=== PATIENT | female | born 1975 ===

== ENCOUNTER 2025-01-12 22:31 | Inpatient (IN) | payer OTHER, SELFPAY ==
[2025-01-12 22:40] VITALS: BMI 40.0
[2025-01-12 22:42] VITALS: BP 164/99
[2025-01-12 22:56] VITALS: BP 148/98
[2025-01-12 23:33] LABS: Glucose - Point of Care 256 mg/dl (70-99)
[2025-01-12 23:46] LABS: HCG, Urine Qualitative Screen Negative
[2025-01-12 23:58] LABS: Urine Character Clear (Clear)
[2025-01-13] VITALS (7 sets, daily range): BP systolic 147–159; BP diastolic 77–98; PULSE 80–91; O2SAT 99; BMI 40.0
--- NOTE | 2025-01-13 01:45 | PTCARENOTE ---
Pt admitted to room 2251 @ 2240 as direct adm from HR. AAOx3, able to walk from stretcher to bed with assist x1 with walker, R sided weakness with steady gait. No facial asymmetry noted, swollen lips d/t testing/endoscopy done at previous hospital,
eyes equal and reactive to light. Slow speech, however no aphasia or slurring noted. Swallow test done and able to tolerate thin liquids without coughing, no difficulty with swallowing. Neuro checks completed and NIH score 4 r/t R sided weakness.
Blood sugar 256, 10 units of novolog given stat as per construction rigger CT PA orders. Allergies and home meds documented, admission questioner completed. Hx of sleep apnea with CPap, pt refused to wear Cpap tonight, O2 applied at 2L via NC. Pt oriented to
room and call light, family friends staying overnight with pt.
[2025-01-13] MEDS: NOVOLOG FLEXPEN 10 UNITS SC (02:20)
[2025-01-13 04:47] LABS: Hematocrit 38.7 % (37.0-47.0); Hemoglobin 13.1 g/dL (12.0-16.0); Mean Corp Hgb Conc. 33.9 g/dL (33.0-37.0); Mean Corpuscular Volume 87.0 fL (81.0-99.0); Platelet Count 244 10^3/uL (130-400); Red Cell Dist. Width 13.4 % (11.5-14.5)
[2025-01-13 05:19] LABS: ALT (SGPT) 31 U/L (0-35); AST (SGOT) 17 U/L (14-36); Albumin 3.6 g/dl (3.5-5.0); Alkaline Phosphatase 137 U/L (38-126); Blood Urea Nitrogen 19 mg/dl (7-17); Calcium 9.8 mg/dl (8.4-10.2); Carbon Dioxide 25 mmol/L (22-30); Chloride 103 mmol/L (98-107); Estimated Creatinine Clearance 117 ml/min; Glucose 406 mg/dl (70-99); HDL Cholesterol 47 mg/dl; LDL Cholesterol, Calculated 44 mg/dl; Magnesium 1.7 mg/dl (1.6-2.3); Potassium 4.0 mmol/L (3.5-5.1); Sodium 136 mmol/L (135-145); Total Protein 6.8 g/dl (6.3-8.2); Very Low Density Lipoprotein 21 mg/dl (0-30); eGFR > 60.00
[2025-01-13 06:38] LABS: Glucose - Point of Care 325 mg/dl (70-99)
[2025-01-13] MEDS: NOVOLOG FLEXPEN-MODERATE RESISTANCE 7 UNITS SC (07:54)
[2025-01-13] MEDS: ASPIR LOW (ENTERIC COATED) 81 MG PO (07:54)
[2025-01-13] MEDS: GLUCOPHAGE PO ×2 (07:54→09:00)
[2025-01-13] MEDS: MAGNESIUM OXIDE 400 MG PO ×2 (07:54→21:18)
[2025-01-13] MEDS: PROTONIX 40 MG PO (07:55)
[2025-01-13 09:40] LABS: Glycohemoglobin (HgbA1c) 11.2 % (4.0-5.9)
--- NOTE | 2025-01-13 10:18 | CON.NEURO ---
Consultation
Order
Date of Consultation: 01/13/25
Requesting Provider: Tammy Walters CRNP
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
Neurology Consultation Note.
HPI: This is a 49-year-old woman who transferred to [facility] from [facility] on 01/12/2025. According to the patient on 01/11/2024 if she developed gibberish and nonsensical speech. Wednesday night, she developed
pain in her left foot that progressed to her leg, followed by numbness on her right side. She was subsequently hospitalized at [facility]. Ms. Almaraz did have dental work in November,. BP on admission was 203/113 mmHg.
Currently, the patient reports persistent weakness on her right side. This weakness significantly impacts her daily functioning, as she cannot open bottles, hold a cup of coffee, or comb her hair with her right hand. She is now using a walker.
Ms. Turner was not was not taking baby aspirin prior to her stroke.
ER VS: 164/99, 94-108, afebrile
Telemetry�normal sinus rhythm
EKG:
PDMP: No recently prescribed medication
Labs: Normal CBC, sodium, creatinine, hemoglobin A1c�11.2, LDL�44.
CTA�no hemodynamically significant stenosis.
Brain MRI -multiple acute infarcts in the left cerebellar hemisphere, left occipital lobe, left parietal lobe, left periventricular white matter.
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
PMH: HTN, DLP, Vitamin D deficiency, polyneuropathy, DIDI not on CPAP, BMI 40, medication nonadherence
PSH: D&C, , right bunionectomy
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
FH: Father had a stroke at the age of 39, non-smoker, no history excess alcohol
All: Iodine, penicillin, gabapentin, ciprofloxacin, amoxicillin, codeine
ROS: Musculoskeletal: Positive for right-sided weakness affecting ability to open bottles, hold cups, and comb hair.
Neurological: Positive for tingling in feet (not currently present), negative for current numbness or vibration sensation in feet.
General: Well developed. In no acute distress.
Cardio: Regular rate and rhythm without murmur. Extremities are without cyanosis or edema.
Neuro:
Mental Status: Alert, oriented to person, place, and date. Normal attention and recall. Good fund of knowledge. Follows complex requests across the midline. Comprehension, naming, and repetition intact.
Cranial Nerves: Pupils are equally round and reactive to light. EOMs full. Visual levine full to confrontation. No ptosis. No nystagmus. V1-V3 intact to light touch and pinprick bilaterally, symmetric. Face symmetric. Normal hearing AU. The
palate elevated well. SCMs and traps 5/5. Tongue midline. No dysarthria.
Motor: Right pronator drift (right elbow antigravity). Right hemiparesis.
Reflexes: Deferred exam due to positioning.
Sensory: Absent vibration at the toes and reduced at the ankle
Coordination: Was related dysmetria on the right.
Gait: deferred
Assessment and Plan:
I. Bihemispheric acute stroke. Likely etiology�cardioembolism.
II. DM, uncontrolled.
III. Nonadherence
IV. DIDI, not on CPAP.
-Continue Telemetry monitoring
- Fall precautions
-Blood pressure goal�normotension
-LDL goal less than 70, hemoglobin A1c goal less than 7.
-Diabetic education nurse
-Continue aspirin 81 mg once a day for secondary stroke prophylaxis
-Please follow-up blood cultures
-PT.
-Cardiology follow-up
-DVT prophylaxis.
-Outpatient neurology follow-up
-Please recall neurology service with any questions or concerns.
I personally reviewed all radiology and labs along with past medical records pertinent to current medical problems. Total time spent in patient care is 63 minutes.
Thank you for allowing us to participate in the care of this patient. Please do not hesitate to contact us with any questions or concerns.
Subjective/Objective
Subjective Data
Date of Service: January 13, 2025
Objective Data
Vital Signs
Temp Pulse Resp BP Pulse Ox
36.6 C 86 20 149/86 97
01/13/25 07:55 01/13/25 08:30 01/13/25 07:55 01/13/25 07:53 01/13/25 07:55
Lab Results
01/13/25 04:34
01/13/25 04:34
PT Cancelled 01/12/25 17:13
INR Cancelled 01/12/25 17:13
APTT Cancelled 01/12/25 17:13
Sodium 136 mmol/L (135-145) 01/13/25 04:34
Potassium 4.0 mmol/L (3.5-5.1) 01/13/25 04:34
BUN 19 mg/dl (7-17) H 01/13/25 04:34
Glucose 406 mg/dl (70-99) H 01/13/25 04:34
Calcium 9.8 mg/dl (8.4-10.2) 01/13/25 04:34
LDL Cholesterol, Calc 44 mg/dl 01/13/25 04:34
Patient Allergies
codeine Allergy (Unknown, Verified 01/12/25 23:56)
Rash
latex Allergy (Unknown, Verified 01/12/25 23:58)
Unknown
amoxicillin Allergy (Verified 01/12/25 23:58)
Rash
ciprofloxacin (From Cipro) Allergy (Verified 01/13/25 00:34)
Rash
gabapentin Allergy (Verified 01/12/25 23:58)
Itching
Iodinated Contrast Media Allergy (Verified 01/12/25 23:58)
Unknown
Penicillins Allergy (Verified 01/12/25 23:58)
Rash
Medications
-
Active Medications
Generic Name Dose Route Start Last Admin
Trade Name Freq PRN Reason Stop Dose Admin
Acetaminophen 650 mg 01/12/25 14:54
Acetaminophen 325 Mg Tablet PO 02/09/25 14:53
Q4HPRN PRN
mild pain/BREWER/temp> 100.4F
Albuterol/Ipratropium 3 ml 01/12/25 14:54
Ipratropium 0.5/Albuterol 3 Mg (3 Ml Ampul) INH
R Q4HPRN PRN
shortness of breath
Protocol
Aspirin 81 mg 01/13/25 08:00 01/13/25 07:54
Aspirin 81 Mg (Enteric Coated) Tablet PO 02/10/25 07:59 81 mg
DAILY SHAWANDA Administration
Bisacodyl 10 mg 01/12/25 14:54
Bisacodyl 10 Mg Rectal Suppository RECTAL 02/09/25 14:53
[id number] PRN
constipation
Dextrose 12.5 grams 01/13/25 00:56
Dextrose 50% (0.5 Grams/Ml) 50 Ml Syringe IV 02/10/25 00:55
[id number] PRN
hypoglycemia
Protocol
Glucagon 1 mg 01/13/25 00:56
Glucagon 1 Mg Vial IM 02/10/25 00:55
PRN PRN
hypoglycemia
Protocol
Insulin Glargine 20 units/ 0.2 mls @ 0 mls/hr 01/13/25 22:00
Device SC 02/10/25 21:59
HS SHAWANDA
As Directed
Insulin Aspart 0 units 01/13/25 07:30 01/13/25 07:54
Insulin Aspart Moderate Resistance 300 Units/3 Ml Pen.Injctr SC 02/10/25 07:29 7 units
AC SHAWANDA Administration
Protocol
Insulin Aspart 12 units 01/13/25 11:30
Insulin Aspart (Novolog) 100 Units/Ml 3 Ml Flexpen SC 02/10/25 11:29
AC SHAWANDA
Magnesium Oxide 400 mg 01/13/25 08:00 01/13/25 07:54
Magnesium Oxide 400 Mg Tablet PO 01/15/25 20:01 400 mg
BID SHAWANDA Administration
Metformin HCl 1,000 mg 01/13/25 08:00
Metformin 1000 Mg Regular Release Tablet PO 02/10/25 07:59
BID@0800,1700 SHAWANDA
Ondansetron HCl 4 mg 01/12/25 14:54
Ondansetron 4 Mg/2 Ml Vial IV 02/09/25 14:53
Q6HPRN PRN
nausea and vomiting
Pantoprazole Sodium 40 mg 01/13/25 08:00 01/13/25 07:55
Pantoprazole 40 Mg Delayed Release Tablet PO 02/10/25 07:59 40 mg
DAILY SHAWANDA Administration
Polyethylene Glycol 17 grams 01/12/25 14:54
Polyethylene Glycol Powder 17 Grams Packet PO 02/09/25 14:53
DAILYPRN PRN
constipation
Senna/Docusate Sodium 1 tablet 01/12/25 14:54
Docusate W/Senna (Angelica-Colace) Tablet PO 02/09/25 14:53
BIDPRN PRN
constipation
Sodium Chloride 0 flush 01/13/25 02:00
Sodium Chloride 0.9% (Flush) Syringe IV 02/10/25 01:59
PER PROTOCOL SHAWANDA
Home Medications
�Medication �Instructions �Recorded
chlorthalidone 25 mg tablet 25 mg PO DAILY 01/13/25
ergocalciferol (vitamin D2) 1,250 1,250 mcg PO QWEEK 01/13/25
mcg (50,000 unit) capsule (Vitamin
D2)
fluconazole 150 mg tablet 150 mg PO DAILY 01/13/25
insulin aspart U-100 100 unit/mL 20 unit SC TID 01/13/25
(3 mL) subcutaneous pen
insulin glulisine U-100 100 70 unit SC QPM 01/13/25
unit/mL subcutaneous solution
ketorolac 10 mg tablet 10 mg PO Q6H PRN pain 01/13/25
lidocaine 5 % topical patch 1 patch topical DAILY 01/13/25
losartan 100 mg tablet 100 mg PO DAILY 01/13/25
lovastatin 20 mg tablet 20 mg PO QPM 01/13/25
metformin 500 mg tablet,extended 1,000 mg PO BID 01/13/25
release 24hr (osmotic)
metoprolol succinate 100 mg 100 mg PO DAILY 01/13/25
tablet,extended release 24 hr
spironolactone 50 mg tablet 50 mg PO DAILY 01/13/25
Vital Signs and Labs
-
Vital Signs and Labs:
Vital Signs
Temp Pulse Resp BP Pulse Ox
36.6 C 86 20 149/86 97
01/13/25 07:55 01/13/25 08:30 01/13/25 07:55 01/13/25 07:53 01/13/25 07:55
Lab Results
01/13/25 04:34
01/13/25 04:34
PT Cancelled 01/12/25 17:13
INR Cancelled 01/12/25 17:13
APTT Cancelled 01/12/25 17:13
Sodium 136 mmol/L (135-145) 01/13/25 04:34
Potassium 4.0 mmol/L (3.5-5.1) 01/13/25 04:34
BUN 19 mg/dl (7-17) H 01/13/25 04:34
Glucose 406 mg/dl (70-99) H 01/13/25 04:34
Calcium 9.8 mg/dl (8.4-10.2) 01/13/25 04:34
LDL Cholesterol, Calc 44 mg/dl 01/13/25 04:34
Medications
-
Medications:
Generic Name Dose Route Start Last Admin
Trade Name Freq PRN Reason Stop Dose Admin
Acetaminophen 650 mg 01/12/25 14:54
Acetaminophen 325 Mg Tablet PO 02/09/25 14:53
Q4HPRN PRN
mild pain/BREWER/temp> 100.4F
Albuterol/Ipratropium 3 ml 01/12/25 14:54
Ipratropium 0.5/Albuterol 3 Mg (3 Ml Ampul) INH
R Q4HPRN PRN
shortness of breath
Protocol
Aspirin 81 mg 01/13/25 08:00 01/13/25 07:54
Aspirin 81 Mg (Enteric Coated) Tablet PO 02/10/25 07:59 81 mg
DAILY SHAWANDA Administration
Bisacodyl 10 mg 01/12/25 14:54
Bisacodyl 10 Mg Rectal Suppository RECTAL 02/09/25 14:53
[id number] PRN
constipation
Dextrose 12.5 grams 01/13/25 00:56
Dextrose 50% (0.5 Grams/Ml) 50 Ml Syringe IV 02/10/25 00:55
[id number] PRN
hypoglycemia
Protocol
Glucagon 1 mg 01/13/25 00:56
Glucagon 1 Mg Vial IM 02/10/25 00:55
PRN PRN
hypoglycemia
Protocol
Insulin Glargine 20 units/ 0.2 mls @ 0 mls/hr 01/13/25 22:00
Device SC 02/10/25 21:59
HS SHAWANDA
As Directed
Insulin Aspart 0 units 01/13/25 07:30 01/13/25 07:54
Insulin Aspart Moderate Resistance 300 Units/3 Ml Pen.Injctr SC 02/10/25 07:29 7 units
AC SHAWANDA Administration
Protocol
Insulin Aspart 12 units 01/13/25 11:30
Insulin Aspart (Novolog) 100 Units/Ml 3 Ml Flexpen SC 02/10/25 11:29
AC SHAWANDA
Magnesium Oxide 400 mg 01/13/25 08:00 01/13/25 07:54
Magnesium Oxide 400 Mg Tablet PO 01/15/25 20:01 400 mg
BID SHAWANDA Administration
Metformin HCl 1,000 mg 01/13/25 08:00
Metformin 1000 Mg Regular Release Tablet PO 02/10/25 07:59
BID@0800,1700 SHAWANDA
Ondansetron HCl 4 mg 01/12/25 14:54
Ondansetron 4 Mg/2 Ml Vial IV 02/09/25 14:53
Q6HPRN PRN
nausea and vomiting
Pantoprazole Sodium 40 mg 01/13/25 08:00 01/13/25 07:55
Pantoprazole 40 Mg Delayed Release Tablet PO 02/10/25 07:59 40 mg
DAILY SHAWANDA Administration
Polyethylene Glycol 17 grams 01/12/25 14:54
Polyethylene Glycol Powder 17 Grams Packet PO 02/09/25 14:53
DAILYPRN PRN
constipation
Senna/Docusate Sodium 1 tablet 01/12/25 14:54
Docusate W/Senna (Angelica-Colace) Tablet PO 02/09/25 14:53
BIDPRN PRN
constipation
Sodium Chloride 0 flush 01/13/25 02:00
Sodium Chloride 0.9% (Flush) Syringe IV 02/10/25 01:59
PER PROTOCOL SHAWANDA
Home Medications
-
Home Medications
chlorthalidone 25 mg tablet 25 mg PO DAILY 01/13/25
ergocalciferol (vitamin D2) 1,250 mcg (50,000 unit) capsule (Vitamin D2) 1,250 mcg PO QWEEK 01/13/25
fluconazole 150 mg tablet 150 mg PO DAILY 01/13/25
insulin aspart U-100 100 unit/mL (3 mL) subcutaneous pen 20 unit SC TID 01/13/25
insulin glulisine U-100 100 unit/mL subcutaneous solution 70 unit SC QPM 01/13/25
ketorolac 10 mg tablet 10 mg PO Q6H PRN pain 01/13/25
lidocaine 5 % topical patch 1 patch topical DAILY 01/13/25
losartan 100 mg tablet 100 mg PO DAILY 01/13/25
lovastatin 20 mg tablet 20 mg PO QPM 01/13/25
metformin 500 mg tablet,extended release 24hr (osmotic) 1,000 mg PO BID 01/13/25
metoprolol succinate 100 mg tablet,extended release 24 hr 100 mg PO DAILY 01/13/25
spironolactone 50 mg tablet 50 mg PO DAILY 01/13/25
--- NOTE | 2025-01-13 10:48 | HPS.HSE ---
Family Physician
-
Family Physician: Dacia Baum
Chief Complaint
-
transfer for mitral valve surgery evaluation
History of Present Illness
49-year-old female with past medical history significant for type 2 diabetes with neuropathy, obstructive sleep apnea, hypertension, class III obesity, initially presented to [facility] on the evening of 01/10/2025 with
progressive fatigue since 01/08 and new left foot pain with 'mild' frontal headache and sudden onset of right sided weakness on 01/10/25. Blood pressure in the emergency room was documented as 203/[address] of the head was negative
however MRI of the brain on 01/11 reported acute multiple infarcts in the left cerebellar, occipital, and parietal regions. A LAURA was performed on 01/11 for source of the embolic CVA with noted EF of 60-65%, normal RV size and function, trace
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 Blood cultures reportedly sent at [facility] and patient transferred to [facility]
for further evaluation and consideration of mitral valve surgery. Last dental examination was approximately 1 month ago and patient reports has intermittent pain/bleeding from top right molar. Denies fever, chills
Pertinent negatives: Denies dysphagia, vison disturbance, chest surgery/radiation, gastric bypass, liver issues, LE vein stripping, DVT/PE, cancers
Medical History
Past Medical History
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
Past Surgical History: Reports (and D&C after miscarriage; right bunionectomy)
Social History
Tobacco: Non-smoker
Alcohol: None
Drug: None
Personal:
Living: With Family
Employment: Not Employed
Family History
Family History: Other (F-CVA age 39, age 58)
Allergies / Home Medications
Allergies reflects when Allergies were last updated in [facility].
Home Medications with original date entered in [facility]
Allergy/Medication List:
Allergies
Allergy/AdvReac Type Severity Reaction Status Date / Time
codeine Allergy Unknown Rash Verified 01/12/25 23:56
latex Allergy Unknown Unknown Verified 01/12/25 23:58
amoxicillin Allergy Rash Verified 01/12/25 23:58
ciprofloxacin (From Cipro) Allergy Rash Verified 01/13/25 00:34
gabapentin Allergy Itching Verified 01/12/25 23:58
Iodinated Contrast Media Allergy Unknown Verified 01/12/25 23:58
Penicillins Allergy Rash Verified 01/12/25 23:58
Home Medications
�Medication �Instructions �Recorded
chlorthalidone 25 mg tablet 25 mg PO DAILY 01/13/25
ergocalciferol (vitamin D2) 1,250 1,250 mcg PO QWEEK 01/13/25
mcg (50,000 unit) capsule (Vitamin
D2)
fluconazole 150 mg tablet 150 mg PO DAILY 01/13/25
insulin aspart U-100 100 unit/mL 20 unit SC TID 01/13/25
(3 mL) subcutaneous pen
insulin glulisine U-100 100 70 unit SC QPM 01/13/25
unit/mL subcutaneous solution
ketorolac 10 mg tablet 10 mg PO Q6H PRN pain 01/13/25
lidocaine 5 % topical patch 1 patch topical DAILY 01/13/25
losartan 100 mg tablet 100 mg PO DAILY 01/13/25
lovastatin 20 mg tablet 20 mg PO QPM 01/13/25
metformin 500 mg tablet,extended 1,000 mg PO BID 01/13/25
release 24hr (osmotic)
metoprolol succinate 100 mg 100 mg PO DAILY 01/13/25
tablet,extended release 24 hr
spironolactone 50 mg tablet 50 mg PO DAILY 01/13/25
Review of Systems
-
History Source: Patient
Constitutional: Reports No Symptoms
EENT: Reports Other (R top molar intermittent pain/bleeding since dental cleaning 1 month ago)
Respiratory: Reports No Symptoms
Cardiac: Reports No Symptoms
Abdomen/GI: Reports No Symptoms
: Reports No Symptoms
Musculoskeletal: Reports No Symptoms
Skin: Reports No Symptoms
Neurological: Reports Weakness (+4/5 RUE/RLE strength)
Endocrine: Reports No Symptoms
Hematologic/Lymphatic: Reports No Symptoms
Psych: Reports No Symptoms
Physical Exam
Vital Signs
Vital Signs
Temp Pulse Resp BP Pulse Ox
97.9 F 86 20 149/86 97
01/13/25 07:55 01/13/25 08:30 01/13/25 07:55 01/13/25 07:53 01/13/25 07:55
Physical Exam
General: Well Developed, Well Nourished, No Apparent Distress, Comfortable and Conversant
HEENT: NormoCephalic, Anicteric, Moist mucous membranes, Good Dentition, PERRLA, [place] Conjunctivae, Nose Appears Normal, Ears Appear Normal and Neck Nontender
Respiratory: Clear
Cardiac: S1/S2 and Regular Rhythm
Breast: Deferred by me
GI: Soft, Non Tender and Normal Bowel Sounds
Rectal: Deferred by Provider
Genito-urinary: Deferred by me
Musculoskeletal: No Clubbing, No Cyanosis and No Edema
Skin: Warm and Dry
Neuro: AO x 3 and Other (+4/5 RUE/RLE strength)
Hematologic/Lymphatic: No Lymphadenopathy
Psych: Calm and Intact Judgment/Insight
Laboratory Results
-
01/13/25 04:34
01/13/25 04:34
Laboratory Results
PT Cancelled 01/12/25 17:13
INR Cancelled 01/12/25 17:13
APTT Cancelled 01/12/25 17:13
Total Bilirubin 0.3 mg/dl (0.2-1.3) 01/13/25 04:34
AST 17 U/L (14-36) 01/13/25 04:34
ALT 31 U/L (0-35) 01/13/25 04:34
Alkaline Phosphatase 137 U/L (38-126) H 01/13/25 04:34
Data Reviewed
-
Diagnostic Radiology: Report Reviewed by me and Discussed with Physician
CT Scan: Report Reviewed by me and Discussed with Physician
MRI: Report Reviewed by me and Discussed with Physician
Medical Tests (Nuc Med, Echo, EKG etc): Report Reviewed by me and Discussed with Physician
Lab Data: Labs Reviewed by me and Discussed with Physician
Old Records: Reviewed
Impression/Plan
-
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
regurgitation and preserved EF (60-65%)
PLAN:
# Embolic CVA
- Neurology/hospitalist consult for pre-op clearance and recommendations for further stroke prevention
- check lipid panel
- speech therapy evaluation to assess swallow function
- PT/OT evaluation/treatment
- check repeat CT head (noncontrast d/t iodine contrast allergy) for hemorrhagic conversion
- continue statin
# Mitral valve mass
- cardiology consult
- check echo/ poss left heart cath
- Infectious disease consult
- repeat blood cultures ordered
- Panelipse
- Dr. Vizcarra to review diagnostics>possible surgery on Wednesday
- urine HCG negative
# T2DM on insulin (A1C 11.2)
- diabetes HEALTH EVALUATOR consult
- continue insulin/MFM with sliding scale
- 1800 nevin DM diet once cleared by speech
# HTN
- hold losartan in preparation for surgery
- continue beta manohar
--- NOTE | 2025-01-13 10:48 | CON.ID ---
Addendum entered and electronically signed by Heydi Kim MD 01/13/25 11:47:
correction to physical exam: weakness in on patients right side still 4+ strength
Original Note:
Consultation
-
Date/Time Consultation Requested: 01/13/25 9:48
Date/Time Consultation Performed: 01/13/25 10:51
Requesting Provider: Romeo BARTH
Performing Provider: Dr Kim
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
Chief Complaint / Past History
Chief Complaint
strokes
History of Present Illness
Ms Almaraz is a 49 year old feamle with history notable for DM2, class III obesity who presented to [facility] for right upper and lower extremity weakness. Symptoms first began wednesday and wednesday when she felt tired and noticed mild
slurring of her speech. The Wednesday she noted severe pain in the left foot and leg and then she developed weakness in her right hand and foot. She had difficulty ambulating and using her hand. Had a headache. She presented to the ER and her
blood pressure was notably 203/113. She has a history of uncontrolled blood pressure despite being on 4 medications for blood pressure. No lightheadness, palpitations or syncope. Never had a stroke or a TIA. Denies fevers, chills, dizziness,
chest pain, palpitations, shortness of breath, cough, abdominal pain, nausea, vomiting, diarrhea, and dysuria. No unintentional weight loss. She does report about two weeks of night sweats and flushing.
While at [facility] a CTA brain neck and carotids: marked limited due to motion, no proximal large vessel occlusion, CT head: no acute intracranial pathology, MRI brain: multiple acute infarcts in the L cerebellar hemisphere, L occipital
lobe, left parietal lobe and left periventricular white matter, TTE: normal heart valves, LAURA: mass on the mitral valve: fibroelastoma vs cardiac myxema vs vegetation, valves otherwise normal. I did not see blood cultures listed as one of the
studies that was obtained.
Since arrival here she has been afebrile, bp stable, wbc 6.5, no differential done, a1c 11.2, cr 0.6, blood cultures x2 are ordered but have not yet been obtained. CXR no acute CP process.
Past History
Additional Past Medical History:
DM
DIDI
peripheral neuropathy
obesity
HTN
Additional Past Surgical History:
uterine polyp removal
C section
d&c
Allergy History:
codeine Allergy (Unknown, Verified 01/12/25 23:56)
Rash
latex Allergy (Unknown, Verified 01/12/25 23:58)
Unknown
amoxicillin Allergy (Verified 01/12/25 23:58)
Rash
ciprofloxacin (From Cipro) Allergy (Verified 01/13/25 00:34)
Rash
gabapentin Allergy (Verified 01/12/25 23:58)
Itching
Iodinated Contrast Media Allergy (Verified 01/12/25 23:58)
Unknown
Penicillins Allergy (Verified 01/12/25 23:58)
Rash
Medications Reviewed: Yes
Social History
Tobacco: Non-Smoker
Alcohol: None
Drug: None
Family History
Family History: Other (early cardiac disease)
Review of Systems
Review of Systems
General: Negative Fever or Chills
All systems: All other systems were reviewed and were negative
Vital Signs
Temp Pulse Resp BP Pulse Ox
97.9 F 86 20 149/86 97
01/13/25 07:55 01/13/25 08:30 01/13/25 07:55 01/13/25 07:53 01/13/25 07:55
Physical Exam
Physical Exam
Constitutional: No Acute Distress
Cardiovascular: Regular Rate and S1/S2; Negative Murmur or Rub
Pulmonary: Clear and Symmetric; Negative Wheezes, Rales or Rhonchi
Gastrointestinal: Soft, Non Tender, Non Distended and Normal Bowel Sounds
Extremities: Other (no osler nodes); Negative Splinter Hemorrhage or [place] Lesions
Skin: Warm and Dry; Negative Rash or Jaundice
Neurological: Other (weakness of the left arm 4+ strength, and left leg 4+ strength)
Lab / Diagnostic Study Results
01/13/25 04:34
01/13/25 04:34
PT Cancelled 01/12/25 17:13
INR Cancelled 01/12/25 17:13
Microbiology Results
Micro:
01/12/25 23:22 MRSA Screen - Pending
Nose
Assessment / Plan
Embolic CVAs
Possible endocarditis
Reported allergy to penicillin/amoxicillin and ciprofloxacin
- mass seen on the mitral valve, overall favor noninfectious etiologies
- blood cultures must be collected prior to starting antibiotics - communicated with nursing staff
- start vancomycin and ceftriaxone while awaiting blood culture results
- will follow up CT surgery plans - if valve is resected please send for culture
- follow fever curve
- follow clinically
--- NOTE | 2025-01-13 11:42 | PHA.VAN.IN ---
Assessment
- Assessment
Renal Function: Unknown baseline
Maximum Temperature: 98.6
Concomitant Antimicrobials: ceftriaxone
AUC Dosing Plan
- Dosing Variables
Dosing Weight (kg): 96
Dosing CrCl (ml/min): 100
Vd coefficient (L/kg): 0.6
- Empiric Dosing
Initial / Loading Dose: vancomycin 2000 mg x 1
Maintenance Regimen: vancomycin 1250 mg Q12H
Estimated AUC (mcg*h/mL): 529
Estimated Peak (mcg*h/mL): 33.4
Estimated Trough (mcg/ml): 13.3
Estimated Half Life (H): 7.9
- Monitoring
No levels ordered at this time: consider levels in next few days
Pharmacokinetics Vancomycin I
- -
Patient Age: 49
Patient Sex: Female
Vancomycin Day #: 1
Indication: Bacteremia
Requesting Provider: Dr. Kim
Pertinent Antimicrobial Allergies:
amoxicillin, ciprofloxacin
Height / Weight:
Height 5 ft 1 in
Actual Weight 96 kg
IBW in k.8
Adjusted BW in k.1
- Vital Signs / Lab Results
Temp Pulse Resp BP Pulse Ox
97.9 F 86 20 149/86 97
01/13/25 07:55 01/13/25 08:30 01/13/25 07:55 01/13/25 07:53 01/13/25 07:55
Lab Results - Hematology
01/12/25 01/13/25
17:13 04:34
WBC Cancelled 6.5
Lab Results - Chemistry
01/12/25 01/13/25
17:13 04:34
BUN Cancelled 19 H
Creatinine Cancelled 0.6
Estimated Creat Clear Cancelled 117
Albumin Cancelled 3.6
Lab Results - Urine
01/12/25
23:34
Urine Nitrite (Reflex) Negative
Leukocyte Esterase Rfl Negative
--- NOTE | 2025-01-13 11:43 | CON.CAR ---
Addendum entered and electronically signed by Vance Clifton MD 01/13/25 14:36:
I saw and evaluated the patient, and I provided the substantive portion of the medical decision making.
I reviewed and agree with the note by Ms Myles and it accurately reflects our care.
I personally performed the medical decision making of the this encounter and my assessment and plan is below:
MV mass
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
- LAURA Wednesday
- ID consult
HTN
- restart BP meds
Original Note:
Consultation
Consultation Request
Date/Time Consultation Requested: 01/13/2025 0800
Date/Time Consultation Performed: 01/13/2025 1130
Requesting Provider: Dr. Vizcarra
Performing Provider: Dr. Clifton
Reason for Consultation: endocarditis
Medical History
-
Chief Complaint: elevated BP, R side weakness
History of Present Illness:
49-year-old patient who presented to [facility] with a history of asthma, DIDI with history of CPAP use not currently using secondary to insurance issues, peripheral neuropathy, hypertension who presented to [facility] emergency room with
right-sided weakness elevated blood pressure. MRI of the brain with multiple acute infarcts in the L cerebellar hemisphere, L occipital lobe, left parietal lobe and left periventricular white matter, Pt had LAURA with mitral valve mass and
transferred to [place] for further evaluation.
Past Medical History
Past Medical History: Other (DM, HTN, hyperlipidemia, DIDI,neuropathy)
Past Surgical History: Other (, uterine polyp)
Social History
Tobacco: Non-Smoker
Alcohol: None
Family History
Family History: Early CAD
Allergies / Home Medications
Allergy/AdvReac Type Severity Reaction Status Date / Time
codeine Allergy Unknown Rash Verified 01/12/25 23:56
latex Allergy Unknown Unknown Verified 01/12/25 23:58
amoxicillin Allergy Rash Verified 01/12/25 23:58
ciprofloxacin (From Cipro) Allergy Rash Verified 01/13/25 00:34
gabapentin Allergy Itching Verified 01/12/25 23:58
Iodinated Contrast Media Allergy Unknown Verified 01/12/25 23:58
Penicillins Allergy Rash Verified 01/12/25 23:58
�Medication �Instructions �Recorded �Confirmed �Type
chlorthalidone 25 mg tablet 25 mg PO DAILY 01/13/25 01/13/25 History
ergocalciferol (vitamin D2) 1,250 1,250 mcg PO QWEEK 01/13/25 01/13/25 History
mcg (50,000 unit) capsule (Vitamin
D2)
fluconazole 150 mg tablet 150 mg PO DAILY 01/13/25 01/13/25 History
insulin aspart U-100 100 unit/mL 20 unit SC TID 01/13/25 01/13/25 History
(3 mL) subcutaneous pen
insulin glulisine U-100 100 70 unit SC QPM 01/13/25 01/13/25 History
unit/mL subcutaneous solution
ketorolac 10 mg tablet 10 mg PO Q6H PRN pain 01/13/25 01/13/25 History
lidocaine 5 % topical patch 1 patch topical DAILY 01/13/25 01/13/25 History
losartan 100 mg tablet 100 mg PO DAILY 01/13/25 01/13/25 History
lovastatin 20 mg tablet 20 mg PO QPM 01/13/25 01/13/25 History
metformin 500 mg tablet,extended 1,000 mg PO BID 01/13/25 01/13/25 History
release 24hr (osmotic)
metoprolol succinate 100 mg 100 mg PO DAILY 01/13/25 01/13/25 History
tablet,extended release 24 hr
spironolactone 50 mg tablet 50 mg PO DAILY 01/13/25 01/13/25 History
Review of Systems
-
History Source: Patient
Constitutional: Fatigue and Night Sweats
EENT: No Symptoms
Respiratory: No Symptoms
Cardiac: No Symptoms
Abdomen/GI: No Symptoms
Musculoskeletal: No Symptoms
Skin: No Symptoms
Neurological: Weakness (R side )
Hematologic/Lymphatic: No Symptoms
Physical Exam
Vital Signs
Temp Pulse Resp BP Pulse Ox
97.9 F 86 20 149/86 97
01/13/25 07:55 01/13/25 08:30 01/13/25 07:55 01/13/25 07:53 01/13/25 07:55
Lab Results
01/13/25 04:34
01/13/25 04:34
Physical Exam
General: Well Developed, No Apparent Distress and Comfortable
Respiratory: Clear
Cardiac: S1/S2 and Regular Rhythm
Breast: Deferred by me
GI: Soft, Non Tender and Normal Bowel Sounds
Musculoskeletal: No Clubbing, No Cyanosis and No Edema
Skin: Warm and Dry
Neuro: AO x 3
Psych: Calm
Impression / Plan
-
Embolic CVA:
-asa , plavix per neuro [facility] x 21 days then asa
-R side weakness, PT and speech evals
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
-work up in progress
Possible endocarditis:
-await blood cultures
-ID following
-pt notes she had a deep dental cleaning and cyst on R side of mouth about 6 weeks ago
HTN:
- Treated with Aldactone, losartan and metoprolol. Currently on hold until speech eval.
- Permissive BP with recent CVA
hyperlipidemia:
-check lipids, con't statin currently on hold until speech eval
DM:
-chronic medication, insulin
-hgba1c 11.4 at [facility]
Data reviewed:
Echocardiogram 01/11/2025 LV normal size LV function normal EF 60 to 65% RV normal normal mitral valve physiologic mitral valve regurgitation, TV normal, CARMEN structurally normal no evidence of stenosis
-
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
versus cardiac myxema, versus vegetation, AV structurally normal bubble study negative
MR of the brain 01/11/2025 with multiple acute infarcts in the left cerebellar hemisphere left occipital lobe and left parietal lobe and left periventricular white matter
Data Reviewed
-
EKG: Report Reviewed by me (Tele: NSR )
Labs: Labs Reviewed by me, Discussed with Physician and Discussed with Patient
Old Records: Reviewed
Critical Care Time (in minutes): OP records Tha Eisenberg
[2025-01-13 12:33] LABS: Glucose - Point of Care 238 mg/dl (70-99)
[2025-01-13] MEDS: VANCOCIN 540 MG IV (13:37)
[2025-01-13] MEDS: NOVOLOG FLEXPEN-MODERATE RESISTANCE 3 UNITS SC (13:38)
[2025-01-13] MEDS: NOVOLOG FLEXPEN 12 UNITS SC ×2 (13:42→17:26)
--- NOTE | 2025-01-13 13:58 | PTOTSP ---
Speech-Language Therapy Evaluation
Pt seen for bedside swallow evaluation and cognitive-communication assessment. Pt at an elevated risk of aspiration given recent dx of CVA.�Pt managed PO trials with a functional oral phase (adequate mastication, good bolus formation, adequate ap
transfer) and functional pharyngeal phase (appeared to have timely hyolaryngeal elevation upon palpation, no overt s/sx of aspiration, clear vocal quality and denial of globus sensation).�
Due to recent dx of stroke (no speech-language assessment at [facility] prior to transfer to [facility], per pt report), pt participated in [place] Cognitive Assessment - Version 8.1 (MOCA). Pt achieved score of 25/30 (>26 considered normal) yielding
mild cognitive-communicative deficits in recall and visuospatial skills. Pt denied any new cognitive changes. Pt provided with written information regarding stroke and its impact on cognitive-communication skills. Information provided regarding
[facility] outpatient speech services.�
Recommend:
1. IDDSI level 7 Regular Solids, IDDSI level 0 Thin liquids
2. Medication as best tolerated
3. Standard aspiration precautions
4. Pt receptive of education regarding stroke. Speech signing off.
--- NOTE | 2025-01-13 15:03 | CON.HOSP ---
Consultation
-
Date/Time Consultation Requested: 01/13/2025
Date/Time Consultation Performed: 01/13/2025
Requesting Provider: Tammy Walters
Performing Provider: Dr. Manzanares
Reason for Consultation: Surgical clearance
Family Physician
-
Family Physician: Dacia Baum
Chief Complaint
-
Clearance for cardiac surgery
History of Present Illness
Ms Almaraz is a 49-year-old patient with a past medical history of diabetes type 2 uncontrolled, A1c 11.2% (last 13%) DIDI not using CPAP due to insurance issues, diabetic neuropathy, uncontrolled hypertension despite 4 antihypertensives, controlled
asthma, obesity who presented to [facility] emergency room with right-sided weakness elevated blood pressure. She states that weakness started on 01/08 affecting arm and leg and progressively got worse until presentation to ED on 01/10 due to
worsening symptoms. At [facility] patient got CT head which showed no abnormalities, unremarkable CTA, and MRI of the brain with multiple acute infarcts in the L cerebellar hemisphere, L occipital lobe, left parietal lobe and left periventricular
white matter. She also underwent TTE and LAURA with mitral valve mass. She reports having dental work in November 2024 but did not notice any signs of infection no fevers chills nausea vomiting leading up to presentation to [facility]. She was
transferred to [place] for further evaluation. She reports no previous history of DC, or heart failure but does report that she went to the review consultant a while back for swelling in her legs and was giving spironolactone. She reports not
following up with cardiology for further chest and has never been told she had heart failure.
Medical History
Past Medical History
Past Medical History: Reports Asthma (Controlled last inhaler use 1 year ago), CVA, HTN (Uncontrolled on 4 medications), Hypercholesterolemia, IDDM (On Lantus and NovoLog) and Other (Obesity)
Past Surgical History: Reports and Gynocological (D&C)
Social History
Tobacco: Non-smoker
Alcohol: None
Drug: None
Family History
Family History: Other (Cardiac disease)
Allergies / Home Medications
Allergies reflects when Allergies were last updated in [facility].
Home Medications with original date entered in [facility]
Allergy/Medication List:
Codeine, latex, amoxicillin, penicillins, ciprofloxacin, gabapentin, iodine
Review of Systems
-
History Source: Patient
Constitutional: Denies Fever or Chills
EENT: Denies Runny Nose
Respiratory: Denies Cough or Trouble Breathing
Cardiac: Denies Chest Pain or Palpitations
Abdomen/GI: Denies Abdominal Pain, Nausea, Vomiting, Diarrhea or Constipated
Musculoskeletal: Reports No Symptoms
Skin: Reports No Symptoms
Neurological: Reports Headache and Weakness
Physical Exam
Vital Signs
Vital Signs
Temp Pulse Resp BP Pulse Ox
97.2 F 88 18 148/84 100
01/13/25 13:58 01/13/25 13:51 01/13/25 13:58 01/13/25 13:51 01/13/25 13:58
Physical Exam
General: Well Developed, Well Nourished, No Apparent Distress and Comfortable; Negative Fever
HEENT: Normocephalic and PERRLA
Respiratory: Clear and Non Labored Respirations; Negative Wheezes
Cardiac: S1/S2 and Regular Rhythm; Negative Murmur or Peripheral Edema
GI: Soft, Non Tender, Non Distended and Normal Bowel Sounds
Musculoskeletal: No Clubbing and No Edema
Skin: Warm and Dry
Laboratory Results
-
Laboratory Results
01/13/25 04:34
01/13/25 04:34
PT Cancelled 01/12/25 17:13
INR Cancelled 01/12/25 17:13
APTT Cancelled 01/12/25 17:13
Total Bilirubin 0.3 mg/dl (0.2-1.3) 01/13/25 04:34
AST 17 U/L (14-36) 01/13/25 04:34
ALT 31 U/L (0-35) 01/13/25 04:34
Alkaline Phosphatase 137 U/L (38-126) H 01/13/25 04:34
Impression / Plan
-
IMPRESSION:
49 year old with a history of uncontrolled type 2 diabetes, diabetic neuropathy, uncontrolled hypertension, DIDI, obesity transferred from [facility] 01/12/25 after acute embolic left cerebellar, occiput and parietal CVA identified on MRI
with right sided weakness and mitral valve mass and preserved EF (60-65%) transferred to [facility] for cardiac surgery evaluation.
PLAN:
#Preop clearance
Revised cardiac risk index score 3
10% risk of major cardiac event
Patient needs to be cleared by neurology before cardiac procedure
# T2DM, uncontrolled
on insulin (A1C 11.2)
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
- Increase Lantus to 30 units
# CVA
- Secondary prevention per neurology
- PT/OT/ST evaluation/treatment
- continue statin
# Mitral valve mass
Per cardiothoracic team
# HTN, uncontrolled
Essential versus secondary?
Inpatient medications per CT team
Outpatient follow-up for further evaluation between secondary versus essential
DVT prophylaxis: SCDs
CODE STATUS: Full code
--- NOTE | 2025-01-13 15:16 | W.PN.UPDATE ---
Update Note
Progress Note Update
Seen and examined the patient. Agree with the plan formulated by the resident
49-year-old female was admitted to [facility] on 01-08-25 with progressive fatigue and right-sided weakness. Blood pressure was elevated in the ER. MRI on 01/11/2025 showed multiple infarcts in the left cerebellar, occipital and
parietal regions. LAURA showed source of embolic CVA and a mitral valve mass 0.71 into 0.41 cm adherent to the P1 leaflet consistent with fibroelastoma versus myxoma versus vegetation. Patient was transferred to [facility]. We were asked
to evaluate patient by cardiothoracic surgery.
Patient stated that she had dental work in November and received antibiotics at that time but recently had some increased pain on the right side prior to this happening.
[facility]
CTA of the head and neck-limited due to motion. No proximal large vessel occlusion.
CT head-no acute changes
MRI of the brain-multiple acute infarcts in the left cerebellar hemisphere, left occipital lobe, left parietal lobe, left periventricular white matter.
LAURA-mass on the mitral valve, fibroelastoma versus cardiac myxoma versus vegetation
[facility]
CT of the chest at [facility]-no acute findings in the chest. Mild bilateral subsegmental atelectasis. Narrowing of the retrosternal space 4 mm between posterior aspect of the lower sternal body and the right ventricle.
CT of the head to [facility]-hypodensities in the left centrum semiovale and left occipital lobe likely secondary to evolving infarctions. No acute intracranial hemorrhage.
Awake alert oriented
Cardiovascular system S1-S2 appreciated, systolic murmur at apex
Chest clear to auscultation
Abdomen soft and nontender
Mild numbness around the perioral area
4 out of 5 strength right lower extremity, 3 out of 5 strength right upper extremity
I could not elicit any facial droop
# Vegetation on mitral valve
Admitted for CT surgery
RCRI 10 % risk
Patient with recent CVA-get neurology opinion prior to proceeding with surgery.
No blood cultures noted from [facility]
Blood cultures from [facility] pending
Continue vancomycin and ceftriaxone
Infectious disease consulted
# Recent embolic stroke likely secondary to endocarditis
# Diabetes poorly controlled as outpatient with hemoglobin A1c 11.2
Was on 70 units of Glulisine as listed per medications list and also aspart 20 units 3 times daily
Currently on Lantus 30 units and NovoLog 12 AC along with metformin 1000 mg twice daily, Accu-Cheks and sliding scale
Increase as needed according to sugar
# Hypertension-currently on losartan, Aldactone
Patient was on chlorthalidone, spironolactone, metoprolol and losartan as outpatient
# Hyperlipidemia-continue lovastatin
# Peripheral neuropathy-likely secondary to diabetes
# Sleep apnea-continue CPAP
# Obesity with a BMI of 40
# DVT prophylaxis-start Lovenox 40 mg twice daily because of BMI of [address] surgery
# Full code
Thank you for the consultation.
Discussed with family at bedside
Part of this note was created using voice recognition system. Occasional wrong word or��sound alike� substitutions may have inadvertently occurred due to the inherent limitations of voice recognition software. If noted kindly bring it to my
attention for correction.
--- NOTE | 2025-01-13 15:20 | PTCARENOTE ---
Pt receiving Vanco infusion, c/o itching on scalp and ears. No hives noted, no other allergy symptoms. Dr. Kim made aware, infusion rate lowered and benadryl given as ordered.
[2025-01-13] MEDS: BENADRYL 25 MG PO ×2 (15:42→22:35)
[2025-01-13] MEDS: STERILE WATER FOR INJECTION 20 ML IV (17:25)
[2025-01-13] MEDS: ROCEPHIN 2000 MG IV (17:26)
[2025-01-13] MEDS: GLUCOPHAGE 1000 MG PO (17:26)
[2025-01-13] MEDS: LIPITOR 10 MG PO (17:26)
[2025-01-13 17:49] LABS: Glucose - Point of Care 256 mg/dl (70-99)
[2025-01-13] MEDS: TYLENOL 650 MG PO (17:55)
[2025-01-13] MEDS: NOVOLOG FLEXPEN-MODERATE RESISTANCE 5 UNITS SC (17:56)
[2025-01-13] MEDS: VANCOCIN 275 MG IV (21:18)
[2025-01-13 21:32] LABS: Glucose - Point of Care 252 mg/dl (70-99)
[2025-01-13] MEDS: LANTUS 0.3 UNITS SC (21:40)
[2025-01-14] VITALS (16 sets, daily range): BP systolic 123–189; BP diastolic 78–106; PULSE 82–108; O2SAT 98; BMI 40.2
[2025-01-14] MEDS: ROCEPHIN 2000 MG IV ×3 (01:06→23:30)
[2025-01-14] MEDS: STERILE WATER FOR INJECTION 20 ML IV ×3 (01:06→23:31)
--- NOTE | 2025-01-14 01:18 | W.PN.CT ---
Today's Communication / Plan
-
Plan:
-Ongoing preop workup
-Cont. current meds ( ASA, Lipitor, Aldactone, Toprol XL, Metformin, Novolog, Lantus)
-Cont. antibiotics per ID, currently on Vancomycin and Rocephin, f/u blood cultures. C/o pruritus with Vancomycin and refusing
-LHC tomorrow
-Repeat LAURA tomorrow 01/15/25
Assessment / Plan
-
Assessment:
-Suspected Mitral Valve endocarditis
-Recent CVA per MRI 08/11/24 @ [facility] (multiple infarcts involving left cerebellar/parietal, occipital and periventricular white matter)
-HTN (uncontrolled)
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
-HLD
-Class 3 obesity (BMI 40)
-DIDI (not on CPAP @ home d/t insurance issues)
-Uterine polyps S/P D&C
-S/P
Discussed patient care with: Cardiology, Nursing, Respiratory Therapy, Pharmacy and Care Team
Subjective
-
Date of Service: January 14, 2025
Pt c/o indigestion and pruritus with vancomycin
Objective Data
-
PT Cancelled 01/12/25 17:13
INR Cancelled 01/12/25 17:13
APTT Cancelled 01/12/25 17:13
Vital Signs
Vital Signs
Temp Pulse Resp BP Pulse Ox
97.6 F 88 20 148/84 98
01/13/25 22:26 01/13/25 13:51 01/13/25 22:26 01/13/25 13:51 01/13/25 23:17
CT Intake/Output/Weight
01/13/25 01/13/25 01/14/25
06:59 18:59 06:59
Intake Total 240 / 240 480 / 480
Output Total 350 / 350
Balance -110 / -110 480 / 480
SaO2: 98 (RA)
Physical Exam
-
General: Awake, Oriented and AOx3
Cardiovascular: Regular rate & rhythm, No Murmurs, No Rub and No Gallop
Respiratory: Decreased Breath Sounds
Sternum: Stable
Incision: Clean, Dry, Intact and Dressing Intact
Extremities: No Edema
Data Reviewed
-
Lab Results: Results Reviewed
Medications: Active Meds Reviewed
Chest X-Ray: Report Reviewed and Image Reviewed
ECG: Report Reviewed and Image Reviewed
--- NOTE | 2025-01-14 04:02 | PTCARENOTE ---
Assumed care on pt at 1900, aaox3, at bedside and staying overnight. Denied pain,dizziness or SOB. NIH score 3, see documentation on worklist. SR with occ PVC's on the monitor, HR 80's. Pt was unable to complete the full dose of IV
Vancomycin scheduled for 1999, started complaining of 'itchiness all over', despite benadryl PRN administered, only 225cc of 275cc was infused. Also, pt stating 'I don't want this antibiotic anymore, I am itching all over and can't stand it'. On
call CT PA made aware. IV Rocephin administered without any complaints. Pt and spouse updated on POC, call arias within reach.
[2025-01-14 05:29] LABS: B.E. 2.8 mmol/L; HCO3 28.5 mmol/L (21-28); O2 Saturation % 98.9 % (94-98); PCO2 47 mmHg (32-35); PO2 94 mmHg (83-108)
[2025-01-14] MEDS: APRESOLINE 5 MG IV (05:41)
[2025-01-14 06:19] LABS: Hematocrit 37.3 % (37.0-47.0); Hemoglobin 12.4 g/dL (12.0-16.0); Mean Corp Hgb Conc. 33.2 g/dL (33.0-37.0); Mean Corpuscular Volume 86.5 fL (81.0-99.0); Nucleated Red Blood Cells % 0 %; Platelet Count 232 10^3/uL (130-400); Red Cell Dist. Width 13.6 % (11.5-14.5)
[2025-01-14 06:25] LABS: INR 0.95; PT 12.9 Sec (11.4-14.6)
[2025-01-14 06:26] LABS: APTT 28.2 Sec (23.4-35.0)
[2025-01-14 06:28] LABS: ALT (SGPT) 36 U/L (0-35); AST (SGOT) 21 U/L (14-36); Albumin 3.3 g/dl (3.5-5.0); Alkaline Phosphatase 134 U/L (38-126); Blood Urea Nitrogen 14 mg/dl (7-17); Calcium 9.1 mg/dl (8.4-10.2); Carbon Dioxide 30 mmol/L (22-30); Chloride 102 mmol/L (98-107); Estimated Creatinine Clearance 117 ml/min; Glucose 248 mg/dl (70-99); Magnesium 1.5 mg/dl (1.6-2.3); Potassium 3.6 mmol/L (3.5-5.1); Sodium 133 mmol/L (135-145); Total Protein 6.5 g/dl (6.3-8.2); eGFR > 60.00
--- NOTE | 2025-01-14 06:35 | PTCARENOTE ---
Pt woke up c/o chest pressure 6/10 describing it as indigestion, also feeling weak and c/o mid back pain. 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
[2025-01-14] MEDS: NSS (PRESERVATIVE FREE) 8 ML IV (06:48)
[2025-01-14] MEDS: PEPCID 20 MG IV (06:49)
[2025-01-14 08:12] LABS: Glucose - Point of Care 235 mg/dl (70-99)
[2025-01-14] MEDS: MAGNESIUM OXIDE 400 MG PO ×2 (08:53→20:33)
[2025-01-14] MEDS: TOPROL XL 100 MG PO (08:53)
[2025-01-14] MEDS: NOVOLOG FLEXPEN-MODERATE RESISTANCE 3 UNITS SC ×2 (08:53→17:45)
[2025-01-14] MEDS: PROTONIX 40 MG PO (08:54)
[2025-01-14] MEDS: ALDACTONE 50 MG PO (08:54)
[2025-01-14] MEDS: GLUCOPHAGE 1000 MG PO ×2 (08:54→17:44)
[2025-01-14] MEDS: ASPIR LOW (ENTERIC COATED) 81 MG PO (08:54)
[2025-01-14] MEDS: HEPARIN 25000 UNITS/250 ML IV (08:55)
[2025-01-14] MEDS: NOVOLOG FLEXPEN 12 UNITS SC (09:45)
[2025-01-14] MEDS: DESENEX/MITRAZOL/ZEASORB 1 APPLIC TOPICAL ×2 (09:48→20:33)
--- NOTE | 2025-01-14 11:12 | W.PN.HOSP.TC ---
Addendum entered and electronically signed by Kleber Vinson MD 01/14/25 19:00:
Seen and examined the patient with the resident. Agree with the plan set forth by the resident. Please see changes in my documentation
49F Hx uncontrolled type 2 diabetes, diabetic neuropathy, uncontrolled hypertension, DIDI, obesity transferred from [facility] 01/12/25 after acute embolic left cerebellar, occiput and parietal CVA identified on MRI with right sided
weakness and possible mitral valve mass and preserved EF (60-65%) transferred to [place] for cardiac surgery evaluation.
Physical Exam
General: No pallor, cyanosis, or jaundice. Obesity
HEENT: Throat clear. PERRLA Normocephalic atraumatic
NECK: Supple. No JVD Carotid Bruits
RESPIRATORY: Lungs clear to auscultation. No crackles wheezes stridor
CVS: S1, S2 normal. RRR. No murmur, rub or gallop.
ABDOMEN: Soft, non-tender. No distension. BS+/normal.
EXTREMITIES: No peripheral cyanosis or edema.
[employer] OFFICER: AOx3 conversant coherent
# T2DM, uncontrolled
# Preop clearance
# CVA
# Mitral valve mass
# Endocarditis
# HTN
Revised cardiac risk index score 3
10% risk of major cardiac event
Patient needs to be cleared by neurology before cardiac surgery procedure
A1C 11.2
diabetes CULINARY ASSISTANT consult
premeal Insulin increased to 15U
Bedtime Lantus reduced to 20U for NPO after midnight LAURA (originally cut in half but sugars have been uncontrolled on 30U so dose slightly higher instead)
Cont Daptomycin abx as per ID
Blood pressure control
I spent a total of 40 minutes with the patient or on the floor. More than 50% of this time involved counseling and coordination of care.
Original Note:
Today's Communication/Plan
-
Decrease Lantus 15 for procedure tomorrow
Increase aspart 15
Yeast infection treatment
Assessment / Plan
Assessment / Plan
MPRESSION:
49 year old with a history of uncontrolled type 2 diabetes, diabetic neuropathy, uncontrolled hypertension, DIDI, obesity transferred from [facility] 01/12/25 after acute embolic left cerebellar, occiput and parietal CVA identified on MRI
with right sided weakness and mitral valve mass and preserved EF (60-65%) transferred to [facility] for cardiac surgery evaluation.
PLAN:
#Preop clearance
Revised cardiac risk index score 3
10% risk of major cardiac event
Patient needs to be cleared by neurology before cardiac procedure
# T2DM, uncontrolled
on insulin (A1C 11.2)
- diabetes CULINARY ASSISTANT consult
-Decrease Lantus to 15 units for procedure tomorrow
-Increase aspart 15 units
# CVA
- Secondary prevention per neurology
- PT/OT/ST evaluation/treatment
- continue statin
# Mitral valve mass
#Endocarditis
Per cardiothoracic team
Per ID team
# HTN, uncontrolled
Essential versus secondary?
Inpatient medications per CT team
Outpatient follow-up for further evaluation between secondary versus essential
#Yeast infection
UA on admission unremarkable
Burning with urination
Miconazole twice daily
DVT prophylaxis: SCDs
CODE STATUS: Full code
Anticipated Discharge: > 48 hours
Subjective/Interval History
-
Patient was seen at bedside. She reported that last night after receiving vancomycin she developed itchiness which was treated with Benadryl and cessation of vancomycin. She also reports burning with urination with known history of yeast
infections. Otherwise patient reported no other issues no shortness of breath no chest pain no nausea no vomiting no fevers. Date of Service: January 14, 2025
Objective Data
-
Labs:
Laboratory Results
01/14/25 01/14/25 01/14/25
05:05 05:23 08:11
WBC 5.8 Cancelled
Hgb 12.4 Cancelled
Hct 37.3 Cancelled
Plt Count 232 Cancelled
PT 12.9
INR 0.95
APTT 28.2 Cancelled
HCO3 28.5 H
Sodium 133 L
Potassium 3.6
Chloride 102
Carbon Dioxide 30
BUN 14
Creatinine 0.5 L
Glucose 248 H
Calcium 9.1
Total Bilirubin 0.3
AST 21
ALT 36 H
Alkaline Phosphatase 134 H
01/14/25
15:00
WBC
Hgb
Hct
Plt Count
PT
INR
APTT Pending
HCO3
Sodium
Potassium
Chloride
Carbon Dioxide
BUN
Creatinine
Glucose
Calcium
Total Bilirubin
AST
ALT
Alkaline Phosphatase
Vital Signs:
Vital Signs
Temp Pulse Resp BP Pulse Ox
97.3 F 88 20 167/78 98
01/14/25 07:28 01/14/25 07:30 01/14/25 07:28 01/14/25 07:28 01/14/25 08:12
I&O
01/13/25 01/14/25 01/15/25
06:59 06:59 06:59
Intake Total 240 / 240 480 / 480 225 / 225
Output Total 350 / 350 300 / 300
Balance -110 / -110 480 / 480 -75 / -75
Review of Systems
-
History Source: Patient
Constitutional: Denies Fever or Chills
EENT: Denies Sore Throat or Runny Nose
Respiratory: Denies Cough, Trouble Breathing or Wheezing
Cardiac: Denies Chest Pain or Palpitations
Abdomen/GI: Denies Abdominal Pain, Nausea, Vomiting, Diarrhea or Constipated
Genitourinary: Reports Dysuria
Skin: Reports Itching; Denies Rash
Neuro: Denies Dizzy or Headache
Physical Exam
-
General: Well Developed, Well Nourished, No Apparent Distress, Comfortable and Obese; Negative Fever
HEENT: Normocephalic and Atraumatic
Respiratory: Clear to Auscultation and Non Labored Respirations; Negative Wheezes or Crackles
Cardiac: Regular Rhythm and S1/S2; Negative Murmur
--- NOTE | 2025-01-14 12:02 | W.PN.ID1 ---
Date of Service
Date of Service: January 14, 2025
Today's Communication
- start daptomycin, stop vancomycin
- hold statin while on daptomycin
- continue ceftriaxone while awaiting blood culture results
Assessment / Plan
Embolic CVAs
Possible endocarditis
Reported allergy to penicillin/amoxicillin and ciprofloxacin
- mass seen on the mitral valve, overall favor noninfectious etiologies
- blood cultures must be collected prior to starting antibiotics - communicated with nursing staff
- start daptomycin, stop vancomycin
- hold statin while on daptomycin
- continue ceftriaxone while awaiting blood culture results
- will follow up CT surgery plans - if valve is resected please send for culture
- follow fever curve
- follow clinically
Chief Complaint
-: Other (possible endocarditis)
Subjective / Review of Systems
afebrile
bp stable
reports itching with vancomcyin that was not resolved with running the infusion more slowly or benadryl, now refusing vancomycin
Vital Signs / Physical Exam
Vital Signs
Vital Signs
Temp Pulse Resp BP Pulse Ox
97.7 F 88 20 167/78 99
01/14/25 11:24 01/14/25 07:30 01/14/25 11:24 01/14/25 07:28 01/14/25 11:24
Physical Exam
Constitutional: No Acute Distress
Cardiovascular: Regular Rate and S1/S2; Negative Murmur or Rub
Pulmonary: Clear and Symmetric; Negative Wheezes or Rales
Gastrointestinal: Soft, Non Tender, Non Distended and Normal Bowel Sounds
Skin: Warm and Dry; Negative Rash or Jaundice
Objective Data
Lab Data
Lab Results
01/14/25 08:11
01/14/25 05:23
PT 12.9 Sec (11.4-14.6) 01/14/25 05:23
INR 0.95 01/14/25 05:23
APTT Cancelled 01/14/25 08:11
Estimated Creat Clear 117 ml/min 01/14/25 05:23
Total Bilirubin 0.3 mg/dl (0.2-1.3) 01/14/25 05:23
AST 21 U/L (14-36) 01/14/25 05:23
ALT 36 U/L (0-35) H 01/14/25 05:23
Alkaline Phosphatase 134 U/L (38-126) H 01/14/25 05:23
Most recent labs reviewed.
Micro Results:
01/12/25 23:22 MRSA Screen - Final
Nose No Methicillin Resistant Staphylococcus aureus isolated.
01/13/25 13:23 Blood Culture - Pending
Blood/Venous
01/13/25 13:23 Blood Culture - Pending
Blood/Venous
[2025-01-14] MEDS: MAGNESIUM SULFATE 50 IV (12:28)
[2025-01-14 12:43] LABS: Glucose - Point of Care 226 mg/dl (70-99)
--- NOTE | 2025-01-14 13:17 | W.PN.CD ---
Today's Communication / Plan
-
N.p.o. after midnight for LAURA and coronary angiography
Impression / Plan
-
Embolic CVA:
-asa , plavix per neuro [facility] x 21 days then asa
-R side weakness, PT and speech evals
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
-work up in progress
- LAURA tomorrow
Possible endocarditis:
-await blood cultures
-ID following
-pt notes she had a deep dental cleaning and cyst on R side of mouth about 6 weeks ago
HTN:
- Treated with Aldactone, losartan and metoprolol. Resuming home blood pressure meds
- Permissive BP with recent CVA
hyperlipidemia:
-check lipids, con't statin currently on hold until speech eval
DM:
-chronic medication, insulin
-hgba1c 11.4 at [facility]
Subjective: Feeling okay today no new complaints
Data reviewed:
Echocardiogram 01/11/2025 LV normal size LV function normal EF 60 to 65% RV normal normal mitral valve physiologic mitral valve regurgitation, TV normal, CARMEN structurally normal no evidence of stenosis
-
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
versus cardiac myxema, versus vegetation, AV structurally normal bubble study negative
MR of the brain 01/11/2025 with multiple acute infarcts in the left cerebellar hemisphere left occipital lobe and left parietal lobe and left periventricular white matter
Physical Exam
Vital Signs/Labs
Vital Signs
Temp Pulse Resp BP Pulse Ox
97.7 F 88 20 167/78 99
01/14/25 11:24 01/14/25 07:30 01/14/25 11:24 01/14/25 07:28 01/14/25 11:24
01/13/25 01/14/25 01/15/25
06:59 06:59 06:59
Actual Weight 211 lb 10.3 oz 212 lb 8.41 oz
01/14/25 08:11
01/14/25 05:23
PT 12.9 Sec (11.4-14.6) 01/14/25 05:23
INR 0.95 01/14/25 05:23
APTT Cancelled 01/14/25 08:11
Magnesium 1.5 mg/dl (1.6-2.3) L 01/14/25 05:23
Triglycerides 107 mg/dl (10-149) 01/13/25 04:34
LDL Cholesterol, Calc 44 mg/dl 01/13/25 04:34
VLDL Cholesterol, Calc 21 mg/dl (0-30) 01/13/25 04:34
HDL Cholesterol 47 mg/dl 01/13/25 04:34
Physical Exam
Constitutional: No acute distress and Comfortable
EENT: Anicteric
Cardiovascular: Rhythm & rate is regular and Pedal edema is absent
Respiratory: Respiratory effort normal and Lungs clear to auscul.
GI: Soft
Data Reviewed
-
Date of Service: January 14, 2025
EKG: Tracing Personally Visualized and interpreted (Sinus rhythm)
Labs: Labs Reviewed by me
[2025-01-14] MEDS: NOVOLOG FLEXPEN-MODERATE RESISTANCE 1 UNITS SC (14:20)
[2025-01-14 14:21] LABS: Glucose - Point of Care 170 mg/dl (70-99)
[2025-01-14] MEDS: NOVOLOG FLEXPEN 15 UNITS SC ×2 (14:21→17:46)
[2025-01-14] MEDS: CUBICIN 13 MG IV (16:19)
[2025-01-14 16:54] LABS: APTT 32.1 Sec (23.4-35.0)
[2025-01-14 17:04] LABS: Glucose - Point of Care 236 mg/dl (70-99)
[2025-01-14] MEDS: KCL 40 MEQ PO (17:44)
[2025-01-14] MEDS: VISBIOME 1 CAP PO (22:27)
[2025-01-14 22:32] LABS: Glucose - Point of Care 77 mg/dl (70-99)
[2025-01-14] MEDS: LANTUS SC (23:13)
[2025-01-14 23:44] LABS: APTT 80.1 Sec (23.4-35.0)
[2025-01-15] VITALS (14 sets, daily range): BP systolic 112–174; BP diastolic 71–100; PULSE 83–88; BMI 40.2
--- NOTE | 2025-01-15 01:14 | PTCARENOTE ---
Received pt at change of shift resting in bed. SR on tele, HR 80's-90's. pt denies any CP or SOB at this time. Heparin gtt infusing per protocol. PTT result 80.1, Ed HARRY Seaman instructed RN to decrease Heparin gtt by 100 units/hr-- see worklist
for further details. pt c/o loose stools. Ata DRUGLESS DOCTOR made aware and ordered Visbiome--see MAY. pt made aware of NPO status after midnight, verbalizes understanding. RT applied CPAP to pt. Instructed pt to call RN with any questions/concerns. Call
arias within reach.
--- NOTE | 2025-01-15 01:19 | W.PN.CT ---
Today's Communication / Plan
-
Plan:
-Ongoing preop workup
-Started on heparin gtt yesterday 01/14 with goal PTT of 40-60, currently on heparin gtt @ 900 units/hr
-Cont. current meds ( ASA, Heparin gtt, Lipitor, Aldactone, Toprol XL, Metformin, Novolog, Lantus)
-Cont. antibiotics per ID, currently on Vancomycin and Rocephin, f/u blood cultures pending. C/o pruritus with Vancomycin and refusing, changed to daptomycin
-LHC today
-Repeat LAURA today, 01/15/25
-Repeat head CT today
Assessment / Plan
-
Assessment:
-Suspected Mitral Valve endocarditis
-Recent CVA per MRI 08/11/24 @ [facility] (multiple infarcts involving left cerebellar/parietal, occipital and periventricular white matter)
-HTN (uncontrolled)
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
-HLD
-Class 3 obesity (BMI 40)
-DIDI (not on CPAP @ home d/t insurance issues)
-Uterine polyps S/P D&C
-S/P
Discussed patient care with: Cardiology, Nursing, Respiratory Therapy, Pharmacy and Care Team
Subjective
-
Date of Service: January 15, 2025
Pruritus has resolved with discontinuation of Vancomycin, no other complaints
Objective Data
-
PT 12.9 Sec (11.4-14.6) 01/14/25 05:23
INR 0.95 01/14/25 05:23
APTT 80.1 Sec (23.4-35.0) H 01/14/25 23:12
Vital Signs
Vital Signs
Temp Pulse Resp BP Pulse Ox
97.9 F 92 18 148/96 100
01/14/25 22:32 01/14/25 22:00 01/14/25 22:32 01/14/25 18:37 01/14/25 22:32
CT Intake/Output/Weight
01/14/25 01/14/25 01/15/25
06:59 18:59 06:59
Intake Total 480 / 480 225 / 225
Output Total 300 / 300
Balance 480 / 480 -75 / -75
SaO2: 100 (RA)
Physical Exam
-
General: Awake, Oriented and AOx3
Cardiovascular: Regular rate & rhythm, No Murmurs, No Rub and No Gallop
Respiratory: Clear
Extremities: Other (+trace edema)
Data Reviewed
-
Lab Results: Results Reviewed
Medications: Active Meds Reviewed
Chest X-Ray: Report Reviewed and Image Reviewed
CT Scan: Report Reviewed and Image Reviewed
ECG: Report Reviewed and Image Reviewed
[2025-01-15] MEDS: TYLENOL 650 MG PO ×2 (03:27→16:11)
[2025-01-15] MEDS: NOVOLOG FLEXPEN-MODERATE RESISTANCE SC (06:21)
[2025-01-15 06:22] LABS: Glucose - Point of Care 144 mg/dl (70-99)
[2025-01-15 06:30] LABS: Hematocrit 36.1 % (37.0-47.0); Hemoglobin 12.2 g/dL (12.0-16.0); Mean Corp Hgb Conc. 33.8 g/dL (33.0-37.0); Mean Corpuscular Volume 87.8 fL (81.0-99.0); Platelet Count 214 10^3/uL (130-400); Red Cell Dist. Width 13.4 % (11.5-14.5)
[2025-01-15 06:49] LABS: APTT 110.9 Sec (23.4-35.0)
[2025-01-15 07:21] LABS: Blood Urea Nitrogen 13 mg/dl (7-17); Calcium 8.9 mg/dl (8.4-10.2); Carbon Dioxide 24 mmol/L (22-30); Chloride 106 mmol/L (98-107); Estimated Creatinine Clearance 118 ml/min; Glucose 151 mg/dl (70-99); Magnesium 1.7 mg/dl (1.6-2.3); Potassium 4.1 mmol/L (3.5-5.1); Sodium 133 mmol/L (135-145); eGFR > 60.00
--- NOTE | 2025-01-15 07:31 | PN.DE.MGMTRT ---
Insulin Management
- -
01/15/25: Diabetes Management Consult
49 year old female with a PMH: Uncontrolled hypertension, DIDI, uncontrolled T2DM, Diabetic Neuropathy, Obesity transferred from [facility] 01/12/25 after acute embolic left cerebellar, occiput and parietal CVA identified on MRI with
right sided weakness and mitral valve mass and preserved EF (60-65%) transferred to [facility] for concern of MV endocarditis, currently undergoing w/u for cardiac surgery.
Pt awake, alert, oriented, resting in bed, able to discuss diabetes care plan.
Pt states she has been diabetic since 2006, and began using insulin during a in 2010. Pt was routinely seeing charissa Chi PA-C at [facility], and had been prescribed metformin 1000 mg BID, glargine 50 units PM, and insulin aspart 20
units TID before meals but states was taking 70 units of long-acting insulin. She uses a CGM Nilo plus three. A1C 11.2%, Cr0.4, eGFR >60
Current diabetes regimen includes 20 units Lantus @ HS, AC NovoLog 15 units and low corrective with meals.
Glucose levels have ranged from 325 mg/dL at admission to 77-144 mg/dL today after initiation of insulin therapy.
Pt currently NPO for repeat LAURA. HS glucose was 77 mg/dL, Lantus was held @ HS. Fasting glucose 151 V, 144 POC. Will Continue Lantus to 20 units @HS.
01/14 Premeal glucose range was 170-236 mg/dL, requiring 1-3 units of corrective insulin with meals.
Will continue NovoLog 15 units SC AC with low corrective. Will hold metformin 1000 PO BID for now, and resume after procedures.
Discussed with Nurse. Will continue to follow.
Diabetes History
- -
Type of Diabetes: 2 requiring insulin
Pre-Admission Diabetes Regimen
01/15/25
06:19
Creatinine 0.4 L
Lab Results
Hemoglobin A1c 11.2 % (4.0-5.9) H 01/13/25 04:34
Insulin Pump Settings
IP Diabetes Regimen
01/14/25 01/14/25 01/14/25
08:11 12:42 14:19
Glucose
POC Glucose 235 H 226 H 170 H
01/14/25 01/14/25 01/15/25
17:02 22:31 06:18
Glucose
POC Glucose 236 H 77 144 H
01/15/25
06:19
Glucose 151 H
POC Glucose
Patient Education
--- NOTE | 2025-01-15 09:38 | CM ---
Reviewed chart. Met with Mrs. Almaraz to review discharge plans. She states prior to admission she resides with her spouse and fourteen year old daughter in a two story home with steps to enter. She states she has a full flight of step to get to
bedroom/full bathroom. She states she does not have a bathroom on the first floor. She states prior to admission she was independent with ambulation and adls. She states she does not have any DME. She states she has a prescription plan. Telephone
call to [facility] , [phone]) to see if they accept her insurance and service her geographic area. [facility] accepts her insurance and services her area. Will need to confirm with medical team if she will need long
term ABX. Will need to see her current functional level to see if she will have any skilled care needs. Medical work-up in progress. The discharge plan is to return home with spouse and daughter and home infusion if indicated when medically
stable.
[2025-01-15 09:46] LABS: Glucose - Point of Care 164 mg/dl (70-99)
[2025-01-15] MEDS: ASPIR LOW (ENTERIC COATED) 81 MG PO (09:48)
[2025-01-15] MEDS: NOVOLOG FLEXPEN SC ×2 (10:41→12:44)
--- NOTE | 2025-01-15 12:17 | W.PN.ID1 ---
Date of Service
Date of Service: January 15, 2025
Today's Communication
nonbillable note, patient out of her room the two times that I rounded
if valve is resected please send for culture and pathology
cultures at [facility] negative to date
Assessment / Plan
Embolic CVAs
Possible endocarditis
Reported allergy to penicillin/amoxicillin and ciprofloxacin
- called and spoke with [facility] lab - 01/12 blood cultures are no growth at 3 days
- mass seen on the mitral valve
- blood cultures here no growth to date
- continue daptomycin
- hold statin while on daptomycin
- continue ceftriaxone
- serology for coxiella burnetii & bartonella serologies, t whipplei PCR
- will follow up CT surgery plans - if valve is resected please send for culture and pathology
- follow fever curve
- follow clinically
Chief Complaint
-: Other (possible endocarditis)
Vital Signs / Physical Exam
Vital Signs
Vital Signs
Temp Pulse Resp BP Pulse Ox
98.9 F 93 16 134/84 99
01/15/25 03:34 01/15/25 12:00 01/15/25 03:34 01/15/25 07:57 01/15/25 03:34
Objective Data
Lab Data
Lab Results
01/15/25 06:19
01/15/25 06:19
PT 12.9 Sec (11.4-14.6) 01/14/25 05:23
INR 0.95 01/14/25 05:23
APTT Cancelled 01/15/25 15:15
Estimated Creat Clear 118 ml/min 01/15/25 06:19
Total Bilirubin 0.3 mg/dl (0.2-1.3) 01/14/25 05:23
AST 21 U/L (14-36) 01/14/25 05:23
ALT 36 U/L (0-35) H 01/14/25 05:23
Alkaline Phosphatase 134 U/L (38-126) H 01/14/25 05:23
Most recent labs reviewed.
Micro Results:
01/13/25 13:23 Blood Culture - Preliminary
Blood/Venous No Growth in 24 hours- Final report to follow
01/13/25 13:23 Blood Culture - Preliminary
Blood/Venous No Growth in 24 hours- Final report to follow
01/12/25 23:22 MRSA Screen - Final
Nose No Methicillin Resistant Staphylococcus aureus isolated.
[2025-01-15] MEDS: VISBIOME 1 CAP PO (12:40)
[2025-01-15] MEDS: TOPROL XL 100 MG PO (12:40)
[2025-01-15] MEDS: PROTONIX 40 MG PO (12:40)
[2025-01-15] MEDS: ALDACTONE 50 MG PO (12:42)
[2025-01-15] MEDS: MAGNESIUM OXIDE 400 MG PO ×2 (12:42→19:39)
[2025-01-15] MEDS: STERILE WATER FOR INJECTION 20 ML IV ×2 (12:42→23:40)
[2025-01-15] MEDS: GLUCOPHAGE 1000 MG PO (12:42)
[2025-01-15] MEDS: ROCEPHIN 2000 MG IV ×2 (12:43→23:40)
[2025-01-15] MEDS: DESENEX/MITRAZOL/ZEASORB 1 APPLIC TOPICAL ×2 (12:43→19:40)
[2025-01-15 13:25] LABS: Glucose - Point of Care 166 mg/dl (70-99)
[2025-01-15] MEDS: NOVOLOG FLEXPEN-MODERATE RESISTANCE 1 UNITS SC ×2 (13:26→19:39)
--- NOTE | 2025-01-15 13:26 | W.PN.UPDATE ---
Addendum entered and electronically signed by SAADIA Teague 01/15/25 13:32:
Disregard-documented on wrong chart
Original Note:
Update Note
Progress Note Update
Right femoral retention suture removed. Skin slightly macerated. Surrounding skin tear noted (from Tegaderm). 4x4 gauze placed to prevent skin friction at skin folds.
--- NOTE | 2025-01-15 14:15 | W.PN.CD ---
Today's Communication / Plan
-
Cardiac catheterization and LAURA today as a pre-amble to possible surgical intervention.
Impression / Plan
-
Impression/Plan: 49 y/o with HTN and DM transferred from [facility] after being admitted with embolic CVA, prompting an echocardiogram which demonstrated a cardiac mass on the posterior mitral valve annulus. She has been transferred for LAURA and cardiac
catheterization as a pre-amble to possible surgical intervention.
#Embolic CVA:
-Acute, stable.
-Right sided weakness
-PT and speech evalulations.
-Continue aspirin, clopidogrel x 21 days, followed by aspirin indefinitely per [facility] neurology.
-LAURA pending.
#Cardiac mass/possible endocarditis
-New diagosis. Patient notes she had a deep dental cleaning and cyst on R side of mouth about 6 weeks ago.
-TTE mass measuring 0.71 cm x 0.41 cm adherent to MV P1 leaflet.
-Await blood cultures, ID following.
-LAURA today.
#HTN
-Chronic, stable.
-Treated with spironolactone, losartan and metoprolol.
-Permissive BP with recent CVA.
#Hyperlipidemia
-Chronic, stable.
-Total cholesterol = 112, LDL = 44, HDL = 47, Triglycerides = 107.
-Continue lovastatin 20 mg daily.
#IDDM:
-Chronic, uncontrolled.
-HbA1c = 11.2.
-Insulin per primary service.
Subjective/Interval History:
No acute events.
Right arm weakness persists.
DATA:
TTE ([facility]), 01/11/2025:
LV normal size. LV function normal, EF 60 to 65%.
RV normal.
Normal mitral valve.
Physiologic mitral valve regurgitation.
TV normal.
CARMEN structurally normal, no evidence of stenosis.
LAURA ([facility]) 01/12/2025:
LVEF 60 to 65%.
No thrombus in left atrial appendage.
No evidence of mitral valve stenosis. Trace mitral valve regurgitation. 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
AV structurally normal.
Bubble study negative.
MRI brain, 01/11/2025:
Multiple acute infarcts in the left cerebellar hemisphere, left occipital lobe and left parietal lobe and left periventricular white matter.
Physical Exam
Vital Signs/Labs
Vital Signs
Temp Pulse Resp BP Pulse Ox
37.2 C 86 16 172/100 99
01/15/25 03:34 01/15/25 12:42 01/15/25 03:34 01/15/25 12:42 01/15/25 03:34
01/14/25 01/15/25 01/16/25
11:59 11:59 11:59
Actual Weight 96.4 kg 96.4 kg
01/15/25 06:19
01/15/25 06:19
PT 12.9 Sec (11.4-14.6) 01/14/25 05:23
INR 0.95 01/14/25 05:23
APTT Cancelled 01/15/25 15:15
Magnesium 1.7 mg/dl (1.6-2.3) 01/15/25 06:19
Triglycerides 107 mg/dl (10-149) 01/13/25 04:34
LDL Cholesterol, Calc 44 mg/dl 01/13/25 04:34
VLDL Cholesterol, Calc 21 mg/dl (0-30) 01/13/25 04:34
HDL Cholesterol 47 mg/dl 01/13/25 04:34
Physical Exam
Constitutional: No acute distress and Comfortable
EENT: Anicteric and Moist mucous membranes
Cardiovascular: Rhythm & rate is regular, Pedal edema is absent, JVD pressure is normal, Murmur/rub/gallop absent and Rub present
Respiratory: Respiratory effort normal, Lungs clear to auscul., Wheeze Absent, Crackles Absent and Rhonchi Absent
GI: Soft, Distention absent, Flat, Non tender and Normal bowel sounds
Neuro/Psych: AO x 3 and Other (+ Right arm weakness.)
Data Reviewed
-
Date of Service: January 15, 2025
Medical Decision Making: Reviewed Test Results, Independent Historian Assessment and Test Interpretation
EKG: Tracing Personally Visualized and interpreted and Report Reviewed by me
Echo: Report Reviewed by me
X-Ray/CT/US/MRI/NUC/PET: Image Personally Visualized and interpreted and Report Reviewed by me
Medical Tests (PFT, Pathology etc): Report Reviewed by me
Labs: Labs Reviewed by me
Old Records: Reviewed
--- NOTE | 2025-01-15 14:43 | W.PN.HOSP.TC ---
Addendum entered and electronically signed by Maureen Workman MD 01/15/25 15:36:
Attending�addendum:
I saw and evaluated the patient. I reviewed the resident�s note and agree with findings and plan as documented in the resident�s note.��patient seen and examined at bedside, patient was sitting in the chair denies any chest pain or shortness of
breath, no abdominal pain, no nausea, no vomiting, no diarrhea or constipation.
Physical�exam:
GENERAL : Patient is awake, alert, oriented x3
HEENT: Nonicteric sclerae, PERRLA, EOMI. Oropharynx clear. Moist mucous membranes. Conjunctivae appear well perfused.
CHEST: Chest wall is nontender.
HEART: Regular rate and rhythm without murmurs.
LUNGS: Clear to auscultation bilaterally.
ABDOMEN: Soft, positive bowel sounds, nontender, no organomegaly.
RECTAL: Deferred.
MUSCLES/EXTREMITIES: No abnormal range of motion, no swelling.SKIN: No rash, no excessive bruising, petechiae, or purpura.
NEUROLOGIC: Cranial nerves II-XII intact without motor/sensory deficit.
�
Assessment/plan:
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
Continue antibiotic
LAURA today.
Left coronary angiography shows no obstructive coronary artery disease
Insulin-dependent diabetes mellitus.
Hold metformin (patient underwent cardiac cath)
Continue Premeal, Lantus once start oral intake
CVA.
Continues workup for mitral valve endocarditis/mass
CODE STATUS: Full code
DVT prophylaxis: Heparin drip
Diet: N.p.o., DM after procedure.
Disposition: LAURA pending
�
Total time spent on today�s encounter was 55 minutes which included time spent in counseling the patient/family regarding diagnosis and treatment plan as listed above, goals of care, and symptom management. Case was discussed with nursing staff,
specialists, and care coordinators/case management. All labs and imaging personally reviewed by me. Remainder the time spent in detailed review of previous records, lab data, imaging, and other medical provider documentation.
Original Note:
Today's Communication/Plan
-
Will continue to follow
Assessment / Plan
Assessment / Plan
MPRESSION:
49 year old with a history of uncontrolled type 2 diabetes, diabetic neuropathy, uncontrolled hypertension, DIDI, obesity transferred from [facility] 01/12/25 after acute embolic left cerebellar, occiput and parietal CVA identified on MRI
with right sided weakness and mitral valve mass and preserved EF (60-65%) transferred to [facility] for cardiac surgery evaluation.
PLAN:
#Preop clearance
Revised cardiac risk index score 3
10% risk of major cardiac event
Patient needs to be cleared by neurology before cardiac procedure
# T2DM, uncontrolled
on insulin (A1C 11.2)
- diabetes FACILITY ENGINEER consult
-Hold metformin
-Lantus to 20 units
-aspart 15 units
# CVA
- Secondary prevention per neurology
- PT/OT/ST evaluation/treatment
- continue statin
# Mitral valve mass
#Endocarditis
Per cardiothoracic team
Per ID team
# HTN, uncontrolled
Essential versus secondary?
Inpatient medications per CT team
Outpatient follow-up for further evaluation between secondary versus essential
# Evelina dermatitis
Burning with urination resolved
Miconazole twice daily
DVT prophylaxis: SCDs, heparin ggt
CODE STATUS: Full code
Anticipated Discharge: > 48 hours
Subjective/Interval History
-
Patient was seen at bedside she reports doing well with no issues. She was just a little somnolent after recent procedures. She was pending heart cath still. She reported no nausea vomiting chest pain shortness of breath fevers chills. Date of
Service: January 15, 2025
Objective Data
-
Labs:
Laboratory Results
10/27/25 10/27/25 10/27/25
06:19 15:15 15:45
WBC 9.0
Hgb 12.2
Hct 36.1 L
Plt Count 214
APTT 110.9 H Cancelled Pending
Sodium 133 L
Potassium 4.1
Chloride 106
Carbon Dioxide 24
BUN 13
Creatinine 0.4 L
Glucose 151 H
Calcium 8.9
Vital Signs:
Vital Signs
Temp Pulse Resp BP Pulse Ox
98.9 F 86 16 172/100 99
01/15/25 03:34 01/15/25 12:42 01/15/25 03:34 01/15/25 12:42 01/15/25 03:34
I&O
01/14/25 01/15/25 01/16/25
06:59 06:59 06:59
Intake Total 480 / 480 825 / 825
Output Total 300 / 300
Balance 480 / 480 525 / 525
Review of Systems
-
History Source: Patient
Constitutional: Reports Fatigue; Denies Fever or Chills
EENT: Reports No Symptoms Reported; Denies Sore Throat or Runny Nose
Respiratory: Reports No Symptoms; Denies Cough or Wheezing
Cardiac: Denies Chest Pain or Palpitations
Abdomen/GI: Reports No Symptoms; Denies Abdominal Pain, Nausea, Vomiting, Diarrhea or Constipated
Genitourinary: Reports No Symptoms; Denies Dysuria
Skin: Denies Itching or Rash
Neuro: Denies Dizzy or Headache
Physical Exam
-
General: Well Developed, Well Nourished, No Apparent Distress, Comfortable and Morbidly Obese; Negative Fever or Chills
HEENT: Normocephalic and Atraumatic
Respiratory: Clear to Auscultation and Non Labored Respirations; Negative Wheezes or Crackles
Cardiac: Regular Rhythm, S1/S2 and Tachycardic; Negative Murmur
GI: Soft, Nontender, Nondistended and Normal Bowel Sounds
Musculoskeletal: No Clubbing and No Edema
Skin: Warm and Dry
Neuro: Awake and Alert
--- NOTE | 2025-01-15 15:16 | ITS.CL.CATH ---
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
Cardiac Catheterization
Procedure Report:
CARDIAC CATHETERIZATION REPORT
Date of Procedure: 01/15/2025
Referring: Vance Clifton M.D.
INDICATION: Mitral valve mass with history of CVA, concerning for embolic stroke requiring surgical intervention, preamble to open heart surgery.
PROCEDURE:
1. Coronary angiography.
A total of 40 minutes of procedural/moderate sedation was utilized. An independent medical housekeeper was present to assist with and help manage the patient's level of consciousness and physiologic status.
ACCESS:
1. 6 Indian right radial artery using a modified Seldinger technique.
CATHETERS:
1. 5 Indian JR4.
2. 5 Indian AL 2.
HEMODYNAMIC DATA
Weight (kg): 96.4
AO (s/d/x, mmHg): 175/104/135
LV (s/x mmHg): Not obtained.
AV gradient (x, mmHg): Not obtained.
LEFT VENTRICULOGRAPHY: Not performed.
CORONARY ANGIOGRAPHY
Dominance: Right.
Left Main: Normal size, bifurcating vessel with an upwards origin requiring an AL 2 catheter with coronary wire assistance for cannulation. There is no coronary artery disease.
LAD: Normal size vessel giving rise to 2 diagonals. There is no coronary artery disease.
Ramus: Congenitally absent.
Circumflex: Large size, nondominant vessel giving rise to 1 obtuse marginal before terminating as a large posterolateral branch. There is no coronary artery disease.
RCA: Normal size, dominant vessel. The inferior septal perforators are supplied by a mix of a small RPDA and the proximal margin as well as branches from the RV marginal and the distal margin.
INTERVENTION(S)
None.
Closure Device: Vascular band.
Radiation (mGy): 573
DAP (cm2.Gy): 29.3
Fluoroscopy time (minutes): 11.5
CONCLUSIONS
1. Right dominant circulation with an upward angulated left main coronary artery requiring an AL 2 diagnostic catheter with coronary wire assistance for cannulation and no coronary artery disease.
2. Systemic hypertension, permissive in the setting of CVA.
RECOMMENDATIONS:
1. Expectant management after cardiac catheterization via right radial approach.
2. Limited weight bearing on the right wrist for one week.
3. Continue evaluation of embolic CVA and possible surgical intervention.
Copy to: Vance Clifton M.D.
Ilya Acuna DO, FACC, FACP
[2025-01-15] MEDS: APRESOLINE 5 MG IV (15:28)
[2025-01-15] MEDS: CUBICIN 13 MG IV (16:08)
[2025-01-15 16:43] LABS: Hematocrit 36.7 % (37.0-47.0); Hemoglobin 12.2 g/dL (12.0-16.0); Mean Corp Hgb Conc. 33.2 g/dL (33.0-37.0); Mean Corpuscular Volume 87.2 fL (81.0-99.0); Platelet Count 226 10^3/uL (130-400); Red Cell Dist. Width 13.6 % (11.5-14.5)
[2025-01-15] MEDS: TOPROL XL 50 MG PO (16:53)
[2025-01-15 18:18] LABS: Glucose - Point of Care 195 mg/dl (70-99)
[2025-01-15] MEDS: NOVOLOG FLEXPEN 15 UNITS SC (19:38)
[2025-01-15] MEDS: HEPARIN 25000 UNITS/250 ML IV (19:41)
--- NOTE | 2025-01-15 19:44 | PTCARENOTE ---
~[id number]: Handoff report received from nightshift RN. Pt Aox4, NSR 80s, SBP 130s, RA satting 97%. Pt denies pain at this time. Standby assist with walker or IV pole. Patietn washed up in bathroom this AM with assist from . PTT resulted at
110.9, CT PA made aware, order to hold for two hours and restart at 700. Heparin gtt held. Patient went for Head CT and vascular US this AM. NIHSS done per order, got a 2. Report called to CCL for LAURA/ECHO, per CCL, give AM ASA, hold the rest of
medications until back from procedure. Around 944 patient taken to CCL for LAURA.
~1230: patient returned to unit from LAURA in stable condition. PT worked with PT. AM meds given. All needs met at this time, call arias within reach.
~1400: Patient taken back to CCL for LHC.
~1515: Patient returned to Unit from CCL. R radial band on. +2 pulses. R wrist restriction education given to patient s/p CCL. SBP 174, PRN hydralazine given, BP lowered to SBP 150-160.
~6169-3433: SBP remains 150s-160s, Claribel Tripathi made aware, toprol xl 50mg given per order. Bloodwork drawn off midline and sent to lab. Air stared to be removed from R radial band around 1600.
~[id number]: Radial band removed per protocol around 1830. VSS with SBp 130s after the troprol xl 50mg. PRn tylenol given for back pain. All needs met at this time, call arias within reach. Handoff report given to nightshift RN.
[2025-01-15 21:58] LABS: Glucose - Point of Care 249 mg/dl (70-99)
[2025-01-15] MEDS: LANTUS 0.2 UNITS SC (22:11)
--- NOTE | 2025-01-15 23:56 | PTCARENOTE ---
Received patient at change of shift. SR on the monitor, HR in the 80s. Heparin restarted as per order, see documentation. R radial CDI. No complaints from pt at this time, call arias within reach.
[2025-01-16] VITALS (8 sets, daily range): BP systolic 123–135; BP diastolic 74–85; PULSE 87; BMI 40.3
[2025-01-16 04:12] LABS: Hematocrit 34.2 % (37.0-47.0); Hemoglobin 11.3 g/dL (12.0-16.0); Mean Corp Hgb Conc. 33.0 g/dL (33.0-37.0); Mean Corpuscular Volume 87.9 fL (81.0-99.0); Platelet Count 215 10^3/uL (130-400); Red Cell Dist. Width 13.5 % (11.5-14.5)
[2025-01-16 04:23] LABS: APTT 42.0 Sec (23.4-35.0)
[2025-01-16 04:29] LABS: Blood Urea Nitrogen 11 mg/dl (7-17); Calcium 9.1 mg/dl (8.4-10.2); Carbon Dioxide 27 mmol/L (22-30); Chloride 107 mmol/L (98-107); Estimated Creatinine Clearance 118 ml/min; Glucose 116 mg/dl (70-99); Magnesium 1.8 mg/dl (1.6-2.3); Potassium 3.9 mmol/L (3.5-5.1); Sodium 135 mmol/L (135-145); eGFR > 60.00
--- NOTE | 2025-01-16 07:32 | W.PN.CT ---
Today's Communication / Plan
-
Plan:
-Ongoing preop workup
-Started on heparin gtt yesterday 01/14 with goal PTT of 40-60, currently on heparin gtt @ 700 units/hr
-Cont. current meds (ASA, Heparin gtt, Lipitor, Aldactone, Toprol XL, Metformin, Novolog, Lantus)
-Cont. antibiotics per ID, currently on Vancomycin and Rocephin, f/u blood cultures pending. C/o pruritus with Vancomycin and refusing, changed to daptomycin
-Dr. Vizcarra to see
Assessment / Plan
-
Assessment:
-Suspected Mitral Valve endocarditis
-Recent CVA per MRI 08/11/24 @ [facility] (multiple infarcts involving left cerebellar/parietal, occipital and periventricular white matter)
-HTN (uncontrolled)
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
-HLD
-Class 3 obesity (BMI 40)
-DIDI (not on CPAP @ home d/t insurance issues)
-Uterine polyps S/P D&C
-S/P
Discussed patient care with: Cardiology, Nursing, Respiratory Therapy, Pharmacy and Care Team
Subjective
-
Date of Service: January 16, 2025
-No major issues overnight. Denies further pruritus with antibiotics
Objective Data
-
Lab Results
01/16/25 03:53
01/16/25 03:53
PT 12.9 Sec (11.4-14.6) 01/14/25 05:23
INR 0.95 01/14/25 05:23
APTT 42.0 Sec (23.4-35.0) H 01/16/25 03:53
Vital Signs
Vital Signs
Temp Pulse Resp BP Pulse Ox
97.9 F 75 16 131/74 96
01/16/25 04:06 01/16/25 06:00 01/16/25 04:06 01/16/25 03:48 01/16/25 04:06
SaO2: 96 (RA)
Physical Exam
-
General: Awake, Oriented and AOx3
Cardiovascular: Regular rate & rhythm, No Murmurs, No Rub and No Gallop
Respiratory: Clear
Sternum: Stable
Incision: Clean, Dry, Intact and Dressing Intact
Extremities: No Edema
Data Reviewed
-
Lab Results: Results Reviewed
Medications: Active Meds Reviewed
Chest X-Ray: Report Reviewed
ECG: Report Reviewed and Image Reviewed
--- NOTE | 2025-01-16 08:15 | W.PN.CD ---
Today's Communication / Plan
-
feeling better some increase in strength in right hand but still weaker than left
remain in sinus
will review tx plan with CT surgery
Patient off plavix and on asa and Heparin. Appears salinasn was back on heparin as of yesterday will revie brice Ct surgery .
Impression / Plan
-
Impression/Plan: 49 y/o with HTN and DM transferred from [facility] after being admitted with embolic CVA, prompting an echocardiogram which demonstrated a cardiac mass on the posterior mitral valve annulus. She has been transferred for LAURA and cardiac
catheterization as a pre-amble to possible surgical intervention.
#Embolic CVA:
-Acute, stable.
-Right sided weakness
-PT and speech evalulations.
-Continue aspirin, clopidogrel x 21 days, followed by aspirin indefinitely per [facility] neurology.
-LAURA SUMMARY
1. Normal biventricular size and systolic function. Left ventricular ejection fraction visually estimated 60-65%.
2. Trileaflet aortic valve that opens normally without significant aortic regurgitation. Lambl's excrescence noted on aortic side of RCC.
3. Thickened mitral valve leaflets without prolapse. Sessile 0.88 cm echodensity at the junction of the base of P1/ P2 on the atrial side. Trivial mitral regurgitation.
4. Trace tricuspid insufficiency. Estimated pulmonary artery systolic pressure 18 mmHg assuming a right atrial pressure of 5 mmHg.
5. Intact interatrial septum without shunt by color-flow Doppler and negative agitated saline, bubble study.
6. No pericardial effusion.
#Cardiac mass/possible endocarditis
-mass appears annular based on LAURA Not much mobility see report above.
- cath without CAD
#HTN
-Chronic, stable.
-Treated with spironolactone, losartan and metoprolol.
-Permissive BP with recent CVA.
#Hyperlipidemia
-Chronic, stable.
-Continuestatin
#IDDM:
-Chronic, uncontrolled.
-HbA1c = 11.2.
-Insulin per primary service.
Subjective/Interval History:
No acute events.
Right arm weakness persists.
DATA:
TTE ([facility]), 01/11/2025:
LV normal size. LV function normal, EF 60 to 65%.
RV normal.
Normal mitral valve.
Physiologic mitral valve regurgitation.
TV normal.
CARMEN structurally normal, no evidence of stenosis.
-LAURA [id number]/27/25
1. Normal biventricular size and systolic function. Left ventricular ejection fraction visually estimated 60-65%.
2. Trileaflet aortic valve that opens normally without significant aortic regurgitation. Lambl's excrescence noted on aortic side of RCC.
3. Thickened mitral valve leaflets without prolapse. Sessile 0.88 cm echodensity at the junction of the base of P1/ P2 on the atrial side. Trivial mitral regurgitation.
4. Trace tricuspid insufficiency. Estimated pulmonary artery systolic pressure 18 mmHg assuming a right atrial pressure of 5 mmHg.
5. Intact interatrial septum without shunt by color-flow Doppler and negative agitated saline, bubble study.
6. No pericardial effusion.
LAURA ([facility]) 01/12/2025:
LVEF 60 to 65%.
No thrombus in left atrial appendage.
No evidence of mitral valve stenosis. Trace mitral valve regurgitation. 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
AV structurally normal.
Bubble study negative.
MRI brain, 01/11/2025:
Multiple acute infarcts in the left cerebellar hemisphere, left occipital lobe and left parietal lobe and left periventricular white matter.
Physical Exam
Vital Signs/Labs
Vital Signs
Temp Pulse Resp BP Pulse Ox
97.9 F 75 16 131/74 96
01/16/25 04:06 01/16/25 06:00 01/16/25 04:06 01/16/25 03:48 01/16/25 07:37
01/15/25 01/16/25 01/17/25
06:59 06:59 06:59
Actual Weight 96.4 kg 96.6 kg
01/16/25 03:53
01/16/25 03:53
PT 12.9 Sec (11.4-14.6) 01/14/25 05:23
INR 0.95 01/14/25 05:23
APTT 42.0 Sec (23.4-35.0) H 01/16/25 03:53
Magnesium 1.8 mg/dl (1.6-2.3) 01/16/25 03:53
Triglycerides 107 mg/dl (10-149) 01/13/25 04:34
LDL Cholesterol, Calc 44 mg/dl 01/13/25 04:34
VLDL Cholesterol, Calc 21 mg/dl (0-30) 01/13/25 04:34
HDL Cholesterol 47 mg/dl 01/13/25 04:34
Physical Exam
Constitutional: No acute distress
Cardiovascular: Rhythm & rate is regular
Respiratory: Wheeze Absent and Rhonchi Absent
GI: Soft and Non tender
Neuro/Psych: Alert
Data Reviewed
-
Date of Service: January 16, 2025
Medical Decision Making: Reviewed Test Results
Echo: Tracing Personally Visualized and interpreted
X-Ray/CT/US/MRI/NUC/PET: Report Reviewed by me
Medical Tests (PFT, Pathology etc): Report Reviewed by me
Labs: Labs Reviewed by me
[2025-01-16 08:59] LABS: Glucose - Point of Care 128 mg/dl (70-99)
--- NOTE | 2025-01-16 09:09 | W.PN.ID1 ---
Date of Service
Date of Service: January 16, 2025
Today's Communication
- start linezolid 600 mg PO BID, stop daptomycin
- continue ceftriaxone
Assessment / Plan
Embolic CVAs
Possible endocarditis
Reported allergy to penicillin/amoxicillin and ciprofloxacin
- called and spoke with [facility] lab on 01/15 - 01/12 blood cultures are no growth at 3 days
- sessile mass seen on the mitral valve, redemonstrated on LAURA yesterday
- blood cultures here no growth to date
- start linezolid 600 mg PO BID, stop daptomycin
- continue ceftriaxone
- serology for coxiella burnetii & bartonella serologies, t whipplei PCR
- will follow up CT surgery plans - if valve is resected please send for culture and pathology
- may require a course of empiric treatment
- follow fever curve
- follow clinically
Chief Complaint
-: Other (possible endocarditis)
Subjective / Review of Systems
remains afebrile
bp stable
preoperative workup ongoing
Vital Signs / Physical Exam
Vital Signs
Vital Signs
Temp Pulse Resp BP Pulse Ox
97.8 F 96 17 131/74 98
01/16/25 08:25 01/16/25 08:25 01/16/25 08:25 01/16/25 03:48 01/16/25 08:25
Physical Exam
Constitutional: No Acute Distress
Cardiovascular: Regular Rate and S1/S2; Negative Murmur or Rub
Pulmonary: Clear and Symmetric; Negative Wheezes or Rales
Gastrointestinal: Soft, Non Tender, Non Distended and Normal Bowel Sounds
Skin: Warm and Dry; Negative Rash or Jaundice
Objective Data
Lab Data
Lab Results
01/16/25 03:53
01/16/25 03:53
PT 12.9 Sec (11.4-14.6) 01/14/25 05:23
INR 0.95 01/14/25 05:23
APTT 42.0 Sec (23.4-35.0) H 01/16/25 03:53
Estimated Creat Clear 118 ml/min 01/16/25 03:53
Total Bilirubin 0.3 mg/dl (0.2-1.3) 01/14/25 05:23
AST 21 U/L (14-36) 01/14/25 05:23
ALT 36 U/L (0-35) H 01/14/25 05:23
Alkaline Phosphatase 134 U/L (38-126) H 01/14/25 05:23
Most recent labs reviewed.
Micro Results:
01/13/25 13:23 Blood Culture - Preliminary
Blood/Venous No Growth in 48 hours- Final report to follow
01/13/25 13:23 Blood Culture - Preliminary
Blood/Venous No Growth in 48 hours- Final report to follow
01/12/25 23:22 MRSA Screen - Final
Nose No Methicillin Resistant Staphylococcus aureus isolated.
[2025-01-16] MEDS: NOVOLOG FLEXPEN-MODERATE RESISTANCE SC ×2 (09:22→18:08)
[2025-01-16] MEDS: TOPROL XL 100 MG PO (09:23)
[2025-01-16] MEDS: PROTONIX 40 MG PO (09:24)
[2025-01-16] MEDS: VISBIOME 1 CAP PO (09:24)
[2025-01-16] MEDS: ALDACTONE 50 MG PO (09:24)
[2025-01-16] MEDS: ASPIR LOW (ENTERIC COATED) 81 MG PO (09:24)
[2025-01-16] MEDS: DESENEX/MITRAZOL/ZEASORB 1 APPLIC TOPICAL ×2 (09:25→19:34)
[2025-01-16] MEDS: NOVOLOG FLEXPEN 15 UNITS SC ×3 (09:25→18:08)
--- NOTE | 2025-01-16 09:39 | W.PN.HOSP.TC ---
Addendum entered and electronically signed by Maureen Workman MD 01/16/25 12:09:
Attending�addendum:
I saw and evaluated the patient. I reviewed the resident�s note and agree with findings and plan as documented in the resident�s note.��patient seen and examined at bedside, patient was sitting in the chair denies any chest pain or shortness of
breath, no abdominal pain, no nausea, no vomiting, no diarrhea or constipation.
Physical�exam:
GENERAL : Patient is awake, alert, oriented x3
HEENT: Nonicteric sclerae, PERRLA, EOMI. Oropharynx clear. Moist mucous membranes. Conjunctivae appear well perfused.
CHEST: Chest wall is nontender.
HEART: Regular rate and rhythm without murmurs.
LUNGS: Clear to auscultation bilaterally.
ABDOMEN: Soft, positive bowel sounds, nontender, no organomegaly.
RECTAL: Deferred.
MUSCLES/EXTREMITIES: No abnormal range of motion, no swelling.SKIN: No rash, no excessive bruising, petechiae, or purpura.
NEUROLOGIC: Cranial nerves II-XII intact without motor/sensory deficit.
�
Assessment/plan:
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
Continue antibiotic
LAURA confirmed mitral valve mass
Left coronary angiography shows no obstructive coronary artery disease
plan for OR as per CT surgery
Insulin-dependent diabetes mellitus.
Hold metformin (patient underwent cardiac cath)
Continue Premeal, Lantus once start oral intake
CVA.
Continues workup for mitral valve endocarditis/mass
CODE STATUS: Full code
DVT prophylaxis: Heparin drip
Diet: DM
Disposition: Plan for or as per CT SX
�
Total time spent on today�s encounter was 55 minutes which included time spent in counseling the patient/family regarding diagnosis and treatment plan as listed above, goals of care, and symptom management. Case was discussed with nursing staff,
specialists, and care coordinators/case management. All labs and imaging personally reviewed by me. Remainder the time spent in detailed review of previous records, lab data, imaging, and other medical provider documentation.
Original Note:
Today's Communication/Plan
-
Encouraged incentive spirometry for mild shortness of breath
Preop planning
Monitoring sugars
Assessment / Plan
Assessment / Plan
MPRESSION:
49 year old with a history of uncontrolled type 2 diabetes, diabetic neuropathy, uncontrolled hypertension, DIDI, obesity transferred from [facility] 01/12/25 after acute embolic left cerebellar, occiput and parietal CVA identified on MRI
with right sided weakness and mitral valve mass and preserved EF (60-65%) transferred to [facility] for cardiac surgery evaluation.
PLAN:
#Preop clearance
Revised cardiac risk index score 3
10% risk of major cardiac event
Patient needs to be cleared by neurology before cardiac procedure
#Shortness of breath
01/13 CT chest with mild bilateral atelectasis
Patient saturating well, in no respiratory distress
Incentive spirometry
Patient on ABX
No tachycardia or fevers
Continue to monitor
# T2DM, uncontrolled
on insulin (A1C 11.2)
- diabetes SHIRT IRONER consult
-Hold metformin
-Lantus to 20 units
-aspart 15 units
# CVA
- Secondary prevention per neurology
- PT/OT/ST evaluation/treatment
- continue statin
# Mitral valve mass
#Endocarditis
Per cardiothoracic team
Per ID team
# HTN, uncontrolled
Essential versus secondary?
Inpatient medications per CT team
Outpatient follow-up for further evaluation between secondary versus essential
# Evelina dermatitis
Burning with urination resolved
Miconazole twice daily
DVT prophylaxis: SCDs, heparin ggt
CODE STATUS: Full code
Anticipated Discharge: > 48 hours
Subjective/Interval History
-
Patient was seen at bedside, she reports doing well with mild shortness of breath at rest but overall feels a lot better than yesterday. She reports no fevers chills chest pain nausea vomiting. Date of Service: January 16, 2025
Objective Data
-
Labs:
Laboratory Results
01/16/25 01/16/25
03:53 09:55
WBC 6.0
Hgb 11.3 L
Hct 34.2 L
Plt Count 215
APTT 42.0 H Pending
Sodium 135
Potassium 3.9
Chloride 107
Carbon Dioxide 27
BUN 11
Creatinine 0.5 L
Glucose 116 H
Calcium 9.1
Vital Signs:
Vital Signs
Temp Pulse Resp BP Pulse Ox
97.8 F 83 17 123/85 98
01/16/25 08:25 01/16/25 09:24 01/16/25 08:25 01/16/25 09:24 01/16/25 08:25
I&O
01/15/25 01/16/25 01/17/25
06:59 06:59 06:59
Intake Total 825 / 825
Output Total 300 / 300
Balance 525 / 525
Review of Systems
-
History Source: Patient
Constitutional: Denies Fever or Chills
EENT: Denies Sore Throat or Runny Nose
Respiratory: Reports Trouble Breathing; Denies Cough
Cardiac: Denies Chest Pain or Palpitations
Abdomen/GI: Denies Abdominal Pain, Nausea, Vomiting, Diarrhea or Constipated
Genitourinary: Denies Dysuria
Skin: Denies Itching
Neuro: Denies Headache
Physical Exam
-
General: Well Developed, Well Nourished, No Apparent Distress, Comfortable and Morbidly Obese; Negative Respiratory Distress, Pain or Fever
HEENT: Normocephalic and Atraumatic
Respiratory: Clear to Auscultation and Non Labored Respirations; Negative Wheezes or Crackles
Cardiac: Regular Rhythm and S1/S2; Negative Murmur
GI: Soft, Nontender, Nondistended and Normal Bowel Sounds
Musculoskeletal: No Clubbing and No Edema
Skin: Warm and Dry
Neuro: Awake and Alert
--- NOTE | 2025-01-16 10:16 | PN.DE.MGMTRT ---
Insulin Management
- -
01/16/25: Diabetes Management Consult Follow up
49 year old female with a PMH: Uncontrolled hypertension, DIDI, uncontrolled T2DM, Diabetic Neuropathy, Obesity transferred from [facility] 01/12/25 after acute embolic left cerebellar, occiput and parietal CVA identified on MRI with
right sided weakness and mitral valve mass and preserved EF (60-65%) transferred to [facility] for concern of MV endocarditis, currently undergoing w/u for cardiac surgery.
Pt awake, alert, oriented, resting in bed, able to discuss diabetes care plan.
Pt states she has been diabetic since 2006, and began using insulin during a in 2010. Pt was routinely seeing charissa Chi PA-C at [facility], and had been prescribed metformin 1000 mg BID, glargine 50 units PM, and insulin aspart 20
units TID before meals but states was taking 70 units of long-acting insulin. She uses a CGM Nilo 3 plus. A1C 11.2%, Cr 0.4, eGFR >60
Current diabetes regimen includes 20 units Lantus @ HS, AC NovoLog 15 units and low corrective with meals.
01/15 Glucose range 164 to 249. Received 20 units lantus @ HS.
01/16 Fasting glucose 116. Will continue lantus 20 units @ HS with novolog 15 units AC.
Discussed with patient such a huge disparity in home insulin dose an dose she is receiving here. She admits she does not limit how much or how often she eats at home and diet is controlled here.
Patient for OR tomorrow.
Discussed with Nurse. Will continue to follow.
Diabetes History
- -
Type of Diabetes: 2 requiring insulin
Pre-Admission Diabetes Regimen
01/16/25
03:53
Creatinine 0.5 L
Lab Results
Hemoglobin A1c 11.2 % (4.0-5.9) H 01/13/25 04:34
Insulin Pump Settings
IP Diabetes Regimen
01/15/25 01/15/25 01/15/25
13:23 18:17 21:56
Glucose
POC Glucose 166 H 195 H 249 H
01/16/25 01/16/25
03:53 08:57
Glucose 116 H
POC Glucose 128 H
Meal type: Breakfast
Amount consumed: 90%
Patient Education
[2025-01-16 10:20] LABS: APTT 52.3 Sec (23.4-35.0)
[2025-01-16] MEDS: STERILE WATER FOR INJECTION 20 ML IV (12:00)
[2025-01-16] MEDS: ZYVOX 600 MG PO ×2 (12:00→19:34)
[2025-01-16] MEDS: ROCEPHIN 2000 MG IV (12:01)
[2025-01-16] MEDS: NOVOLOG FLEXPEN-MODERATE RESISTANCE 1 UNITS SC (12:30)
[2025-01-16 12:31] LABS: Glucose - Point of Care 161 mg/dl (70-99)
--- NOTE | 2025-01-16 14:35 | CM ---
Reviewed chart. Met with Mrs. Almaraz to review discharge plans. Prior to admission she resides with her spouse and fourteen year old daughter in a two story home with steps to enter. She has a full flight of step to get to bedroom/full bathroom.
She does not have a bathroom on the first floor. S Prior to admission she was independent with ambulation and adls. She does not have any DME. She has a prescription plan. Telephone call to [facility] , ([phone]) to see if they
accept her insurance and service her geographic area. [facility] accepts her insurance and services her area. Will need to confirm with medical team if she will need chcf ABX. Will need to see her current functional level to see
if she will have any skilled care needs. Medical work-up in progress. The discharge plan is to return home with spouse and daughter and home infusion if indicated when medically stable.
We reviewed pre-op and post-op routines. We briefly reviewed the shower instructions. We also reviewed restrictions including sternal precautions and driving restrictions. We reviewed a home visit by the Transitional Care Nurse or VNA/Home
Infusion if chcf IV ABX indicated. She is agreeable to the Transitional Care nurse or VNA services. She states she has a good support network of hinduism members that will check on her when she goes home. The tentative plan is for MVR on
Wednesday01/17/25
[2025-01-16 17:22] LABS: APTT 52.6 Sec (23.4-35.0)
[2025-01-16] MEDS: HEPARIN 25000 UNITS/250 ML IV (18:02)
[2025-01-16] MEDS: LIPITOR 10 MG PO (18:06)
[2025-01-16 18:11] LABS: Glucose - Point of Care 82 mg/dl (70-99)
[2025-01-16 18:38] LABS: APTT 58.0 Sec (23.4-35.0)
--- NOTE | 2025-01-16 19:13 | PTCARENOTE ---
~5247-5555: Handoff report received from nightshift RN. Pt AOx4, NSR PVCs 80s on tele, SBP 120s-130s, RA satting 99%. NIHSS 1 this AM for R sided ataxia and strength. Patient denies pain at this time. +2/2 pulses, +1 BLE edema. Patient ambulated
with PT and walker, tolerated. R radial pucture site CDI and soft. PTT drawn and Heparin gtt titrated per protocol. R midline CDI, however no blood return at this time. Pt to be NPO at midnight. All needs met at this time, call arias within reach.
~[id number]: Patient c/o mild chest pressure, but also states she is 'belching alot.' She says she also feels like someone is stabbing her with a needle in her sternum but states 'it's ok, maybe just anxiety.' Claribel ZEE made aware, no new
orders at this time. Dr. Vizcarra in to speak with patient about plan for surgery tomorrow. Patient tearful about news. Bloodwork obtained for tool and machine maintainer to run tests prior to surgery, per CT Surg OIL SPOT WASHER 'no order needed.' Labs given to Nga Schofield
SAADIA.
~[id number]: Plan for surgery tomorrow now on hold at this time, patient ordered MRI of brain. Patient made aware and awaiting call from MRI for screening at this time.
~[id number]: VAT team in to check on R midline, blood return noted still. PTT drawn and sent to labs for processing. Patient taken for MRI of head with nursing staff via wheelchair and then brought back to room. PTT redrawn to double-check result
prior to titrating gtt. PTT resulted, heparin gtt tirated per protocol, next PTT ordered. All needs met at this time, call arias within reach. Handoff given to nightshift RN.
[2025-01-16] MEDS: TYLENOL 650 MG PO (22:22)
[2025-01-16] MEDS: LANTUS 0.2 UNITS SC (22:23)
[2025-01-16 22:25] LABS: Glucose - Point of Care 164 mg/dl (70-99)
--- NOTE | 2025-01-16 23:13 | PTCARENOTE ---
Received patient at change of shift. Afib on the monitor, HR in the 90s. NIHSS 1. Heparin running as per protocol, see documentation. Pt complained of 5/10 chronic R shoulder pain, PRN Tylenol administered as per order, see MAR. Call arias within
reach.
[2025-01-17] VITALS (17 sets, daily range): BP systolic 133–185; BP diastolic 76–978; PULSE 83–102; O2SAT 99; BMI 40.4
[2025-01-17] MEDS: STERILE WATER FOR INJECTION 20 ML IV ×3 (00:32→23:16)
[2025-01-17] MEDS: ROCEPHIN 2000 MG IV ×3 (00:32→23:16)
[2025-01-17 01:10] LABS: APTT 68.6 Sec (23.4-35.0)
--- NOTE | 2025-01-17 04:42 | W.PN.CT ---
Today's Communication / Plan
-
Plan:
-Ongoing preop workup/evaluation
-Cont. current meds (ASA, Heparin gtt, Lipitor, Aldactone, Toprol XL, Metformin, Novolog, Lantus)
-Cont. antibiotics per ID, currently on Vancomycin and Rocephin, f/u blood cultures pending. C/o pruritus with Vancomycin and refusing, changed to daptomycin
-Repeat head CT from 01/15 showed a couple of subtle subacute infarcts within the left occipital lobe and left centrum semiovale. No CT evidence for hemorrhagic transformation
-Awaiting repeat brain MRI
-Dr. Vizcarra to review imaging
Assessment / Plan
-
Assessment:
-Suspected Mitral Valve endocarditis
-Recent CVA per MRI 08/11/24 @ [facility] (multiple infarcts involving left cerebellar/parietal, occipital and periventricular white matter)/right side weakness
-HTN (uncontrolled)
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
-HLD
-Class 3 obesity (BMI 40)
-DIDI (not on CPAP @ home d/t insurance issues)
-Uterine polyps S/P D&C
-S/P
Discussed patient care with: Cardiology, Nursing, Respiratory Therapy, Pharmacy and Care Team
Subjective
-
Date of Service: January 17, 2025
Pt offers no complaints, denies CP/SOB
Objective Data
-
PT 12.9 Sec (11.4-14.6) 01/14/25 05:23
INR 0.95 01/14/25 05:23
APTT 68.6 Sec (23.4-35.0) H 01/17/25 00:41
Vital Signs
Vital Signs
Temp Pulse Resp BP Pulse Ox
97.6 F 73 16 134/76 100
01/17/25 04:29 01/17/25 04:29 01/17/25 04:29 01/17/25 04:29 01/17/25 04:29
SaO2: 100
Physical Exam
-
General: Awake, Oriented and AOx3
Cardiovascular: Regular rate & rhythm, No Murmurs, No Rub and No Gallop
Respiratory: Clear
Incision: Clean, Dry, Intact and Dressing Intact
Extremities: No Edema
Right sided weakness
Data Reviewed
-
Lab Results: Results Reviewed
Medications: Active Meds Reviewed
Chest X-Ray: Report Reviewed and Image Reviewed
ECG: Report Reviewed and Image Reviewed
--- NOTE | 2025-01-17 08:04 | W.PN.CD ---
Today's Communication / Plan
-
F/U brain MRI.
Cardiac MRI for further clarification of mitral annular lesion.
Apixaban 5 mg BID.
Discharge planning.
Impression / Plan
-
Impression/Plan: 49 y/o with HTN and DM transferred from [facility] after being admitted with embolic CVA, prompting an echocardiogram which demonstrated a cardiac mass on the posterior mitral valve annulus. She has been transferred for LAURA and cardiac
catheterization as a pre-amble to possible surgical intervention.
#Embolic CVA:
-Acute, stable.
-Right sided weakness, improving.
-PT and speech evaluations.
-After discussion with colleagues, surgery has been deferred to allow for decreased risk of hemorrhagic conversion (4 weeks).
-Therapeutic anticoagulation with apixaban.
#Cardiac mass/possible endocarditis
-Mass appears annular based on LAURA. Not much mobility.
-Culture data is negative to date. I doubt infectious endocarditis.
-Discussed with colleagues. Cardiac MRI for clarification.
#HTN
-Chronic, stable.
-Treated with spironolactone, losartan and metoprolol.
-Permissive BP with recent CVA.
#Hyperlipidemia
-Chronic, stable.
-Continue statin.
#IDDM:
-Chronic, uncontrolled.
-HbA1c = 11.2.
-Insulin per primary service.
Subjective/Interval History:
Patient reports intolerance (pruritis) to vancomycin, initially changed to daptomycin, now linezolid per ID.
Nursing documents atrial fibrillation. Full review of telemetry shows no atrial fibrillation.
Surgery plan on hold and repeat MRI brain ordered.
DATA:
MRI brain, 01/11/2025:
Multiple acute infarcts in the left cerebellar hemisphere, left occipital lobe and left parietal lobe and left periventricular white matter.
TTE ([facility]), 01/11/2025:
LV normal size. LV function normal, EF 60 to 65%.
RV normal.
Normal mitral valve.
Physiologic mitral valve regurgitation.
TV normal.
CARMEN structurally normal, no evidence of stenosis.
LAURA ([facility]) 01/12/2025:
LVEF 60 to 65%.
No thrombus in left atrial appendage.
No evidence of mitral valve stenosis. Trace mitral valve regurgitation. 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
AV structurally normal.
Bubble study negative.
LAURA, 01/15/2025:
SUMMARY
1. Normal biventricular size and systolic function. Left ventricular ejection fraction visually estimated 60-65%.
2. Trileaflet aortic valve that opens normally without significant aortic regurgitation. Lambl's excrescence noted on aortic side of RCC.
3. Thickened mitral valve leaflets without prolapse. Sessile 0.88 cm echodensity at the junction of the base of P1/ P2 on the atrial side. Trivial mitral regurgitation.
4. Trace tricuspid insufficiency. Estimated pulmonary artery systolic pressure 18 mmHg assuming a right atrial pressure of 5 mmHg.
5. Intact interatrial septum without shunt by color-flow Doppler and negative agitated saline, bubble study.
6. No pericardial effusion.
7. Recommend Reviewed with primary cardiology service.
Cardiac Catheterization, 01/15/2025:
CONCLUSIONS
1. Right dominant circulation with an upward angulated left main coronary artery requiring an AL 2 diagnostic catheter with coronary wire assistance for cannulation and no coronary artery disease.
2. Systemic hypertension, permissive in the setting of CVA.
Physical Exam
Vital Signs/Labs
Vital Signs
Temp Pulse Resp BP Pulse Ox
36.4 C 73 20 134/76 98
01/17/25 08:00 01/17/25 04:29 01/17/25 08:00 01/17/25 04:29 01/17/25 08:00
01/15/25 01/16/25 01/17/25
11:59 11:59 11:59
Actual Weight 96.4 kg 96.6 kg 96.9 kg
PT 12.9 Sec (11.4-14.6) 01/14/25 05:23
INR 0.95 01/14/25 05:23
APTT 68.6 Sec (23.4-35.0) H 01/17/25 00:41
Magnesium 1.8 mg/dl (1.6-2.3) 01/16/25 03:53
Triglycerides 107 mg/dl (10-149) 01/13/25 04:34
LDL Cholesterol, Calc 44 mg/dl 01/13/25 04:34
VLDL Cholesterol, Calc 21 mg/dl (0-30) 01/13/25 04:34
HDL Cholesterol 47 mg/dl 01/13/25 04:34
Physical Exam
Constitutional: No acute distress and Comfortable
EENT: Anicteric and Moist mucous membranes
Cardiovascular: Rhythm & rate is regular, Pedal edema is absent, JVD pressure is normal, S1S2 is normal and Murmur/rub/gallop absent
Respiratory: Respiratory effort normal, Lungs clear to auscul., Wheeze Absent, Crackles Absent and Rhonchi Absent
GI: Soft, Distention absent, Flat, Non tender and Normal bowel sounds
Neuro/Psych: AO x 3
Other: Cath Site (Right radial access site is C/D/I.)
Data Reviewed
-
Date of Service: January 17, 2025
Medical Decision Making: Reviewed Test Results, Independent Historian Assessment and Test Interpretation
EKG: Tracing Personally Visualized and interpreted and Report Reviewed by me
Echo: Tracing Personally Visualized and interpreted and Report Reviewed by me
X-Ray/CT/US/MRI/NUC/PET: Report Reviewed by me
Medical Tests (PFT, Pathology etc): Image Personally Visualized and interpreted and Report Reviewed by me
Labs: Labs Reviewed by me
Old Records: Reviewed
[2025-01-17 08:09] LABS: Hematocrit 36.6 % (37.0-47.0); Hemoglobin 11.7 g/dL (12.0-16.0); Mean Corp Hgb Conc. 32.0 g/dL (33.0-37.0); Mean Corpuscular Volume 89.9 fL (81.0-99.0); Platelet Count 206 10^3/uL (130-400); Red Cell Dist. Width 13.9 % (11.5-14.5)
[2025-01-17 08:10] LABS: Glucose - Point of Care 167 mg/dl (70-99)
[2025-01-17] MEDS: TOPROL XL 100 MG PO (08:10)
[2025-01-17] MEDS: APRESOLINE 5 MG IV ×2 (08:51→22:06)
[2025-01-17] MEDS: DESENEX/MITRAZOL/ZEASORB 1 APPLIC TOPICAL ×2 (08:52→19:36)
[2025-01-17] MEDS: PROTONIX 40 MG PO (08:52)
[2025-01-17] MEDS: VISBIOME 1 CAP PO (08:52)
[2025-01-17] MEDS: ASPIR LOW (ENTERIC COATED) 81 MG PO (08:52)
[2025-01-17] MEDS: ZYVOX 600 MG PO ×2 (08:52→19:36)
[2025-01-17 08:54] LABS: Blood Urea Nitrogen 13 mg/dl (7-17); Calcium 9.5 mg/dl (8.4-10.2); Carbon Dioxide 26 mmol/L (22-30); Chloride 106 mmol/L (98-107); Estimated Creatinine Clearance 118 ml/min; Glucose 166 mg/dl (70-99); Magnesium 1.7 mg/dl (1.6-2.3); Potassium 4.2 mmol/L (3.5-5.1); Sodium 137 mmol/L (135-145); eGFR > 60.00
[2025-01-17] MEDS: ALDACTONE 50 MG PO (08:55)
[2025-01-17] MEDS: NOVOLOG FLEXPEN 15 UNITS SC ×3 (08:55→18:12)
[2025-01-17] MEDS: NOVOLOG FLEXPEN-MODERATE RESISTANCE 1 UNITS SC ×2 (08:55→12:39)
--- NOTE | 2025-01-17 08:58 | W.PN.NEURO.1 ---
Addendum entered and electronically signed by Phillip Wallace MD 01/17/25 19:15:
The patient was seen and examined on 01/17/2025. I discussed the patient with the nurse practitioner Radha Franklin and I agree with her assessment and plan. The following is my addendum.
The patient is a 49 years old female who presented to the ER on 01/12/2025 for cardiothoracic surgery evaluation for mitral valve surgery. The patient complained of speech difficulty followed by numbness and weakness of the right side of the body
and she says that she was unable to hold a cup of coffee or comb her hair with the right hand. A stroke alert was called on 01/17/2025 due to's worsening of the right-sided weakness. The CT and the CTA of head and neck were obtained which were
negative for any acute abnormality. The patient was not a candidate for TNK due to being on therapeutic dose of heparin drip and also the patient was not a candidate for IAT as there was no LVO. Patient's strength improved gradually after she
returned from the CT scanner and her right upper extremity strength appeared to be about what it was yesterday.
Neurologic examination:
The patient is alert alert and oriented x 3,
Speech is clear,
The cranial nerves II to XII are grossly intact,
The strength is grossly 4/5 in the right upper and lower extremities, while the strength is grossly 5/5 in the left upper and lower extremities,
The sensations are grossly intact,
There was no limb ataxia seen.
NIHSS = 2
-LAURA 01/15/25: It shows a mass on the mitral valve.
-MRI brain 01/16/25: There are multiple small foci of restricted diffusion involving the right cerebellar hemisphere, right parietal lobe, left occipital lobe, left parietal lobe and posterior left frontal lobe consistent with acute/subacute
infarctions. The restricted diffusion within the right cerebellar hemisphere, right parietal and inferior left parietal lobe appear new from prior. Given the multi vascular territory these may be embolic. There is no evidence of hemorrhagic
transformation.
-CT head 01/17/25: Subtle foci of hypoattenuation within the left occipital lobe and left centrum semiovale, corresponding to acute infarct seen on MRI brain dated 01/16/2025. Additional small infarcts seen on prior MR are not well appreciated on
current CT. No evidence of hemorrhagic transformation. ASPECT score: 8/10.
-CTA head/neck 01/17/25: No evidence of large vessel occlusion, or arterial dissection.
ASSESSMENT AND PLAN:
The patient has bilateral acute strokes, the etiology of which appears to be embolic, likely secondary to cardioemboli, in this patient who has possible endocarditis. LAURA showed a mass on the mitral valve. ID is on the case and the patient is on
antibiotics. The patient was started on Eliquis until cardiac surgery is done in about 6 weeks. The blood cultures have shown no growth to date. The patient had a transient worsening of her right-sided weakness today but she appears to have
returned to her baseline. She was not a candidate for TNK as she was on a therapeutic dose of heparin gtt.
Will sign off. Please call if you have any question.
Original Note:
Today's Communication / Plan
-
.
Neuro Assessment/Plan
Assessment
This is a 49-year-old female who presented to [facility] on 01/12/25 from [facility] on 01/12/[address] surgery evaluation for mitral valve surgery.
According to the patient on 01/11/2024 if she developed gibberish and nonsensical speech. That evening, she developed pain in her left foot that progressed to her leg, followed by numbness on her right side. She was subsequently hospitalized at [facility]. Ms. Almaraz did have dental work in November,. BP on admission was 203/113 mmHg. LAURA on 01/11
On arrival here on 01/13/25, the patient reported persistent weakness on her right side. This weakness significantly impacts her daily functioning, as she cannot open bottles, hold a cup of coffee, or comb her hair with her right hand. She is now
using a walker. Ms. Turner was not was not taking baby aspirin prior to her stroke.
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
-MRI brain 01/16/25: There are multiple small foci of restricted diffusion involving the right cerebellar hemisphere, right parietal lobe, left occipital lobe, left parietal lobe and posterior left frontal lobe consistent with acute/subacute
infarctions. The restricted diffusion within the right cerebellar hemisphere, right parietal and inferior left parietal lobe appear new from prior. Given the multi vascular territory these may be embolic. There is no evidence of hemorrhagic
transformation.
-CT head 01/17/25: Subtle foci of hypoattenuation within the left occipital lobe and left centrum semiovale, corresponding to acute infarct seen on MRI brain dated 01/16/2025. Additional small infarcts seen on prior MR are not well appreciated on
current CT. No evidence of hemorrhagic transformation. ASPECT score: 8/10.
-CTA head/neck 01/17/25: No evidence of large vessel occlusion, or arterial dissection.
I. Bihemispheric subacute stroke. Likely etiology�cardioembolism. Transient worsening of right-sided weakness, CT head and CTA head/neck is negative for any acute abnormalities, likley a fluctuation in existing stroke symptoms.
II. DM, uncontrolled.
III. Medication nonadherence.
IV. DIDI, not on CPAP.
Plan
-Would prefer to wait about 6 weeks for patient to recover from embolic stroke prior to proceeding with CT surgery.
-Transition heparin drip to oral anticoagulation in the meantime.
-Goal normotension.
-LDL goal <70. LDL is 44. Okay to continue atorvastatin 10mg daily as LDL is at goal.
-Goal normoglycemia, hbA1c is 11.2.
-NIHSS and neurological checks per unit guidelines.
-Provide patient's family with a stroke education packet.
-PT/OT/ST evaluations.
Subjective/Objective
Subjective Data
Date of Service: January 17, 2025
A stroke alert was activated this morning due to sudden onset worsening of preexisting right arm weakness at 0645. Patient reports that her right hand/arm strength had been improving, then this morning it was suddenly back to being as weak as when
her stroke symptoms first started. CT head, CTA head/neck were obtained and are negative for any acute abnormalities. She is not a candidate for TNK due to being on a therapeutic heparin drip currently, and no LVO for IAT. Upon return from CT scan
her RUE strength improved significantly and appears to be about what it was yesterday. She denies any headache, dizziness, vision changes, speech/swallow difficulty, and numbness. She does not that her right arm is hurts slightly. She also notes
that she feels extremely fatigued.
Objective Data
Vital Signs
Temp Pulse Resp BP Pulse Ox
97.6 F 83 20 185/100 98
01/17/25 08:00 01/17/25 08:51 01/17/25 08:00 01/17/25 08:51 01/17/25 08:00
Lab Results
01/17/25 07:58
01/17/25 07:58
PT 12.9 Sec (11.4-14.6) 01/14/25 05:23
INR 0.95 01/14/25 05:23
APTT 68.6 Sec (23.4-35.0) H 01/17/25 00:41
Sodium 137 mmol/L (135-145) 01/17/25 07:58
Potassium 4.2 mmol/L (3.5-5.1) 01/17/25 07:58
BUN 13 mg/dl (7-17) 01/17/25 07:58
Glucose 166 mg/dl (70-99) H 01/17/25 07:58
Calcium 9.5 mg/dl (8.4-10.2) 01/17/25 07:58
LDL Cholesterol, Calc 44 mg/dl 01/13/25 04:34
Patient Allergies
codeine Allergy (Unknown, Verified 01/12/25 23:56)
Rash
latex Allergy (Unknown, Verified 01/12/25 23:58)
Unknown
amoxicillin Allergy (Verified 01/12/25 23:58)
Rash
ciprofloxacin (From Cipro) Allergy (Verified 01/13/25 00:34)
Rash
gabapentin Allergy (Verified 01/12/25 23:58)
Itching
Penicillins Allergy (Verified 01/12/25 23:58)
Rash
LDL Level: <70, continue statin
Review of Systems
-
History Source: Patient
EENT: Negative Blurry Vision, Decreased Vision or Swallowing Difficulty
Respiratory: Negative Cough or Trouble Breathing
Cardiac: Negative Chest Pain or Palpitations
Abdomen/GI: Negative Nausea
Neuro: Negative Dizzy, Headache, Weakness, Numbness, Ataxia, Tremors or Speech Problem
Physical Exam
-
General: No Apparent Distress
Eyes: No Ptosis and PERRLA
HEENT: Normocephalic and Atraumatic
Neck: Full Range of Motion
Respiratory: No Dyspnea
GI: Non-distended
Extremities: No Clubbing, No Cyanosis and No Edema
Extended Neurological Exam
Mood & Affect: Mood Unremarkable and Affect Unremarkable
Attention Span & Concentration: Interactive and Closes Eyes after Stimulation
Memory: Unremarkable and Able to Recall
Tremor: Hand Tremor Absent and Head Tremor Absent
Involuntary Movement: None
Speech: Quality Unremarkable, Quantity Unremarkable and Rate of Production Unremarkable
Cranial Nerve II: Left Eye: Pupillary Reactivity Unremarkable, Pupillary Size Unremarkable and Visual Victor Intact
Cranial Nerve II: Right Eye: Pupillary Reactivity Unremarkable, Pupillary Size Unremarkable and Visual Victor Intact
Cranial Nerves III, IV, : Extraocular Movement: Extraocular Movement Full in all Directions
Cranial Nerve VII: Facial Symmetry: Normal Facial Symmetry
Cranial Nerve VIII: Hearing: Unremarkable Hearing to Normal Conversational Volume
Cranial Nerves IX, X: Palate Movement: Palate Elevation Symmetric
Cranial Nerve XII: Tongue Protusion: Midline
Muscle Strength, Overall: Reduced on Right (RUE and RLE 4/5)
Muscle Bulk & Tone: Bulk Unremarkable and Tone Unremarkable
Pronator Drift: Drift in Right Upper Extremity and Drift in Right Lower Extremity
Touch Sensation: Double Simultaneous Stimulation Unremarkable
Coordination: Wvsyse-rdme-gkevyp Testing Unremarkable
Modified [place] Score (MRS)
-
Modified [place] Scale (mRS): Moderately severe disability. Unable to attend to bodily needs/walk.
Score: 4
Data Reviewed
-
CT-A: Report Reviewed and Image Reviewed
CT Head: Report Reviewed and Image Reviewed
MRI Head: Report Reviewed and Image Reviewed
Labs: Report Reviewed
Lipid Profile: Report Reviewed
HgbA1C: Report Reviewed
Reviewed with: Physician, Patient and Family
Medications
-
Active Medications
Generic Name Dose Route Start Last Admin
Trade Name Freq PRN Reason Stop Dose Admin
Acetaminophen 650 mg 01/12/25 14:54 01/16/25 22:22
Acetaminophen 325 Mg Tablet PO 02/09/25 14:53 650 mg
Q4HPRN PRN Administration
mild pain/BREWER/temp> 100.4F
Albuterol/Ipratropium 3 ml 01/12/25 14:54
Ipratropium 0.5/Albuterol 3 Mg (3 Ml Ampul) INH
R Q4HPRN PRN
shortness of breath
Protocol
Apixaban 5 mg 01/17/25 12:30
Apixaban (Eliquis) 5 Mg Tablet PO 02/14/25 12:29
BID SHAWANDA
Aspirin 81 mg 01/13/25 08:00 01/17/25 08:52
Aspirin 81 Mg (Enteric Coated) Tablet PO 02/10/25 07:59 81 mg
DAILY SHAWANDA Administration
Atorvastatin Calcium 10 mg 01/13/25 18:00 01/16/25 18:06
Atorvastatin (Lipitor) 10 Mg Tablet PO 02/10/25 17:59 10 mg
QPM SHAWANDA Administration
Bisacodyl 10 mg 01/12/25 14:54
Bisacodyl 10 Mg Rectal Suppository RECTAL 02/09/25 14:53
[id number] PRN
constipation
Ceftriaxone Sodium 2,000 mg 01/13/25 12:00 01/17/25 00:32
Ceftriaxone 2,000 Mg/20 Ml Vial IV 2,000 mg
Q12H SHAWANDA Administration
Dextrose 12.5 grams 01/13/25 00:56
Dextrose 50% (0.5 Grams/Ml) 50 Ml Syringe IV 02/10/25 00:55
[id number] PRN
hypoglycemia
Protocol
Diphenhydramine HCl 25 mg 01/13/25 22:24 01/13/25 22:35
Diphenhydramine 25 Mg Capsule PO 02/10/25 22:23 25 mg
Q4HPRN PRN Administration
pruritis
Glucagon 1 mg 01/13/25 00:56
Glucagon 1 Mg Vial IM 02/10/25 00:55
PRN PRN
hypoglycemia
Protocol
Hydralazine HCl 5 mg 01/14/25 05:20 01/17/25 08:51
Hydralazine 20 Mg/Ml Vial IV 02/11/25 05:19 5 mg
Q6HPRN PRN Administration
SBP >/= 160
Insulin Glargine 20 units/ 0.2 mls @ 0 mls/hr 01/14/25 18:48 01/16/25 22:23
Device SC 02/11/25 11:22 0.2 mls
HS SHAWANDA Administration
As Directed
Insulin Aspart 15 units 01/14/25 11:23 01/17/25 12:38
Insulin Aspart (Novolog) 100 Units/Ml 3 Ml Flexpen SC 02/10/25 11:29 15 units
AC SHAWANDA Administration
Insulin Aspart 0 units 01/15/25 21:18 01/17/25 12:39
Insulin Aspart Moderate Resistance 300 Units/3 Ml Pen.Injctr SC 02/12/25 05:59 1 units
AC SHAWANDA Administration
Protocol
Lactobacillus/Bifidobacterium 1 cap 01/15/25 08:00 01/17/25 08:52
Lactobac/Bifidobac (Visbiome) PO 02/12/25 07:59 1 cap
DAILY SHAWANDA Administration
Linezolid 600 mg 01/16/25 11:00 01/17/25 08:52
Linezolid 600 Mg Tablet PO 600 mg
BID SHAWANDA Administration
Metformin HCl 1,000 mg 01/13/25 08:00 01/15/25 12:42
Metformin 1000 Mg Regular Release Tablet PO 02/10/25 07:59 1,000 mg
On Hold: 01/15/25 14:51 BID@0800,1700 SHAWANDA Administration
Metoprolol Succinate 100 mg 01/14/25 08:00 01/17/25 08:10
Metoprolol 100 Mg Extended Release Tablet PO 02/11/25 07:59 100 mg
DAILY SHAWANDA Administration
Miconazole Nitrate 0 applic 01/14/25 08:00 01/17/25 08:52
Miconazole Powder Bottle TOPICAL 02/11/25 07:59 1 applic
BID SHAWANDA Administration
Ondansetron HCl 4 mg 01/12/25 14:54
Ondansetron 4 Mg/2 Ml Vial IV 02/09/25 14:53
Q6HPRN PRN
nausea and vomiting
Pantoprazole Sodium 40 mg 01/13/25 08:00 01/17/25 08:52
Pantoprazole 40 Mg Delayed Release Tablet PO 02/10/25 07:59 40 mg
DAILY SHAWANDA Administration
Polyethylene Glycol 17 grams 01/12/25 14:54
Polyethylene Glycol Powder 17 Grams Packet PO 02/09/25 14:53
DAILYPRN PRN
constipation
Senna/Docusate Sodium 1 tablet 01/12/25 14:54
Docusate W/Senna (Angelica-Colace) Tablet PO 02/09/25 14:53
BIDPRN PRN
constipation
Sodium Chloride 0 flush 01/13/25 02:00
Sodium Chloride 0.9% (Flush) Syringe IV 02/10/25 01:59
PER PROTOCOL SHAWANDA
Spironolactone 50 mg 01/14/25 08:00 01/17/25 08:55
Spironolactone 50 Mg Tablet PO 02/11/25 07:59 50 mg
DAILY SHAWANDA Administration
Sterile Water 20 ml 01/13/25 12:00 01/17/25 00:32
Sterile Water For Injection 20 Ml Vial IV 02/10/25 11:59 20 ml
Q12H SHAWANDA Administration
Home Medications
�Medication �Instructions �Recorded
chlorthalidone 25 mg tablet 25 mg PO DAILY 01/13/25
ergocalciferol (vitamin D2) 1,250 1,250 mcg PO QWEEK 01/13/25
mcg (50,000 unit) capsule (Vitamin
D2)
fluconazole 150 mg tablet 150 mg PO DAILY 01/13/25
insulin aspart U-100 100 unit/mL 20 unit SC TID 01/13/25
(3 mL) subcutaneous pen
insulin glulisine U-100 100 70 unit SC QPM 01/13/25
unit/mL subcutaneous solution
ketorolac 10 mg tablet 10 mg PO Q6H PRN pain 01/13/25
lidocaine 5 % topical patch 1 patch topical DAILY 01/13/25
losartan 100 mg tablet 100 mg PO DAILY 01/13/25
lovastatin 20 mg tablet 20 mg PO QPM 01/13/25
metformin 500 mg tablet,extended 1,000 mg PO BID 01/13/25
release 24hr (osmotic)
metoprolol succinate 100 mg 100 mg PO DAILY 01/13/25
tablet,extended release 24 hr
spironolactone 50 mg tablet 50 mg PO DAILY 01/13/25
--- NOTE | 2025-01-17 09:00 | PN.DE.MGMTRT ---
Insulin Management
- -
01/17/25: Diabetes Management Consult Follow up
49 year old female with a PMH: Uncontrolled hypertension, DIDI, uncontrolled T2DM, Diabetic Neuropathy, Obesity transferred from [facility] 01/12/25 after acute embolic left cerebellar, occiput and parietal CVA identified on MRI with
right sided weakness and mitral valve mass and preserved EF (60-65%) transferred to [facility] for concern of MV endocarditis, currently undergoing w/u for cardiac surgery.
Pt awake, alert, oriented, resting in bed, able to discuss diabetes care plan.
Pt states she has been diabetic since 2006, and began using insulin during a in 2010. Pt was routinely seeing charissa Chi PA-C at [facility], and had been prescribed metformin 1000 mg BID, glargine 50 units PM, and insulin aspart 20
units TID before meals but states was taking 70 units of long-acting insulin. She uses a CGM Nilo 3 plus. A1C 11.2%, Cr 0.6, eGFR >60
Current diabetes regimen includes 20 units Lantus @ HS, AC NovoLog 15 units and low corrective with meals.
01/16 Fasting glucose 116. Glucose range 82 to 164. Received 20 units lantus @ HS.
01/17 Fasting glucose 167. Will continue lantus 20 units @ HS with novolog 15 units AC.
OR for CV surgery delayed up to 6 weeks for recovery from weakness and endocarditis.
Discussed with Nurse. Will continue to follow.
01/16 Discussed with patient such a huge disparity in home insulin dose an dose she is receiving here. She admits she does not limit how much or how often she eats at home and diet is controlled here.
Diabetes History
- -
Type of Diabetes: 2 requiring insulin
Pre-Admission Diabetes Regimen
01/17/25
07:58
Creatinine 0.6
Lab Results
Hemoglobin A1c 11.2 % (4.0-5.9) H 01/13/25 04:34
Insulin Pump Settings
IP Diabetes Regimen
01/16/25 01/16/25 01/16/25
12:29 18:08 22:24
Glucose
POC Glucose 161 H 82 164 H
01/17/25 01/17/25
07:58 08:08
Glucose 166 H
POC Glucose 167 H
Meal type: Lunch
Meal type: Breakfast
Amount consumed: 90%
Amount consumed: 90%
Patient Education
--- NOTE | 2025-01-17 09:21 | W.PN.HOSP.TC ---
Addendum entered and electronically signed by Maureen Workman MD 01/17/25 11:48:
Attending�addendum:
I saw and evaluated the patient. I reviewed the resident�s note and agree with findings and plan as documented in the resident�s note.�
Stroke alert called today morning
Seen by neurology at bedside.
ct head shows:
1. Subtle foci of hypoattenuation within the left occipital lobe and left centrum semiovale, corresponding to acute infarct seen on MRI brain dated 01/16/2025. Additional small infarcts seen on prior MR are not well appreciated on current CT.
2. No evidence of hemorrhagic transformation.
and CTA shows: No evidence of large vessel occlusion, or arterial dissection.
�patient seen and examined at bedside, patient feels better, discussed with family, denies any chest pain or shortness of breath, no abdominal pain, no nausea, no vomiting, no diarrhea or constipation.
Physical�exam:
GENERAL : Patient is awake, alert, oriented x3
HEENT: Nonicteric sclerae, PERRLA, EOMI. Oropharynx clear. Moist mucous membranes. Conjunctivae appear well perfused.
CHEST: Chest wall is nontender.
HEART: Regular rate and rhythm without murmurs.
LUNGS: Clear to auscultation bilaterally.
ABDOMEN: Soft, positive bowel sounds, nontender, no organomegaly.
RECTAL: Deferred.
MUSCLES/EXTREMITIES: No abnormal range of motion, no swelling.SKIN: No rash, no excessive bruising, petechiae, or purpura.
NEUROLOGIC: Cranial nerves II-XII intact without motor/sensory deficit.
�
Assessment/plan:
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
Continue antibiotic
LAURA confirmed mitral valve mass
Left coronary angiography shows no obstructive coronary artery disease
01/[address] surgery and neurology.
Plan to postpone surgery for 6 to 8 weeks until recovered from endocarditis and stroke
Insulin-dependent diabetes mellitus.
Hold metformin (patient underwent cardiac cath)
Continue Premeal, Lantus once start oral intake
CVA.
Continues workup for mitral valve endocarditis/mass
CODE STATUS: Full code
DVT prophylaxis: Heparin drip
Diet: DM
Disposition: Discussed with CT surgery, plan for intervention in 6-8 week.
�
Total time spent on today�s encounter was 60 minutes which included time spent in counseling the patient/family regarding diagnosis and treatment plan as listed above, goals of care, and symptom management. Case was discussed with nursing staff,
specialists, and care coordinators/case management. All labs and imaging personally reviewed by me. Remainder the time spent in detailed review of previous records, lab data, imaging, and other medical provider documentation.
Original Note:
Today's Communication/Plan
-
Stroke alert
CT head with no hemorrhagic conversion
Permissive hypertension
Assessment / Plan
Assessment / Plan
IMPRESSION:
49 year old with a history of uncontrolled type 2 diabetes, diabetic neuropathy, uncontrolled hypertension, DIDI, obesity transferred from [facility] 01/12/25 after acute embolic left cerebellar, occiput and parietal CVA identified on MRI
with right sided weakness and mitral valve mass and preserved EF (60-65%) transferred to [facility] for cardiac surgery evaluation.
PLAN:
#Preop clearance
Revised cardiac risk index score 3
10% risk of major cardiac event
Patient needs to be cleared by neurology before cardiac procedure
# CVA, embolic
#Palpitations
- Secondary prevention per neurology
- PT/OT/ST evaluation/treatment
- continue statin
New increase right-sided weakness 01/17
NIHSS 3
Stroke alert
Brain MRI 01/16 with multiple areas of infarct in bilateral hemispheres, increased infarct territory compared to CT head on admission
CT head 01/17 no hemorrhagic conversion
CTA negative for large vessel occlusion
-Permissive hypertension
- EKG unchanged
- Resume heparin gtt
#Shortness of breath, Improved
01/13 CT chest with mild bilateral atelectasis
Patient saturating well, in no respiratory distress
Incentive spirometry
Patient on ABX
No tachycardia or fevers
Continue to monitor
# T2DM, uncontrolled
on insulin (A1C 11.2)
- diabetes FELT CEMENTER consult
-Hold metformin
-Lantus to 20 units
-aspart 15 units
# Mitral valve mass
#Endocarditis
Per ID team
-Continue antibiotics
- PICC line placement
- 6 weeks of empiric treatment
- Ceftriaxone linezolid
- Follow-up serologies
LAURA confirmed mitral valve mass
Left coronary angiography shows no obstructive coronary artery disease
plan for OR as per CT surgery
- d/w CT team and neuro regarding timing of surgery
# HTN, uncontrolled
Essential versus secondary?
Inpatient medications per CT team
Outpatient follow-up for further evaluation between secondary versus essential
# Evelina dermatitis
Burning with urination resolved
Miconazole twice daily
DVT prophylaxis: SCDs, heparin gtt
CODE STATUS: Full code
Anticipated Discharge: > 48 hours
Subjective/Interval History
-
Patient was seen at bedside this morning. She reported increased chest pressure and weakness. She reported that the weakness started this a.m. and chest pressure is not associated with exertion as it just started when I had walked. She reported
increased weakness on her right side but no dizziness or headaches no chest pain no nausea vomiting no fevers or chills. Stroke alert was called and patient was taken to CT. MRI yesterday had shown areas of subacute stroke but patient reported no
symptoms at that time. Patient was also stopped on heparin drip yesterday by CT surgery. BP at time of weakness was markedly elevated. Date of Service: January 17, 2025
Objective Data
-
Labs:
Laboratory Results
01/17/25 01/17/25 01/17/25
00:41 07:30 07:58
WBC 6.6
Hgb 11.7 L
Hct 36.6 L
Plt Count 206
APTT 68.6 H Pending
Sodium 137
Potassium 4.2
Chloride 106
Carbon Dioxide 26
BUN 13
Creatinine 0.6
Glucose 166 H
Calcium 9.5
Vital Signs:
Vital Signs
Temp Pulse Resp BP Pulse Ox
97.6 F 83 20 185/100 98
01/17/25 08:00 01/17/25 08:51 01/17/25 08:00 01/17/25 08:51 01/17/25 08:00
Review of Systems
-
History Source: Patient
Constitutional: Reports Fatigue and Weakness; Denies Fever
EENT: Denies Sore Throat, Blurry Vision or Decreased Vision
Respiratory: Denies Cough or Trouble Breathing
Cardiac: Reports Palpitations and Other (Chest pressure); Denies Chest Pain or Syncope
Abdomen/GI: Denies Abdominal Pain, Nausea, Vomiting, Diarrhea or Constipated
Genitourinary: Denies Dysuria
Skin: Denies Itching
Neuro: Reports Weakness; Denies Dizzy, Headache or Numbness
Physical Exam
-
General: Well Developed, Well Nourished and Morbidly Obese; Negative Respiratory Distress or Fever
HEENT: Normocephalic and Atraumatic
Respiratory: Clear to Auscultation and Non Labored Respirations; Negative Wheezes or Crackles
Cardiac: Regular Rhythm, S1/S2 and Tachycardic; Negative Murmur
GI: Soft, Nondistended, Normal Bowel Sounds and Tender (Mildly tender over right upper quadrant)
Musculoskeletal: No Clubbing and No Edema
Skin: Warm and Dry
Neuro: Awake, Alert, Oriented, AO x 3, Central Nerve's Intact (No facial weakness appreciated), No Sensory Deficits and Other (Right upper extremity weakness, right lower extremity weakness); Negative No Motor Deficits, Slurred Speech or Facial Droop
--- NOTE | 2025-01-17 09:23 | RR ---
A Rapid Response was called on this patient, please see Rapid Response form.
Late note due to pt care.
about 0745, pt reports right arm feels 'weaker than before'. Dr Vizcarra in room, received verbal orders to stop heparin gtt and call rapid response. Pt went to CT scan of head. See chart for details.
--- NOTE | 2025-01-17 09:45 | W.PN.ID1 ---
Date of Service
Date of Service: January 17, 2025
Today's Communication
- PICC line placement
- plan a course of empiric treatment 6 weeks
Assessment / Plan
Embolic CVAs
Possible endocarditis
Reported allergy to penicillin/amoxicillin and ciprofloxacin
- called and spoke with Tha Eisenberg [facility] lab on 01/17 - 01/12 blood cultures are finalized negative
- sessile mass seen on the mitral valve, redemonstrated on LAURA yesterday
- blood cultures here no growth to date
- c/w linezolid 600 mg PO BID
- continue ceftriaxone
- serology for coxiella burnetii & bartonella serologies, t whipplei PCR - pending
- no plans for valve resection at this time per tiger text yesterday with Dr Vizcarra
- PICC line placement
- plan a course of empiric treatment 6 weeks
- follow fever curve
- follow clinically
Chief Complaint
-: Other (possible endocarditis)
Subjective / Review of Systems
afebrile
bp stable
worse weakness this AM, had repeat CT head which showed no change
Vital Signs / Physical Exam
Vital Signs
Vital Signs
Temp Pulse Resp BP Pulse Ox
97.6 F 83 20 185/100 98
01/17/25 08:00 01/17/25 08:51 01/17/25 08:00 01/17/25 08:51 01/17/25 08:00
Physical Exam
Constitutional: No Acute Distress
Cardiovascular: Regular Rate and S1/S2; Negative Murmur or Rub
Pulmonary: Clear and Symmetric; Negative Wheezes or Rales
Gastrointestinal: Soft, Non Tender, Non Distended and Normal Bowel Sounds
Skin: Warm and Dry; Negative Rash or Jaundice
Objective Data
Lab Data
Lab Results
01/17/25 07:58
01/17/25 07:58
PT 12.9 Sec (11.4-14.6) 01/14/25 05:23
INR 0.95 01/14/25 05:23
APTT Cancelled 01/17/25 07:30
Estimated Creat Clear 118 ml/min 01/17/25 07:58
Total Bilirubin 0.3 mg/dl (0.2-1.3) 01/14/25 05:23
AST 21 U/L (14-36) 01/14/25 05:23
ALT 36 U/L (0-35) H 01/14/25 05:23
Alkaline Phosphatase 134 U/L (38-126) H 01/14/25 05:23
Most recent labs reviewed.
Micro Results:
01/13/25 13:23 Blood Culture - Preliminary
Blood/Venous No Growth in 72 hours- Final report to follow
01/13/25 13:23 Blood Culture - Preliminary
Blood/Venous No Growth in 72 hours- Final report to follow
01/12/25 23:22 MRSA Screen - Final
Nose No Methicillin Resistant Staphylococcus aureus isolated.
--- NOTE | 2025-01-17 10:00 | W.PN.UPDATE ---
Update Note
Progress Note Update
delayed entry.
Patient seen on rounds this AM with Dr henning, pt reported worsened R sided weakness as compared to yesterday. Heparin gtt put on hold, we initiated a stroke alert for repeat head CT & subsequent CTA. BP was noted to be 171/110 at the time. AM toprol
XL given prior to sending to CT scan. Radiology reported no hemorrhagic conversion and no large thrombotic occlusion.
Per discussion with neurology, heparin gtt resumed. continued planning for MV surgery vs allowing patient to recover from strokes prior to OR. Dr henning will reassess later on.
[2025-01-17 12:39] LABS: Glucose - Point of Care 199 mg/dl (70-99)
[2025-01-17] MEDS: ELIQUIS 5 MG PO ×2 (13:35→19:36)
--- NOTE | 2025-01-17 14:07 | CM ---
Reviewed chart. Mrs. Almaraz surgery postponed. Met with Mr. and Mrs. Almaraz to review discharge plans. Reviewed medical team recommendation for acute rehab. Mrs. Almaraz states she is interested in going to acute rehab. at [place]. [facility] to make the referral. Sent the referral. She will need pre-cert for acute rehab. Will need to fax clinicals to [facility] at [phone]. Telephone call to [facility] to make referral for Home Infusion.
Sent referral if Mrs. Almaraz decides to go directly home. She will also need VNA services for physical therapy and occupational therapy. She will need a walker and bedside commode at home. Telephone call to [facility] benefit to
check on co-pay for Eliquis 5 mg po bid. Her co-pay would be zero to three dollars. Placed the one month free coupon in red discharge folder. Medical work-up in progress. The [facility] plan [facility] if approved for admission by
[facility] and her insurance when medically stable.
[2025-01-17 18:11] LABS: Glucose - Point of Care 201 mg/dl (70-99)
[2025-01-17] MEDS: LIPITOR 10 MG PO (18:12)
[2025-01-17] MEDS: NOVOLOG FLEXPEN-MODERATE RESISTANCE 3 UNITS SC (18:12)
--- NOTE | 2025-01-17 21:31 | PTCARENOTE ---
Received patient at change of shift. SR on the monitor, HR in the 80s. NIHSS 1. Pt out of bed and in the chair.No complaints from pt at this time, call arias within reach.
[2025-01-17 21:39] LABS: Glucose - Point of Care 238 mg/dl (70-99)
[2025-01-17] MEDS: LANTUS 0.2 UNITS SC (21:45)
[2025-01-17] MEDS: MAALOX PLUS 1 TABLET PO (23:15)
[2025-01-17] MEDS: PEPCID 20 MG IV (23:15)
--- NOTE | 2025-01-17 23:27 | PTCARENOTE ---
2200 patients BP 172/90, PRN hydralyzine administered as per order, see documentation. BP 151/86.
2300 pt complained of acid reflux and gas. CT surgery PA aware, Maalox and Pepcid ordered and administered see documentation.
[2025-01-18] VITALS (7 sets, daily range): BP systolic 131–166; BP diastolic 67–104; PULSE 80; BMI 39.6
--- NOTE | 2025-01-18 07:52 | W.PN.CT ---
Today's Communication / Plan
-
Plan:
-c/o indigestion, bloating- tx with iv Pepcid and Maalox/Simethicone
-per Dr. Vizcarra, will allow pt 6 weeks to recover, will plan to have close monitoring in the office with follow up in 2 weeks, then follow up at 6 weeks with new LAURA and CTA C/A/P. Will continue AC and Abx as directed by ID.
-Eliquis started 01/17
-on linezolid 600 mg PO BID and Ceftriaxone for total 6 wks empiric treatment (pt c/o pruritus with Vancomycin and refused)
-picc placement today
-the discharge plan is to go to [facility] insurance
Assessment / Plan
-
Assessment:
-Suspected Mitral Valve endocarditis
-Recent CVA per MRI 08/11/24 @ [facility] (multiple infarcts involving left cerebellar/parietal, occipital and periventricular white matter)/right side weakness
-HTN (uncontrolled)
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
-HLD
-Class 3 obesity (BMI 40)
-DIDI (not on CPAP @ home d/t insurance issues)
-Uterine polyps S/P D&C
-S/P
Discussed patient care with: Nursing and Care Team
Subjective
-
Date of Service: January 18, 2025
Objective Data
-
Lab Results
01/17/25 07:58
01/17/25 07:58
PT 12.9 Sec (11.4-14.6) 01/14/25 05:23
INR 0.95 01/14/25 05:23
APTT Cancelled 01/17/25 15:00
Vital Signs
Vital Signs
Temp Pulse Resp BP Pulse Ox
97.6 F 81 20 138/67 98
01/18/25 07:38 01/18/25 05:00 01/18/25 07:38 01/18/25 04:00 01/18/25 07:38
CT Intake/Output/Weight
01/17/25 01/18/25 01/18/25
18:59 06:59 18:59
Intake Total 240 / 240
Balance 240 / 240
SaO2: 98
Physical Exam
-
General: Awake, Oriented and AOx3
Cardiovascular: Regular rate & rhythm, No Murmurs, No Rub and No Gallop
Respiratory: Clear
Incision: Clean, Dry, Intact and Dressing Intact
Extremities: No Edema; Right sided weakness
Data Reviewed
-
Lab Results: Results Reviewed
Medications: Active Meds Reviewed
Chest X-Ray: Report Reviewed and Image Reviewed
ECG: Report Reviewed and Image Reviewed
[2025-01-18] MEDS: PROTONIX 40 MG PO (08:23)
[2025-01-18] MEDS: VISBIOME 1 CAP PO (08:46)
[2025-01-18] MEDS: ELIQUIS 5 MG PO (08:46)
[2025-01-18] MEDS: ZYVOX 600 MG PO (08:47)
[2025-01-18] MEDS: COZAAR 100 MG PO (08:47)
[2025-01-18] MEDS: ASPIR LOW (ENTERIC COATED) 81 MG PO (08:48)
[2025-01-18 08:50] LABS: Glucose - Point of Care 153 mg/dl (70-99)
[2025-01-18] MEDS: NOVOLOG FLEXPEN-MODERATE RESISTANCE 1 UNITS SC (08:50)
--- NOTE | 2025-01-18 08:50 | W.PN.ID1 ---
Date of Service
Date of Service: January 18, 2025
Today's Communication
- c/w linezolid 600 mg PO BID
- continue ceftriaxone
- serology for coxiella burnetii & bartonella serologies, t whipplei PCR - pending
- PICC line
- plan a course of empiric treatment 6 weeks linezolid and ceftriaxone
Assessment / Plan
Embolic CVAs
Possible endocarditis
Reported allergy to penicillin/amoxicillin and ciprofloxacin
- 01/12 HR blood cultures are finalized negative
- 01/13 blood cultures here no growth to date
- sessile mass seen on the mitral valve, redemonstrated on LAURA
- c/w linezolid 600 mg PO BID
- continue ceftriaxone
- serology for coxiella burnetii & bartonella serologies, t whipplei PCR - pending
- PICC line
- plan a course of empiric treatment 6 weeks linezolid and ceftriaxone
- script given to director of casework department 01/17
- follow clinically
Chief Complaint
-: Other (possible endocarditis)
Subjective / Review of Systems
afebrile
bp stable
no complaints
Vital Signs / Physical Exam
Vital Signs
Vital Signs
Temp Pulse Resp BP Pulse Ox
97.6 F 94 20 166/104 98
01/18/25 07:38 01/18/25 07:40 01/18/25 07:38 01/18/25 07:40 01/18/25 07:59
Physical Exam
Constitutional: No Acute Distress
Cardiovascular: Regular Rate
Pulmonary: Symmetric
Gastrointestinal: Non Distended
Skin: Dry; Negative Rash or Jaundice
Neurological: Awake
Objective Data
Lab Data
Lab Results
01/17/25 07:58
01/17/25 07:58
PT 12.9 Sec (11.4-14.6) 01/14/25 05:23
INR 0.95 01/14/25 05:23
APTT Cancelled 01/17/25 15:00
Estimated Creat Clear 118 ml/min 01/17/25 07:58
Total Bilirubin 0.3 mg/dl (0.2-1.3) 01/14/25 05:23
AST 21 U/L (14-36) 01/14/25 05:23
ALT 36 U/L (0-35) H 01/14/25 05:23
Alkaline Phosphatase 134 U/L (38-126) H 01/14/25 05:23
Most recent labs reviewed.
Micro Results:
01/13/25 13:23 Blood Culture - Preliminary
Blood/Venous No Growth in 4 days- Final report to follow
01/13/25 13:23 Blood Culture - Preliminary
Blood/Venous No Growth in 4 days- Final report to follow
01/12/25 23:22 MRSA Screen - Final
Nose No Methicillin Resistant Staphylococcus aureus isolated.
[2025-01-18] MEDS: NOVOLOG FLEXPEN 15 UNITS SC (08:51)
[2025-01-18] MEDS: TOPROL XL 100 MG PO (08:55)
--- NOTE | 2025-01-18 08:57 | CON.MD ---
Consultation - Medical
-
Chief Complaint: Stroke
History of Present Illness: 49-year-old female with PMH (as below) presented to [facility] on 01/13/2025 as a transfer from [facility] where she presented on 01/10/2025 with progressive fatigue and new left foot pain with mild frontal
headache and right-sided weakness on 01/10/2025. Her blood pressure was 203/113. Initial CT of the head was negative but MRI of the brain on 01/11 noted acute multiple infarcts in the left cerebellar, occipital, and parietal regions. A LAURA on
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 Blood cultures were sent. She was transferred to [facility] for consideration of mitral valve surgery. Her last
dental examination was approximately 1 month ago with intermittent pain and bleeding from the top right molar. CTA of the brain and neck was limited due to motion but no proximal large vessel occlusion.
She was seen by infectious disease and started on vancomycin and ceftriaxone with negative blood cultures from [facility]. Suspected mitral valve endocarditis as etiology.empirically treating with a 6-week course of linezolid and ceftriaxone
as she had pruritus with vancomycin and refused it. On / she noted right-sided weakness that was worsening compared to the day prior. Heparin drip was held and repeat CT was done. Blood pressure was 171/110 at the time. No hemorrhagic
conversion or large thrombotic occlusion noted on CAT scan. Continue with heparin drip. PICC line placed 01/18/2025. Plan is for patient to recover for 6 weeks and then have repeat LAURA and CTA chest abdomen and pelvis. To continue antibiotics
and anticoagulation as per ID.
She was started on Eliquis 01/17. Overall still has right sided weakness and difficulty with using the right arm. She denies any vision problems, difficulty with swallowing, new numbness or tingling aside from her diabetic neuropathy.
Past Medical History: HTN, NIDDM since 2006 with neuropathy, DIDI not using CPAP, class III obesity with a BMI of 40, osteoarthritis
Procedure History: , D&C after miscarriage, right bunionectomy, Uterine polyp removal
Family History: father with CVA at 39 and at age 58
Social History:
Functional Level Premorbidly: Independent with all activities
Functional Level Currently:�� supervision for transfers, supervision ambulating 35 feet x 2 with rolling walker. Supervision to min assist for functional mobility. min assist eating, max assist grooming, mod assist toileting, mod assist upper
extremity self-care, max assist lower extremity self-care.
Tobacco: Denies
Alcohol: Denies
Drug use: Denies
Lives with: and 14-year-old daughter
24-hour assistance available: Yes
Number of floors: 2
# steps to enter: 5
# steps to second floor: full flight
Potential First floor set up: no
Driving: Yes
Occupation: [employer]
Allergies:
Allergy/AdvReac Type Severity Reaction Status Date / Time
codeine Allergy Unknown Rash Verified 01/12/25 23:56
latex Allergy Unknown Unknown Verified 01/12/25 23:58
amoxicillin Allergy Rash Verified 01/12/25 23:58
ciprofloxacin (From Cipro) Allergy Rash Verified 01/13/25 00:34
gabapentin Allergy Itching Verified 01/12/25 23:58
Penicillins Allergy Rash Verified 01/12/25 23:58
Review of Systems:
Constitutional: (x) abNormal _ fatigue
Eye: (x) Normal _
Ear/Nose/Throat: (x) Normal _
Respiratory: (x) Normal _
Cardiovascular: (x) Normal _
Gastrointestinal: (x) abNormal _has had some bowel incontinence at times since the stroke
Genitourinary: (x) abNormal _has stress urinary incontinence and wears pads at home. Does not have full emptying of bladder. This has not really changed since the stroke.
Musculoskeletal: (x) abNormal _has some arthritis in the hips and knees at times.
Integumentary: (x) abNormal _has a PICC line in the right arm and a midline in the left
Neurologic: (x) abNormal _right-sided weakness with difficulty controlling movement. Denies any numbness or tingling.
Psychiatric: (x) Normal _
Endocrine: (x) abNormal _history of diabetes with neuropathy.
Hematologic/Lymphatic: (x) Normal _
Allergic/Immunologic: (x) Normal _
Medications:
Active Current Visit Medication List
Category Date Time Status
Acetaminophen [Tylenol] Med 01/12/25 14:54 Active
650 mg PO Q4HPRN PRN
Apixaban [Eliquis] Med 01/17/25 12:30 Active
5 mg PO BID
Aspirin Low Dose EC [Aspir Low (Enteric Coated)] Med 01/13/25 08:00 Active
81 mg PO DAILY
Atorvastatin [Lipitor] Med 01/13/25 18:00 Active
10 mg PO QPM
Bisacodyl [Dulcolax] Med 01/12/25 14:54 Active
10 mg RECTAL [id number] PRN
CefTRIAXone [Rocephin] Med 01/13/25 12:00 Active
2,000 mg IV Q12H
Chlorthalidone [Hygroton] Med 01/18/25 10:00 Active
25 mg PO DAILY
Dextrose 50%-Water [Dextrose 50% Syringe] Med 01/13/25 00:56 Active
12.5 grams IV [id number] PRN
Diphenhydramine [Benadryl] Med 01/13/25 22:24 Active
25 mg PO Q4HPRN PRN
Docusate W/Senna [Senokot-S] Med 01/12/25 14:54 Active
1 tablet PO BIDPRN PRN
Flush (0.9% Sodium Chloride) [Flush (Nss)] Med 01/13/25 02:00 Active
See Dose Instructions IV PER PROTOCOL
Glucagon [GlucaGen] Med 01/13/25 00:56 Active
1 mg IM PRN PRN
HydrALAZINE [Apresoline] Med 01/14/25 05:20 Active
5 mg IV Q6HPRN PRN
Insulin Aspart Corrective Mod [Novolog Flexpen-Moderate Med 01/15/25 21:18 Active
Resistance]
See Protocol SC AC
Insulin Aspart Pen [Novolog Flexpen] Med 01/18/25 11:30 Active
17 units SC AC
Insulin Glargine Lantus [Lantus] 20 units Med 01/14/25 18:48 Active
Subcutaneous Insulin Syringe [Syringe-Insulin] 0 unit
SC HS
Ipratropium/Albuterol Sulfate [Duoneb] Med 01/12/25 14:54 Active
3 ml INH R Q4HPRN PRN
Lactobac/Bifidobac [Visbiome] Med 01/15/25 08:00 Active
1 cap PO DAILY
Linezolid [Zyvox] Med 01/16/25 11:00 Active
600 mg PO BID
Losartan [Cozaar] Med 01/18/25 08:00 Active
100 mg PO DAILY
METFORMIN HCl [Glucophage] Med 01/13/25 08:00 Hold
1,000 mg PO BID@0800,1700
Mag/Al/Simethicone [Maalox Plus] Med 01/17/25 23:02 Active
1 tablet PO Q4HPRN PRN
Metoprolol Xl [Toprol Xl] Med 01/14/25 08:00 Active
100 mg PO DAILY
Miconazole Nitrate [Desenex/Mitrazol/Zeasorb] Med 01/14/25 08:00 Active
See Dose Instructions TOPICAL BID
Ondansetron Injectable [Zofran] Med 01/12/25 14:54 Active
4 mg IV Q6HPRN PRN
Pantoprazole [Protonix] Med 01/13/25 08:00 Active
40 mg PO DAILY
Polyethylene Glycol Powder [Miralax] Med 01/12/25 14:54 Active
17 grams PO DAILYPRN PRN
Spironolactone [Aldactone] Med 01/14/25 08:00 Active
50 mg PO DAILY
Sterile Water [Sterile Water For Injection] Med 01/13/25 12:00 Active
20 ml IV Q12H
Vitals:
Temp Pulse Resp BP Pulse Ox
97.6 F 94 20 166/104 98
01/18/25 07:38 01/18/25 07:40 01/18/25 07:38 01/18/25 07:40 01/18/25 07:59
Height 5 ft 1 in
Actual Weight 95.1 kg
Body Mass Index (BMI) 39.6
Physical Exam:
General Appearance/Observation: Well-developed, well-nourished female in no apparent distress.
Pain/Comfort Assessment: Denies
Mood/Affect: Appropriate
Integumentary/Operative Site: Right arm PICC line, left arm midline access
�� Pressure Ulcer Evaluation: absent over heels.
Eyes: Conjunctiva/Lids: normal ��� Pupils: pupils equal round and reactive to light and Accommodation
Ears/Nose/Throat: oral mucosa moist,� throat clear.������������ Lips/Teeth/Gums: normal
Cardiovascular: Heart: regular, no murmur
Pulses: dorsalis pedis 1+ bilaterally
Respiratory: Respiratory Effort/Chest Expansion: normal ������ Auscultation: Clear to auscultation bilaterally
Gastrointestinal: abdomen not tender, no distension, normal abdominal bowel sounds
Genitourinary: No Murphy
Rectal Exam: Deferred
Extremities: Edema: None Cyanosis: None Trophic changes: None
Neurology Exam:
Orientation: Alert, Oriented to self, Time, Place
Memory: Intact
Repetition: Intact
Comprehension: Intact
Two step command: Intact
Naming: Intact
Cranial Nerves:
�� CNII: Pupillary light reflex: Intact��� Visual Field: Intact
�� CN III, IV, : Extraocular muscles: Intact
�� CN V: Facial Sensation at Forehead: Intact, Maxilla: Intact, Mandible: Intact
�� CN VII: Facial movement: Symmetric
�� CN VIII: Hearing: Normal
�� CN IX/X: Speech & swallow: Normal, Position of Uvula: Midline
�� CN XI: Shoulder shrug: Symmetric
�� CN XII: Tongue protrusion: Midline
Sensory:
�� Light touch: Intact in bilateral upper and lower extremities, no extinction to double simultaneous stimulation
Reflexes:
�� Biceps: 0 bilaterally
�� Brachioradialis: 0 bilaterally
�� Triceps: 0 bilaterally
�� Patellar: 0 bilaterally
�� Achilles: 0 bilaterally
�� Babinski: Down going bilaterally
�� Clonus: None
�� Maryann: Negative bilaterally
Cerebellar: Dysmetria/Ataxia: None
Musculoskeletal:Motor: (Manual muscle scale 0-5)
Muscle SA EF WE EE FF FA HF KE DF EHL PF
Right� 2 3+ 3 3+ 3 2 2+ 4 4 4 4
ft 4 5 5 5 5 4 3+ 5 5 5 5
Tone: Normal in all extremities
Range of Motion: Passively within normal limits in all extremities
Lab Results
Laboratory Data
01/17/25 07:58
07:58
PT 12.9 Sec (11.4-14.6) 01/14/25 05:23
INR 0.95 01/14/25 05:23
APTT Cancelled 01/17/25 15:00
Total Bilirubin 0.3 mg/dl (0.2-1.3) 01/14/25 05:23
Direct Bilirubin 0.2 mg/dl (0.0-0.4) 01/14/25 05:23
AST 21 U/L (14-36) 01/14/25 05:23
ALT 36 U/L (0-35) H 01/14/25 05:23
Alkaline Phosphatase 134 U/L (38-126) H 01/14/25 05:23
Total Protein 6.5 g/dl (6.3-8.2) 01/14/25 05:23
Albumin 3.3 g/dl (3.5-5.0) L 01/14/25 05:23
�Diagnostic Results: as per HPI
Assessment
49-year-old left-handed F [facility] (HTN, NIDDM since 2006 with neuropathy, DIDI not using CPAP, class III obesity with a BMI of 40, osteoarthritis) with 01/10/2025 with progressive fatigue and new left foot pain with mild frontal headache and right-sided
weakness on 01/10/2025 acute multiple infarcts in the left cerebellar, occipital, and parietal regions likely from mitral valve mass with concern for vegetation on empiric 6-week course of linezolid and ceftriaxone for suspected mitral valve
endocarditis as etiology resulting in ADL and ambulatory dysfunction.
Plan
PM&R PT/OT to increase independence with ADLs, improve balance, coordination, endurance, strength, mobility, community reintegration, decreased burden of care on others and family education.
CVA: Secondary prophylaxis with aspirin, Eliquis, and antibiotic coverage for possible vegetation etiology. Statin, and blood pressure control (SBP less than 180 and diastolic less than 100 to participate with therapy for ischemic stroke). Continue
to monitor neurologic status.
Right nondominant hemiparesis: High risk for falls and sliding out of chair/bed. Safety reinforced.
- Avoid using affected arm to help lift or pull patient as this will cause trauma to the shoulder.
Mitral valve vegetation concern: Empiric 6-week course of linezolid and ceftriaxone
HTN: Chlorthalidone 25 mg daily, losartan 100 mg daily, metoprolol XL 100 mg daily, spironolactone 50 mg daily. Monitor closely, check orthostatics
DM II with neuropathy: Accu-Cheks, insulin sliding scale, metformin 1000 mg twice daily, aspart 17 units with meals and glargine 20 units at night.
DIDI: No CPAP use.
Normocytic anemia: Likely multifactorial.� Continue to monitor.
FEN: Diabetic diet
Psych: Monitor mood, medications as needed.
Skin: monitor for pressure sores/rashes/lesions.
Pain: acetaminophen as needed.
Bowel: Has had some bowel incontinence since stroke. Monitor bowels with bowel program as needed. Consider Colace and Senna, PRN bisacodyl.
Bladder: Has stress incontinence at baseline. Continues to have stress incontinence. Time void, PVRs, PRN straight cath.
GI Prophylaxis: Pantoprazole
DVT Prophylaxis: Mechanical and apixaban.
Pulmonary: Incentive spirometry
Class III obesity: At baseline, current BMI 39.6. Continue to director of counseling patient about diet adjustments to control obesity. Body habitus and increased force to move body and extremities causes further difficulty with functional tasks.
Safety: Continue to reinforce assistance with all transfers.
Code Status:� Full code
Dispo (date/plan/equipment needs): Home with family care.
Discharge Destination: Acute inpatient rehabilitation if she can get home antibiotics. Spoke with liaison and inquiring with case management.
Functional and Medical Goals: Modified Independent with ADL�s, ambulation, transfers
A total of 60 minutes were spent with the patient preparing for the evaluation, obtaining history, performing examination and evaluation, counseling, data review, case management, care coordination, electronic court recorder, and EMR documentation.
Thank you for allowing me to care for your patient. Please contact me with any questions or concerns.
Consultation
-
Date/Time Consultation Requested: 01/17/25
Date/Time Consultation Performed: 01/18/25
Requesting Provider: Dr. Lennox Vizcarra
Performing Provider: Dr. Des Tang
Reason for Consultation: rehabilitation placement
[2025-01-18] MEDS: ALDACTONE 50 MG PO (09:00)
[2025-01-18] MEDS: DESENEX/MITRAZOL/ZEASORB TOPICAL (09:03)
--- NOTE | 2025-01-18 09:15 | PN.DE.MGMTRT ---
Insulin Management
- -
01/18/25: Diabetes Management Consult Follow up
49 year old female with a PMH: Uncontrolled hypertension, DIDI, uncontrolled T2DM, Diabetic Neuropathy, Obesity transferred from [facility] 01/12/25 after acute embolic left cerebellar, occiput and parietal CVA identified on MRI with
right sided weakness and mitral valve mass and preserved EF (60-65%) transferred to [facility] for concern of MV endocarditis, currently undergoing w/u for cardiac surgery.
Pt awake, alert, oriented, resting in bed, able to discuss diabetes care plan.
Pt states she has been diabetic since 2006, and began using insulin during a in 2010. Pt was routinely seeing charissa Chi PA-C at [facility], and had been prescribed metformin 1000 mg BID, glargine 50 units PM, and insulin aspart 20
units TID before meals but states was taking 70 units of long-acting insulin. She uses a CGM Nilo 3 plus. A1C 11.2%, Cr 0.6, eGFR >60
Current diabetes regimen includes 20 units Lantus @ HS, AC NovoLog 15 units and low corrective with meals.
01/17 Fasting glucose 167. Glucose range yesterday 82 to 164. Will continue lantus 20 units @ HS with novolog 15 units AC.
01/18 Fasting glucose 153. Pre meal glucose range yesterday 167 to 228. Will continue lantus 20 units @ hs and increase AC novolog to 17 units with low corrective insulin.
OR for CV surgery delayed up to 6 weeks for recovery from weakness and endocarditis. Patient recommended for acute rehab.
Discussed with Nurse. Will continue to follow.
01/16 Discussed with patient such a huge disparity in home insulin dose an dose she is receiving here. She admits she does not limit how much or how often she eats at home and diet is controlled here.
Diabetes History
- -
Type of Diabetes: 2 requiring insulin
Pre-Admission Diabetes Regimen
Lab Results
Hemoglobin A1c 11.2 % (4.0-5.9) H 01/13/25 04:34
Insulin Pump Settings
IP Diabetes Regimen
01/17/25 01/17/25 01/17/25
12:38 18:08 21:38
POC Glucose 199 H 201 H 238 H
01/18/25
08:49
POC Glucose 153 H
Meal type: Dinner
Amount consumed: 100%
Patient Education
--- NOTE | 2025-01-18 09:24 | W.PN.HOSP.TC ---
Addendum entered and electronically signed by Maureen Workman MD 01/18/25 13:57:
Attending�addendum:
I saw and evaluated the patient. I reviewed the resident�s note and agree with findings and plan as documented in the resident�s note.�
Will be discharged to rehab today
patient seen and examined at bedside, patient feels better, discussed with family, denies any chest pain or shortness of breath, no abdominal pain, no nausea, no vomiting, no diarrhea or constipation.
Physical�exam:
GENERAL : Patient is awake, alert, oriented x3
HEENT: Nonicteric sclerae, PERRLA, EOMI. Oropharynx clear. Moist mucous membranes. Conjunctivae appear well perfused.
CHEST: Chest wall is nontender.
HEART: Regular rate and rhythm without murmurs.
LUNGS: Clear to auscultation bilaterally.
ABDOMEN: Soft, positive bowel sounds, nontender, no organomegaly.
RECTAL: Deferred.
MUSCLES/EXTREMITIES: No abnormal range of motion, no swelling.SKIN: No rash, no excessive bruising, petechiae, or purpura.
NEUROLOGIC: Cranial nerves II-XII intact without motor/sensory deficit.
�
Assessment/plan:
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
Continue antibiotic
LAURA confirmed mitral valve mass
Left coronary angiography shows no obstructive coronary artery disease
01/[address] surgery and neurology.
Plan to postpone surgery for 6 to 8 weeks until recovered from endocarditis and stroke
Insulin-dependent diabetes mellitus.
Hold metformin (patient underwent cardiac cath)
Continue Premeal, Lantus once start oral intake
CVA.
Continues workup for mitral valve endocarditis/mass
CODE STATUS: Full code
DVT prophylaxis: Eliquis
Diet: DM
Disposition: Discharge to rehab
�
Total time spent on today�s encounter was 60 minutes which included time spent in counseling the patient/family regarding diagnosis and treatment plan as listed above, goals of care, and symptom management. Case was discussed with nursing staff,
specialists, and care coordinators/case management. All labs and imaging personally reviewed by me. Remainder the time spent in detailed review of previous records, lab data, imaging, and other medical provider documentation.
Original Note:
Today's Communication/Plan
-
Dispo planning
Assessment / Plan
Assessment / Plan
IMPRESSION:
49 year old with a history of uncontrolled type 2 diabetes, diabetic neuropathy, uncontrolled hypertension, DIDI, obesity transferred from [facility] 01/12/25 after acute embolic left cerebellar, occiput and parietal CVA identified on MRI
with right sided weakness and mitral valve mass and preserved EF (60-65%) transferred to [facility] for cardiac surgery evaluation.
PLAN:
#Preop clearance
Revised cardiac risk index score 3
10% risk of major cardiac event
Patient needs to be cleared by neurology before cardiac procedure
# CVA, embolic
#Palpitations
- Secondary prevention per neurology
-Dispo planning to acute rehab
- PT/OT/ST evaluation/treatment
- continue statin
New increase right-sided weakness 01/17
NIHSS 3
Stroke alert
Brain MRI 01/16 with multiple areas of infarct in bilateral hemispheres, increased infarct territory compared to CT head on admission
CT head 01/17 no hemorrhagic conversion
CTA negative for large vessel occlusion
-Permissive hypertension
- EKG unchanged
- Resume heparin gtt
#Shortness of breath, Improved
01/13 CT chest with mild bilateral atelectasis
Patient saturating well, in no respiratory distress
Incentive spirometry
Patient on ABX
No tachycardia or fevers
Continue to monitor
# T2DM, uncontrolled
on insulin (A1C 11.2)
- diabetes ROLL OPERATOR consult
-Hold metformin
-Lantus to 20 units
-aspart 15 units
# Mitral valve mass
#Endocarditis
Per ID team
-Continue antibiotics
- PICC line placement
- 6 weeks of empiric treatment
- Ceftriaxone linezolid
- Follow-up serologies
LAURA confirmed mitral valve mass
Left coronary angiography shows no obstructive coronary artery disease
plan for OR as per CT surgery
- d/w CT team and neuro regarding timing of surgery, 6 weeks from now, follow-up in 2 weeks
- Anticoagulation with Eliquis started 01/17
# HTN, uncontrolled
Essential versus secondary?
Inpatient medications per CT/cardiology team
Outpatient follow-up for further evaluation between secondary versus essential
Change metoprolol to Coreg if BP remains elevated
# Evelina dermatitis
Burning with urination resolved
Miconazole twice daily
DVT prophylaxis: SCDs
CODE STATUS: Full code
Anticipated Discharge: Within 24 hours
Subjective/Interval History
-
Patient was seen at bedside, reports feeling a lot better than yesterday. Had some mild indigestion yesterday but no increased weakness chest pain shortness of breath nausea vomiting. Patient to be evaluated for rehab today and follow-up in 6
weeks for cardiac surgery. Date of Service: January 18, 2025
Objective Data
-
Vital Signs:
Vital Signs
Temp Pulse Resp BP Pulse Ox
97.6 F 94 20 166/104 98
01/18/25 07:38 01/18/25 07:40 01/18/25 07:38 01/18/25 07:40 01/18/25 07:59
I&O
01/17/25 01/18/25 01/19/25
06:59 06:59 06:59
Intake Total 240 / 240
Balance 240 / 240
Review of Systems
-
History Source: Patient and Family
Constitutional: Reports No Symptoms; Denies Fever or Chills
EENT: Denies Runny Nose
Respiratory: Denies Cough or Trouble Breathing
Cardiac: Denies Chest Pain or Palpitations
Abdomen/GI: Reports Indigestion; Denies Abdominal Pain, Nausea, Vomiting, Diarrhea or Constipated
Genitourinary: Denies Dysuria
Skin: Denies Itching
Neuro: Reports Weakness (Right upper extremity, right lower extremity); Denies Dizzy or Headache
Physical Exam
-
General: Well Developed, Well Nourished, No Apparent Distress, Comfortable and Morbidly Obese
HEENT: Normocephalic and Atraumatic
Respiratory: Clear to Auscultation and Non Labored Respirations; Negative Wheezes or Crackles
Cardiac: Regular Rhythm, S1/S2 and Tachycardic; Negative Murmur
GI: Soft, Nontender, Nondistended and Normal Bowel Sounds
Musculoskeletal: No Clubbing and No Edema
Skin: Warm and Dry
Neuro: Awake, Alert, Oriented and Central Nerve's Intact; Negative No Motor Deficits (3/5 right upper extremity, 3/5 right lower extremity), Nonfocal/Grossly Intact, No Sensory Deficits, Slurred Speech or Facial Droop
--- NOTE | 2025-01-18 10:22 | W.PN.CD ---
Today's Communication / Plan
-
resume home BP meds: change metoprolol to coreg if remains elevated
discharge/rehab planning
Impression / Plan
-
Impression/Plan: 49 y/o with HTN and DM transferred from [facility] after being admitted with embolic CVA, prompting an echocardiogram which demonstrated a cardiac mass on the posterior mitral valve annulus. She has been transferred for LAURA and cardiac
catheterization as a pre-amble to possible surgical intervention.
#Embolic CVA:
-Acute, stable.
-Right sided weakness, improving.
-After discussion with colleagues, surgery has been deferred to allow for decreased risk of hemorrhagic conversion (approx 4 weeks).
-Therapeutic anticoagulation with apixaban will continue
#MV mass
-Mass appears annular based on LAURA.
-Ddx includes thrombus, endocarditis--and she is being treated with IV Abx and apixaban
-also includes atypical myxoma vs fibroelastoma
-ultimate plan is surgical resection
#HTN
-Chronic, stable.
-Treated with spironolactone, losartan, metoprolol, chlorthalindone
-resume home meds: change metoprolol to coreg if remains elevated
#Hyperlipidemia
-Chronic, stable.
-Continue statin.
#IDDM:
-Chronic, uncontrolled.
-HbA1c = 11.2.
-Insulin per primary service.
DATA:
MRI brain, 01/11/2025:
Multiple acute infarcts in the left cerebellar hemisphere, left occipital lobe and left parietal lobe and left periventricular white matter.
TTE ([facility]), 01/11/2025:
LV normal size. LV function normal, EF 60 to 65%.
RV normal.
Normal mitral valve.
Physiologic mitral valve regurgitation.
TV normal.
CARMEN structurally normal, no evidence of stenosis.
LAURA ([facility]) 01/12/2025:
LVEF 60 to 65%.
No thrombus in left atrial appendage.
No evidence of mitral valve stenosis. Trace mitral valve regurgitation. 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
AV structurally normal.
Bubble study negative.
LAURA, 01/15/2025:
SUMMARY
1. Normal biventricular size and systolic function. Left ventricular ejection fraction visually estimated 60-65%.
2. Trileaflet aortic valve that opens normally without significant aortic regurgitation. Lambl's excrescence noted on aortic side of RCC.
3. Thickened mitral valve leaflets without prolapse. Sessile 0.88 cm echodensity at the junction of the base of P1/ P2 on the atrial side. Trivial mitral regurgitation.
4. Trace tricuspid insufficiency. Estimated pulmonary artery systolic pressure 18 mmHg assuming a right atrial pressure of 5 mmHg.
5. Intact interatrial septum without shunt by color-flow Doppler and negative agitated saline, bubble study.
6. No pericardial effusion.
7. Recommend Reviewed with primary cardiology service.
Cardiac Catheterization, 01/15/2025:
CONCLUSIONS
1. Right dominant circulation with an upward angulated left main coronary artery requiring an AL 2 diagnostic catheter with coronary wire assistance for cannulation and no coronary artery disease.
2. Systemic hypertension, permissive in the setting of CVA.
Physical Exam
Vital Signs/Labs
Vital Signs
Temp Pulse Resp BP Pulse Ox
97.6 F 94 20 166/104 98
01/18/25 07:38 01/18/25 07:40 01/18/25 07:38 01/18/25 07:40 01/18/25 07:59
01/17/25 01/18/25 01/19/25
06:59 06:59 06:59
Actual Weight 96.9 kg 95.1 kg
01/17/25 07:58
01/17/25 07:58
PT 12.9 Sec (11.4-14.6) 01/14/25 05:23
INR 0.95 01/14/25 05:23
APTT Cancelled 01/17/25 15:00
Magnesium 1.7 mg/dl (1.6-2.3) 01/17/25 07:58
Triglycerides 107 mg/dl (10-149) 01/13/25 04:34
LDL Cholesterol, Calc 44 mg/dl 01/13/25 04:34
VLDL Cholesterol, Calc 21 mg/dl (0-30) 01/13/25 04:34
HDL Cholesterol 47 mg/dl 01/13/25 04:34
Physical Exam
Constitutional: No acute distress and Comfortable
EENT: Moist mucous membranes
Cardiovascular: Rhythm & rate is regular, Pedal edema is absent, JVD pressure is normal and Systolic murmur present
Respiratory: Respiratory effort normal and Lungs clear to auscul.
Neuro/Psych: AO x 3
Data Reviewed
-
Date of Service: January 18, 2025
EKG: Other (Tele: SR 80s)
Labs: Labs Reviewed by me
[2025-01-18 12:15] LABS: Glucose - Point of Care 221 mg/dl (70-99)
[2025-01-18] MEDS: NOVOLOG FLEXPEN-MODERATE RESISTANCE 3 UNITS SC (12:29)
[2025-01-18] MEDS: NOVOLOG FLEXPEN 17 UNITS SC (12:30)
[2025-01-18] MEDS: STERILE WATER FOR INJECTION 20 ML IV (12:30)
[2025-01-18] MEDS: ROCEPHIN 2000 MG IV (12:31)
[2025-01-18] MEDS: FLUSH (NSS) 1 FLUSH IV (12:31)
--- NOTE | 2025-01-18 12:50 | CM ---
Reviewed chart. [facility]. She has been approved for admission and [facility] at [place] can accept today. Updated Mr. and Mrs. Almaraz and the medical team. The report number is
([phone]) and fax number is ([phone]) Telephone call to [facility] intake nurse to update them and cancel referral. Left message. Medical work-up inn progress. [facility] [place] when
medically stable.
--- NOTE | 2025-01-18 13:01 | W.DCSUMMARY ---
Discharge Summary
Discharge Data
Date of Admission: 01/12/25
Date of Discharge: 01/18/25
Total time spent discharging patient (in min): 45
-
Pending Results: No
Hospital Course
Primary care physician:
Dr. Baum
Outpatient pheresis specialist:
Dr. Des Goyal
Inpatient consultants:
[facility], diabetes management HAND MOLD MAKER, Internal medicine, infectious disease, neurology
Primary Diagnosis:
1. CVA
Secondary Diagnoses:
1. Possible mitral valve endocarditis
2. T2DM
3. Hypertension
HPI: 49-year-old female with past medical history significant for type 2 diabetes with neuropathy, obstructive sleep apnea, hypertension, class III obesity, initially presented to [facility] on the evening of 01/10/2025 with
progressive fatigue since 01/08 and new left foot pain with 'mild' frontal headache and sudden onset of right sided weakness on 01/10/25. Blood pressure in the emergency room was documented as 203/[address]. [address] of the head was negative
however MRI of the brain on 01/11 reported acute multiple infarcts in the left cerebellar, occipital, and parietal regions. A LAURA was performed on 01/11 for source of the embolic CVA with noted EF of 60-65%, normal RV size and function, trace
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 Blood cultures reportedly sent at [facility] and patient transferred to [facility]
for further evaluation and consideration of mitral valve surgery.
Hospital course:
Patient was transferred from [facility] on 01/12 for mitral valve mass/endocarditis and CT surgery evaluation. Patient did suffer a CVA from this embolic Mass. On 01/13 infectious disease and cardiology was consulted. Blood cultures
were drawn and empiric vancomycin and ceftriaxone was started. CT head was repeated and it was unchanged. On 01/14 patient was started on low-dose heparin and partial home meds were restarted for hypertension. Patient's A1c was noted to be 11.2
and diabetes management HAND MOLD MAKER were consulted for management. On 01/15, repeat CT head did not show hemorrhagic conversion so every drip rates were liberalized. On 01/16 patient was being evaluated for surgery. Tag showed a 7% inhibited repeat MRI
was performed. After a multidisciplinary discussion patients surgical plan was delayed for 1 month. She will be discharged to acute rehab for stroke rehab and continuation of antibiotics. Therefore, she was transition from a heparin infusion to
Eliquis and a PICC line was placed for prolonged antibiotics. On 01/18, patient's blood pressure was still noted to be hypertensive after resumption of home medications. After discussion with cardiology her home dose of metoprolol was switched to
carvedilol 25 mg twice daily. Her diabetes regimen has changed significantly since her diet has been better controlled while shes in the hospital. She will be discharged to acute rehab and follow up in the office for surgery. She will follow up in
the CT office in 2 weeks and 4 weeks for close follow up.
Home medication changes:
see below
Discharge Plan
-
Patient Disposition: Acute Rehab Facility
Discharge Diagnosis/Procedures: Concern of mitral valve mass/endocarditis s/p CVA
Condition: Good
Diet: Restrict fluids to 64 oz
Activity: As tolerated
Driving Restrictions: No driving
Bathing Restrictions: OK to Shower
Others Tests: repeat LAURA in one month; cardiac MRI in 3 weeks
Other Services: PT and OT
Specialty Instructions: Weigh Daily- Call MD for wt gain/loss 3 lbs overnight/5 lbs in 1 week
Referrals:
Fredy, [facility] at [place] [Other]
Maria Del Rosario Clark MD [Active, Neurology] - in two to four weeks
Lennox Vizcarra MD [Active, Cardiac Surgery] - 03/05/25 10:30 am
Referral Note: please get repeat TTE prior to visit with Dr. Vizcarra
UNKNOWN - PT NOT,INTERVIEWE [Family Provider]
Heydi Kim MD [Active, Infectious Diseases] - in four to six weeks
Italia Hawthorne CRNP [Specified Professional Personl, Cardiac Surgery] - 02/01/25 10:30 am
Prescriptions:
New
linezolid 600 mg Tablet
600 mg PO BID Qty: 0 0RF
ceftriaxone 2 gram Recon Soln
2,000 mg IV Q12H Qty: 0 0RF
aspirin 81 mg Tablet,Delayed Release (Dr/Ec)
81 mg PO DAILY Qty: 0 0RF
Eliquis 5 mg Tablet
5 mg PO BID Qty: 60 1RF
Insulin Glargine Lantus [Lantus] 20 UNITS
Subcutaneous Insulin Syringe [Syringe-Insulin] 0 UNIT
As Directed mls/hr SC HS
Reason for use: Diabetes
Ordered By: Nga Schofield CRNP
Last Taken: 01/17/25 21:45 0.2 mls
glucagon HCl 1 mg/mL Recon Soln
1 mg IM PRN PRN (Reason: hypoglycemia) Qty: 0 0RF
insulin aspart U-100 100 unit/mL (3 mL) insulin pen
1 sliding scale dose SC AC Qty: 15 0RF
carvedilol 25 mg Tablet
25 mg PO BID Qty: 0 0RF
Gelusil Antacid and Anti-Gas 200-200-25 mg Tablet,Chewable
1 tab PO Q4HPRN PRN (Reason: indigestion, bloating) Qty: 0 0RF
insulin aspart U-100 100 unit/mL (3 mL) Insulin Pen
17 unit SC AC Qty: 0 0RF
Continued
chlorthalidone 25 mg Tablet
25 mg PO DAILY
lidocaine 5 % Adhesive Patch,Medicated
1 patch TOPICAL DAILY
ergocalciferol (vitamin D2) [Vitamin D2] 1,250 mcg (50,000 unit) Capsule
1,250 mcg PO QWEEK
lovastatin 20 mg Tablet
20 mg PO QPM
losartan 100 mg Tablet
100 mg PO DAILY
spironolactone 50 mg Tablet
50 mg PO DAILY
Discontinued
fluconazole 150 mg Tablet
150 mg PO DAILY
metoprolol succinate 100 mg Tablet Extended Release 24 Hr
100 mg PO DAILY
ketorolac 10 mg Tablet
10 mg PO Q6H PRN (Reason: pain)
Rx Instructions:
maximum total duration of 5 days from all oral, intranasal, or parenteral formulations
insulin aspart U-100 100 unit/mL (3 mL) Insulin Pen
20 unit SC TID
metformin 500 mg Tablet Extended Release 24hr
1,000 mg PO BID
insulin glulisine U-100 100 unit/mL Solution
70 unit SC QPM
Discharge Orders:
Discharge Patient (As Directed); Ordered 01/18/25
Ordered By: Nga Schofield
Care Plan Goals
Care Plan Goals:
Problem: Readiness for enhanced knowledge related to diagnosis and treatment plan
Goal: Understand your diagnosis and treatment plan needs, including medications if applicable.
Instructions: Know your diagnosis, underlying causes and treatment plan options, including medications if applicable. Consult with your health care team to learn about your diagnosis and treatment plan, including medications if applicable.
Discharge Date and Time
Print Language: SERBIAN
--- NOTE | 2025-01-18 14:52 | PTCARENOTE ---
Pt received this am with no c/o other than mild right hand grasp. Pt oob to the BR and chair independently with the walker. Room air sat 97%. Pt discharged to [facility]. Pt transported to rehab via private transportation by her . Report
called to nurse receiving pt at [facility].
== END 2025-01-18 14:52 | DRG 65 ==
LOC: IVU 22:31
PROVIDERS: Clinical Nurse Specialist Acute Care; Internal Medicine Cardiovascular Disease; Nurse Practitioner; ADMITTING PHYSICIAN Thoracic Surgery (Cardiothoracic Vascular Surgery); CONSULT PHYSICIAN Internal Medicine Cardiovascular Disease; CONSULT PHYSICIAN Physical Medicine & Rehabilitation; CONSULT PHYSICIAN Psychiatry & Neurology Neurology; CONSULT PHYSICIAN Student in an Organized Health Care Education/Training Program; OTHER PHYSICIAN Hospitalist
PROC: B2111ZZ Fluoroscopy of Multiple Coronary Arteries using Low Osmolar Contrast (ICD-10-PCS; 2025-01-15)
PROC: 02HV33Z Insertion of Infusion Device into Superior Vena Cava, Percutaneous Approach (ICD-10-PCS; 2025-01-18)
DX: I63.40 Cerebral infarction due to embolism of unspecified cerebral artery (principal); I69.351 Hemiplegia and hemiparesis following cerebral infarction affecting right dominant side; Z68.41 Body mass index [BMI] 40.0-44.9, adult; I10 Essential (primary) hypertension; Z88.0 Allergy status to penicillin; E11.40 Type 2 diabetes mellitus with diabetic neuropathy, unspecified; E11.649 Type 2 diabetes mellitus with hypoglycemia without coma; E11.65 Type 2 diabetes mellitus with hyperglycemia; E66.813 Obesity, class 3; Z79.01 Long term (current) use of anticoagulants; Z79.4 Long term (current) use of insulin; Z79.899 Other long term (current) drug therapy; Z82.3 Family history of stroke; I05.9 Rheumatic mitral valve disease, unspecified
CPT/HCPCS: 36600; 70355; 70450; 70496; 70498; 70551; 71045; 71250; 80048; 80053; 80061; 81003; 81025; 82248; 82805; 82962; 83036; 83735; 85025; 85027; 85610; 85730; 86850; 86900; 86901; 87040; 87070; 92523; 92610; 93005; 93312; 93320; 93325; 93454; 93880; 94660; 97112; 97116; 97163; 97167; 97530; 97535; 99152; 99153; C1769; C1894; J0878; Q9967

== ENCOUNTER 2025-01-24 19:22 | Inpatient (IN) | payer OTHER, SELFPAY ==
[2025-01-24 19:34] VITALS: BP 145/86
[2025-01-24 19:50] VITALS: BMI 39.9
[2025-01-24 21:22] LABS: Glucose - Point of Care 335 mg/dl (70-99)
[2025-01-24] MEDS: NOVOLOG FLEXPEN 4 UNITS SC (22:33)
[2025-01-24] MEDS: FEOSOL 325 MG PO (22:36)
[2025-01-24] MEDS: ZYVOX 600 MG PO (22:36)
[2025-01-24] MEDS: PRAVACHOL 20 MG PO (22:36)
[2025-01-24] MEDS: STERILE WATER FOR INJECTION 20 ML IV (22:39)
[2025-01-24] MEDS: ROCEPHIN 2000 MG IV (22:39)
[2025-01-24 23:00] VITALS: BP 137/73
[2025-01-25] VITALS (7 sets, daily range): BP systolic 131–161; BP diastolic 65–91; BMI 39.6
--- NOTE | 2025-01-25 00:02 | PTCARENOTE ---
Pr admitted from [facility] to room 1448. Pt AAOx 4. Pt with Hx of CVA, NIH completed with score 1 for Rt arm weakness and ataxia. pt also has rt leg weakness with very minimum deficit. pt able to ambulate independently in the room. Xray competed
to confirm Left PICC placement. Pt oriented to the room, call arias within reach
--- NOTE | 2025-01-25 02:45 | HPS.HSE ---
Family Physician
-
Family Physician: Dr. Baum
Outpatient Surgical Scrub Tech: Dr Des Goyal
Inpatient Surgical Scrub Tech: SPENCER
Chief Complaint
-
transferred from [facility] for surgical treatment of MV mass.
History of Present Illness
Ms Almaraz is a very pleasant female with hx of DM II with neuropathy, DIDI, HTN, class 3 obesity. Initially, she presented to [facility] ED on 01/10/25 with right-sided weakness. CT of the head demonstrated multiple acute infarcts in the left
cerebellar, occipital, parietal lobes. MRI of the head on 01/16/25 revealed b/l hemispheric infarcts. 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 Pt was started on broad-spectrum antibiotics presumably
for potential valvular vegetation. She was discharged from to [facility] on 01/18/25 with L picc line to continue 6-week course of Linezolid and Ceftriaxone. She was also started on Eliquis for secondary stroke prevention.
While at [facility], she developed sudden issues with speech, having difficulty to get all of the words out. Her R sided weakness has been fluctuating. She was sent to [facility] for evaluation. Brain MRI was concerning for infarcts in the left
occipital and R posterior parietal lobes. She is transferred back to on 01/24/25 for surgical tx of her mitral valve mass. Her speech is fluent, appropriate. She is comfortable, in no distress. She reports having uterine bleeding for the past
week.
Head CT last night 01/24 revealed no intracranial hemorrhage.
Medical History
Past Medical History
Past Medical History: Reports CVA, HTN, Hypercholesterolemia, IDDM, Valvular Disease (Mitral valve mass) and Other (DIDI, doesn't use CPAP)
Past Surgical History: Reports , Gynocological (D&C after miscarriage) and Other (R bunionectomy)
Social History
Tobacco: Non-smoker
Alcohol: None
Drug: None
Personal:
Living: With Family
Employment: Not Employed
Family History
Family History: Other (Father had CVA at age 39, at age 58)
Allergies / Home Medications
Allergies reflects when Allergies were last updated in [employer].
Home Medications with original date entered in [employer]
Allergy/Medication List:
Allergies
Allergy/AdvReac Type Severity Reaction Status Date / Time
vancomycin Allergy Mild Itching Verified 01/24/25 22:44
amoxicillin Allergy Rash Verified 01/12/25 23:58
ciprofloxacin (From Cipro) Allergy Rash Verified 01/13/25 00:34
codeine Allergy Rash/chest Verified 01/24/25 21:42
pain
gabapentin Allergy Itching Verified 01/12/25 23:58
latex Allergy Unknown Verified 01/24/25 21:42
Penicillins Allergy Rash Verified 01/12/25 23:58
Home Medication List (Pre admission)
�Medication �Instructions �Recorded
Ceftriaxone 2 g IV Q12H 01/24/25
albuterol 90 mcg 01/24/25
ferrous sulfate 300 mg PO TID 01/24/25
insulin lispro 2 - 10 units TIDWMEAL 01/24/25
pravastatin 20 mg PO HS 01/24/25
Review of Systems
-
History Source: Patient and Transfer Record
A 12 point ROS was completed and negative except as noted: Yes
Physical Exam
Vital Signs
Vital Signs
Temp Pulse Resp BP Pulse Ox
98.2 F 103 16 145/86 100
01/24/25 22:59 01/24/25 22:45 01/24/25 22:59 01/24/25 19:34 01/24/25 22:59
Physical Exam
General: Well Developed, No Apparent Distress and Comfortable
HEENT: NormoCephalic, Atraumatic and PERRLA
Respiratory: Clear
Cardiac: S1/S2 and Regular Rhythm
GI: Soft, Non Tender and Non Distended
Musculoskeletal: No Edema
Skin: Warm and Dry
Neuro: AO x 3 and No Motor Deficits (R arm 4+/5 strength and R leg 4/5 strength; otherwise, no deficits noted. No signs of aphasia or facial asymmetry)
Psych: Calm and Intact Judgment/Insight
Data Reviewed
-
MRI: Report Reviewed by me
Medical Tests (Nuc Med, Echo, EKG etc): Report Reviewed by me
Lab Data: Labs Reviewed by me
Old Records: Reviewed
Impression/Plan
-
IMPRESSION:
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
-Embolic CVA x2 with R sided weakness initially and then expressive aphasia
-Mild MR
-LVEF 60-65%
-DM II
-HTN
-DIDI
-Uterine bleeding past 8 days-monitor
PLAN:
-Head CT 01/24/25 revealed no intracranial hemorrhage. Per Dr. Vizcarra, will plan to start iv Heparin today
-will continue Ceftriaxone and Linezolid
-ongoing uterine bleeding - Hg 8.2 today
-tentative plans for OR on Wednesday or Wednesday
[2025-01-25 03:09] LABS: Glucose - Point of Care 232 mg/dl (70-99)
[2025-01-25 03:34] LABS: Hematocrit 24.5 % (37.0-47.0); Hemoglobin 8.2 g/dL (12.0-16.0); Mean Corp Hgb Conc. 33.5 g/dL (33.0-37.0); Mean Corpuscular Volume 87.5 fL (81.0-99.0); Platelet Count 206 10^3/uL (130-400); Red Cell Dist. Width 14.1 % (11.5-14.5)
[2025-01-25 03:48] LABS: INR 1.09; PT 14.6 Sec (11.4-14.6)
[2025-01-25 03:49] LABS: APTT 30.3 Sec (23.4-35.0); Urine Character Very Cloudy (Clear)
[2025-01-25 04:08] LABS: ALT (SGPT) 75 U/L (0-35); AST (SGOT) 39 U/L (14-36); Albumin 3.4 g/dl (3.5-5.0); Alkaline Phosphatase 146 U/L (38-126); Blood Urea Nitrogen 11 mg/dl (7-17); Calcium 8.8 mg/dl (8.4-10.2); Carbon Dioxide 27 mmol/L (22-30); Chloride 105 mmol/L (98-107); Estimated Creatinine Clearance 117 ml/min; Glucose 224 mg/dl (70-99); Magnesium 1.7 mg/dl (1.6-2.3); Potassium 3.4 mmol/L (3.5-5.1); Sodium 137 mmol/L (135-145); Total Protein 6.2 g/dl (6.3-8.2); eGFR > 60.00
[2025-01-25 04:30] LABS: Urine Red Blood Cell >100 /HPF (0-2); Urine Squamous Cell SEEN /LPF (Few)
[2025-01-25] MEDS: KCL 40 MEQ PO (04:47)
[2025-01-25 08:00] LABS: Glucose - Point of Care 274 mg/dl (70-99)
[2025-01-25] MEDS: NOVOLOG FLEXPEN-LOW RESISTANCE 3 UNITS SC ×2 (08:10→12:13)
--- NOTE | 2025-01-25 08:11 | CON.CAR ---
Addendum entered and electronically signed by Jake Burger MD 01/25/25 11:04:
I saw and examined the patient independently and performed majority of MDM.
The resident's note was reviewed and I agree with the note with changes/additions below.
Comment: 49 y/o with HTN and DM, recent diagnosis of CVA and MV echodensity transferred to with recurrent stroke.
#Embolic CVA:
-Acute, recurrent
-diagnosis is a threat to life
-plan is surgical resection of MV mass
# Acute anemia
-eliquis has been stopped
#MV mass
-Mass appears annular based on LAURA.
-Ddx includes thrombus, endocarditis--and she is being treated with Abx; eliquis stopped for anemia
-also includes atypical myxoma vs fibroelastoma
- plan is surgical resection
Original Note:
Consultation
Consultation Request
Date/Time Consultation Requested: 01/25/2025; 06:42
Date/Time Consultation Performed: 01/25/2025; 08:11
Requesting Provider: Yudith Ponce
Performing Provider: Dr. Jake Burger; Dr. Koko Michael
Reason for Consultation: mitral valve mass, embolic CVAs
Medical History
-
Chief Complaint: mitral valve mass, presumed embolic CVAs
History of Present Illness:
49 yo F (left-hand dominant) PMH T2DM, DIDI, HTN, obesity
Per recorded documentation, her story begins on 01/10/2025 when she presented to [facility] ED with right sided weakness, and subsequent imaging (CT and MRI) demonstrated multiple infarcts in bilateral hemispheres. LAURA disclosed a mass on mitral
valve c/f fibroelastoma, myxoma, or vegetation. She was started on broad-spectrum abx for potential vegetation. She was discharged to [facility] on 01/18/2025 with PICC line to continue linezolid and ceftriaxone. She was also started on apixaban for
secondary stroke prevention.
Per documentation: At [facility], however, she experienced dysarthria and fluctuating R sided weakness and then sent to [facility]. Brain MRI there was c/f infarcts in L occipital and R posterior parietal lobes. she was transferred to [facility] on
01/24/2025 for surgical treatment of mitral valve mass. CT head noncontrast did not show evidence of intracranial hemorrhage. Per cardiac surgery documentation, her speech is fluent, appropriate.
During my interview, the patient confirms the above history. She reports that she felt she was improving while at rehab and then experienced difficulty in getting her words out and some weakness on the right arm/hand, particularly with fine motor
skills. She denies any changes in vision. She now feels that she is able to speak with not as much difficulty.
She denies chest pain, palpitations, headache, abdominal pain. 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 She denies dysphagia.
She denies hematemesis, hematochezia, melena, hematuria
Her LMP was in May, but she reports uterine bleeding which she attributes to beginning apixaban.
Past Medical History
Past Medical History: CVA, HTN, Hypercholesterolemia, IDDM, Valvular Disease and Other (DIDI, not CPAP)
Past Surgical History: , Gynecological and Other (R bunionectomy)
Social History
Tobacco: Non-Smoker
Alcohol: None
Drug: None
Personal:
Living: With Family
Allergies / Home Medications
Allergy/AdvReac Type Severity Reaction Status Date / Time
vancomycin Allergy Mild Itching Verified 01/24/25 22:44
amoxicillin Allergy Rash Verified 01/12/25 23:58
ciprofloxacin (From Cipro) Allergy Rash Verified 01/13/25 00:34
codeine Allergy Rash/chest Verified 01/24/25 21:42
pain
gabapentin Allergy Itching Verified 01/12/25 23:58
latex Allergy Unknown Verified 01/24/25 21:42
Penicillins Allergy Rash Verified 01/12/25 23:58
�Medication �Instructions �Recorded �Confirmed �Type
chlorthalidone 25 mg tablet 25 mg PO DAILY 01/13/25 01/13/25 History
ergocalciferol (vitamin D2) 1,250 1,250 mcg PO QWEEK 01/13/25 01/13/25 History
mcg (50,000 unit) capsule (Vitamin
D2)
lidocaine 5 % topical patch 1 patch topical DAILY 01/13/25 01/13/25 History
losartan 100 mg tablet 100 mg PO DAILY 01/13/25 01/13/25 History
lovastatin 20 mg tablet 20 mg PO QPM 01/13/25 01/13/25 History
spironolactone 50 mg tablet 50 mg PO DAILY 01/13/25 01/13/25 History
Insulin Glargine Lantus As Directed mls/hr SC HS Diabetes 01/17/25 Rx
[Lantus] 20 units
apixaban 5 mg tablet (Eliquis) 5 mg PO BID Blood clot 01/17/25 Rx
prevention/tx #60 tabs
aspirin 81 mg tablet,delayed 81 mg PO DAILY #0 tabs 01/17/25 Rx
release
ceftriaxone 2 gram solution for 2,000 mg IV Q12H #0 ea 01/17/25 Rx
injection
glucagon HCl 1 mg/mL solution for 1 mg IM PRN PRN hypoglycemia #0 ea 01/17/25 Rx
injection
insulin aspart U-100 100 unit/mL 1 sliding scale dose SC AC #15 mL 01/17/25 Rx
(3 mL) subcutaneous pen
linezolid 600 mg tablet 600 mg PO BID #0 tabs 01/17/25 Rx
aluminum-mag hydroxide-simethicone 1 tab PO Q4HPRN PRN indigestion, 01/18/25 Rx
200 mg-200 mg-25 mg chewable bloating #0 tabs
tablet (Gelusil Antacid and
Anti-Gas)
insulin aspart U-100 100 unit/mL 17 unit (0.17 mL) SC AC Diabetes 01/18/25 Rx
(3 mL) subcutaneous pen #0 mL
Ceftriaxone 2 g IV Q12H 11/05/25 11/05/25 History
albuterol 90 mcg 01/24/25 History
ferrous sulfate 300 mg PO TID 01/24/25 01/24/25 History
insulin lispro 2 - 10 units TIDWMEAL 01/24/25 01/24/25 History
pravastatin 20 mg PO HS 01/24/25 01/24/25 History
Review of Systems
-
History Source: Patient
Constitutional: No Symptoms
EENT: No Symptoms
Respiratory: No Symptoms
Cardiac: No Symptoms
Abdomen/GI: No Symptoms
: Bleeding (uterine bleeding)
Musculoskeletal: No Symptoms
Neurological: No Symptoms
Physical Exam
Vital Signs
Temp Pulse Resp BP Pulse Ox
98.4 F 95 20 144/65 100
01/25/25 07:35 01/25/25 07:45 01/25/25 07:35 01/25/25 07:35 01/25/25 07:35
telemetry review: sinus tachycardia
HR 100-120s
Lab Results
01/25/25 03:03
01/25/25 03:03
CT head noncontrast 01/24/2025
IMPRESSION:
1. No CT evidence for acute intracranial hemorrhage.
2. No CT evidence for interval increase in cytotoxic edema in the multiple small acute ischemic infarcts located in the left cerebral hemisphere and right cerebellar hemisphere.
CT chest without contrast 01/24/2025
IMPRESSION:
1. Left upper extremity PICC line in place.
2. Thin band of scarring in the lingula.
3. Small hiatal hernia.
4. Cholelithiasis.
5. 1.4 cm low-attenuation hepatic lesion (probably a small hepatic tumor and less likely a complex cyst).
Cardiac catheterization 01/15/2025
CONCLUSIONS
1. Right dominant circulation with an upward angulated left main coronary artery requiring an AL 2 diagnostic catheter with coronary wire assistance for cannulation and no coronary artery disease.
2. Systemic hypertension, permissive in the setting of CVA.
LAURA 01/15/2025
SUMMARY
1. Normal biventricular size and systolic function. Left ventricular ejection fraction visually estimated 60-65%.
2. Trileaflet aortic valve that opens normally without significant aortic regurgitation. Lambl's excrescence noted on aortic side of RCC.
3. Thickened mitral valve leaflets without prolapse. Sessile 0.88 cm echodensity at the junction of the base of P1/ P2 on the atrial side. Trivial mitral regurgitation.
4. Trace tricuspid insufficiency. Estimated pulmonary artery systolic pressure 18 mmHg assuming a right atrial pressure of 5 mmHg.
5. Intact interatrial septum without shunt by color-flow Doppler and negative agitated saline, bubble study.
6. No pericardial effusion.
7. Recommend Reviewed with primary cardiology service.
EKG 01/17/2025
Vent. Rate : 76 BPM Atrial Rate : 76 BPM
P-R Int : 168 ms QRS Dur : 106 ms
QT Int : 404 ms P-R-T Axes : 56 -17 47 degrees
QTcB Int : 454 ms
NORMAL SINUS RHYTHM
MINIMAL VOLTAGE CRITERIA FOR LVH, MAY BE NORMAL VARIANT ( Ricardo product )
CANNOT RULE OUT ANTERIOR INFARCT , AGE UNDETERMINED
Physical Exam
General: No Apparent Distress
HEENT: Normocephalic
Respiratory: Clear
Cardiac: Regular Rhythm and Other (no murmurs )
GI: Soft and Non Tender
Genito-urinary: No Costovertebral Tender
Musculoskeletal: No Edema
Neuro: AO x 3 and Other (Right arm is 4/5 compared to left arm. Right leg is 5/5, left leg is 5/5, AOx3, sensation grossly intact )
Psych: Calm
Impression / Plan
-
In summary, 49 yo F (left-hand dominant) PMH T2DM, DIDI, HTN, obesity who is presenting with neurological deficits c/f CVA, likely embolic attributed to mass on mitral valve.
CVA/TIA - likely embolic
- multiple episodes of focal neurological deficits with most recently speech, right arm suggest an embolic source because spans different vascular territories
- She feels that she is now able to speak well, suggesting that the most recent episode may have an element of TIA
- Brain MRI from [facility] can confirm CVA if imaging evidence of an infarction.
- the embolic source is likely the mass on mitral valve, identified on LAURA in prior admission
- per chart review, apixaban is being held
Plan:
- Repeat LAURA is not needed, surgical management should be therapeutic and diagnostic.
- Per cardiac surgery, tentative plans for OR next week
- telemetry does not suggest atrial fibrillation
- Recommendations are not final until discussed with Dr. Burger, cardiology attg
Mitral valve mass
- ddx could be fibroelastoma, myxoma, thrombus, nonbacterial-thrombotic endocarditis, bacterial endocarditis
- receiving IV antibiotics
- not currently on apixaban, per chart review
- afebrile, does not complain of B-symptoms, and no Osler nodes, janeway lesions, splinter hemorrhages on my exam, points away from bacterial endocarditis
- blood cultures negative from 01/13.
Plan:
- receiving linezolid and ceftriaxone to cover bacterial endocarditis
- definitive treatment and diagnosis would be surgical resection
- per cardiac surgery, tentative plans for OR next week
- Recommendations are not final until discussed with Dr. Burger, cardiology attg
Acute anemia
- acute, Hgb 8.2, Hgb baseline appears to be 12
- likely attributed to her uterine bleeding in setting of apixaban use
- she denies hematemesis, hematochezia, melena, hematuria
- tachycardic but BP 140/70s suggests hemodynamically stable, tachycardia is possibly attributed to anemia
- apixaban is held, and receiving iron supplementation, per chart review
- monitor Hgb
HTN
- BP meds are held likely given recent CVA/TIA
- but home BP meds include spironolactone, losartan, carvedilol, chlorthalidone per recent discharge summary med reconciliation
- per prior documentation, may consider evaluation for essential vs secondary HTN after the acute issues resolve, given HTN on 4 antihypertensives
HLD
- continue pravastatin
DM
- insulin sliding scale
[2025-01-25] MEDS: FEOSOL 325 MG PO ×3 (09:02→22:10)
[2025-01-25] MEDS: ZYVOX 600 MG PO ×2 (09:02→19:37)
[2025-01-25] MEDS: ROCEPHIN 2000 MG IV ×2 (09:54→22:10)
[2025-01-25] MEDS: STERILE WATER FOR INJECTION 20 ML IV ×2 (09:54→22:10)
--- NOTE | 2025-01-25 11:18 | PTCARENOTE ---
Assumed care of pt from previous RN. AAOx3. OOB in chair. NIHSS remains 1 for RUE ataxia. Pt has some residual right sided weakness from CVA, otherwise neurologically intact. NSR/ST on tele, HR 90s-120s. VSS. Assessment documented. Call arias in
reach.
--- NOTE | 2025-01-25 11:26 | CM ---
Chart reviewed. Patient was a transfer from [facility]. Patient was recently discharged from [facility] to [facility]. Prior to that patient was independent of ADLS, lives with her and 14 yo daughter in a 2 STH, total of 6 MILEY, full
flight of stairs to the 2nd floor, 0 DME. While at [facility] patient was using a wheelchair to transfer and also a RW. Plan is for the patient to return to [facility] after surgery. CM to follow
[2025-01-25 12:10] LABS: Glucose - Point of Care 286 mg/dl (70-99)
--- NOTE | 2025-01-25 15:02 | PN.DE.MGMTRT ---
Insulin Management
- -
01/25/25: Diabetes Management Consult
49 year old female readmitted for for CT surgery next week. Pt is well know to diabetes team from her recent admission here where she was treated for Possible mitral valve endocarditis and discharged to [facility]. PMH: Uncontrolled hypertension,
DIDI, uncontrolled T2DM, Diabetic Neuropathy, Obesity.
On 01/10/2025 pt presented to [facility] ED with right sided weakness, and subsequent imaging (CT and MRI) demonstrated multiple infarcts in bilateral hemispheres. 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 She
was transferred to [facility] and started on broad-spectrum abx for potential vegetation. CV surgery was delayed up to 6 weeks for recovery from weakness and endocarditis. She was discharged to [facility] on 01/18/2025 with PICC line to continue linezolid
and ceftriaxone.
While in rehab pt experienced dysarthria and fluctuating R sided weakness and then sent to [facility]. Brain MRI there was c/f infarcts in L occipital and R posterior parietal lobes. she was transferred to [facility] on 01/24/2025 for surgical
treatment of mitral valve mass.
Pt awake, alert, oriented, resting in bed, able to discuss diabetes care plan. at bedside, very supportive.
Pt states he has struggled with diabetes since 2006, began using insulin during a in 2010. Routinely sees charissa Chi PA-C at [facility].
Was discharged to rehab on Lantus 20 units @ HS and NovoLog 17 units AC. Recent A1C 11.2%, Cr 0.6, eGFR >60
States she was not receiving enough insulin doses while in rehab and that her blood sugars were trending up ~300s.
Current regimen includes low corrective insulin only. Glucose has ranged from 232 to 335 since admission.
Will start Lantus 20 units Lantus @ HS, AC NovoLog 8 units and change back from moderate to low corrective with meals.
Change diet from 2000 nevin to 1600 nevin, pt is only 5'1'
01/16 Discussed with patient about the huge disparity in home insulin dose and dose she was receiving here. Patient admitted she was not limiting how much or how often she ate at home and diet was controlled here.
Diabetes History
- -
Type of Diabetes: 2 requiring insulin
Pre-Admission Diabetes Regimen
01/25/25
03:03
Creatinine 0.5 L
Insulin Pump Settings
IP Diabetes Regimen
01/24/25 01/25/25 01/25/25
21:20 02:59 03:03
Glucose 224 H
POC Glucose 335 H 232 H
01/25/25 01/25/25
07:58 12:09
Glucose
POC Glucose 274 H 286 H
Patient Education
[2025-01-25] MEDS: TYLENOL 650 MG PO (15:20)
--- NOTE | 2025-01-25 15:25 | CM ---
Reviewed preoperative and postoperative instructions and restrictions, along with showering guidelines. Gave patient Cardiac Surgery Book. Patient was at [facility] before admission. Patient will need PT evaluation to determine discharge needs,
along with insurance authorization.
[2025-01-25 15:50] LABS: Hematocrit 23.6 % (37.0-47.0); Hemoglobin 8.0 g/dL (12.0-16.0)
[2025-01-25 16:39] LABS: Glucose - Point of Care 331 mg/dl (70-99)
[2025-01-25] MEDS: NOVOLOG FLEXPEN 8 UNITS SC (17:12)
[2025-01-25] MEDS: NOVOLOG FLEXPEN-LOW RESISTANCE 4 UNITS SC (17:12)
--- NOTE | 2025-01-25 20:00 | PTCARENOTE ---
Received pt from previous shift. Systems reviewed, see flowsheets. NIHSS completed with anamaria ARAUJO. Score of 1 given for RUE ataxia. No new complaints from pt at this time. NSR-ST on heart monitor, 90s-110s. ST 120s-130s with ambulation. LUE PICC
in place. Will continue to monitor.
[2025-01-25] MEDS: PRAVACHOL 20 MG PO (22:10)
[2025-01-25] MEDS: LANTUS SC (22:10)
[2025-01-25 22:17] LABS: Glucose - Point of Care 360 mg/dl (70-99)
[2025-01-25] MEDS: LANTUS 0.2 UNITS SC (22:41)
[2025-01-25] MEDS: NOVOLOG FLEXPEN 5 UNITS SC (22:42)
[2025-01-26 00:43] LABS: Glucose - Point of Care 303 mg/dl (70-99)
[2025-01-26] MEDS: NOVOLOG FLEXPEN 3 UNITS SC (00:53)
[2025-01-26 02:43] VITALS: BMI 40.8
[2025-01-26 02:45] VITALS: BP 160/75
[2025-01-26] MEDS: TYLENOL 650 MG PO ×2 (02:47→09:21)
[2025-01-26 02:55] LABS: Glucose - Point of Care 242 mg/dl (70-99)
[2025-01-26 03:38] LABS: Hematocrit 24.4 % (37.0-47.0); Hemoglobin 8.1 g/dL (12.0-16.0); Mean Corp Hgb Conc. 33.2 g/dL (33.0-37.0); Mean Corpuscular Volume 88.7 fL (81.0-99.0); Platelet Count 227 10^3/uL (130-400); Red Cell Dist. Width 14.4 % (11.5-14.5)
[2025-01-26 04:00] LABS: Blood Urea Nitrogen 11 mg/dl (7-17); Calcium 8.7 mg/dl (8.4-10.2); Carbon Dioxide 28 mmol/L (22-30); Chloride 106 mmol/L (98-107); Estimated Creatinine Clearance 119 ml/min; Glucose 222 mg/dl (70-99); Potassium 3.7 mmol/L (3.5-5.1); Sodium 139 mmol/L (135-145); eGFR > 60.00
[2025-01-26 07:19] VITALS: BP 162/82
--- NOTE | 2025-01-26 07:39 | W.PN.CD ---
Today's Communication / Plan
-
Surgical planning.
Fe/B12/Folate.
Impression / Plan
-
Impression/Plan: 49 yo F (left-hand dominant) PMH T2DM, DIDI, HTN, obesity transferred from [facility] with recurrent neurologic insults likely related to mitral valve lesion.
#CVA/TIA
-Acute, recurrent, likely embolic.
-Multiple episodes of focal neurological deficits with most recently speech, right arm suggest an embolic source because spans different vascular territories.
-Brain MRI from [facility] can confirm CVA if imaging evidence of an infarction.
-Embolic source is likely the mass on mitral valve, identified on LAURA in prior admission.
-Apixaban on hold to avoid hemorrhagic transformation and in anticipation of surgery.
#Mitral valve mass
-Chronic, seen on prior LAURA.
-DDx could be fibroelastoma, myxoma, thrombus, nonbacterial-thrombotic endocarditis, bacterial endocarditis.
-Continue IV antibiotics, though low suspicion.
-Plan for definitive operative management next week.
#Acute anemia
-Acute,
-Hgb 8.2, baseline appears to be 12.
-Attributed to her uterine bleeding in setting of apixaban use.
-Check Fe levels, B12/folate, reticulocytes.
#HTN
-Chronic, stable.
-BP meds are held likely given recent CVA/TIA.
#HLD
-Chronic, stable.
-Continue pravastatin.
#DM
-Chronic, stable.
-Insulin sliding scale.
Subjective/Interval History:
Transferred from [facility].
Surgery next week.
Feels well.
DATA:
Cardiac Catheterization, 01/15/2025:
CONCLUSIONS
1. Right dominant circulation with an upward angulated left main coronary artery requiring an AL 2 diagnostic catheter with coronary wire assistance for cannulation and no coronary artery disease.
2. Systemic hypertension, permissive in the setting of CVA.
LAURA, 01/15/2025:
SUMMARY
1. Normal biventricular size and systolic function. Left ventricular ejection fraction visually estimated 60-65%.
2. Trileaflet aortic valve that opens normally without significant aortic regurgitation. Lambl's excrescence noted on aortic side of RCC.
3. Thickened mitral valve leaflets without prolapse. Sessile 0.88 cm echodensity at the junction of the base of P1/ P2 on the atrial side. Trivial mitral regurgitation.
4. Trace tricuspid insufficiency. Estimated pulmonary artery systolic pressure 18 mmHg assuming a right atrial pressure of 5 mmHg.
5. Intact interatrial septum without shunt by color-flow Doppler and negative agitated saline, bubble study.
6. No pericardial effusion.
7. Recommend Reviewed with primary cardiology service.
Physical Exam
Vital Signs/Labs
Vital Signs
Temp Pulse Resp BP Pulse Ox
36.6 C 85 16 160/75 98
01/26/25 07:32 01/26/25 05:00 01/26/25 07:32 01/26/25 02:45 01/26/25 07:32
01/24/25 01/25/25 01/26/25
11:59 11:59 11:59
Actual Weight 94.9 kg 97.8 kg
01/26/25 02:55
01/26/25 02:55
PT 14.6 Sec (11.4-14.6) 01/25/25 03:03
INR 1.09 01/25/25 03:03
APTT 30.3 Sec (23.4-35.0) 01/25/25 03:03
Magnesium 1.7 mg/dl (1.6-2.3) 01/25/25 03:03
Physical Exam
Constitutional: No acute distress and Comfortable
EENT: Anicteric and Moist mucous membranes
Cardiovascular: Rhythm & rate is regular, Pedal edema is absent, JVD pressure is normal, S1S2 is normal and Murmur/rub/gallop absent
Respiratory: Respiratory effort normal, Lungs clear to auscul., Wheeze Absent, Crackles Absent and Rhonchi Absent
GI: Soft, Distention absent, Flat, Non tender and Normal bowel sounds
Neuro/Psych: AO x 3
Data Reviewed
-
Date of Service: January 26, 2025
Medical Decision Making: Reviewed Test Results, Independent Historian Assessment and Test Interpretation
EKG: Tracing Personally Visualized and interpreted and Report Reviewed by me
Echo: Tracing Personally Visualized and interpreted and Report Reviewed by me
X-Ray/CT/US/MRI/NUC/PET: Image Personally Visualized and interpreted and Report Reviewed by me
Medical Tests (PFT, Pathology etc): Image Personally Visualized and interpreted and Report Reviewed by me
Labs: Labs Reviewed by me
--- NOTE | 2025-01-26 07:47 | PN.DE.MGMTRT ---
Insulin Management
- -
01/26/25: Diabetes Management Follow up
49 year old female readmitted for for CT surgery next week. Pt is well know to diabetes team from her recent admission here where she was treated for Possible mitral valve endocarditis and discharged to [facility]. PMH: Uncontrolled hypertension,
DIDI, uncontrolled T2DM, Diabetic Neuropathy, Obesity.
On 01/10/2025 pt presented to [facility] ED with right sided weakness, and subsequent imaging (CT and MRI) demonstrated multiple infarcts in bilateral hemispheres. 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 She
was transferred to [facility] and started on broad-spectrum abx for potential vegetation. CV surgery was delayed up to 6 weeks for recovery from weakness and endocarditis. She was discharged to [facility] on 01/18/2025 with PICC line to continue linezolid
and ceftriaxone.
While in rehab pt experienced dysarthria and fluctuating R sided weakness and then sent to [facility]. Brain MRI there was c/f infarcts in L occipital and R posterior parietal lobes. she was transferred to [facility] on 01/24/2025 for surgical
treatment of mitral valve mass.
Pt awake, alert, oriented, sitting up in chair, offers no complaints, able to discuss diabetes care plan.
Pt states he has struggled with diabetes since 2006, began using insulin during a in 2010.
Routinely sees charissa Chi PA-C at [facility]. Recent A1C 11.2%, Cr 0.6, eGFR >60
01/25 Resumed Lantus 20 units @ HS and NovoLog 8 units AC. Glucose has remained elevated 286 to 360, requiring 3-4 units of corrective insulin with meals
Will increase Lantus to 22 units and AC NovoLog to 12 units. Cont low corrective with meals.
01/16 Discussed with patient about the huge disparity in home insulin dose and dose she was receiving here. Patient admitted she was not limiting how much or how often she ate at home and diet was controlled here.
Diabetes History
- -
Type of Diabetes: 2 requiring insulin
Pre-Admission Diabetes Regimen
01/26/25
02:55
Creatinine 0.5 L
Insulin Pump Settings
IP Diabetes Regimen
01/25/25 01/25/25 01/25/25
07:58 12:09 16:39
Glucose
POC Glucose 274 H 286 H 331 H
01/25/25 01/26/25 01/26/25
22:11 00:42 02:53
Glucose
POC Glucose 360 H 303 H 242 H
01/26/25
02:55
Glucose 222 H
POC Glucose
Meal type: Dinner
Amount consumed: 100%
Patient Education
[2025-01-26 08:25] LABS: Glucose - Point of Care 252 mg/dl (70-99)
[2025-01-26] MEDS: NOVOLOG FLEXPEN-LOW RESISTANCE 3 UNITS SC ×2 (08:25→12:54)
[2025-01-26] MEDS: NOVOLOG FLEXPEN 8 UNITS SC (08:25)
[2025-01-26] MEDS: ZYVOX 600 MG PO ×2 (08:43→20:21)
[2025-01-26] MEDS: FEOSOL 325 MG PO ×2 (08:43→17:38)
--- NOTE | 2025-01-26 08:49 | PTCARENOTE ---
Assumed care. Patient AO x3, speech clear, fluent. NIH 1, right upper extremity slightly weakness with mild ataxia. Walking in the room independently. Vaginal bleeding has subsided, none since 3am per patient. ST 118, in chair eating breakfast, call
arias in reach
--- NOTE | 2025-01-26 09:18 | CON.MD ---
CC / HPI / ROS
-
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 PHOTOVOLTAIC SOLAR CELL DESIGNER was consulted secondary to 8 days of vaginal bleeding since starting Eliquis. Her bleeding has since mostly
resolved with light spotting when she wipes. Patient has since had Eliquis discontinued with plans to start heparin by primary team. She is perimenopausal with LMP of May 2024. Patient has had a history of irregular menses in this perimenopausal
timeframe. Her primary PHOTOVOLTAIC SOLAR CELL DESIGNER is in [place] who she last saw at the beginning of this year. Patient states that she had an endometrial biopsy which was benign per her report. Denies a history of fibroids but states her mother had fibroids. She
is on no forms of contraception. Past medical history significant for insulin-dependent diabetes and hypertension. Her surgical history is significant for 1 prior , dilation and curettage for miscarriage, and removal of endometrial polyp.
Patient has not had a pelvic ultrasound in several years.
Current/Past Med/Surg History
-
Respiratory: No Issues Reported
Vascular / Heart: High Blood Pressure and Valve Disorder
Neurological / Brain / Spinal Cord: Stroke
Gastrointestinal/Bowel/Digestive: No Issues Reported
Musculoskeletal: No Issues Reported
Endocrine: No Issues Reported
Urinary/Reproductive: No Issues Reported
Operations / Procedures
Issues with Anesthesia: No
Past Surgical History: and Gynecological (D&C, endometrial polyp resection)
Medications / Supplements
�Medication �Instructions �Recorded
chlorthalidone 25 mg tablet 25 mg PO DAILY 01/13/25
ergocalciferol (vitamin D2) 1,250 1,250 mcg PO QWEEK 01/13/25
mcg (50,000 unit) capsule (Vitamin
D2)
lidocaine 5 % topical patch 1 patch topical DAILY 01/13/25
losartan 100 mg tablet 100 mg PO DAILY 01/13/25
lovastatin 20 mg tablet 20 mg PO QPM 01/13/25
spironolactone 50 mg tablet 50 mg PO DAILY 01/13/25
Insulin Glargine Lantus As Directed mls/hr SC HS Diabetes 01/17/25
[Lantus] 20 units
apixaban 5 mg tablet (Eliquis) 5 mg PO BID Blood clot 01/17/25
prevention/tx #60 tabs
aspirin 81 mg tablet,delayed 81 mg PO DAILY #0 tabs 01/17/25
release
ceftriaxone 2 gram solution for 2,000 mg IV Q12H #0 ea 01/17/25
injection
glucagon HCl 1 mg/mL solution for 1 mg IM PRN PRN hypoglycemia #0 ea 01/17/25
injection
insulin aspart U-100 100 unit/mL 1 sliding scale dose SC AC #15 mL 01/17/25
(3 mL) subcutaneous pen
linezolid 600 mg tablet 600 mg PO BID #0 tabs 01/17/25
aluminum-mag hydroxide-simethicone 1 tab PO Q4HPRN PRN indigestion, 01/18/25
200 mg-200 mg-25 mg chewable bloating #0 tabs
tablet (Gelusil Antacid and
Anti-Gas)
insulin aspart U-100 100 unit/mL 17 unit (0.17 mL) SC AC Diabetes 01/18/25
(3 mL) subcutaneous pen #0 mL
Ceftriaxone 2 g IV Q12H 01/24/25
albuterol 90 mcg 01/24/25
ferrous sulfate 300 mg PO TID 01/24/25
insulin lispro 2 - 10 units TIDWMEAL 01/24/25
pravastatin 20 mg PO HS 01/24/25
Allergies
Allergy/AdvReac Type Severity Reaction Status Date / Time
vancomycin Allergy Mild Itching Verified 01/24/25 22:44
amoxicillin Allergy Rash Verified 01/12/25 23:58
ciprofloxacin (From Cipro) Allergy Rash Verified 01/13/25 00:34
codeine Allergy Rash/chest Verified 01/24/25 21:42
pain
gabapentin Allergy Itching Verified 01/12/25 23:58
latex Allergy Unknown Verified 01/24/25 21:42
Penicillins Allergy Rash Verified 01/12/25 23:58
Vital Signs / Labs
-
Vital Signs and Labs:
Temp Pulse Resp BP Pulse Ox
97.8 F 85 16 160/75 98
01/26/25 07:32 01/26/25 05:00 01/26/25 07:32 01/26/25 02:45 01/26/25 07:32
01/26/25 02:55
01/26/25 02:55
01/25/25 01/25/25 01/25/25
12:09 15:34 16:39
RBC
Hgb 8.0 L
Hct 23.6 L
Creatinine
Glucose
POC Glucose 286 H 331 H
01/25/25 01/26/25 01/26/25
22:11 00:42 02:53
RBC
Hgb
Hct
Creatinine
Glucose
POC Glucose 360 H 303 H 242 H
01/26/25 01/26/25
02:55 08:24
RBC 2.75 L
Hgb 8.1 L
Hct 24.4 L
Creatinine 0.5 L
Glucose 222 H
POC Glucose 252 H
Data Reviewed / Physical Exam
-
Vital Signs
Temp Pulse Resp BP Pulse Ox
97.8 F 85 16 160/75 98
01/26/25 07:32 01/26/25 05:00 01/26/25 07:32 01/26/25 02:45 01/26/25 07:32
Lab Results
01/25/25 01/26/25
03:03 02:55
Glucose 224 H 222 H
Bedside - Glucose
01/24/25 01/25/25 01/25/25
21:20 02:59 07:58
POC Glucose 335 H 232 H 274 H
01/25/25 01/25/25 01/25/25
12:09 16:39 22:11
POC Glucose 286 H 331 H 360 H
01/26/25 01/26/25 01/26/25
00:42 02:53 08:24
POC Glucose 303 H 242 H 252 H
Physical Exam:
General: No acute distress, patient resting comfortably in chair
Cardiac: Regular rate
Lungs: No increased work of breathing
Abdomen: Soft, nontender, nondistended
Pelvic: Normal-appearing external female genitalia with areas of irritation and perivaginal and perianal region. Speculum exam remarkable for a small dime size dark clot in the posterior fornix but no active bleeding from cervix.
Assessemnt/Plan
-
Bisi is a 49-year-old female with past medical history of insulin-dependent diabetes and hypertension now with mitral valve mass planning for surgical removal with cardiovascular team now with 8 days of concurrent vaginal bleeding associated with
recent Eliquis initiation.
Plan
� Discussed with patient that she given recent benign endometrial sampling, I would recommend outpatient follow-up for potential resampling. Recommend pelvic ultrasound while patient remains inpatient.
�Discussed sources of bleeding could be related to polyps or fibroids. Relatively low suspicion of cancer given recent benign endometrial sampling.
� Given patient's multiple comorbidities, stable hemoglobin and unremarkable pelvic exam, recommend patient be placed back on anticoagulation as deemed appropriate by primary team.
�Discussed acute options for cessation of bleeding such as progesterone or TXA would not be recommended at this time given stable hemoglobin of 8 and multiple comorbidities.
�Will continue to follow peripherally and available for reconsultation if clinical status changes.
[2025-01-26 09:36] LABS: Reticulocyte Count 2.7 % (0.4-2.8)
[2025-01-26 09:41] LABS: Iron 146 ug/dl (37-170)
--- NOTE | 2025-01-26 10:49 | W.PN.CT ---
Addendum entered and electronically signed by Vicente Genao MD 01/27/25 09:49:
I saw and examined the patient.
The PA's note was reviewed and I agree with the note.
Comment:
Appreciate SEQUINS SLINGER eval - follow Hgb
Neuro exam stable
Continue ABX - all cultures negative
OR Wednesday vs. Wednesday for MV fibroelastoma, myxoma, or vegetation
Original Note:
Today's Communication / Plan
-
- No acute neurological changes.
- Eliquis remains on hold, Heparin gtt on hold/not initiated pending SEQUINS SLINGER evaluation for menorrhagia with anemia - stable at 8.1.
- Patient reporting decrease in bleeding in AM.
- Continue current ABX regiment for potential endocarditis.
- Reports frequent diarrhea (3x/day), continue to monitor - stool sample ordered, initiate probiotic.
- Continue preoperative planning in anticipation for CVOR next week.
Assessment / Plan
-
49-year old patient with PMHx of T2DM (insulin dependent) with neuropathy, HLD, HTN, class 3 obesity and mitral valve mass who presented to [facility] ED from [facility] with c/o difficulty with speech, R-sided weakness who was found to have
Brain MRI concerning for infarcts in L occipital and R posterior parietal lobes. Patient previously discharged from [facility] with plan for outpatient follow-up with Dr. Vizcarra following TIA for surgical planning of MV mass. Upon discharge to Rehab,
patient was initiated on Eliquis 5 BID and broad-spectrum ABX for presumed valvular vegetation (6-week course of Linezolid and Ceftriaxone). Patient currently without neurological changes awaiting surgical intervention.
#MV Mass
- Patient with known mass on prior LAURA with an anticipated outpatient follow-up
- LAURA demonstrate MV mass concerning for fibroelastoma, myxoma, or vegetation
- Now inpatient following recurrent CVA/TIA awaiting CVOR
- Continue IV/PO ABX course (Ceftriaxone/Linezolid) for suspicion of endocarditis, L PICC in place
- Continue to hold Eliquis in anticipation for CVOR, last dose 01/24/25
#Menorrhagia
- Patient reports last menstrual bleeding in May of 2024
- Reported menorrhagia started last week with consistent, heavy flow on Eliquis.
- Bleeding has slowed this AM.
- Reports labial excoriation secondary to bleeding; zinc oxide past initiated.
- Hgb trend 11.7>8.2>8.1 today.
- Tentative plan to hold AC post-op, per Dr. Vizcarra.
- SEQUINS SLINGER consulted, recommendations appreciated.
#Diarrhea
- On course of ABX, reporting diarrhea 3x/day over last 3 days.
- Assess stool sample.
- Initiate probiotic.
#CVA/TIA
- Pt presented to [facility] with complaints of difficulty with speech, R sided-weakness
- Prior event at [facility] 01/10/25 with presentation of R-sided weakness and found (+) infarcts in L cerebellar, occipital, parietal lobes
- Recent MRI concerning for infarcts in L occipital & R posterior parietal lobes
- Eliquis on hold to decrease risk of hemorrhagic conversion
- CT 01/24 reported no intracranial hemorrhage
- Continue to monitor neuro assessment.
- Continue to hold Eliquis. Initiation of Heparin gtt dependent upon Menorrhagia.
#T2DM, Insulin dependent, with neuropathy
- Patient with elevated fasting glucose levels (>200)
- Previous adjustments made during prior admission with Diabetic MATERIAL HANDLING TECHNICIAN
- Diabetic MATERIAL HANDLING TECHNICIAN consulted, recommendations appreciated.
#HLD/HTN
- Known PMHx
- Losartan on hold leading to CVOR
- Spironolactone on hold.
- Allow for permissive HTN secondary to recent CVA.
Discussed patient care with: Nursing
Subjective
-
Date of Service: January 26, 2025
Objective Data
-
Lab Results
01/26/25 02:55
01/26/25 02:55
PT 14.6 Sec (11.4-14.6) 01/25/25 03:03
INR 1.09 01/25/25 03:03
APTT 30.3 Sec (23.4-35.0) 01/25/25 03:03
Vital Signs
Vital Signs
Temp Pulse Resp BP Pulse Ox
97.8 F 121 16 162/82 98
01/26/25 07:32 01/26/25 09:00 01/26/25 07:32 01/26/25 07:19 01/26/25 07:32
CT Intake/Output/Weight
01/25/25 01/26/25 01/26/25
18:59 06:59 18:59
Intake Total 480 / 480 240 / 240
Balance 480 / 480 240 / 240
SaO2: 98
Physical Exam
-
General: Awake, Oriented and AOx3
Cardiovascular: Regular rate & rhythm, No Murmurs and No Rub
Respiratory: Clear and Equal
Data Reviewed
-
Lab Results: Results Reviewed
Medications: Active Meds Reviewed
[2025-01-26] MEDS: ROCEPHIN 2000 MG IV ×2 (10:51→22:38)
[2025-01-26] MEDS: STERILE WATER FOR INJECTION 20 ML IV ×2 (10:51→22:38)
[2025-01-26 11:11] LABS: Ferritin 30.0 ng/ml (11.1-264.0)
[2025-01-26 11:25] LABS: Vitamin B12 670 pg/ml (239-931)
--- NOTE | 2025-01-26 11:40 | CM ---
Chart reviewed. Prior to recent hospitalization on 01/10-01/18, patient was independent of ADLS, working, lives with her and 14 yo daughter in a 2 [address], total of 6 MI[address], full flight of stairs to 2nd floor, 0 DME. At discharge patient was
discharged to [facility], using a RW and wheelchair. PT evaluation to determine patient's discharge needs. Plan is for the patient to return home vs Acute Rehab. CM to follow
[2025-01-26 11:57] VITALS: BP 141/74
[2025-01-26 12:54] LABS: Glucose - Point of Care 285 mg/dl (70-99)
[2025-01-26] MEDS: NOVOLOG FLEXPEN 12 UNITS SC ×2 (12:55→17:37)
[2025-01-26 12:59] LABS: Folate 8.6 ng/ml (2.76-20)
[2025-01-26] MEDS: VISBIOME 1 CAP PO (13:10)
[2025-01-26 13:37] LABS: Glucose - Point of Care 303 mg/dl (70-99)
[2025-01-26 15:09] VITALS: BP 165/69
[2025-01-26 17:18] LABS: Glucose - Point of Care 312 mg/dl (70-99)
[2025-01-26] MEDS: NOVOLOG FLEXPEN-LOW RESISTANCE 4 UNITS SC (17:38)
--- NOTE | 2025-01-26 18:19 | PTCARENOTE ---
Patient doing well, sitting in chair. 1 episode of loose stool this morning, none since, probiotic given. Vaginal bleeding resolved since this morning. NSR HR 98 on telemetry, neurologically unchanged, slight right sided weakness and right arm
ataxia, NIH 1. VSS, call arias in reach
[2025-01-26 19:01] VITALS: BP 152/78
[2025-01-26 22:12] VITALS: BP 137/91
[2025-01-26 22:15] LABS: Glucose - Point of Care 207 mg/dl (70-99)
[2025-01-26] MEDS: PRAVACHOL 20 MG PO (22:36)
[2025-01-26] MEDS: LANTUS 0.22 UNITS SC (22:37)
[2025-01-26] MEDS: FEOSOL PO (22:37)
--- NOTE | 2025-01-26 23:28 | PTCARENOTE ---
Pt rec'd oob in recliner chair watching live gnosticist service on phone. No c/o pain. stroke scale scored 1 with weakness noted in right hand grasp.
Formed dark Stool sent for c diff as ordered resulted neg, stool heme checked also neg. No vaginal bleeding but pt did reports little bleeding noted on toilet tissue resulting from hemorrhoids. LUE picc flushed with good blood return.
[2025-01-27 02:56] VITALS: BP 163/78
[2025-01-27 08:27] VITALS: BP 141/72
[2025-01-27] MEDS: VISBIOME 1 CAP PO (08:29)
[2025-01-27] MEDS: ZYVOX 600 MG PO (08:29)
[2025-01-27] MEDS: FEOSOL PO ×2 (08:30→20:55)
[2025-01-27] MEDS: TYLENOL 650 MG PO ×2 (08:31→22:04)
[2025-01-27 08:39] VITALS: BMI 39.9
[2025-01-27] MEDS: NOVOLOG FLEXPEN-LOW RESISTANCE 2 UNITS SC (09:07)
[2025-01-27 09:08] LABS: Glucose - Point of Care 237 mg/dl (70-99)
[2025-01-27] MEDS: NOVOLOG FLEXPEN 12 UNITS SC ×3 (09:08→18:02)
--- NOTE | 2025-01-27 09:33 | PTCARENOTE ---
Patient oob this morning, no changes in neuro exam noted. Patient is due for a pelvic ultrasound this morning. Is no longer having vaginal bleeding but does note some blood on the toilet paper when she wipes from both her vaginal area and rectal
area, which she states is from her hemorrhoids. States she is very sore in her vaginal area since her pelvic yesterday and given tylenol PO.
[2025-01-27] MEDS: ROCEPHIN 2000 MG IV ×2 (10:47→22:04)
[2025-01-27] MEDS: STERILE WATER FOR INJECTION 20 ML IV ×2 (10:48→22:04)
[2025-01-27] MEDS: FLUSH (NSS) 2 FLUSH IV ×2 (10:48→17:30)
--- NOTE | 2025-01-27 11:16 | W.PN.CD ---
Today's Communication / Plan
-
- Tentative plan for mitral valve mass resection next week
Impression / Plan
-
Impression/Plan: 49 yo F (left-hand dominant) PMH T2DM, DIDI, HTN, obesity transferred from [facility] with recurrent neurologic insults likely related to mitral valve lesion.
#CVA/TIA
-Acute, recurrent, likely embolic.
-Multiple episodes of focal neurological deficits with most recently speech, right arm suggest an embolic source because spans different vascular territories.
-Brain MRI from [facility] can confirm CVA if imaging evidence of an infarction.
-Embolic source is likely the mass on mitral valve, identified on LAURA in prior admission.
-Apixaban on hold to avoid hemorrhagic transformation and in anticipation of surgery.
#Mitral valve mass
-Chronic, seen on prior LAURA.
-DDx could be fibroelastoma, myxoma, thrombus, nonbacterial-thrombotic endocarditis, bacterial endocarditis.
-Continue IV antibiotics, though low suspicion.
-Plan for definitive operative management next week.
-Patient has left jaw pain. May need dental evaluation prior to surgery as well
# bleeding
- bleeding has subsided.
- Plan for pelvic ultrasound prior to the surgery.
#Acute anemia
-Acute,
-Hgb 8.2, baseline appears to be 12.
-Attributed to her uterine bleeding in setting of apixaban use.
-Check Fe levels, B12/folate, reticulocytes.
#HTN
-Chronic, stable.
-BP meds are held likely given recent CVA/TIA.
#HLD
-Chronic, stable.
-Continue pravastatin.
#DM
-Chronic, stable.
-Insulin sliding scale.
Subjective/Interval History:
Feels well. Patient is reporting pain in the left jaw. Pain is especially worse with toothbrush.
DATA:
Cardiac Catheterization, 01/15/2025:
CONCLUSIONS
1. Right dominant circulation with an upward angulated left main coronary artery requiring an AL 2 diagnostic catheter with coronary wire assistance for cannulation and no coronary artery disease.
2. Systemic hypertension, permissive in the setting of CVA.
LAURA, 01/15/2025:
SUMMARY
1. Normal biventricular size and systolic function. Left ventricular ejection fraction visually estimated 60-65%.
2. Trileaflet aortic valve that opens normally without significant aortic regurgitation. Lambl's excrescence noted on aortic side of RCC.
3. Thickened mitral valve leaflets without prolapse. Sessile 0.88 cm echodensity at the junction of the base of P1/ P2 on the atrial side. Trivial mitral regurgitation.
4. Trace tricuspid insufficiency. Estimated pulmonary artery systolic pressure 18 mmHg assuming a right atrial pressure of 5 mmHg.
5. Intact interatrial septum without shunt by color-flow Doppler and negative agitated saline, bubble study.
6. No pericardial effusion.
7. Recommend Reviewed with primary cardiology service.
Physical Exam
Vital Signs/Labs
Vital Signs
Temp Pulse Resp BP Pulse Ox
98.2 F 105 18 163/78 97
01/27/25 08:38 01/27/25 04:00 01/27/25 08:38 01/27/25 02:56 01/27/25 08:38
01/26/25 01/27/25 01/28/25
06:59 06:59 06:59
Actual Weight 97.8 kg 95.8 kg
01/26/25 02:55
01/26/25 02:55
PT 14.6 Sec (11.4-14.6) 01/25/25 03:03
INR 1.09 01/25/25 03:03
APTT 30.3 Sec (23.4-35.0) 01/25/25 03:03
Magnesium 1.7 mg/dl (1.6-2.3) 01/25/25 03:03
Physical Exam
Constitutional: No acute distress and Comfortable
EENT: Anicteric and Moist mucous membranes
Cardiovascular: Rhythm & rate is regular, Pedal edema is absent and JVD pressure is normal
Respiratory: Respiratory effort normal, Lungs clear to auscul. and Wheeze Absent
GI: Soft, Distention absent and Non tender
Neuro/Psych: Alert, Oriented, AO x 3 and Motor deficits absent
Data Reviewed
-
Date of Service: January 27, 2025
Medical Decision Making: Reviewed Test Results, Test Interpretation and Review of Case with other Provider
EKG: Tracing Personally Visualized and interpreted
Echo: Report Reviewed by me
Labs: Labs Reviewed by me
Old Records: Reviewed
[2025-01-27 11:30] VITALS: BP 135/84
--- NOTE | 2025-01-27 12:58 | W.PN.OBG.DWH ---
Today's Communication / Plan
-
US reviewed with pt
encourage iron supplement
f/up as outpt with her video producer after cardiac surgery
Assessment/Plan
-
Myomatous uterus
Menorrhagia: started w/up by with her video producer. endometrial biopsy neg per pt
Episode of vaginal bleeding with eliquis
Subjective Data
-
pink with wiping, denies lightheadedness, successful bm
Objective Data
-
Laboratory Results
01/26/25 02:55
01/26/25 02:55
Vital Signs
Temp Pulse Resp BP Pulse Ox
98.0 F 116 18 135/84 100
01/27/25 11:30 01/27/25 12:00 01/27/25 11:30 01/27/25 11:30 01/27/25 11:30
pelvic us: myomatous uterus. one appears submucosal. 4 measured largest 2.7 cm, 2 intramural, one susbserosal. nml sized uterus, no significant thickening endometrial cavity. R ov with simple cyst, L ov nml. no free fluid in pelvis.
[2025-01-27 13:12] LABS: Glucose - Point of Care 192 mg/dl (70-99)
[2025-01-27] MEDS: NOVOLOG FLEXPEN-LOW RESISTANCE 1 UNITS SC ×2 (13:53→18:03)
--- NOTE | 2025-01-27 13:54 | W.PN.CT ---
Today's Communication / Plan
-
- STS risk score complete
- Dr Bruner (dental) review panelipse from 01/13-no pathology, suggests continued normal oral care with brushing/flossing
- repeat CBC/T & S in AM
- trend glucose on Novolog 12u AC TID and lantus 22u HS (dosages changed 01/[address] BAILIFF OR SHERIFF). If remains uncontrolled, will need to transition to IV insulin prior to OR
Assessment / Plan
-
49-year old patient with PMHx of T2DM (insulin dependent) with neuropathy, HLD, HTN, class 3 obesity and mitral valve mass who presented to [facility] ED from [facility] with c/o difficulty with speech, R-sided weakness who was found to have
Brain MRI concerning for infarcts in L occipital and R posterior parietal lobes. Patient previously discharged from [facility] with plan for outpatient follow-up with Dr. Vizcarra following TIA for surgical planning of MV mass. Upon discharge to Rehab,
patient was initiated on Eliquis 5 BID and broad-spectrum ABX for presumed valvular vegetation (6-week course of Linezolid and Ceftriaxone). Patient currently without neurological changes awaiting surgical intervention.
#MV Mass
- Patient with known mass on prior LAURA with an anticipated outpatient follow-up
- LAURA demonstrate MV mass concerning for fibroelastoma, myxoma, or vegetation
- Now inpatient following recurrent CVA/TIA awaiting CVOR
- Continue IV/PO ABX course (Ceftriaxone/Linezolid) for suspicion of endocarditis, L PICC in place
- Blood cultures from 01/13-no growth
- Continue to hold Eliquis in anticipation for CVOR, last dose 01/24/25
#Menorrhagia
- Patient reports last menstrual bleeding in May of 2024
- Reported menorrhagia started last week with consistent, heavy flow on Eliquis.
- Bleeding has slowed this AM.
- Reports labial excoriation secondary to bleeding; zinc oxide past initiated.
- Hgb trend 11.7>8.2>8.1 today.
- Tentative plan to hold AC post-op, per Dr. Vizcarra.
- CUSTOM PROTECTION OFFICER consulted>pelvic US reported myomatous uterus
#Diarrhea
- On course of ABX, reporting diarrhea 3x/day over last 3 days.
- stool negative for C-diff
- Initiate probiotic.
#CVA/TIA
- Pt presented to [facility] with complaints of difficulty with speech, R sided-weakness
- Prior event at [facility] 01/10/25 with presentation of R-sided weakness and found (+) infarcts in L cerebellar, occipital, parietal lobes
- Recent MRI concerning for infarcts in L occipital & R posterior parietal lobes
- Eliquis on hold to decrease risk of hemorrhagic conversion
- CTH 01/24 reported no intracranial hemorrhage
- Continue to monitor neuro assessment.
- Continue to hold Eliquis. Initiation of Heparin gtt dependent upon Menorrhagia.
#T2DM, Insulin dependent, with neuropathy
- Patient with elevated fasting glucose levels (>200)
- Previous adjustments made during prior admission with Diabetic COURT BAILIFF OR SHERIFF
- Diabetic COURT BAILIFF OR SHERIFF consulted, recommendations appreciated.
#HLD/HTN
- Known PMHx
- Losartan on hold leading to CVOR
- Spironolactone on hold.
- Allow for permissive HTN secondary to recent CVA.
# Tooth pain
- Panelipse from 01/13 unremarkable
- Dr. Gasca notified
Discussed patient care with: Nursing
Subjective
-
Date of Service: January 27, 2025
Objective Data
-
Lab Results
01/26/25 02:55
01/26/25 02:55
PT 14.6 Sec (11.4-14.6) 01/25/25 03:03
INR 1.09 01/25/25 03:03
APTT 30.3 Sec (23.4-35.0) 01/25/25 03:03
Vital Signs
Vital Signs
Temp Pulse Resp BP Pulse Ox
98.0 F 116 18 135/84 100
01/27/25 11:30 01/27/25 12:00 01/27/25 11:30 01/27/25 11:30 01/27/25 11:30
CT Intake/Output/Weight
01/26/25 01/27/25 01/27/25
18:59 06:59 18:59
Intake Total 240 / 240
Balance 240 / 240
SaO2: 100
Physical Exam
-
General: AOx3
Cardiovascular: Regular rate & rhythm
Respiratory: Clear
Extremities: No Edema
Data Reviewed
-
Lab Results: Results Reviewed
Medications: Active Meds Reviewed
Chest X-Ray: Image Reviewed
--- NOTE | 2025-01-27 14:24 | W.PN.UPDATE ---
Update Note
Progress Note Update
STS RISK SCORE
Procedure Type:�Isolated MVR
Perioperative Outcome Estimate %
Operative Mortality 5.22%
Morbidity & Mortality 27%
Stroke 3.79%
Renal Failure 6.15%
Reoperation 3.61%
Prolonged Ventilation 14.4%
Deep Sternal Wound Infection 0.297%
Long Hospital Stay (>14 days) 32.5%
Short Hospital Stay (<6 days)* 6.44%
Clinical Summary
Planned Surgery: Isolated MVR, Urgent, First cardiovascular surgery
Demographics: 49 year old, female, 96kg, 155cm, BMI: 40 kg/m�
Lab Values: Creatinine: 0.5 mg/dL, Hematocrit: 24.4%, WBC Count: 5.2 10�/�L, Platelet Count: 407213 cells/�L
PreOp Medications: Insulin diabetes control
Substance Abuse: Never smoker
Risk Factors / Comorbidities: Insulin-dependent Diabetes Mellitus, Active Endocarditis, Hypertension, Family Hx of CAD
Pulmonary RF: Sleep Apnea
Vascular RF: Cerebrovascular Disease: CVA <=30 days
Cardiac Status: Ejection Fraction = 63%
Coronary Artery Disease: No coronary symptoms
Valve Disease: Trivial/Trace MR, Trivial/Trace TR
[2025-01-27 15:29] VITALS: BP 145/84
--- NOTE | 2025-01-27 15:36 | CON.ID ---
Consultation
-
Date/Time Consultation Requested: January 27, 2025 1442
Date/Time Consultation Performed: January 27, 2025 1535
Requesting Provider: SAADIA Teague
Performing Provider: Dr. Roxann Shaikh
Reason for Consultation: New CVA, known to ID
Chief Complaint / Past History
Chief Complaint
stroke
History of Present Illness
Ms Almaraz is a 49 year old feamle with history notable for DM2, class III obesity, who is transfered from [facility] for CVA.
She was recently hospitalized at [facility] then transferred to [facility] January 12 - January 18 with embolic CVA, mass seen on mitral valve, negative blood cultures. Cardiothoracic recommended conservative
management. She developed itching while on vancomycin. She is allergic to amoxicillin. She was on IV daptomycin and ceftriaxone in the hospital, then discharged on empiric p.o. 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
Dr. Kim. Cardiothoracic recommended conservative management. She was discharged to [facility] [place]. While at rehab, she developed sudden onset of expressive aphasia. She was sent to [facility] 01/21 -03/26. Brain MRI showed
acute/subacute infarcts in the left occipital and right high posterior parietal lobes and therefore she was transferred back to here on January 24. Patient is planned for mitral valve surgery this week. Today she reports aphasia is improving. Her
head feels heavy. No fevers or chills. She is tolerating the antibiotics.
Past History
Additional Past Medical History:
DM
DIDI, not on CPAP
peripheral neuropathy
obesity
HTN
PCOS
Uterine fibroid
Additional Past Surgical History:
uterine polyp removal
C section
d&c
Allergy History:
vancomycin Allergy (Mild, Verified 01/24/25 22:44)
Itching
amoxicillin Allergy (Verified 01/12/25 23:58)
Rash
ciprofloxacin (From Cipro) Allergy (Verified 01/13/25 00:34)
Rash
codeine Allergy (Verified 01/24/25 21:42)
Rash/chest pain
gabapentin Allergy (Verified 01/12/25 23:58)
Itching
latex Allergy (Verified 01/24/25 21:42)
Unknown
Penicillins Allergy (Verified 01/12/25 23:58)
Rash
Medications Reviewed: Yes
Current Antibiotics:
Ceftriaxone 2 g IV every 12 hours
Linezolid 600 mg p.o. twice daily
Social History
Tobacco: Non-Smoker
Alcohol: None
Drug: None
Family History
Family History: Other (early cardiac disease)
Review of Systems
Review of Systems
General: Negative Fever, Chills or Change in Appetite
HEENT: Negative Sinus Problems, Headache or Pharyngitis
Cardiovascular: Negative Chest Pain or Dyspnea
Respiratory: Negative Dyspnea or Cough
Gasteroenterology: Diarrhea (loose stools); Negative Nausea or Vomiting
Genital / Urological: Negative Dysuria or Flank Pain
Skin / Hair / Nails: Negative Rash
All systems: All other systems were reviewed and were negative
Vital Signs
Temp Pulse Resp BP Pulse Ox
97.8 F 102 16 135/84 98
01/27/25 15:30 01/27/25 15:30 01/27/25 15:30 01/27/25 11:30 01/27/25 15:30
Physical Exam
Physical Exam
Constitutional: No Acute Distress and Comfortable
Eyes: No Conjunctival Hemorrhage and Sclera Anicteric
Cardiovascular: Regular Rate and S1/S2
Pulmonary: Clear
Gastrointestinal: Soft, Non Tender, Non Distended and Normal Bowel Sounds
Genito-Urinary: Negative CVA Tenderness
Extremities: Negative Edema or Splinter Hemorrhage
Neurological: AO x 3
Lines: PICC (LUE - no erythema)
Lab / Diagnostic Study Results
01/26/25 02:55
01/26/25 02:55
PT 14.6 Sec (11.4-14.6) 01/25/25 03:03
INR 1.09 01/25/25 03:03
Urine WBC /HPF (0-5) 01/25/25 03:03
Ur Squamous Epith Cells Seen /LPF (Few) 01/25/25 03:03
Microbiology Results
Micro:
01/26/25 19:52 C. difficile GDH Antigen & Toxins - Final
Feces/Stool Negative for toxigenic C.difficile
01/24/25 21:34 MRSA Screen - Final
Nose No Methicillin Resistant Staphylococcus aureus isolated.
Assessment / Plan
# Recurrent embolic CVA
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 Kim)
# allergy to penicillin/amoxicillin, ciprofloxacin, Vancomycin
- Prio blood cx;s neg. Coxiella serology, Bartonella serology, and serum Tropheryma whipplei PCR negative
-For mitral valve surgery Wed or . To send tissue pathology and culture
- Continue ceftriaxone 2g IV q12.
- While inpatient, replace linezolid (bacteriostatic and myelosuppressive) with Daptomycin 700mg IV q24.
Check CK in am.
Hold statin while on daptomycin.
[2025-01-27] MEDS: FEOSOL 325 MG PO (16:27)
[2025-01-27] MEDS: CUBICIN 14 MG IV (17:30)
[2025-01-27 18:07] LABS: Glucose - Point of Care 153 mg/dl (70-99)
[2025-01-27 18:43] VITALS: BP 160/94
[2025-01-27 20:36] LABS: Glucose - Point of Care 172 mg/dl (70-99)
[2025-01-27] MEDS: LANTUS 0.22 UNITS SC (20:54)
[2025-01-27 22:00] VITALS: BP 144/78
[2025-01-28] VITALS (11 sets, daily range): BP systolic 126–165; BP diastolic 58–82; BMI 40.1
--- NOTE | 2025-01-28 00:34 | PTCARENOTE ---
Rec'd pt. at beginning of shift AAOx3, no change to neuro assessment from previous shift. NIH 0. Pt. OOB independently to use BR, gait steady. Complaining of hemorrhoidal discomfort, Tylenol given. Pt. states she hasn't had any rectal or vaginal
bleeding so far tonight. NSR on the monitor. Pt. resting quietly.
--- NOTE | 2025-01-28 01:32 | W.PN.CT ---
Addendum entered and electronically signed by Vicente Genao MD 01/28/25 09:38:
I saw and examined the patient.
The PA's note was reviewed and I agree with the note.
Comment:
Continued complaints of tooth pain. D/W dental yesterday (Dr. Jeong) who reviewed prior panelipse from 01/13 - w/ no acute recommendations. However, given potential for endocarditis and need for valvular heart surgery coupled with new pain
complaints - will attempt to arrange inpatient dental evaluation - repeat panelipse. Hgb 7.7 currently; vaginal bleeding is less - pt. also w/ c/o hemorrhoidal itch; diarrhea has improved. ID changed to ceftriaxone and daptomycin antibiotics -
cultures remains culture negative, afebrile, WBC 5.0.
- OR timing TBD
Original Note:
Today's Communication / Plan
-
- No acute neurological changes
- Eliquis remains on hold, Heparin gtt on hold
- May need 1u PRBC prior to OR, h/h 7.7/22.6, states vaginal bleeding has resolved since yesterday morning. Now c/o hemorrhoidal itch and vaginal yeast infection, will treat with miconazole/hydrocortisone
- Menorrhagia d/t Myomatous uterus per pelvic U/S obtained on 01/27. Seen by HUMAN RESOURCES BENEFITS SPECIALIST and recommending f/u as an outpt
- Continue current ABX regiment for potential endocarditis. Currently on Ceftriaxone and Daptomycin per ID
- Diarrhea subsiding, likely d/t antibiotics, C.diff negative
- Will replete K of 3.3
- Continue preoperative planning in anticipation for CVOR next week
Assessment / Plan
-
49-year old patient with PMHx of T2DM (insulin dependent) with neuropathy, HLD, HTN, class 3 obesity and mitral valve mass who presented to [facility] ED from [facility] with c/o difficulty with speech, R-sided weakness who was found to have
Brain MRI concerning for infarcts in L occipital and R posterior parietal lobes. Patient previously discharged from [facility] with plan for outpatient follow-up with Dr. Vizcarra following TIA for surgical planning of MV mass. Upon discharge to Rehab,
patient was initiated on Eliquis 5 BID and broad-spectrum ABX for presumed valvular vegetation (6-week course of Linezolid and Ceftriaxone). Patient currently without neurological changes awaiting surgical intervention.
#MV Mass
- Patient with known mass on prior LAURA with an anticipated outpatient follow-up
- LAURA demonstrate MV mass concerning for fibroelastoma, myxoma, or vegetation
- Now inpatient following recurrent CVA/TIA awaiting CVOR
- Continue IV/PO ABX course (Ceftriaxone/Linezolid) for suspicion of endocarditis, L PICC in place
- Blood cultures from 01/13-no growth
- Continue to hold Eliquis in anticipation for CVOR, last dose 01/24/25
#Menorrhagia
- Patient reports last menstrual bleeding in May of 2024
- Reported menorrhagia started last week with consistent, heavy flow on Eliquis.
- Bleeding has slowed this AM.
- Reports labial excoriation secondary to bleeding; zinc oxide past initiated.
- Hgb trend 11.7>8.2>8.1 today.
- Tentative plan to hold AC post-op, per Dr. Vizcarra.
- INSEAM LEVELER consulted>pelvic US reported myomatous uterus
#Diarrhea
- On course of ABX, reporting diarrhea 3x/day over last 3 days.
- stool negative for C-diff
- Initiate probiotic.
#CVA/TIA
- Pt presented to [facility] with complaints of difficulty with speech, R sided-weakness
- Prior event at [facility] 01/10/25 with presentation of R-sided weakness and found (+) infarcts in L cerebellar, occipital, parietal lobes
- Recent MRI concerning for infarcts in L occipital & R posterior parietal lobes
- Eliquis on hold to decrease risk of hemorrhagic conversion
- CTH 01/24 reported no intracranial hemorrhage
- Continue to monitor neuro assessment.
- Continue to hold Eliquis. Initiation of Heparin gtt dependent upon Menorrhagia.
#T2DM, Insulin dependent, with neuropathy
- Patient with elevated fasting glucose levels (>200)
- Previous adjustments made during prior admission with Diabetic ASSISTANT PROJECT MANAGER
- Diabetic ASSISTANT PROJECT MANAGER consulted, recommendations appreciated.
#HLD/HTN
- Known PMHx
- Losartan on hold leading to CVOR
- Spironolactone on hold.
- Allow for permissive HTN secondary to recent CVA.
# Tooth pain
- Panelipse from 01/13 unremarkable
- Dr. Gasca notified
Discussed patient care with: Cardiology, Nursing, Respiratory Therapy, Pharmacy and Care Team
Subjective
-
Date of Service: January 28, 2025
Pt c/o hemorrhoidal itch and yeast infection. States no further vaginal bleed since yesterday morning, diarrhea is subsiding
Objective Data
-
PT 14.6 Sec (11.4-14.6) 01/25/25 03:03
INR 1.09 01/25/25 03:03
APTT 30.3 Sec (23.4-35.0) 01/25/25 03:03
Vital Signs
Vital Signs
Temp Pulse Resp BP Pulse Ox
98.2 F 93 16 144/78 99
01/27/25 21:59 01/27/25 22:00 01/27/25 21:59 01/27/25 22:00 01/27/25 21:59
SaO2: 99 (RA)
Physical Exam
-
General: Awake, Oriented and AOx3
Cardiovascular: Regular rate & rhythm and No Murmurs
Respiratory: Clear
Extremities: Other (+trace edema)
Data Reviewed
-
Lab Results: Results Reviewed
Medications: Active Meds Reviewed
Chest X-Ray: Report Reviewed and Image Reviewed
ECG: Report Reviewed and Image Reviewed
[2025-01-28 04:13] LABS: Hematocrit 22.6 % (37.0-47.0); Hemoglobin 7.7 g/dL (12.0-16.0); Mean Corp Hgb Conc. 34.1 g/dL (33.0-37.0); Mean Corpuscular Volume 89.7 fL (81.0-99.0); Nucleated Red Blood Cells % 1.6 %; Platelet Count 230 10^3/uL (130-400); Red Cell Dist. Width 14.3 % (11.5-14.5)
[2025-01-28 04:25] LABS: APTT 29.6 Sec (23.4-35.0)
[2025-01-28 04:34] LABS: ALT (SGPT) 112 U/L (0-35); AST (SGOT) 64 U/L (14-36); Albumin 3.0 g/dl (3.5-5.0); Alkaline Phosphatase 163 U/L (38-126); Blood Urea Nitrogen 11 mg/dl (7-17); Calcium 8.9 mg/dl (8.4-10.2); Carbon Dioxide 28 mmol/L (22-30); Chloride 104 mmol/L (98-107); Estimated Creatinine Clearance 118 ml/min; Glucose 136 mg/dl (70-99); Magnesium 1.8 mg/dl (1.6-2.3); Potassium 3.3 mmol/L (3.5-5.1); Sodium 134 mmol/L (135-145); Total Protein 5.8 g/dl (6.3-8.2); eGFR > 60.00
[2025-01-28] MEDS: KCL 40 MEQ PO (06:14)
[2025-01-28] MEDS: HYDROCORTISONE 1% CREAM 1 APPLIC TOPICAL (07:54)
[2025-01-28] MEDS: MONISTAT-3 (MICONAZOLE) 200 MG VAG (07:54)
[2025-01-28] MEDS: VISBIOME 1 CAP PO (07:55)
[2025-01-28] MEDS: FEOSOL 325 MG PO ×3 (07:55→22:15)
[2025-01-28] MEDS: IMODIUM 2 MG PO ×2 (08:06→22:15)
--- NOTE | 2025-01-28 08:13 | PTCARENOTE ---
Patient oob this morning, her stayed overnight. Neuro status stable, her main complaint is a yeast infection and some rectal discomfort from frequent stools. Prefers diflucan PO but willing to try monistat supp that was ordered for now.
Immodium given as ordered for frequent stools, although not loose like the other day.
[2025-01-28 09:23] LABS: Glucose - Point of Care 181 mg/dl (70-99)
[2025-01-28] MEDS: NOVOLOG FLEXPEN 12 UNITS SC ×3 (09:26→18:16)
[2025-01-28] MEDS: NOVOLOG FLEXPEN-LOW RESISTANCE 1 UNITS SC (09:26)
[2025-01-28] MEDS: STERILE WATER FOR INJECTION 20 ML IV ×2 (10:17→22:16)
[2025-01-28] MEDS: ROCEPHIN 2000 MG IV ×2 (10:17→22:16)
[2025-01-28] MEDS: DIFLUCAN 150 MG PO (10:17)
[2025-01-28] MEDS: FLUSH (NSS) 2 FLUSH IV (10:18)
--- NOTE | 2025-01-28 10:25 | W.PN.UPDATE ---
Update Note
Progress Note Update
Hb 7.7, transfuse 1 PRBC today as d/w Dr. Vizcarra. Patient reports persistent left lower tooth pain. Recheck Panelipse. Dental notified of need to physically assess patient in AM as patient listed for possible second case (MVR) with Dr. Vizcarra. NPO after
MN. Pre-op orders entered including 4PRBC/4plts. Needs consent. CVOR team notified of potential second case.
--- NOTE | 2025-01-28 11:38 | PTCARENOTE ---
Patient returned from panelipse x-ray, blood consent signed and unit of PRBC's transfusing via L PICC.
--- NOTE | 2025-01-28 12:03 | W.PN.CD ---
Today's Communication / Plan
-
- Pelvic ultrasound and dental evaluation prior to the upcoming surgery
- Plan for mitral valve mass resection tomorrow or day after tomorrow
Impression / Plan
-
Impression/Plan: 49 yo F (left-hand dominant) PMH T2DM, DIDI, HTN, obesity transferred from [facility] with recurrent neurologic insults likely related to mitral valve lesion.
#CVA/TIA
-Acute, recurrent, likely embolic.
-Multiple episodes of focal neurological deficits with most recently speech, right arm suggest an embolic source because spans different vascular territories.
-Brain MRI from [facility] can confirm CVA if imaging evidence of an infarction.
-Embolic source is likely the mass on mitral valve, identified on LAURA in prior admission.
-Apixaban on hold to avoid hemorrhagic transformation and in anticipation of surgery.
#Mitral valve mass
-Chronic, seen on prior LAURA.
-DDx could be fibroelastoma, myxoma, thrombus, nonbacterial-thrombotic endocarditis, bacterial endocarditis.
-Continue IV antibiotics, though low suspicion.
-Plan for definitive operative management next week.
-Patient has left jaw pain. May need dental evaluation prior to surgery as well. Dentistry evaluated the x-rays. Do not recommend teeth extraction at this time.
# bleeding
- bleeding has subsided.
- Plan for pelvic ultrasound prior to the surgery.
#Acute anemia
-Acute,
-Hgb 8.2, baseline appears to be 12.
-Attributed to her uterine bleeding in setting of apixaban use.
-Check Fe levels, B12/folate, reticulocytes.
#HTN
-Chronic, stable.
-BP meds are held likely given recent CVA/TIA.
#HLD
-Chronic, stable.
-Continue pravastatin.
#DM
-Chronic, stable.
-Insulin sliding scale.
Subjective/Interval History:
Feels well. Patient is reporting pain in the left jaw. Pain is especially worse with toothbrush.
DATA:
Cardiac Catheterization, 01/15/2025:
CONCLUSIONS
1. Right dominant circulation with an upward angulated left main coronary artery requiring an AL 2 diagnostic catheter with coronary wire assistance for cannulation and no coronary artery disease.
2. Systemic hypertension, permissive in the setting of CVA.
LAURA, 01/15/2025:
SUMMARY
1. Normal biventricular size and systolic function. Left ventricular ejection fraction visually estimated 60-65%.
2. Trileaflet aortic valve that opens normally without significant aortic regurgitation. Lambl's excrescence noted on aortic side of RCC.
3. Thickened mitral valve leaflets without prolapse. Sessile 0.88 cm echodensity at the junction of the base of P1/ P2 on the atrial side. Trivial mitral regurgitation.
4. Trace tricuspid insufficiency. Estimated pulmonary artery systolic pressure 18 mmHg assuming a right atrial pressure of 5 mmHg.
5. Intact interatrial septum without shunt by color-flow Doppler and negative agitated saline, bubble study.
6. No pericardial effusion.
7. Recommend Reviewed with primary cardiology service.
Physical Exam
Vital Signs/Labs
Vital Signs
Temp Pulse Resp BP Pulse Ox
98.8 F 93 16 139/79 98
01/28/25 11:49 01/28/25 11:49 01/28/25 11:49 01/28/25 11:49 01/28/25 11:49
01/27/25 01/28/25 01/29/25
06:59 06:59 06:59
Actual Weight 96.1 kg
01/28/25 03:47
01/28/25 03:47
PT 14.6 Sec (11.4-14.6) 01/25/25 03:03
INR 1.09 01/25/25 03:03
APTT 29.6 Sec (23.4-35.0) 01/28/25 03:47
Magnesium 1.8 mg/dl (1.6-2.3) 01/28/25 03:47
Physical Exam
Constitutional: No acute distress and Comfortable
EENT: Anicteric and Moist mucous membranes
Cardiovascular: Rhythm & rate is regular, Pedal edema is absent and JVD pressure is normal
Respiratory: Respiratory effort normal, Lungs clear to auscul. and Crackles Absent
GI: Soft, Distention absent, Non tender and Normal bowel sounds
Neuro/Psych: Alert, Oriented and AO x 3
Data Reviewed
-
Date of Service: January 28, 2025
Medical Decision Making: Reviewed Test Results, Test Interpretation and Review of Case with other Provider
EKG: Tracing Personally Visualized and interpreted
Labs: Labs Reviewed by me
Old Records: Reviewed
[2025-01-28 12:08] LABS: Glucose - Point of Care 209 mg/dl (70-99)
[2025-01-28] MEDS: NOVOLOG FLEXPEN-LOW RESISTANCE 2 UNITS SC (13:10)
--- NOTE | 2025-01-28 13:51 | PTCARENOTE ---
PRBC's transfused without incident.
[2025-01-28] MEDS: CUBICIN 14 MG IV (16:42)
[2025-01-28 16:55] LABS: Glucose - Point of Care 97 mg/dl (70-99)
[2025-01-28] MEDS: NOVOLOG FLEXPEN-LOW RESISTANCE SC (17:35)
--- NOTE | 2025-01-28 19:07 | PTCARENOTE ---
~1530: Received handoff report from Kaylynn ARAUJO. Pt AOx4, NSR/ST 90s-100s, SBP 140s, RA satting 98%. Pt does not c/o pain at this time. palpable pulses, trace edema. L single lumen PICC CDI. All needs met at this time, call arias within reach.
~[id number]: Patient OOB in chair at this time. Independent in room. Pt denies pain at this time. Pt reminded that she is to be NPO at 0000 prior to surgery. All needs met at this time, call arias within reach. Handoff report given to marek ARAUJO.
[2025-01-28 21:36] LABS: Glucose - Point of Care 167 mg/dl (70-99)
[2025-01-28] MEDS: LANTUS 0.22 UNITS SC (22:15)
[2025-01-29] VITALS (19 sets, daily range): BP systolic 93–183; BP diastolic 59–92; BMI 40.1
--- NOTE | 2025-01-29 03:44 | W.PN.CT ---
Today's Communication / Plan
-
- No acute neurological changes
- For possible resection of MV mass with possible MV Repair/Replacement and DUSTIN clip today by Dr. Vizcarra. Awaiting dental clearance
- Eliquis remains on hold, Heparin gtt on hold
- Received 1u PRBC yesterday for h/h 7.7/22.6, h/h 8.6/26.2 this AM, will transfuse additional 1u PRBC per Dr. Vizcarra
- Pt states vaginal bleeding has resolved since morning of 01/27. Now c/o hemorrhoidal itch and vaginal yeast infection, will treat with miconazole/hydrocortisone
- Also c/o tooth pain, panelipse x 2 unremarkable, OMFS to see
- Menorrhagia d/t Myomatous uterus per pelvic U/S obtained on 01/27. Seen by DUMP MOTORMAN and recommending f/u as an outpt
- Continue current ABX regiment for potential endocarditis. Currently on Ceftriaxone and Daptomycin per ID
- Diarrhea has subsided, likely d/t antibiotics, C.diff negative
- Continue preoperative planning in anticipation for CVOR next week
Assessment / Plan
-
49-year old patient with PMHx of T2DM (insulin dependent) with neuropathy, HLD, HTN, class 3 obesity and mitral valve mass who presented to [facility] ED from [facility] with c/o difficulty with speech, R-sided weakness who was found to have
Brain MRI concerning for infarcts in L occipital and R posterior parietal lobes. Patient previously discharged from [facility] with plan for outpatient follow-up with Dr. Vizcarra following TIA for surgical planning of MV mass. Upon discharge to Rehab,
patient was initiated on Eliquis 5 BID and broad-spectrum ABX for presumed valvular vegetation (6-week course of Linezolid and Ceftriaxone). Patient currently without neurological changes awaiting surgical intervention.
#MV Mass
- Patient with known mass on prior LAURA with an anticipated outpatient follow-up
- LAURA demonstrate MV mass concerning for fibroelastoma, myxoma, or vegetation
- Now inpatient following recurrent CVA/TIA awaiting CVOR
- Continue IV/PO ABX course (Ceftriaxone/Linezolid) for suspicion of endocarditis, L PICC in place
- Blood cultures from 01/13-no growth
- Continue to hold Eliquis in anticipation for CVOR, last dose 01/24/25
#Menorrhagia
- Patient reports last menstrual bleeding in May of 2024
- Reported menorrhagia started last week with consistent, heavy flow on Eliquis.
- Bleeding has slowed this AM.
- Reports labial excoriation secondary to bleeding; zinc oxide past initiated.
- Hgb trend 11.7>8.2>8.1 today.
- Tentative plan to hold AC post-op, per Dr. Vizcarra.
- SECURITY SITE SUPERVISOR consulted>pelvic US reported myomatous uterus
#Diarrhea
- On course of ABX, reporting diarrhea 3x/day over last 3 days.
- stool negative for C-diff
- Initiate probiotic.
#CVA/TIA
- Pt presented to [facility] with complaints of difficulty with speech, R sided-weakness
- Prior event at [facility] 01/10/25 with presentation of R-sided weakness and found (+) infarcts in L cerebellar, occipital, parietal lobes
- Recent MRI concerning for infarcts in L occipital & R posterior parietal lobes
- Eliquis on hold to decrease risk of hemorrhagic conversion
- CTH 01/24 reported no intracranial hemorrhage
- Continue to monitor neuro assessment.
- Continue to hold Eliquis. Initiation of Heparin gtt dependent upon Menorrhagia.
#T2DM, Insulin dependent, with neuropathy
- Patient with elevated fasting glucose levels (>200)
- Previous adjustments made during prior admission with Diabetic OIL WELL PERFORATOR OPERATOR
- Diabetic OIL WELL PERFORATOR OPERATOR consulted, recommendations appreciated.
#HLD/HTN
- Known PMHx
- Losartan on hold leading to CVOR
- Spironolactone on hold.
- Allow for permissive HTN secondary to recent CVA.
# Tooth pain
- Panelipse from 01/13 unremarkable
- Dr. Gasca notified
Discussed patient care with: Cardiology, Nursing, Respiratory Therapy, Pharmacy and Care Team
Subjective
-
Date of Service: January 29, 2025
Pt c/o tooth pain, vaginal yeast infection and hemorrhoidal itch. Denies CP/SOB
Objective Data
-
PT 14.6 Sec (11.4-14.6) 01/25/25 03:03
INR 1.09 01/25/25 03:03
APTT 29.6 Sec (23.4-35.0) 01/28/25 03:47
Vital Signs
Vital Signs
Temp Pulse Resp BP Pulse Ox
98.0 F 95 16 148/80 98
01/28/25 22:30 01/28/25 22:28 01/28/25 22:30 01/28/25 22:28 01/28/25 22:30
CT Intake/Output/Weight
01/28/25 01/28/25 01/29/25
06:59 18:59 06:59
Intake Total 480 / 480 850 / 1050 200 / 1050
Balance 480 / 480 850 / 1050 200 / 1050
SaO2: 98 (RA)
Physical Exam
-
General: Awake, Oriented and AOx3
Cardiovascular: Regular rate & rhythm and No Murmurs
Respiratory: Clear
Extremities: No Edema
Data Reviewed
-
Lab Results: Results Reviewed
Medications: Active Meds Reviewed
Chest X-Ray: Report Reviewed and Image Reviewed
ECG: Report Reviewed and Image Reviewed
[2025-01-29 04:33] LABS: Hematocrit 26.2 % (37.0-47.0); Hemoglobin 8.6 g/dL (12.0-16.0); Mean Corp Hgb Conc. 32.8 g/dL (33.0-37.0); Mean Corpuscular Volume 91.0 fL (81.0-99.0); Platelet Count 228 10^3/uL (130-400); Red Cell Dist. Width 16.2 % (11.5-14.5)
[2025-01-29 04:57] LABS: Blood Urea Nitrogen 10 mg/dl (7-17); Calcium 8.8 mg/dl (8.4-10.2); Carbon Dioxide 26 mmol/L (22-30); Chloride 106 mmol/L (98-107); Estimated Creatinine Clearance 118 ml/min; Glucose 126 mg/dl (70-99); Magnesium 1.9 mg/dl (1.6-2.3); Potassium 3.4 mmol/L (3.5-5.1); Sodium 136 mmol/L (135-145); eGFR > 60.00
--- NOTE | 2025-01-29 05:02 | PTCARENOTE ---
Pt NSR on monitor, VSS. CHG prep completed. Pt NPO after midnight. NIH 0. pt independent in the room
[2025-01-29] MEDS: KCL 40 MEQ PO (05:48)
--- NOTE | 2025-01-29 06:10 | W.CVOR.SURPR ---
CVOR Surgeon Immed Pre Op
-
I have examined this patient prior to performance of the scheduled procedure.
The patient's condition is unchanged from the time of the dictated/written History and
Physical and the patient is able to undergo the scheduled procedure.
Sternotomy MVr + LA Mass Resection, Pending eval from dental, but plan is likely OR as second case with me, history of recurring strokes despite AC and not tolerant of AC (menorrhagia, new onset)
--- NOTE | 2025-01-29 07:24 | PN.DE.MGMTRT ---
Insulin Management
- -
01/29/25: Diabetes Management Follow up
49 year old female readmitted for for CT surgery next week. Pt is well know to diabetes team from her recent admission here where she was treated for Possible mitral valve endocarditis and discharged to [place] [facility]. PMH: Uncontrolled hypertension,
DIDI, uncontrolled T2DM, Diabetic Neuropathy, Obesity.
On 01/10/2025 pt presented to [facility] ED with right sided weakness, and subsequent imaging (CT and MRI) demonstrated multiple infarcts in bilateral hemispheres. 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 She
was transferred to [facility] and started on broad-spectrum abx for potential vegetation. CV surgery was delayed up to 6 weeks for recovery from weakness and endocarditis. She was discharged to [place] [facility] on 01/18/2025 with PICC line to continue linezolid
and ceftriaxone.
Pt states she has struggled with diabetes since 2006, began using insulin during a in 2010.
Routinely sees charissa Chi PA-C at [facility]. Recent A1C 11.2%, Cr 0.6, eGFR >60
While in rehab pt experienced dysarthria and fluctuating R sided weakness and then sent to [facility]. Brain MRI there was c/f infarcts in L occipital and R posterior parietal lobes. she was transferred to [facility] on 01/24/2025 for surgical
treatment of mitral valve mass.
Pt awake, alert, oriented, sitting up in chair, offers no complaints, able to discuss diabetes care plan.
Has been NPO since MD for OR today-->For possible resection of MV mass with possible MV Repair/Replacement and DUSTIN clip today
Glucose stable and in range. Plan to initiate Critical Care glycemic protocol post op [id number].
Discussed with Nurse. Will cont to follow after surgery.
01/16 Discussed with patient about the huge disparity in home insulin dose and dose she was receiving here. Patient admitted she was not limiting how much or how often she ate at home and diet was controlled here.
Diabetes History
- -
Type of Diabetes: 2 requiring insulin
Pre-Admission Diabetes Regimen
01/29/25
04:10
Creatinine 0.5 L
Insulin Pump Settings
IP Diabetes Regimen
01/28/25 01/28/25 01/28/25
09:22 12:07 16:54
Glucose
POC Glucose 181 H 209 H 97
01/28/25 01/29/25
21:34 04:10
Glucose 126 H
POC Glucose 167 H
Meal type: Lunch
Meal type: Breakfast
Amount consumed: 75%
Amount consumed: 100%
Patient Education
[2025-01-29] MEDS: BACTROBAN 2% OINTMENT 1 APPLIC NASAL ×2 (08:16→21:49)
[2025-01-29] MEDS: MAGNESIUM OXIDE 400 MG PO (08:16)
[2025-01-29] MEDS: LOPRESSOR 25 MG PO (08:16)
[2025-01-29 08:21] LABS: Glucose - Point of Care 129 mg/dl (70-99)
[2025-01-29] MEDS: PROTONIX 40 MG PO (08:21)
[2025-01-29] MEDS: NOVOLOG FLEXPEN-LOW RESISTANCE SC ×2 (08:30→12:50)
--- NOTE | 2025-01-29 08:52 | W.PN.OMFS ---
Today's Communication
-
Patient has no evidence of dental infection. Patient is clear for MVR repair in regards to dentition.
Assessment / Plan
-
48 yo female planned for MVR.
Patient has no evidence of dental infection. Patient is clear for MVR repair in regards to dentition.
Subjective Data
-
49 yo female patient planned for MVR. Patient reports that pain in the maxillary posterior left molar has resolved at this time. Denies pain, swelling, foul taste on mouth. Patient reports up to date dental care.
Objective Data
-
Vitals, I&O and Lab Results:
Vital Signs
Temp Pulse Resp BP Pulse Ox
98.2 F 94 18 135/76 97
01/29/25 07:25 01/29/25 07:25 01/29/25 07:25 01/29/25 07:10 01/29/25 04:04
Intake and Output
01/28/25 01/29/25 01/30/25
06:59 06:59 06:59
Intake Total 480 / 480 1050 / 1050
Balance 480 / 480 1050 / 1050
Intake:
Oral fluids 480 / 480 800 / 800
Blood Product Amount Infused ( 250 / 250
mL)
Packed Rbc Leukoreduced Unit 250 / 250
[id number]
Packed Rbc Leukoreduced Unit 0 / 0
[id number]
Other:
Number of approximated MODERATE 4 2
amounts of urine
Lab Data
01/29/25 04:10
01/29/25 04:10
Plt Count 228 10^3/uL (130-400) 01/29/25 04:10
Physical Exam
-
No facial swelling.
No evidence of decay or caries. No fractured teeth.
No gross evidence of periodontal disease.
Good oral hygiene.
No mobility of teeth.
Data Reviewed
-
Diagnostic Radiology: Image personally reviewed and interpreted
--- NOTE | 2025-01-29 09:06 | W.PN.ID1 ---
Date of Service
Date of Service: January 29, 2025
Today's Communication
pending pathology
continue antibiotics for present
Assessment / Plan
# Recurrent embolic CVA
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
# allergy to penicillin/amoxicillin, ciprofloxacin, Vancomycin
- Prior blood cx's neg. Coxiella serology, Bartonella serology, and serum Tropheryma whipplei PCR negative
- s/p mitral valve debridement, called and spoke with the lab, there was insufficient sample for pathology, I have requested that they cancel the AFB culture and send that portion of the sample for pathology instead
- Continue ceftriaxone 2g IV q12.
- continue Daptomycin 700mg IV q24.
CK wnl
Hold statin while on daptomycin.
- pending pathology, may stop antibiotics if findings are not consistent with endocarditis
Chief Complaint
-: Other (possible culture negative endocarditis)
Subjective / Review of Systems
afebrile
bp stable
seen post operatively - intubated
Vital Signs / Physical Exam
Vital Signs
Vital Signs
Temp Pulse Resp BP Pulse Ox
98.2 F 94 18 135/76 97
01/29/25 07:25 01/29/25 07:25 01/29/25 07:25 01/29/25 07:10 01/29/25 04:04
Physical Exam
Constitutional: No Acute Distress
Cardiovascular: Regular Rate and S1/S2; Negative Murmur or Rub
Pulmonary: Clear and Symmetric; Negative Wheezes or Rales
Gastrointestinal: Soft, Non Tender, Non Distended and Normal Bowel Sounds
Skin: Warm and Dry; Negative Rash or Jaundice
Physical Exam:
cher, PICC line L arm, Korbel, cordis, 3 chest tubes, intubated
Objective Data
Lab Data
Lab Results
01/29/25 04:10
01/29/25 04:10
PT 14.6 Sec (11.4-14.6) 01/25/25 03:03
INR 1.09 01/25/25 03:03
APTT 29.6 Sec (23.4-35.0) 01/28/25 03:47
Estimated Creat Clear 118 ml/min 01/29/25 04:10
Total Bilirubin 0.2 mg/dl (0.2-1.3) 01/28/25 03:47
AST 64 U/L (14-36) H 01/28/25 03:47
ALT 112 U/L (0-35) H 01/28/25 03:47
Alkaline Phosphatase 163 U/L (38-126) H 01/28/25 03:47
Most recent labs reviewed.
Micro Results:
01/26/25 19:52 C. difficile GDH Antigen & Toxins - Final
Feces/Stool Negative for toxigenic C.difficile
01/24/25 21:34 MRSA Screen - Final
Nose No Methicillin Resistant Staphylococcus aureus isolated.
[2025-01-29] MEDS: NOVOLOG FLEXPEN SC ×4 (09:28→16:45)
--- NOTE | 2025-01-29 10:01 | PTCARENOTE ---
Pt received this am with blood infusing as ordered. Pt oob ad danisha. Denies any pain or sob. SR, rate in the 80's to 90's.Remains NPO as ordered. Pt taken to [facility] at 1000.
[2025-01-29] MEDS: ANCEF 10 IV (10:46)
[2025-01-29] MEDS: ANCEF IV (10:47)
[2025-01-29] MEDS: VISBIOME PO (10:48)
[2025-01-29] MEDS: FEOSOL PO ×3 (10:48→22:17)
[2025-01-29] MEDS: STERILE WATER FOR INJECTION IV (10:56)
[2025-01-29] MEDS: ROCEPHIN IV (10:56)
--- NOTE | 2025-01-29 11:04 | CM ---
pt for OR today, cm following
[2025-01-29 11:05] LABS: ACT+ - POC 159 Seconds (82-134)
[2025-01-29 11:12] LABS: Urine Character Slightly Cloudy (Clear)
[2025-01-29 11:26] LABS: Urine Red Blood Cell 0-2 /HPF (0-2); Urine Squamous Cell 0-2 /LPF (Few); Urine White Cell 0-2 /HPF (0-5)
[2025-01-29 11:47] LABS: ACT+ - POC 542 Seconds (82-134)
[2025-01-29 12:20] LABS: B.E. - POC -1.2 mmol/L; Glucose - POC 138 mg/dl (70-99); HCO3 - POC 23 mmol/L (21-28); Hematocrit - POC 23 % PCV (37-47); Hemodilution- POC No; Hemoglobin Calculated - POC 7.8; Ionized Calcium - POC 1.19 mmol/L (1.15-1.33); Lactate - POC 0.82 mmol/L (0.36-0.75); O2 Saturation %Calculated-POC 99.6 % (94-98); PCO2 - POC 35 mmHg (35-48); PO2 - POC 180 mmHg (83-108); Potassium - POC 3.5 mmol/L (3.5-5.1); Sodium - POC 139 mmol/L (136-145); Specimen Type - POC Arterial; pH - POC 7.42 (7.35-7.45)
[2025-01-29 12:37] LABS: ACT+ - POC 889 Seconds (82-134)
[2025-01-29 13:12] LABS: B.E. - POC 0.2 mmol/L; Glucose - POC 143 mg/dl (70-99); HCO3 - POC 25 mmol/L (21-28); Hematocrit - POC 26 % PCV (37-47); Hemodilution- POC Yes; Hemoglobin Calculated - POC 9.0; Ionized Calcium - POC 1.03 mmol/L (1.15-1.33); Lactate - POC 1.49 mmol/L (0.36-0.75); O2 Saturation %Calculated-POC 100.0 % (94-98); PCO2 - POC 41 mmHg (35-48); PO2 - POC 403 mmHg (83-108); POC Comment CPB; Potassium - POC 4.5 mmol/L (3.5-5.1); Sodium - POC 141 mmol/L (136-145); Specimen Type - POC Arterial; pH - POC 7.39 (7.35-7.45)
[2025-01-29 13:17] LABS: ACT+ - POC 137 Seconds (82-134)
--- NOTE | 2025-01-29 13:34 | CON.INTV ---
Consultation
Consultation Request
Date/Time Consultation Requested: 01/29/2025 - 1307
Date/Time Consultation Performed: 01/29/2025 - 0
Requesting Provider: Lety King PA-C
Performing Provider: Dr. Dhaliwal
Reason for Consultation: s/p posterior annulus repair
Medical History
-
Chief Complaint: Mitral valve lesion/difficulty speaking + right-sided weakness
History of Present Illness:
49-year-old female with a past medical history of CVA/TIA, hypertension, DM type II, morbid obesity and history of DIDI not on CPAP who was transferred from outside hospital ([facility]) for surgical treatment of a mitral valve mass. Patient was
recently hospitalized here at from 01/12 - 01/18 after presenting here from [facility] on 01/10/2025 with multiple acute ischemic infarcts with echo showing mitral valve mass measuring 0.71 x 0.41 cm adherent to the P1 leaflet with
concern for a fibroelastoma versus myxoma versus vegetation.
Left heart cath on 01/15/2025 showed no significant CAD. Transesophageal echo on 01/15/2025 showed normal biventricular size and systolic function with EF 60-65%, with a sessile 0.88 cm echodensity at the junction of the base of P1/P2 on the atrial
side with trivial MR. She had been treated with heparin drip. ID + neurology were on board and she was on antibiotics with linezolid + ceftriaxone. PICC line placed with plan for 6 weeks of antibiotics, and she was discharged to [facility] on
01/18. Of note, blood cultures from both here and at [facility] were negative. While at [facility], she developed sudden difficulty with speech and fluctuating right-sided weakness and was sent to [facility] for evaluation with brain MRI showing
concern for infarcts in the left occipital lobe and right posterior parietal lobe. She was transferred back here to for evaluation of her mitral valve mass. Initial head CT showed no CT evidence for an acute intracranial hemorrhage and no
interval increase in cytotoxic edema in her known multiple small acute ischemic infarcts. Of note, she did develop vaginal bleeding after being on Eliquis with acute anemia. Gynecology was consulted and pelvic/transvaginal ultrasound was performed
on 01/27/2025 showing a myomatous uterus with 1 appearing submucosal. Given concern for recurrent embolic CVA from this mitral valve lesion, patient underwent mitral annular debridement of her MAC as well as repair of posterior annulus with
pericardial pledget, and left atrial appendage ligation with 35mm atrial clip. Patient transferred to the CVICU postoperatively, and Curatorial Specialist service consulted for additional management/recommendations.
When I saw the patient, she was intubated on SIMV 12/500/40%/5, breathing at 12 breaths/min, with PIP 30 cmH2O and VTe 451 mL. Heart rate 80, BP via A-line 129/67, PAP 37/17, and saturating 98%. She is currently on regular insulin at 1 unit/hr.
PMHx: History of CVA/TIA, hypertension, DM type II complicated by peripheral neuropathy, morbid obesity, history of DIDI (not using CPAP)
PSHx: , D&C for miscarriage, right bunionectomy
Past Medical History
Past Medical History: Other (Above as per HPI)
Past Surgical History: Other (Above as per HPI)
Social History
Tobacco: Non-smoker
Alcohol: None
Drug: None
Personal:
Living: With Family
Employment: Not Employed
Family History
Family History: Other (Father: CVA at age 39)
Allergies / Home Medications
Allergies
Allergy/AdvReac Type Severity Reaction Status Date / Time
vancomycin Allergy Mild Itching Verified 01/24/25 22:44
amoxicillin Allergy Rash Verified 01/12/25 23:58
ciprofloxacin (From Cipro) Allergy Rash Verified 01/13/25 00:34
codeine Allergy Rash/chest Verified 01/24/25 21:42
pain
gabapentin Allergy Itching Verified 01/12/25 23:58
latex Allergy Unknown Verified 01/24/25 21:42
Penicillins Allergy Rash Verified 01/12/25 23:58
Home Medications
�Medication �Instructions �Recorded �Confirmed �Last Taken �Type
chlorthalidone 25 mg tablet 25 mg PO DAILY 01/13/25 01/13/25 Unknown History
ergocalciferol (vitamin D2) 1,250 1,250 mcg PO QWEEK 01/13/25 01/13/25 Unknown History
mcg (50,000 unit) capsule (Vitamin
D2)
lidocaine 5 % topical patch 1 patch topical DAILY 01/13/25 01/13/25 Unknown History
losartan 100 mg tablet 100 mg PO DAILY 01/13/25 01/13/25 Unknown History
lovastatin 20 mg tablet 20 mg PO QPM 01/13/25 01/13/25 Unknown History
spironolactone 50 mg tablet 50 mg PO DAILY 01/13/25 01/13/25 Unknown History
Insulin Glargine Lantus As Directed mls/hr SC HS Diabetes 01/17/25 Unknown Rx
[Lantus] 20 units
apixaban 5 mg tablet (Eliquis) 5 mg PO BID Blood clot 01/17/25 01/24/25 10:05 Rx
prevention/tx #60 tabs
aspirin 81 mg tablet,delayed 81 mg PO DAILY #0 tabs 01/17/25 Unknown Rx
release
ceftriaxone 2 gram solution for 2,000 mg IV Q12H #0 ea 01/17/25 Unknown Rx
injection
glucagon HCl 1 mg/mL solution for 1 mg IM PRN PRN hypoglycemia #0 ea 01/17/25 Unknown Rx
injection
insulin aspart U-100 100 unit/mL 1 sliding scale dose SC AC #15 mL 01/17/25 Unknown Rx
(3 mL) subcutaneous pen
linezolid 600 mg tablet 600 mg PO BID #0 tabs 01/17/25 01/24/25 06:00 Rx
aluminum-mag hydroxide-simethicone 1 tab PO Q4HPRN PRN indigestion, 01/18/25 Unknown Rx
200 mg-200 mg-25 mg chewable bloating #0 tabs
tablet (Gelusil Antacid and
Anti-Gas)
insulin aspart U-100 100 unit/mL 17 unit (0.17 mL) SC AC Diabetes 01/18/25 Unknown Rx
(3 mL) subcutaneous pen #0 mL
Ceftriaxone 2 g IV Q12H 01/24/25 01/24/25 01/24/25 06:00 History
albuterol 90 mcg 01/24/25 Unknown History
ferrous sulfate 300 mg PO TID 01/24/25 01/24/25 01/24/25 10:05 History
insulin lispro 2 - 10 units TIDWMEAL 01/24/25 01/24/25 01/24/25 13:00 History
pravastatin 20 mg PO HS 01/24/25 01/24/25 01/23/25 21:20 History
Review of Systems
-
Unable to Obtain full review of systems at this time due to: Patient Intubation
Vitals / Labs / Diagnostic Testing
Vital Signs
Temp Pulse Resp BP Pulse Ox
98.4 F 93 18 108/66 98
01/29/25 17:08 01/29/25 17:05 01/29/25 17:08 01/29/25 17:00 01/29/25 17:08
Lab Data
01/29/25 14:23
Laboratory Results
01/29/25
14:23
PT 15.9 H
INR 1.24
APTT 31.1
pH 7.39
pCO2 39 H
pO2 91
HCO3 23.6
O2 Delivery Level
Microbiology
01/29/25 12:24 Chest - Unspecified Gram Stain - Preliminary
01/26/25 19:52 Feces/Stool C. difficile GDH Antigen & Toxins - Final
Negative for toxigenic C.difficile
Diagnostic Testing:
Physical Exam
-
HEENT: Normocephalic, Anicteric, Other (ETT in place) and Other (Thick neck)
Cardiovascular: S1/S2 and Peripheral Edema (Trace bilateral lower extremity edema)
Respiratory: Wheeze (negative), Rhonchi (negative), Non-Labored Respirations, Other (Mechanical breath sounds heard bilaterally) and Other (Mediastinal chest tubes x 2 + right pleural chest tube x 1)
GI: Soft, Distended (Abdominal obesity), Non Tender and Normal Bowel Sounds
Neurology: Tremors (negative) and Other (Sedated)
Skin: Warm and Dry
General: Respiratory Distress (negative), Fever (negative), Chills (negative) and Other (Morbidly obese female, intubated/sedated)
Assessment
-
Assessment: 49-year-old female with a past medical history of CVA/TIA, hypertension, DM type II, morbid obesity and history of DIDI not on CPAP who was transferred from outside hospital ([facility]) for surgical treatment of a mitral valve mass.
Patient was recently hospitalized here at from 01/12 - 01/18 after presenting here from [facility] on 01/10/2025 with multiple acute ischemic infarcts with echo showing mitral valve mass measuring 0.71 x 0.41 cm adherent to the P1
leaflet with concern for a fibroelastoma versus myxoma versus vegetation.
Left heart cath on 01/15/2025 showed no significant CAD. Transesophageal echo on 01/15/2025 showed normal biventricular size and systolic function with EF 60-65%, with a sessile 0.88 cm echodensity at the junction of the base of P1/P2 on the atrial
side with trivial MR. She had been treated with heparin drip. ID + neurology were on board and she was on antibiotics with linezolid + ceftriaxone. PICC line placed with plan for 6 weeks of antibiotics, and she was discharged to [facility] on
01/18. Of note, blood cultures from both here and at [facility] were negative. While at [facility], she developed sudden difficulty with speech and fluctuating right-sided weakness and was sent to [facility] for evaluation with brain MRI showing
concern for infarcts in the left occipital lobe and right posterior parietal lobe. She was transferred back here to for evaluation of her mitral valve mass. Initial head CT showed no CT evidence for an acute intracranial hemorrhage and no
interval increase in cytotoxic edema in her known multiple small acute ischemic infarcts. Of note, she did develop vaginal bleeding after being on Eliquis with acute anemia. Gynecology was consulted and pelvic/transvaginal ultrasound was performed
on 01/27/2025 showing a myomatous uterus with 1 appearing submucosal. Given concern for recurrent embolic CVA from this mitral valve lesion, on 01/29/2025 she underwent mitral annular debridement of her MAC as well as repair of posterior annulus
with pericardial pledget, and left atrial appendage ligation with 35mm atrial clip. Patient transferred to the CVICU postoperatively, and Curatorial Specialist service consulted for additional management/recommendations.
Chronic conditions ACCESS SPEC: History of CVA/TIA, hypertension, DM type II complicated by peripheral neuropathy, morbid obesity, history of DIDI (not using CPAP)
Impression:
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
#Acute thrombocytopenia due to above
#Transaminitis (mild)
#Acute anemia (present on admission) with vaginal bleeding in the setting of Eliquis use and uterine fibroid
#DM type II (uncontrolled: HbA1c 11.2 on 01/13/2025) c/b hyperglycemia
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
#Hypertension
#Hyperlipidemia
#Morbid obesity
#DIDI intolerant to CPAP
Plan:
Ventilator settings reviewed
FiO2 will be weaned to maintain SpO2 >90-94%
Minute ventilation will be adjusted
Arterial blood gases will be monitored
Spontaneous breathing trial will be attempted with hopeful extubation after anesthesia/sedation wear off
prn nebulized bronchodilators - not currently bronchospastic
Pulmonary artery catheter parameters will be followed
Pressors/antihypertensive/inotropes/diuretics will be provided as needed
Maintain MAP>65
Replete electrolytes with K>4, Mg>2
Trend LFTs
Continue with antibiotics as per ID, currently on daptomycin + ceftriaxone
Follow-up pathology as well as tissue cultures from the OR today
Blood cultures collected from last hospitalization here at on 01/13/2025 as well as prior hospitalization at [facility] have been negative
Monitor chest tube output
Monitor hemoglobin
Monitor platelet count and coags
Transfuse blood products as needed to maintain Hb>7g/dL, plt>50k (given post-operative status)
Defer management of patient's uterine fibroids to gynecology
CT surgery managing chest tubes
Pain control
Monitor blood sugar to maintain euglycemia with goal BG 110-140
Insulin drip per protocol
Aspiration precautions
VAP prevention protocol
DVT prophylaxis
Early nutrition
Early mobilization
Critical care statement: A total of 41 minutes of critical care time was provided for this patient today. This includes management of ventilator, spontaneous breathing trial, arterial blood gases, pressors, of unstable vital signs, evaluation of the
patient at bedside, reviewing the patient's pertinent medical records including radiographs, microbiology, laboratory evaluations, and discussion with primary team and critical care nursing.
--- NOTE | 2025-01-29 13:39 | W.PN.CT.SURG ---
Documented by User: Lennox Vizcarra MD 01/29/25 14:39
CT Surgery Operative Note
-
CARDIAC SURGERY OPERATIVE REPORT
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
Postoperative Diagnosis: Same, mitral annular calcification
Procedure(s) Performed:
1. Standard sternotomy and aortic and bicaval cannulation
Date of Surgery: 01/29/2025
Comorbidities:
1. CVA/TIA, multiple
2. Mitral valve annular mass
3. Diarrhea likely related to antibiotics
4. Menorrhagia with acute blood loss anemia requiring transfusion
5. Type 2 diabetes mellitus with HbA1c greater than 10
6. Hypertension
7. But hyperlipidemia
Co-Surgeons: Mariana Boo MD, MPH & Lennox Vizcarra MD, MS
Assistants: Lennox Mcdonald PA-C (present and necessary to stylist assistant, retraction, suction, exposure, suture management, and wound closure under my direction)
Anesthesiology: Richard Begum MD and Manoj Duvall CRNA
Scrub and Circulating RNs: Annie Bloom RN, Christiano Nunes RN
Fourth Grade Teacher: Tamara Ceja CCP
Anesthesia: GETA
EBL: per perfusion records
Products: 2U PRBCs on pump and blood preoperatively
CPB Time: [] minutes
Aortic Cross Clamp Time: [] minutes
Indication(s) for Procedures: [].
Mitral Valve Description: Some thickening of the anterior posterior leaflets, there was an 8 mm dagger of mitral annular calcification emanating from the annulus at the level of P2. There was also much annular calcification towards P3 which is
covered by endocardium. This looked like caseating mitral and the calcification that had a ruptured or was a nidus for clot formation at this amount of calcium. Her leaflets were otherwise essentially normal and the mitral was functioning normally
preoperatively.
Findings: Her left ventricular ejection fraction preoperatively was normal. LAURA scanning of the mitral valve revealed there was a smaller mass towards the P2 annulus compared to her preoperative LAURA. She had been on systemic anticoagulation had
been intolerant of it. There is also some calcification towards the annulus of P3. Overall her mitral was functioning normally. Following surgery EF remained the same. Intraoperatively we discovered that there was a amount of calcium that was
emanating from the P2 level of the annulus. There is no other pathology on the left atrial aspect that could have accounted for her strokes. The mass was debrided using a rongeur this resulted in perforation of her P2 leaflet at the level of the
annulus which was expected. This was repaired using a tie was pericardium as a pericardial patch pledget with 5-0 Prolene. Of note she had torrential pulmonary vein blood return required multiple drops suckers for better visualization. Once the
left atrium was closed, the heart was rotated medially and the left atrial appendage was ligated with a 35mm clip. After coming off cardiopulmonary bypass. There is essentially no mitral valve regurgitation and the annulus appeared to be intact
with no perivalvular leak. There is no systolic anterior motion of the heart functioning normally. She had 1 defibrillatory event as she likely entrained air upon removal of the cross-clamp
Ablation Lines: []
Specimen(s): [].
Prosthesis: [].
Description of Procedure: The patient was taken to the operating room. Their identity and procedure to be performed were verified and they were positioned supine on the operating table. Induction via general anesthesia with endotracheal intubation
was performed and central venous access and arterial monitoring were inserted. A preoperative transesophageal echocardiogram was performed to assess cardiac function and valvular function. The patient was then prepped and draped from chin to feet in
a sterile fashion. A preoperative time-out was performed with all members of the team present. A midline chest incision was performed along with median sternotomy. The innominate vein was isolated. Full heparinization was given (a total of []
units). We created a pericardial well. The aortic cannulation site was chosen where it was soft, pliable, and free of calcium. Cannulation was performed with an arterial cannula in the ascending aorta, angled metal tip cannular in the superior vena
cava and straight bendable cannula in the inferior vena cava. The arterial cannula line had an appropriate bounce and correlating pressures. Next, a root vent/antegrade cannula was inserted into the ascending aorta. The ACT was confirmed to be over
400 and retrograde autologous priming was performed before commencing cardiopulmonary bypass. The pulmonary artery was away from the aorta to facilitate a clamp site. Sondergaard�s groove was developed after creating the oblique sinus. []
A left ventricular vent was placed at the right superior pulmonary vein. The aortic cross-clamp was placed after decreasing the flow on the bypass and mean arterial pressure. A total of 1.2L initial dose of antegrade Del-Nido cardioplegia solution
was given and planned for re-dosing every [] minutes as necessary. There was rapid electro-mechanical arrest of the heart at [] cc of cardioplegia. The left ventricle was observed for distention on echocardiogram and manual palpation. Cold slush was
placed into a lap on the RV and we systemically cooled to [] degrees centigrade.
Carbon dioxide was used to flood the field. The mitral valve was access via the [] followed by valve analysis. The mitral valve was [] as described above. [A bi-atrial Tafoya-MAZE IV was performed with DUSTIN occlusion with an AtriClip device.] Deairing
maneuvers were performed while the left atrium was closed with a 3-0 prolene in a single layer.
Additional de-airing maneuvers were performed and temporary bipolar ventricular pacing wires were placed on the base of the right ventricle. The patient was placed in a Trendelenburg position and flows on bypass were lowered. The aortic cross clamp
was removed and flows were slowly brought back up. The left atrial suture line was hemostatic. Transesophageal echocardiography revealed no evidence of systolic anterior motion and ventricular function was normal. Once de-airing was satisfactory
the left ventricular and root vents were removed. After verifying acceptable parameters, we initiated weaning from cardiopulmonary bypass. Once we were off cardiopulmonary bypass, the venous cannulas was clamped and removed sequentially. A test dose
of protamine was administered and the patient was monitored for any adverse reaction before resuming protamine. Once half of the protamine dose was delivered, pump suckers were turned off and the systolic blood pressure was lowered for aortic
decannulation. The aortic cannula was removed and purse strings were tied down. All cannulation sites were oversewn with a 4-0 prolene. The left atrial suture line was inspected and hemostasis was confirmed. Mediastinal hemostasis was obtained. Two
#24 Juan Manuel drains were placed within the pericardium. The sternum was approximated with 4 #7 single and 3 #8 double stainless steel wires. Fascia was approximated with #1 vicryl suture. The subcutaneous, dermis and epidermis were closed in layers in
a running fashion. The skin wound was cleansed and dressed.
All instrument, sponge, and needle counts were confirmed to be correct x 2 at the end of the operation. The patient was transferred to the cardiac intensive care unit in critical but stable condition.
I, Dr. Lennox Vizcarra, was present, scrubbed for, and performed all critical elements of this procedure.
Lennox Vizcarra MD, MS
Cardiothoracic Surgeon
[facility]
This dictation was created using the [employer] dictation system. Please excuse any grammatical, typographical, or 'sound alike' errors

Documented by User: Mariana Boo MD 01/29/25 15:11
CT Surgery Operative Note
-
CARDIAC SURGERY OPERATIVE REPORT
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
Postoperative Diagnosis: Same, mitral annular calcification
Procedure(s) Performed:
1. Standard sternotomy and aortic and bicaval cannulation
2. Mitral annular debridement of MAC
3. Repair of posterior annulus with pericardial pledget
4. Left atrial appendage ligation with 35mm AtriClip
5. Temporary ventricular wire placement
Date of Surgery: 01/29/2025
Comorbidities:
1. CVA/TIA, multiple
2. Mitral valve annular mass
3. Diarrhea likely related to antibiotics
4. Menorrhagia with acute blood loss anemia requiring transfusion
5. Type 2 diabetes mellitus with HbA1c greater than 10
6. Hypertension
7. Hyperlipidemia
Co-Surgeons: Mariana Boo MD, MPH & Lennox Vizcarra MD, MS
Assistants: Lennox Mcdonald PA-C (present and necessary to stylist assistant, retraction, suction, exposure, suture management, and wound closure under my direction)
Anesthesiology: Richard Begum MD and Manoj Duvall CRNA
Scrub and Circulating RNs: Annie Bloom RN, Christiano Nunes RN
Fourth Grade Teacher: Tamara Ceja CCP
Anesthesia: GETA
EBL: per perfusion records
Products: 2U PRBCs on pump and 1u blood preoperatively
CPB Time: 51 minutes
Aortic Cross Clamp Time: 37 minutes
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 Infectious
workup at [facility] and [facility] without bacterial growth and no imaging to suggest other infectious source. She was discharged to [place] [facility]hab with IV abx and started on Eliquis for secondary stroke prevention to trial conservative management. Unfortunately,
while at rehab she experienced another stroke with only aphasia for which an MRI demonstrated new infarcts in the L occipital and R posterior parietal lobes. She recovered completely from her stroke and is back for surgical management of this mitral
mass. Of note, she is also intolerant of anticoagulation as she had significant uterine bleeding that is new since starting on Eliquis, workup noting uterine fibroids. Given the stroke recurrence and AC intolerance, we have offered exploration for
mass removal and left atrial appendage ligation.
Mitral Valve Description: Some thickening of the anterior posterior leaflets, there was an 8 mm dagger of mitral annular calcification emanating from the annulus at the level of P2. There was also much annular calcification towards P3 which is
covered by endocardium. This looked like caseating mitral annular calcification that had a rupture or was a nidus for clot formation at this amount of calcium. Her leaflets were otherwise essentially normal and the mitral was functioning normally
preoperatively.
Findings: Her left ventricular ejection fraction preoperatively was normal. LAURA scanning of the mitral valve revealed there was a smaller mass towards the P2 annulus compared to her preoperative LAURA. She had been on systemic anticoagulation had
been intolerant of it. There is also some calcification towards the annulus of P3. Overall her mitral was functioning normally. Following surgery EF remained the same. Intraoperatively we discovered that there was a small amount of calcium that
was emanating from the P2 level of the annulus. There is no other pathology on the left atrial aspect that could have accounted for her strokes. The mass was debrided using a rongeur this resulted in perforation of her P2 leaflet at the level of
the annulus which was expected. This was repaired using a tie and autologous pericardium as a pericardial patch pledget with 5-0 Prolene. Of note she had torrential pulmonary vein blood return required multiple drops suckers for better
visualization. Once the left atrium was closed, the heart was rotated medially and the left atrial appendage was ligated with a 35mm clip. After coming off cardiopulmonary bypass. There is essentially no mitral valve regurgitation and the annulus
appeared to be intact with no perivalvular leak. There is no systolic anterior motion of the mitral and heart functioning normally. She had 1 defibrillatory event as she likely entrained air upon removal of the cross-clamp
Specimen(s): Mitral annular calcification.
Description of Procedure: The patient was taken to the operating room. Their identity and procedure to be performed were verified and they were positioned supine on the operating table. Induction via general anesthesia with endotracheal intubation
was performed and central venous access and arterial monitoring were inserted. A preoperative transesophageal echocardiogram was performed to assess cardiac function and valvular function. The patient was then prepped and draped from chin to feet in
a sterile fashion. A preoperative time-out was performed with all members of the team present. A midline chest incision was performed along with median sternotomy. The innominate vein was isolated. Full heparinization was given (a total of 50,000
units). We created a pericardial well harvesting autologous pericardium for possible patch. Of note, the right pleura appeared to be absent at the mediastinum with only pericardium appreciated on that side. The aortic cannulation site was chosen
where it was soft, pliable, and free of calcium. Cannulation was performed with an arterial cannula in the ascending aorta, angled metal tip cannula in the superior vena cava and straight bendable cannula in the inferior vena cava. The arterial
cannula line had an appropriate bounce and correlating pressures. Next, a root vent/antegrade cannula was inserted into the ascending aorta. The ACT was confirmed to be over 400 and retrograde autologous priming was performed before commencing
cardiopulmonary bypass. Of note, the patient was significantly anemic preoperatively requiring a unit of blood transfusion so we opted to prime the pump with 2u of blood. The pulmonary artery was away from the aorta to facilitate a clamp
site. Sondergaard�s groove was developed. We had attempted to develop the oblique sinus but her pericardium was significantly thickened in this area and did not want to cause injury so we only partially developed this. The aortic cross-clamp was
placed after decreasing the flow on the bypass and mean arterial pressure. A total of 1.2L initial dose of antegrade Del-Nido cardioplegia solution was given and planned for re-dosing every 60 minutes as necessary. There was rapid electro-mechanical
arrest of the heart at 300 cc of cardioplegia. The left ventricle was observed for distention on echocardiogram and manual palpation. Cold slush was placed into a lap on the RV and we systemically cooled to 34 degrees centigrade.
Carbon dioxide was used to flood the field. The mitral valve was accessed via the left atrium followed by valve analysis. The mitral valve was essentially normal with an 8mm mass of calcium emanating from the level of P2 as described above, we did
also note significant calcium toward P3 but all was subendocardial without any protrusion into the atrium or surface of annulus. We manually debrided the protrusion of calcium at P2 using rongeur resulting in a small perforation of the leaflet. This
was repaired with a pledgeted 5-0 prolene using the harvested autologous pericardium. We inspected the valve carefully and extensively looked at the left atrium for any clot or other source of mass/embolus which we did not find. We tested the valve,
which was difficult to do given the extensive pulmonary venous return requiring multiple drop suckers, but did not appreciate any significant leak. Deairing maneuvers were performed while the left atrium was closed with a 3-0 prolene in a single
layer.
Additional de-airing maneuvers were performed and temporary bipolar ventricular pacing wires were placed on the base of the right ventricle. The patient was placed in a Trendelenburg position and flows on bypass were lowered. The aortic cross clamp
was removed and flows were slowly brought back up. The left atrial suture line was hemostatic. Transesophageal echocardiography revealed no evidence of systolic anterior motion and ventricular function was normal. Once de-airing was satisfactory
the root vent was removed. After verifying acceptable parameters, we initiated weaning from cardiopulmonary bypass. Once we were off cardiopulmonary bypass, the venous cannulas were clamped and removed sequentially. A test dose of protamine was
administered and the patient was monitored for any adverse reaction before resuming protamine. Once half of the protamine dose was delivered, pump suckers were turned off and the systolic blood pressure was lowered for aortic decannulation. The
aortic cannula was removed and purse strings were tied down. All cannulation sites were oversewn with a 4-0 prolene. The left atrial suture line was inspected and hemostasis was confirmed. Mediastinal hemostasis was obtained. Two #24 Juan Manuel drains
were placed within the pericardium and one #19 Juan Manuel within the right chest. The sternum was approximated with 4 #7 single and 3 #8 double stainless steel wires. Fascia was approximated with #1 vicryl suture. The subcutaneous, dermis and epidermis
were closed in layers in a running fashion. The skin wound was cleansed and dressed.
All instrument, sponge, and needle counts were confirmed to be correct x 2 at the end of the operation. The patient was transferred to the cardiac intensive care unit in critical but stable condition.
I, Dr. Mariana Boo, was present, scrubbed for, and performed all critical elements of this procedure.
Mariana Boo MD, MPH
Cardiothoracic Surgeon
[facility]
This dictation was created using the [employer] dictation system. Please excuse any grammatical, typographical, or 'sound alike' errors
[2025-01-29 13:46] LABS: B.E. - POC -2.5 mmol/L; Glucose - POC 166 mg/dl (70-99); HCO3 - POC 22 mmol/L (21-28); Hematocrit - POC 28 % PCV (37-47); Hemodilution- POC Yes; Hemoglobin Calculated - POC 9.6; Ionized Calcium - POC 1.30 mmol/L (1.15-1.33); Lactate - POC 1.47 mmol/L (0.36-0.75); O2 Saturation %Calculated-POC 99.7 % (94-98); PCO2 - POC 38 mmHg (35-48); PO2 - POC 206 mmHg (83-108); Potassium - POC 3.9 mmol/L (3.5-5.1); Sodium - POC 141 mmol/L (136-145); Specimen Type - POC Arterial; pH - POC 7.38 (7.35-7.45)
[2025-01-29 14:31] LABS: Glucose - Point of Care 164 mg/dl (70-99)
--- NOTE | 2025-01-29 14:36 | PTCARENOTE ---
Received pt from [facility] at 1410; pt intubated and sedated; NSR on monitor and VSS; Epicardial V wires set to back up VVI 30/5/0.8 and no pacing noted; RIJ Raquel, Louis floated to 42, Left A-line and single lumen PICC on left; Insulin infusing per
Glycemic protocol see flow sheet for details; Lungs diminished; CT x3 to -20 wall suction no air leak and no crepitus noted; ETT 8 24 @ lip; vent setting SIMV 500/12/5/40%; hypoactive bowel sounds; Murphy catheter draining clear yellow urine;
palpable pulses throughout; no edema noted; all surgical sites C/D/I; see nursing documentation for further details.
[2025-01-29 14:39] LABS: B.E. -1.2 mmol/L; HCO3 23.6 mmol/L (21-28); O2 Saturation % 98.5 % (94-98); PCO2 39 mmHg (32-35); PO2 91 mmHg (83-108); Potassium 3.8 mMOL/L (3.5-5.1); Sodium 138 mMOL/L (136-145)
--- NOTE | 2025-01-29 14:46 | W.PN.UPDATE ---
Update Note
Progress Note Update
49 year old female known to our service from recent admission 01/12 - 01/18 with embolic CVA, mass seen on mitral valve, and negative blood cultures. Conservative management with empiric p.o. linezolid and IV ceftriaxone for 6 weeks due to
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 Patient was discharged to [place] [facility] [place] and sent to [facility] 01/21 -03/26 for new onset expressive aphasia. Brain MRI showed acute/subacute infarcts in the left occipital and right high posterior parietal lobes.
Patient was transferred back to [facility] on 01/24 for surgical re-evaluation. CT head/negative for acute infarct/hemorrhage. Due to anemia (Hb 8.2 from 11.7) and new vaginal bleeding since 01/18 (last menses 05/2024), anticoagulation was held. ASPHALT MIXING MACHINE OPERATOR was
consulted and reported normal pelvic exam and pelvic US reported myomatous uterus. Probiotics were started for C-diff negative diarrhea. Repeat Panelipse and dental evaluation proved negative for reported left upper tooth pain. Patient transfused 1
PRBC for Hb 7.7 on 01/28 and additional 1PRBC for HB 8.6 pre-op on 01/29.
IV fluids: 1600
U.O.:� 300
Blood:� 2PRBC
Wires:� V-wire
Drips: Precedex, Insulin, Levo
�
NEURO: sedated, pupils +2mm B/L
RESP: #8OT @23cm> 500/60%/02/08. Lungs clear B/L. 2 mediastinal (5cc on arrival) and R pleural (0cc on arrival) chest tubes to -20cm suction. Sanguineous drainage
CV: RRR +S1, S2, no S3, no�rub, no murmur. Dermabond to median sternotomy. RIJ w/[place] locked @ 43cm. PA 34/18; CVP 16; C.O prong bent and unable to record CO/CI
ABD: obese, round, soft, no BS
EXT: no edema, +2/4 DP pulses B/L, no femoral bruit, XX radial A-line intact
: Murphy with clear yellow urine
�
A/P: POD #0 s/p MV mass excision
LAURA: EF�
- wean and extubate
- ASA s/p mass resection
- periop Ancef + Rocephin/Daptomycin (for now) per ID
- NO STATIN WITH DAPTO
�
# acute surgical blood loss anemia-expected
- trend CBC
�
# T2DM (A1C 11.2)
- insulin infusion x 48h
- resume Diabetes LOCAL SALES ASSOCIATE following
# CVA
- DC Precedex for neuro checks
- mild intermittent expressive aphasia
- mild R hand
�
# Uterine fibroids/dysfunctional uterine bleeding
- F/U ASPHALT MIXING MACHINE OPERATOR as outpatient
# Class III obesity
- diabetic, carb controlled diet
--- NOTE | 2025-01-29 14:50 | W.PN.CD ---
Today's Communication / Plan
-
Routine post operative management.
Wean vent to extubation.
Titrate pressors for MAP > 65 mmHg, CI > 1.8 L/min/m2.
Impression / Plan
-
Impression/Plan: 49 yo F (left-hand dominant) PMH T2DM, DIDI, HTN, obesity transferred from [facility] with recurrent neurologic insults likely related to mitral valve lesion.
#Mitral valve mass
-Chronic, seen on prior LAURA.
-DDx could be fibroelastoma, myxoma, thrombus, nonbacterial-thrombotic endocarditis, bacterial endocarditis.
-Continue IV antibiotics, though low suspicion.
-S/P MVR with patch with Dr. Vizcarra, 01/29/2025.
-Routine post operative care.
-Pain/chest tube management per CTS.
-Wean vent to extubation.
-Titrate pressors/inotropes for MAP of > 65 mmHg, and CI > 1.8 L/min/m2.
#CVA/TIA
-Acute, recurrent, likely embolic.
-Multiple episodes of focal neurological deficits with most recently speech, right arm suggest an embolic source because spans different vascular territories.
-Brain MRI from [facility] can confirm CVA if imaging evidence of an infarction.
-Embolic source is likely the mass on mitral valve, identified on LAURA in prior admission.
-Apixaban on hold to avoid hemorrhagic transformation and in anticipation of surgery.
# bleeding
-Acute on chronic.
- bleeding has subsided.
- Plan for pelvic ultrasound prior to the surgery.
#Acute anemia
-Acute, stabilized.
-Hgb 8.2, baseline appears to be 12.
-Attributed to her uterine bleeding in setting of apixaban use.
-Check Fe levels, B12/folate, reticulocytes.
-Patient has required 4 units of PRBCs this admission.
#HTN
-Chronic, stable.
-BP meds are held likely given recent CVA/TIA.
#HLD
-Chronic, stable.
-Continue pravastatin.
#DM
-Chronic, stable.
-Insulin sliding scale.
Critical Care Time = 40 minutes.
Subjective/Interval History:
Dispensary Attendant/Dental eval complated. No further workup.
Patient underwent mitral valve mass resection this morning.
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 Patch placed.
Patient intubated and sedated.
DATA:
Cardiac Catheterization, 01/15/2025:
CONCLUSIONS
1. Right dominant circulation with an upward angulated left main coronary artery requiring an AL 2 diagnostic catheter with coronary wire assistance for cannulation and no coronary artery disease.
2. Systemic hypertension, permissive in the setting of CVA.
LAURA, 01/15/2025:
SUMMARY
1. Normal biventricular size and systolic function. Left ventricular ejection fraction visually estimated 60-65%.
2. Trileaflet aortic valve that opens normally without significant aortic regurgitation. Lambl's excrescence noted on aortic side of RCC.
3. Thickened mitral valve leaflets without prolapse. Sessile 0.88 cm echodensity at the junction of the base of P1/ P2 on the atrial side. Trivial mitral regurgitation.
4. Trace tricuspid insufficiency. Estimated pulmonary artery systolic pressure 18 mmHg assuming a right atrial pressure of 5 mmHg.
5. Intact interatrial septum without shunt by color-flow Doppler and negative agitated saline, bubble study.
6. No pericardial effusion.
7. Recommend Reviewed with primary cardiology service.
Physical Exam
Vital Signs/Labs
Vital Signs
Temp Pulse Resp BP Pulse Ox
35.7 C L 80 11 175/81 100
01/29/25 14:00 01/29/25 14:20 01/29/25 14:20 01/29/25 09:49 01/29/25 14:40
01/28/25 01/29/25 01/30/25
11:59 11:59 11:59
Actual Weight 96.1 kg 96.3 kg
PT 14.6 Sec (11.4-14.6) 01/25/25 03:03
INR 1.09 01/25/25 03:03
APTT 29.6 Sec (23.4-35.0) 01/28/25 03:47
Magnesium 1.9 mg/dl (1.6-2.3) 01/29/25 04:10
Physical Exam
Constitutional: No acute distress and Comfortable
EENT: Anicteric, Moist mucous membranes and Other (ET tube in place.)
Cardiovascular: Rhythm & rate is regular, Pedal edema is absent, JVD pressure is normal, S1S2 is normal and Murmur/rub/gallop absent
Respiratory: Respiratory effort normal, Lungs clear to auscul., Wheeze Absent, Crackles Absent and Rhonchi Absent
GI: Soft, Distention absent, Flat, Non tender and Normal bowel sounds
Neuro/Psych: Other (Intubated/sedated.)
Data Reviewed
-
Date of Service: January 29, 2025
Medical Decision Making: Reviewed Test Results, Independent Historian Assessment and Test Interpretation
EKG: Tracing Personally Visualized and interpreted and Report Reviewed by me
Echo: Report Reviewed by me
X-Ray/CT/US/MRI/NUC/PET: Image Personally Visualized and interpreted and Report Reviewed by me
Medical Tests (PFT, Pathology etc): Image Personally Visualized and interpreted and Report Reviewed by me
Labs: Labs Reviewed by me
Old Records: Reviewed
[2025-01-29] MEDS: KCL 50 IV ×2 (14:52→15:51)
[2025-01-29] MEDS: NSS 500 IV (14:53)
[2025-01-29 15:04] LABS: Glucose - Point of Care 139 mg/dl (70-99)
[2025-01-29 15:04] LABS: Hematocrit 33.1 % (37.0-47.0); Hemoglobin 11.1 g/dL (12.0-16.0); Platelet Count 148 10^3/uL (130-400)
[2025-01-29 15:05] LABS: APTT 31.1 Sec (23.4-35.0); Blood Urea Nitrogen 9 mg/dl (7-17); Estimated Creatinine Clearance 118 ml/min; Glucose 163 mg/dl (70-99); INR 1.24; Magnesium 2.4 mg/dl (1.6-2.3); PT 15.9 Sec (11.4-14.6)
[2025-01-29] MEDS: OFIRMEV 100 IV (15:12)
[2025-01-29] MEDS: PACERONE PO ×2 (15:53→22:17)
[2025-01-29 16:06] LABS: Glucose - Point of Care 155 mg/dl (70-99)
--- NOTE | 2025-01-29 16:16 | PTCARENOTE ---
Pt following commands; respiratory at bedside and pt place on CPAP.
[2025-01-29 16:42] LABS: B.E. - POC -3.4 mmol/L; Blood Urea Nitrogen - POC 8 mg/dl (3-120); Chloride - POC 112 mmol/L (96-111); Creatinine - POC 0.56 mg/dl (0.3-1.0); Glucose - POC 192 mg/dl (70-99); HCO3 - POC 23 mmol/L (21-28); Hematocrit - POC 35 % PCV (37-47); Hemodilution- POC No; Hemoglobin Calculated - POC 11.8; Ionized Calcium - POC 1.32 mmol/L (1.15-1.33); Lactate - POC 1.90 mmol/L (0.36-0.75); O2 Saturation %Calculated-POC 93.9 % (94-98); PCO2 - POC 43 mmHg (35-48); PO2 - POC 76 mmHg (83-108); Potassium - POC 3.7 mmol/L (3.5-5.1); Sodium - POC 145 mmol/L (136-145); Specimen Type - POC Arterial; pH - POC 7.33 (7.35-7.45)
[2025-01-29 16:43] LABS: Glucose - Point of Care 174 mg/dl (70-99)
--- NOTE | 2025-01-29 16:53 | PTCARENOTE ---
EPOC resulted and reviewed with CTNP; respiratory at bedside and pt extubated; placed on 6LNC.
[2025-01-29] MEDS: TORADOL 15 MG IV (17:01)
--- NOTE | 2025-01-29 17:02 | RESPNOTE ---
patient extubated at 1650 without incident. 95% on 6L.
[2025-01-29] MEDS: CUBICIN 14 MG IV (17:06)
[2025-01-29 17:39] LABS: B.E. - POC -3.4 mmol/L; Blood Urea Nitrogen - POC 8 mg/dl (3-120); Chloride - POC 110 mmol/L (96-111); Creatinine - POC 0.54 mg/dl (0.3-1.0); Glucose - POC 198 mg/dl (70-99); HCO3 - POC 22 mmol/L (21-28); Hematocrit - POC 34 % PCV (37-47); Hemodilution- POC No; Hemoglobin Calculated - POC 11.5; Ionized Calcium - POC 1.26 mmol/L (1.15-1.33); Lactate - POC 2.07 mmol/L (0.36-0.75); O2 Saturation %Calculated-POC 96.3 % (94-98); PCO2 - POC 40 mmHg (35-48); PO2 - POC 88 mmHg (83-108); Potassium - POC 3.5 mmol/L (3.5-5.1); Sodium - POC 144 mmol/L (136-145); Specimen Type - POC Arterial; pH - POC 7.35 (7.35-7.45)
[2025-01-29 18:06] LABS: Glucose - Point of Care 176 mg/dl (70-99)
[2025-01-29] MEDS: ZOFRAN 4 MG IV (18:14)
[2025-01-29] MEDS: LOW STRENGTH ASPIRIN 81 MG PO (18:14)
[2025-01-29] MEDS: ROXICODONE 5 MG PO ×2 (18:15→23:44)
[2025-01-29 18:24] LABS: Hematocrit 33.2 % (37.0-47.0); Hemoglobin 11.5 g/dL (12.0-16.0); Platelet Count 190 10^3/uL (130-400)
[2025-01-29] MEDS: DILAUDID 0.25 MG IV ×2 (19:12→22:18)
[2025-01-29 19:13] LABS: Glucose - Point of Care 156 mg/dl (70-99)
[2025-01-29] MEDS: SENOKOT PO (20:26)
[2025-01-29] MEDS: REGLAN 10 MG IV (20:30)
--- NOTE | 2025-01-29 20:30 | PTCARENOTE ---
Patient received resting in bed. Patient's sister at bedside. Patient with 10/10 sternal pain. IV Dilaudid 0.25 mg administered with positive relief provided. Patient A+A+Ox3. Moves all extremities. Right hand grasp weak. Left hand grasp
strong. NIH Stroke Scale Score 0. Patient with no c/o headache, dizziness or lightheadedness. No c/o SOB. O2 at 6L via NC. SpO2 97%. Three chest tubes - Mediastinal x2 and Right Pleural - Intact and patent - 5-20 ml red drainage - No air leak
- Chest tube dressing intact. Surgical bra. Sinus Rhythm. Heart rate 90's. Blood pressure 117/63 (80) - Right upper arm cuff pressure. 122/59 (78) - Left radial arterial line. V-Wire 30/5/0.8. Abdomen soft, nontender. Hypoactive bowel
sounds. Murphy catheter - Light eagle, yellow urine - Output as documented. Right [place]. A-Line, PAP, CVP to pressure bag/saline flush - Flush without difficulty - Waveforms within normal limits. PAP 32/17 (23) CVP 10. Cardene gtt at
2.5 mg/hr (12.5 ml/hr). Patient with Left Upper Arm S.L. PICC. Insulin gtt. Patient with c/o nausea. Patient then with large amount of clear liquid emesis. Mouth care provided. Face washed. LUCILLE for CT Surgery, Zander Seaman PA-C, made aware -
Reglan ordered. Assessment as documented.
[2025-01-29 21:07] LABS: Glucose - Point of Care 156 mg/dl (70-99)
[2025-01-29] MEDS: FLUSH (NSS) IV ×2 (21:17→22:20)
[2025-01-29] MEDS: ANCEF 5 IV (21:22)
[2025-01-29] MEDS: TYLENOL PO (22:21)
[2025-01-29] MEDS: CARDENE 200 IV (22:25)
[2025-01-29] MEDS: LOPRESSOR 12.5 MG PO (22:45)
[2025-01-29] MEDS: ROCEPHIN 2000 MG IV (22:45)
[2025-01-29] MEDS: STERILE WATER FOR INJECTION 20 ML IV (22:46)
--- NOTE | 2025-01-29 23:00 | PTCARENOTE ---
Patient resting in bed, dozing intermittently. Cardene gtt at 7.5 mg/hr (37.5 ml/hr). Amiodarone 200 mg PO held per PA order. Metoprolol 12.5 mg PO given per PA order. Neurologically intact. Assessment as documented.
[2025-01-29 23:09] LABS: Glucose - Point of Care 173 mg/dl (70-99)
[2025-01-30] VITALS (27 sets, daily range): BP systolic 102–154; BP diastolic 64–88; BMI 41.1
[2025-01-30 00:17] LABS: Glucose - Point of Care 171 mg/dl (70-99)
[2025-01-30] MEDS: DILAUDID 0.5 MG IV (00:35)
[2025-01-30] MEDS: NITROGLYCERIN PREMIX 250 IV (00:55)
--- NOTE | 2025-01-30 01:00 | PTCARENOTE ---
Patient with c/o 10/10 sternal pain. IV Dilaudid 0.5 mg given with positive relief. Cardene gtt titration now at 5 mg/hr (25 ml/hr). Nitro gtt started per PA order - 10 mcq/min (1.5 ml/hr). O2 at 6L via NC. SpO2 94%. I.S. 500 ml
Assessment/Interventions as documented.
[2025-01-30 01:12] LABS: Glucose - Point of Care 185 mg/dl (70-99)
--- NOTE | 2025-01-30 01:13 | W.PN.CT ---
Today's Communication / Plan
-
Plan:
-No major issues overnight. Hemodynamically and neurologically intact
-Pt successfully extubated on 01/29/25 @ 1650
-Was on Cardene gtt and shunting, converted to NTG gtt, currently @ 50 mcg/min. Remains on insulin gtt per protocol
-U/O since OR 840 mL
-Cont. current meds (ASA, Lopressor, Amiodarone)
-Monitor chest tube output: 2meds 220/295, R pleural 35/70
-D/C [place]/A-line
-D/C'd decker catheter @ 0600
-Will maintain insulin gtt another day per protocol, diabetic with A1C 11.2, Diabetes education/management following
-Will maintain temporary PW (likely pull tomorrow)
-Encourage use of IS
-Wean off of O2
-OOB into chair/Ambulate
Assessment / Plan
-
Assessment:
-S/P Standard sternotomy/Mitral annular debridement of MAC/Repair of posterior annulus with pericardial pledget/Left atrial appendage ligation with 35mm AtriClip, by Dr. Vizcarra/Rajeev, 01/29/25, pod#1
-Mitral valve annular mass
-CVA/TIA, multiple with resolving right side weakness
-Diarrhea likely related to antibiotics
-Menorrhagia with acute blood loss anemia requiring transfusion preop S/P pelvics u/s yielding uterine fibroids
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
-Hypertension
-Hyperlipidemia
-DIDI (intolerant of CPAP)
-Class 3 obesity (BMI 40)
-Tooth pain S/p panelipse x 2 negative
-Preop vaginal yeast infection requiring Fluconazole and Miconazole)
-External hemorrhoids
-S/p
-S/p D&C
-S/P bunionectomy
-Acute preop and postop blood loss/Anemia (transfused 2u PRBCs prior and 2u PRBCs post surgery)
-Acute postop atelectasis
-Acute postop hypovolemia with subsequent hypervolemia
Discussed patient care with: Cardiology, Nursing, Respiratory Therapy, Pharmacy and Care Team
Subjective
-
Date of Service: January 30, 2025
-S/P Standard sternotomy/Mitral annular debridement of MAC/Repair of posterior annulus with pericardial pledget/Left atrial appendage ligation with 35mm AtriClip, by Dr. Vizcarra/Rajeev, 01/29/25
Objective Data
-
PT 15.9 Sec (11.4-14.6) H 01/29/25 14:23
INR 1.24 01/29/25 14:23
APTT 31.1 Sec (23.4-35.0) 01/29/25 14:23
Vital Signs
Vital Signs
Temp Pulse Resp BP Pulse Ox
98.9 F 93 18 139/65 96
01/30/25 00:20 01/30/25 00:20 01/30/25 00:20 01/30/25 00:20 01/30/25 00:20
CT Intake/Output/Weight
01/29/25 01/29/25 01/30/25
06:59 18:59 06:59
Intake Total 200 / 1050 565.5 / 826.0 260.5 / 826.0
Output Total 410 / 830 420 / 830
Balance 200 / 1050 155.5 / -4.0 -159.5 / -4.0
SaO2: 96 (6L)
Physical Exam
-
General: Awake, Oriented and AOx3
Cardiovascular: Regular rate & rhythm, No Murmurs and Rub (likely friction rub from chest tubes)
Respiratory: Decreased Breath Sounds (at bases, otherwise clear)
Sternum: Stable
Incision: Clean, Dry, Intact and Dressing Intact
Extremities: Other (+trace edema)
Data Reviewed
-
Lab Results: Results Reviewed
Medications: Active Meds Reviewed
Chest X-Ray: Report Reviewed and Image Reviewed
ECG: Report Reviewed and Image Reviewed
[2025-01-30 02:07] LABS: Glucose - Point of Care 159 mg/dl (70-99)
[2025-01-30] MEDS: DILAUDID 0.25 MG IV ×2 (02:20→20:20)
--- NOTE | 2025-01-30 02:30 | PTCARENOTE ---
Patient resting in bed. IV Dilaudid for pain management. Cardene gtt titrated off. Nitro gtt at 50 mcq/min (7.5 ml/hr). Second dose of Metoprolol 12.5 mg PO order by PA and given without difficulty. O2 at 6L via NC. SpO2 97%.
Assessment/Interventions as documented.
[2025-01-30] MEDS: LOPRESSOR 12.5 MG PO (02:32)
[2025-01-30 03:06] LABS: Glucose - Point of Care 153 mg/dl (70-99)
[2025-01-30 03:15] LABS: Hematocrit 33.4 % (37.0-47.0); Hemoglobin 10.9 g/dL (12.0-16.0); Mean Corp Hgb Conc. 32.6 g/dL (33.0-37.0); Mean Corpuscular Volume 89.5 fL (81.0-99.0); Platelet Count 183 10^3/uL (130-400); Red Cell Dist. Width 16.3 % (11.5-14.5)
--- NOTE | 2025-01-30 03:30 | PTCARENOTE ---
Patient's blood pressure increasing - PA made aware - Cardene gtt restarted at 2.5 mg/hr (12.5 ml/hr). Nitro gtt continues at 50 mcq/min (7.5 ml/hr). AM labs collected and sent. EKG completed. CHG bath and lines changed. Chest tube dressing
changed. O2 at 6L via NC. SpO2 96%. Assessment/Interventions as documented.
[2025-01-30 03:35] LABS: Blood Urea Nitrogen 13 mg/dl (7-17); Calcium 8.9 mg/dl (8.4-10.2); Carbon Dioxide 24 mmol/L (22-30); Chloride 113 mmol/L (98-107); Estimated Creatinine Clearance 118 ml/min; Glucose 159 mg/dl (70-99); Magnesium 2.3 mg/dl (1.6-2.3); Potassium 4.0 mmol/L (3.5-5.1); Sodium 143 mmol/L (135-145); eGFR > 60.00
[2025-01-30] MEDS: NOVOLIN R INSULIN INFUSION 100 IV (03:43)
[2025-01-30] MEDS: TYLENOL 975 MG PO ×3 (04:37→21:12)
[2025-01-30] MEDS: ANCEF 5 IV ×2 (04:37→12:47)
[2025-01-30] MEDS: TORADOL 15 MG IV (04:38)
[2025-01-30] MEDS: ZOFRAN 4 MG IV ×2 (04:50→09:41)
[2025-01-30 05:04] LABS: Glucose - Point of Care 128 mg/dl (70-99)
[2025-01-30] MEDS: CARDENE 200 IV (05:18)
--- NOTE | 2025-01-30 05:30 | PTCARENOTE ---
IV Toradol 15 mg ordered and given for pain management. Patient with episode of emesis after drinking water - Small amount of clear liquid. Zofran 4mg IV given with positive relief. Patient continues on Nitro gtt and Cardene gtt for blood
pressure management. Portable CXR completed. Patient now sleeping without difficulty. Assessment/Interventions as documented.
[2025-01-30 07:12] LABS: Glucose - Point of Care 121 mg/dl (70-99)
--- NOTE | 2025-01-30 07:23 | W.PN.ANS.POP ---
Anesthesia Post Operative
- Anesthesia Post Op Note
Vital Signs Stable-See Nursing Note: Yes (Patient on cardene/nitro infusion)
Airway Patent: Yes
Adequate Pain Control: Yes (prn dilaudid )
Change in Mental Status: No
Current Postoperative Nausea & Vomiting: Yes (zofran prn)
Anesthesia Complications: No
General Anesthetic Recall: No
Unplanned Admission: No
Post Op Hydration Adequate: Yes
--- NOTE | 2025-01-30 07:28 | W.PN.CD ---
Today's Communication / Plan
-
Routine post operative management.
Incentive spirometry.
Ambulate when appropriate.
Impression / Plan
-
Impression/Plan: 49 yo F (left-hand dominant) PMH T2DM, DIDI, HTN, obesity transferred from [facility] with recurrent neurologic insults likely related to mitral valve lesion.
#Mitral valve mass
-Chronic, seen on prior LAURA.
-Continue IV antibiotics, though low suspicion.
-S/P MVR with patch with Dr. Vizcarra, 01/29/2025.
-Routine post operative care.
-Pain/chest tube management per CTS.
-Titrate pressors/inotropes/anti-hypertensives for MAP of > 65 mmHg, SBP < 150 mmHg and CI > 1.8 L/min/m2.
-Incentive spirometry.
-Ambulate when appropriate.
#CVA/TIA
-Acute, recurrent, likely embolic.
-Multiple episodes of focal neurological deficits with most recently speech, right arm suggest an embolic source because spans different vascular territories.
-Brain MRI from [facility] can confirm CVA if imaging evidence of an infarction.
-Embolic source is likely the mass on mitral valve, identified on LAURA in prior admission.
-Apixaban on hold to avoid hemorrhagic transformation and in anticipation of surgery.
-S/P LAAE at the time of MVr.
# bleeding
-Acute on chronic.
- bleeding has subsided.
-Pelvis US shows myxomatous uterus.
#Acute anemia
-Acute, stabilized.
-Hgb 8.2, baseline appears to be 12.
-Attributed to her uterine bleeding in setting of apixaban use.
-Check Fe levels, B12/folate, reticulocytes.
-Patient has required 4 units of PRBCs this admission.
#HTN
-Chronic, stable.
-BP meds are held likely given recent CVA/TIA.
#HLD
-Chronic, stable.
-Continue pravastatin.
#DM
-Chronic, stable.
-Insulin sliding scale.
Critical Care Time = 35 minutes.
Subjective/Interval History:
MVR yesterday.
Extubated @ 16:50.
Nicardipine used for BP control --> transitioned to nitro gtt. MAP consistent > 65 mmHg, SBP is being kept < 150 mmHg.
Weight is up 2.2 kg from baseline.
SaO2 = 91% on 6LNC.
Metoprolol tartrate 12.5 mg BID started yesterday.
DATA:
Cardiac Catheterization, 01/15/2025:
CONCLUSIONS
1. Right dominant circulation with an upward angulated left main coronary artery requiring an AL 2 diagnostic catheter with coronary wire assistance for cannulation and no coronary artery disease.
2. Systemic hypertension, permissive in the setting of CVA.
LAURA, 01/15/2025:
SUMMARY
1. Normal biventricular size and systolic function. Left ventricular ejection fraction visually estimated 60-65%.
2. Trileaflet aortic valve that opens normally without significant aortic regurgitation. Lambl's excrescence noted on aortic side of RCC.
3. Thickened mitral valve leaflets without prolapse. Sessile 0.88 cm echodensity at the junction of the base of P1/ P2 on the atrial side. Trivial mitral regurgitation.
4. Trace tricuspid insufficiency. Estimated pulmonary artery systolic pressure 18 mmHg assuming a right atrial pressure of 5 mmHg.
5. Intact interatrial septum without shunt by color-flow Doppler and negative agitated saline, bubble study.
6. No pericardial effusion.
7. Recommend Reviewed with primary cardiology service.
Pelvis US, 01/27/2025:
IMPRESSION:
Myomatous uterus. One appears submucosal.
MVr, 01/29/2025:
Procedure(s) Performed:
1. Standard sternotomy and aortic and bicaval cannulation
2. Mitral annular debridement of MAC
3. Repair of posterior annulus with pericardial pledget
4. Left atrial appendage ligation with 35mm AtriClip
5. Temporary ventricular wire placement
Physical Exam
Vital Signs/Labs
Vital Signs
Temp Pulse Resp BP Pulse Ox
37.6 C 91 17 102/66 90
01/30/25 05:00 01/30/25 07:10 01/30/25 07:10 01/30/25 07:00 01/30/25 07:10
01/28/25 01/29/25 01/30/25
11:59 11:59 11:59
Actual Weight 96.1 kg 96.3 kg 98.5 kg
01/30/25 03:00
01/30/25 03:00
PT 15.9 Sec (11.4-14.6) H 01/29/25 14:23
INR 1.24 01/29/25 14:23
APTT 31.1 Sec (23.4-35.0) 01/29/25 14:23
Magnesium 2.3 mg/dl (1.6-2.3) 01/30/25 03:00
Physical Exam
Constitutional: No acute distress and Comfortable
EENT: Anicteric and Moist mucous membranes
Cardiovascular: Rhythm & rate is regular, JVD pressure is normal, Pedal edema present, S1S2 is normal and Murmur/rub/gallop absent
Respiratory: Respiratory effort normal and Other (Decreased throughout.)
GI: Soft, Distention absent, Flat, Non tender, Normal bowel sounds and Distention present
Neuro/Psych: AO x 3
Data Reviewed
-
Date of Service: January 30, 2025
Medical Decision Making: Reviewed Test Results, Independent Historian Assessment and Test Interpretation
EKG: Tracing Personally Visualized and interpreted and Report Reviewed by me
Echo: Tracing Personally Visualized and interpreted and Report Reviewed by me
X-Ray/CT/US/MRI/NUC/PET: Image Personally Visualized and interpreted and Report Reviewed by me
Medical Tests (PFT, Pathology etc): Image Personally Visualized and interpreted and Report Reviewed by me
Labs: Labs Reviewed by me
Old Records: Reviewed
--- NOTE | 2025-01-30 07:50 | W.PN.INTV ---
Today's Communication / Plan
Recommendations
Postoperative management as per CT surgery
Pain control
Right-sided pleural chest tube to be removed later today
Continue insulin drip with goal BG 110�140
Encourage incentive spirometer
Pneumatic Jacketer service will continue to follow along while patient remains in the CVICU. Once transferred to CVICU�telemetry status then we will sign off at that time.
Assessment
-
Assessment: 49-year-old female with a past medical history of CVA/TIA, hypertension, DM type II, morbid obesity and history of DIDI not on CPAP who was transferred from outside hospital ([facility]) for surgical treatment of a mitral valve mass.
Patient was recently hospitalized here at from 01/12 - 01/18 after presenting here from [facility] on 01/10/2025 with multiple acute ischemic infarcts with echo showing mitral valve mass measuring 0.71 x 0.41 cm adherent to the P1
leaflet with concern for a fibroelastoma versus myxoma versus vegetation.
Left heart cath on 01/15/2025 showed no significant CAD. Transesophageal echo on 01/15/2025 showed normal biventricular size and systolic function with EF 60-65%, with a sessile 0.88 cm echodensity at the junction of the base of P1/P2 on the atrial
side with trivial MR. She had been treated with heparin drip. ID + neurology were on board and she was on antibiotics with linezolid + ceftriaxone. PICC line placed with plan for 6 weeks of antibiotics, and she was discharged to [facility] on
01/18. Of note, blood cultures from both here and at [facility] were negative. While at [facility], she developed sudden difficulty with speech and fluctuating right-sided weakness and was sent to [facility] for evaluation with brain MRI showing
concern for infarcts in the left occipital lobe and right posterior parietal lobe. She was transferred back here to for evaluation of her mitral valve mass. Initial head CT showed no CT evidence for an acute intracranial hemorrhage and no
interval increase in cytotoxic edema in her known multiple small acute ischemic infarcts. Of note, she did develop vaginal bleeding after being on Eliquis with acute anemia. Gynecology was consulted and pelvic/transvaginal ultrasound was performed
on 01/27/2025 showing a myomatous uterus with 1 appearing submucosal. Given concern for recurrent embolic CVA from this mitral valve lesion, on 01/29/2025 she underwent mitral annular debridement of her MAC as well as repair of posterior annulus
with pericardial pledget, and left atrial appendage ligation with 35mm atrial clip. Patient transferred to the CVICU postoperatively, and Pneumatic Jacketer service consulted for additional management/recommendations.
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
Impression:
#Left atrial mass s/p mitral annular debridement of MAC with repair of posterior annulus with pericardial pledget and left atrial appendage ligation with 35mm clip � POD #1
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
#Acute thrombocytopenia due to above
#Transaminitis (mild)
#Acute anemia (present on admission) with vaginal bleeding in the setting of Eliquis use and uterine fibroid
#DM type II (uncontrolled: HbA1c 11.2 on 01/13/2025) c/b hyperglycemia
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
#Hypertension
#Hyperlipidemia
#Morbid obesity
#DIDI intolerant to CPAP
Plan:
Patient successfully extubated last night without incident, and is currently saturating 96% on 2 L/min nasal cannula and breathing comfortably
Continue weaning down supplemental O2 flow rate to maintain SpO2 >90-94%
prn nebulized bronchodilators - not currently bronchospastic
Encourage incentive spirometer q1hr while awake
Pulmonary artery catheter parameters will be followed
Pressors/antihypertensive/inotropes/diuretics will be provided as needed
Maintain MAP>65
Replete electrolytes with K>4, Mg>2
Trend LFTs
Continue with antibiotics as per ID, currently on daptomycin + ceftriaxone
Follow-up pathology as well as tissue cultures from the OR today
Blood cultures collected from last hospitalization here at on 01/13/2025 as well as prior hospitalization at [facility] have been negative
Monitor chest tube output (mediastinal chest tubes x 2 and right pleural chest tube x 1)
Monitor hemoglobin
Monitor platelet count and coags
Transfuse blood products as needed to maintain Hb>7g/dL, plt>50k (given post-operative status)
Defer management of patient's uterine fibroids to gynecology
CT surgery managing chest tubes - -> plan to remove right-sided pleural chest tube today
Pain control
Monitor blood sugar to maintain euglycemia with goal BG 110-140; HbA1c: 11.2 on 01/13/2025
Insulin drip per protocol
Aspiration precautions
DVT prophylaxis
Early nutrition
Early mobilization
Pneumatic Jacketer service will continue to follow along while patient remains in the CVICU. Once transferred to CVICU�telemetry status then we will sign off at that time.
Critical care statement: A total of 37 minutes of critical care time was provided for this patient today. This includes management of ventilator, spontaneous breathing trial, arterial blood gases, pressors, of unstable vital signs, evaluation of the
patient at bedside, reviewing the patient's pertinent medical records including radiographs, microbiology, laboratory evaluations, and discussion with primary team and critical care nursing.
Subjective Dataa
Subjective Data
Date of Service:
Date of Service: January 30, 2025
Chief Complaint: Pneumatic Jacketer Follow Up
Subjective:
Patient seen today at bedside. Sleepy today. On insulin drip at 4 units/h. Saturating 96% on nasal cannula at 2 L/min, and heart rate 87. BP 120/73. Mediastinal chest tubes x 2 and right pleural chest tube x [address]. Afebrile overnight.
Review of Systems
General: Other (Negative unless mentioned above)
Objective Data
Data Reviewed
Vital Signs / I&O / Oxygen:
Vital Signs
Temp Pulse Resp BP Pulse Ox
98.5 F 91 18 102/66 96
01/30/25 08:00 01/30/25 07:10 01/30/25 08:00 01/30/25 07:00 01/30/25 10:40
Intake and Output
01/29/25 01/30/25 01/31/25
06:59 06:59 06:59
Intake Total 1050 / 1050 1085.5 / 1130.5 59.5 / 59.5
Output Total 1205 / 1245 190 / 190
Balance 1050 / 1050 -119.5 / -114.5 -130.5 / -130.5
SaO2 [CPAP] 98
SaO2 [SIMV] 100
SaO2 96
Nasal Cannula flow liters per 4
minute
Physical Exam
General: Respiratory Distress (negative) and Comfortable
HEENT: Normocephalic and Anicteric
Cardiovascular: S1-S2 and Peripheral Edema (Trace lower extremity edema bilaterally)
Respiratory: Wheeze (negative), Crackles (negative), Rhonchi (negative), Non-Labored Respirations, Stridor (negative) and Chest Tube (Mediastinal chest tubes x 2 and right pleural chest tube x [address])
GI: Soft, Distended (Abdominal obesity), Non Tender and Normal Bowel Sounds
Neurology: Tremors (negative) and Other (Sleepy but easily arousable to voice)
Skin: Warm, Dry, Cyanosis (negative) and Jaundice (negative)
Labs/Micro/Reports
Lab Data
01/30/25 03:00
01/30/25 03:00
Laboratory Results
01/29/25 01/29/25
14:23 22:38
PT 15.9 H
INR 1.24
APTT 31.1
pH 7.39 Cancelled
pCO2 39 H Cancelled
pO2 91 Cancelled
HCO3 23.6 Cancelled
O2 Delivery Level Cancelled
Microbiology
01/29/25 12:24 Chest - Unspecified Tissue Culture - Preliminary
No Growth After 18-24 Hours
01/29/25 12:24 Chest - Unspecified Gram Stain - Preliminary
[2025-01-30 08:04] LABS: Glucose - Point of Care 101 mg/dl (70-99)
--- NOTE | 2025-01-30 08:56 | W.PN.ID1 ---
Date of Service
Date of Service: January 30, 2025
Today's Communication
- pending pathology, may stop antibiotics if findings are not consistent with endocarditis
Assessment / Plan
# Recurrent embolic CVA
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
# allergy to penicillin/amoxicillin, ciprofloxacin, Vancomycin
- Prior blood cx's neg. Coxiella serology, Bartonella serology, and serum Tropheryma whipplei PCR negative
- s/p mitral valve debridement, called and spoke with the lab 01/30, there was insufficient sample for pathology, I have requested that they cancel the AFB culture and send that portion of the sample for pathology instead
- Continue ceftriaxone 2g IV q12.
- continue Daptomycin 700mg IV q24.
CK wnl
Hold statin while on daptomycin.
- pending pathology, may stop antibiotics if findings are not consistent with endocarditis
Chief Complaint
-: Other (possible culture negative endocarditis)
Subjective / Review of Systems
afebrile
bp stable
extubated
Vital Signs / Physical Exam
Vital Signs
Vital Signs
Temp Pulse Resp BP Pulse Ox
99.6 F 91 17 102/66 90
01/30/25 05:00 01/30/25 07:10 01/30/25 07:10 01/30/25 07:00 01/30/25 07:10
Physical Exam
Constitutional: No Acute Distress
Cardiovascular: Regular Rate and S1/S2; Negative Murmur or Rub
Pulmonary: Clear and Symmetric; Negative Wheezes or Rales
Gastrointestinal: Soft, Non Tender, Non Distended and Normal Bowel Sounds
Skin: Warm and Dry; Negative Rash or Jaundice
Objective Data
Lab Data
Lab Results
01/30/25 03:00
01/30/25 03:00
PT 15.9 Sec (11.4-14.6) H 01/29/25 14:23
INR 1.24 01/29/25 14:23
APTT 31.1 Sec (23.4-35.0) 01/29/25 14:23
Estimated Creat Clear 118 ml/min 01/30/25 03:00
Total Bilirubin 0.2 mg/dl (0.2-1.3) 01/28/25 03:47
AST 64 U/L (14-36) H 01/28/25 03:47
ALT 112 U/L (0-35) H 01/28/25 03:47
Alkaline Phosphatase 163 U/L (38-126) H 01/28/25 03:47
Most recent labs reviewed.
Micro Results:
01/29/25 12:24 Tissue Culture - Pending
Chest - Unspecified Gram Stain - Preliminary
01/26/25 19:52 C. difficile GDH Antigen & Toxins - Final
Feces/Stool Negative for toxigenic C.difficile
01/24/25 21:34 MRSA Screen - Final
Nose No Methicillin Resistant Staphylococcus aureus isolated.
[2025-01-30] MEDS: COREG 6.25 MG PO ×2 (09:40→19:45)
[2025-01-30] MEDS: SENOKOT 8.6 MG PO ×2 (09:40→19:45)
[2025-01-30] MEDS: MAGNESIUM OXIDE 400 MG PO ×2 (09:40→19:45)
[2025-01-30] MEDS: PROTONIX 40 MG PO (09:40)
[2025-01-30] MEDS: VISBIOME 1 CAP PO (09:40)
[2025-01-30] MEDS: FEOSOL 325 MG PO ×3 (09:41→21:12)
[2025-01-30] MEDS: VITAMIN C 500 MG PO (09:41)
[2025-01-30] MEDS: STERILE WATER FOR INJECTION 20 ML IV ×2 (09:41→21:11)
[2025-01-30] MEDS: ROCEPHIN 2000 MG IV ×2 (09:41→21:11)
[2025-01-30] MEDS: LOW STRENGTH ASPIRIN 81 MG PO (09:41)
[2025-01-30] MEDS: PACERONE 200 MG PO ×3 (09:41→21:11)
[2025-01-30] MEDS: BACTROBAN 2% OINTMENT 1 APPLIC NASAL ×2 (09:42→19:45)
[2025-01-30] MEDS: NOVOLOG FLEXPEN SC ×3 (09:42→17:30)
[2025-01-30] MEDS: FLUSH (NSS) 1 FLUSH IV ×2 (09:43)
[2025-01-30] MEDS: LIDOCAINE 4% PATCH 1 PATCH TOPICAL (09:46)
[2025-01-30 09:56] LABS: Glucose - Point of Care 88 mg/dl (70-99)
--- NOTE | 2025-01-30 10:12 | PTCARENOTE ---
assumed care of pt from previous shift RN, sinus rhythm on tele, VSS, + peripheral pulses, trace edema to bilateral lower extremities. Lungs diminished, pox 96% on 4L NC. +bs, pt w intermittent nausea, decker draining eagle. Pt delined and assisted
OOB to chair, pt tolerated well. Right IJ cordis w KVO infusing, PICC w insulin titrated per glycemic protocol. CT x3 w minimal drainage. V wire insulated. plan of care reviewed w the pt and her family, questions encouraged.
[2025-01-30] MEDS: FLUSH (NSS) 10 FLUSH IV (11:00)
[2025-01-30 11:09] LABS: Glucose - Point of Care 115 mg/dl (70-99)
[2025-01-30] MEDS: REGLAN 10 MG IV (11:15)
--- NOTE | 2025-01-30 12:31 | CM ---
Reviewed chart. Met with Mrs. Almaraz and her sister to review discharge plans. She states she is feeling okay. She states [facility] at [place] was transferred to [facility] then here. Prior to admission she
resides with her spouse and fourteen year old daughter in a two story home with steps to enter. She has a full flight of step to get to bedroom/full bathroom. She does not have a bathroom on the first floor. S Prior to admission she was independent
with ambulation and adls. She does not have any DME. She has a prescription plan. Will need to see her current functional level to see if she will have any skilled care needs. Medical work-up in progress. The discharge plan is to return home
with her spouse and daughter with [facility] versus some level of inpatient rehab. when medically stable.
[2025-01-30 12:43] LABS: Glucose - Point of Care 99 mg/dl (70-99)
--- NOTE | 2025-01-30 12:43 | PTCARENOTE ---
pt assisted from chair to bed, RP CT removed without incident.
--- NOTE | 2025-01-30 12:45 | PN.DE.MGMTRT ---
Insulin Management
- -
01/30/25: Diabetes Management Follow up
49 yo female readmitted for for CT surgery 01/29. Pt is well know to diabetes team from her recent admission here where she was treated for Possible mitral valve endocarditis and discharged to [facility]. PMH: Uncontrolled hypertension, DIDI,
uncontrolled T2DM, Diabetic Neuropathy, Obesity.
On 01/10/[address] [facility] ED with right sided weakness, and subsequent imaging (CT and MRI) demonstrated multiple infarcts in bilateral hemispheres. 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 She
was transferred to [facility] and started on broad-spectrum abx for potential vegetation. CV surgery was delayed up to 6 weeks for recovery from weakness and endocarditis. She was discharged to [facility] on 01/18/2025 with PICC line to continue linezolid
and ceftriaxone.
Pt states she has struggled with diabetes since 2006, began using insulin during a in 2010.
Routinely sees charissa Chi PA-C at [facility]. Recent A1C 11.2%, Cr 0.6, eGFR >60
While in rehab pt experienced dysarthria and fluctuating R sided weakness and then sent to [facility]. Brain MRI there was c/f infarcts in L occipital and R posterior parietal lobes. she was transferred to [facility] on 01/24/2025 for surgical
treatment of mitral valve mass.
01/30 POD 1 s/p resection of MV mass with MV Repair/Replacement and DUSTIN clip. She is awake alert and oriented out of bed in chair.
Glucose stable and in range. Currently receiving Critical Care glycemic protocol @ 2.4 to 4 units of insulin per hour. Will continue glycemic protocol insulin infusion and assess in AM for readiness to transition
Discussed with Nurse.
Will follow.
Diabetes History
- -
Type of Diabetes: 2 requiring insulin
Pre-Admission Diabetes Regimen
01/29/25 01/30/25
14:23 03:00
Creatinine 0.5 L 0.6
Insulin Pump Settings
IP Diabetes Regimen
01/29/25 01/29/25 01/29/25
14:23 14:29 15:02
Glucose 163 H
POC Glucose 164 H 139 H
01/29/25 01/29/25 01/29/25
16:04 16:40 18:03
Glucose
POC Glucose 155 H 174 H 176 H
01/29/25 01/29/25 01/29/25
19:11 21:06 23:08
Glucose
POC Glucose 156 H 156 H 173 H
01/30/25 01/30/25 01/30/25
00:16 01:11 02:05
Glucose
POC Glucose 171 H 185 H 159 H
01/30/25 01/30/25 01/30/25
03:00 03:04 05:02
Glucose 159 H
POC Glucose 153 H 128 H
01/30/25 01/30/25 01/30/25
07:10 08:03 09:55
Glucose
POC Glucose 121 H 101 H 88
01/30/25 01/30/25
11:08 12:42
Glucose
POC Glucose 115 H 99
Patient Education
[2025-01-30] MEDS: NSS IV (12:47)
[2025-01-30] MEDS: KCL 20 MEQ PO (12:47)
[2025-01-30] MEDS: LASIX 40 MG IV (12:47)
[2025-01-30] MEDS: FERRLECIT 110 MG IV (14:17)
[2025-01-30 14:23] LABS: Glucose - Point of Care 109 mg/dl (70-99)
--- NOTE | 2025-01-30 15:34 | PTCARENOTE ---
decker catheter removed
[2025-01-30 16:22] LABS: Glucose - Point of Care 101 mg/dl (70-99)
[2025-01-30] MEDS: CUBICIN 14 MG IV (16:22)
--- NOTE | 2025-01-30 16:37 | PTCARENOTE ---
assisted from bed to chair w minimal assistance. VSS, sinus rhythm maintained on tele.
[2025-01-30 17:28] LABS: Glucose - Point of Care 75 mg/dl (70-99)
[2025-01-30] MEDS: ROXICODONE 5 MG PO (18:39)
--- NOTE | 2025-01-30 19:45 | PTCARENOTE ---
Patient received from RN @ 1900. Patient sitting in chair w/ call arias in reach. AOx3. Patient states pain is 6/10. SR/Sinus Tachy on monitor BP 132/81 HR 100. Heart sounds audible. Radial and pedal pulses present. Upper and lower bilateral
extremity +1 edema. V-wires insulated. IS 500. POX 93% 2L NC. 2x mediastinal CT set to -20 suction draining red fluid. No crepitus, tidaling, or air leaks noted. Hypoactive bowel sounds and poor appetite. Voiding clear eagle urine. Assist x1
ambulating to bathroom. Right upper and lower extremity weakness baseline from previous stroke. 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 CT dressing dry and intact. RIJ cordis patent and intact. Left arm PICC patent and intact. Insulin infusing
per protocol. See worklist and MAR for details.
[2025-01-30] MEDS: TRANSDERM-SCOP 1 PATCH TRANSDERM (19:46)
[2025-01-30] MEDS: REMOVE LIDOCAINE PATCH 1 PATCH REMOVE (19:47)
[2025-01-30 22:00] LABS: Glucose - Point of Care 102 mg/dl (70-99)
[2025-01-30 22:00] LABS: Glucose - Point of Care 98 mg/dl (70-99)
[2025-01-30 22:00] LABS: Glucose - Point of Care 96 mg/dl (70-99)
[2025-01-30 22:03] LABS: Glucose - Point of Care 92 mg/dl (70-99)
[2025-01-30] MEDS: FLUSH (NSS) IV ×2 (23:07)
[2025-01-31] VITALS (30 sets, daily range): BP systolic 93–142; BP diastolic 59–79; PULSE 97; O2SAT 93–94; BMI 41.1
[2025-01-31 00:07] LABS: Glucose - Point of Care 102 mg/dl (70-99)
--- NOTE | 2025-01-31 00:24 | PTCARENOTE ---
Patient reassessed. SR on monitor BP 124/73 HR 96. POX 93% 2L NC.
[2025-01-31] MEDS: DILAUDID 0.5 MG IV (00:35)
--- NOTE | 2025-01-31 00:55 | W.PN.CT ---
Today's Communication / Plan
-
Plan:
-No major issues overnight. Hemodynamically and neurologically intact
-Postop hypertension improved. Lopressor switched to Coreg
-Cont. empiric Daptomycin and Rocephin until pathology results are back per ID
-Cont. current meds (ASA, Coreg, Amiodarone)
-Consider d/c of temporary PW (likely pull tomorrow)
-Consider d/c of chest tube: 2meds 115/255. CXR looks clear to my eyes with mild left basilar atelectasis. F/u official report
-Transition off insulin gtt today per protocol, diabetic with A1C 11.2, Diabetes education/management following
-Encourage use of IS
-Wean off of O2
-OOB into chair/Ambulate
-Home in 1-2 days
Assessment / Plan
-
Assessment:
-S/P Standard sternotomy/Mitral annular debridement of MAC/Repair of posterior annulus with pericardial pledget/Left atrial appendage ligation with 35mm AtriClip, by Dr. Vizcarra/Rajeev, 01/29/25, pod#2
-Mitral valve annular mass
-CVA/TIA, multiple with resolving right side weakness
-Diarrhea likely related to antibiotics
-Menorrhagia with acute blood loss anemia requiring transfusion preop S/P pelvics u/s yielding uterine fibroids
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
-Hypertension
-Hyperlipidemia
-DIDI (intolerant of CPAP)
-Class 3 obesity (BMI 40)
-Tooth pain S/p panelipse x 2 negative
-Preop vaginal yeast infection requiring Fluconazole and Miconazole)
-External hemorrhoids
-S/p
-S/p D&C
-S/P bunionectomy
-Acute preop and postop blood loss/Anemia (transfused 2u PRBCs prior and 2u PRBCs post surgery)
-Acute postop atelectasis
-Acute postop hypovolemia with subsequent hypervolemia
Discussed patient care with: Cardiology, Nursing, Respiratory Therapy, Pharmacy and Care Team
Subjective
-
Date of Service: January 31, 2025
Pt c/o pleuritic chest pain and nausea last night, better this morning
Objective Data
-
PT 15.9 Sec (11.4-14.6) H 01/29/25 14:23
INR 1.24 01/29/25 14:23
APTT 31.1 Sec (23.4-35.0) 01/29/25 14:23
Vital Signs
Vital Signs
Temp Pulse Resp BP Pulse Ox
98.3 F 94 18 124/73 94
01/30/25 23:00 01/31/25 00:05 01/31/25 00:00 01/31/25 00:00 01/31/25 00:05
CT Intake/Output/Weight
01/30/25 01/30/25 01/31/25
06:59 18:59 06:59
Intake Total 520.0 / 1130.5 227.8 / 283.2 55.4 / 283.2
Output Total 795 / 1245 960 / 1115 155 / 1115
Balance -275.0 / -114.5 -732.2 / -831.8 -99.6 / -831.8
SaO2: 94 (2L)
Physical Exam
-
General: Awake, Oriented and AOx3
Cardiovascular: Regular rate & rhythm, No Murmurs, Rub (Likely friction rub from chest tubes ), No Gallop and Other
Respiratory: Decreased Breath Sounds (at bases, otherwise clear)
Sternum: Stable
Incision: Clean, Dry, Intact and Dressing Intact
Extremities: Other (+trace edema)
Data Reviewed
-
Lab Results: Results Reviewed
Medications: Active Meds Reviewed
Chest X-Ray: Report Reviewed and Image Reviewed
ECG: Report Reviewed and Image Reviewed
[2025-01-31 02:09] LABS: Glucose - Point of Care 99 mg/dl (70-99)
[2025-01-31 02:30] LABS: Hematocrit 29.0 % (37.0-47.0); Hemoglobin 9.2 g/dL (12.0-16.0); Mean Corp Hgb Conc. 31.7 g/dL (33.0-37.0); Mean Corpuscular Volume 93.9 fL (81.0-99.0); Platelet Count 170 10^3/uL (130-400); Red Cell Dist. Width 17.0 % (11.5-14.5)
[2025-01-31 02:49] LABS: Blood Urea Nitrogen 19 mg/dl (7-17); Calcium 8.5 mg/dl (8.4-10.2); Carbon Dioxide 25 mmol/L (22-30); Chloride 111 mmol/L (98-107); Estimated Creatinine Clearance 102 ml/min; Glucose 94 mg/dl (70-99); Magnesium 2.3 mg/dl (1.6-2.3); Potassium 4.0 mmol/L (3.5-5.1); Sodium 140 mmol/L (135-145); eGFR > 60.00
[2025-01-31 04:05] LABS: Glucose - Point of Care 86 mg/dl (70-99)
[2025-01-31] MEDS: TORADOL 15 MG IV (04:28)
[2025-01-31 05:05] LABS: Glucose - Point of Care 100 mg/dl (70-99)
--- NOTE | 2025-01-31 05:05 | PTCARENOTE ---
Patient reassessed. SR/Sinus tach BP 109/72 HR 97 POX 95% 2L NC.
[2025-01-31 06:12] LABS: Glucose - Point of Care 98 mg/dl (70-99)
[2025-01-31] MEDS: TYLENOL 975 MG PO ×3 (07:01→20:07)
[2025-01-31 07:06] LABS: Glucose - Point of Care 107 mg/dl (70-99)
--- NOTE | 2025-01-31 07:17 | PN.DE.MGMTRT ---
Insulin Management
- -
01/31/25: Diabetes Management Follow up
49 yo female readmitted for for CT surgery 01/29. Pt is well know to diabetes team from her recent admission here where she was treated for Possible mitral valve endocarditis and discharged to [place] rehab. PMH: Uncontrolled hypertension, DIDI,
uncontrolled T2DM, Diabetic Neuropathy, Obesity.
On 01/10/2025 pt presented to [facility] ED with right sided weakness, and subsequent imaging (CT and MRI) demonstrated multiple infarcts in bilateral hemispheres. 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 She
was transferred to [facility] and started on broad-spectrum abx for potential vegetation. CV surgery was delayed up to 6 weeks for recovery from weakness and endocarditis. She was discharged to [place] rehab on 01/18/2025 with PICC line to continue linezolid
and ceftriaxone.
Pt states she has struggled with diabetes since 2006, began using insulin during a in 2010.
Routinely sees charissa Chi PA-C at [facility]. Recent A1C 11.2%, Cr 0.6, eGFR >60
While in rehab pt experienced dysarthria and fluctuating R sided weakness and then sent to [facility]. Brain MRI there was c/f infarcts in L occipital and R posterior parietal lobes. she was transferred to [facility] on 01/24/2025 for surgical
treatment of mitral valve mass.
01/31 POD 2 s/p resection of MV mass with MV Repair/Replacement and DUSTIN clip. She is awake alert and oriented out of bed in chair.
Glucose stable and in range. Currently receiving Critical Care glycemic protocol @ 2.4 to 4 units of insulin per hour. Will continue glycemic protocol insulin infusion until 8PM, 22 units lantus to be administered then drip off 2 hours later, to
resume AC novolog 17 units with moderate corrective insulin 02/01 in AM.
Discussed with Nurse.
Will follow.
Diabetes History
- -
Type of Diabetes: 2 requiring insulin
Pre-Admission Diabetes Regimen
01/31/25
02:08
Creatinine 0.7
Insulin Pump Settings
IP Diabetes Regimen
01/30/25 01/30/25 01/30/25
08:03 09:55 11:08
Glucose
POC Glucose 101 H 88 115 H
01/30/25 01/30/25 01/30/25
12:42 14:22 16:21
Glucose
POC Glucose 99 109 H 101 H
01/30/25 01/30/25 01/30/25
17:26 18:36 19:43
Glucose
POC Glucose 75 102 H 96
01/30/25 01/30/25 01/31/25
21:08 22:02 00:05
Glucose
POC Glucose 98 92 102 H
01/31/25 01/31/25 01/31/25
02:07 02:08 04:03
Glucose 94
POC Glucose 99 86
01/31/25 01/31/25 01/31/25
05:03 06:10 07:05
Glucose
POC Glucose 100 H 98 107 H
Patient Education
--- NOTE | 2025-01-31 08:10 | W.PN.INTV ---
Today's Communication / Plan
Recommendations
Postoperative management as per CT surgery
Pain control
Continue insulin drip with goal BG 110�140- -> plan to stop insulin gtt tonight after lantus given
Encourage incentive spirometer
[employer] service will continue to follow along while patient remains in the CVICU. Once insulin drip is turned off and she is transferred to CVICU�telemetry status then we will sign off at that time.
Assessment
-
Assessment: 49-year-old female with a past medical history of CVA/TIA, hypertension, DM type II, morbid obesity and history of DIDI not on CPAP who was transferred from outside hospital ([facility]) for surgical treatment of a mitral valve mass.
Patient was recently hospitalized here at from 01/12 - 01/18 after presenting here from [facility] on 01/10/2025 with multiple acute ischemic infarcts with echo showing mitral valve mass measuring 0.71 x 0.41 cm adherent to the P1
leaflet with concern for a fibroelastoma versus myxoma versus vegetation.
Left heart cath on 01/15/2025 showed no significant CAD. Transesophageal echo on 01/15/2025 showed normal biventricular size and systolic function with EF 60-65%, with a sessile 0.88 cm echodensity at the junction of the base of P1/P2 on the atrial
side with trivial MR. She had been treated with heparin drip. ID + neurology were on board and she was on antibiotics with linezolid + ceftriaxone. PICC line placed with plan for 6 weeks of antibiotics, and she was discharged to [place] [facility] on
01/18. Of note, blood cultures from both here and at [facility] were negative. While at [place], she developed sudden difficulty with speech and fluctuating right-sided weakness and was sent to [facility] for evaluation with brain MRI showing
concern for infarcts in the left occipital lobe and right posterior parietal lobe. She was transferred back here to for evaluation of her mitral valve mass. Initial head CT showed no CT evidence for an acute intracranial hemorrhage and no
interval increase in cytotoxic edema in her known multiple small acute ischemic infarcts. Of note, she did develop vaginal bleeding after being on Eliquis with acute anemia. Gynecology was consulted and pelvic/transvaginal ultrasound was performed
on 01/27/2025 showing a myomatous uterus with 1 appearing submucosal. Given concern for recurrent embolic CVA from this mitral valve lesion, on 01/29/2025 she underwent mitral annular debridement of her MAC as well as repair of posterior annulus
with pericardial pledget, and left atrial appendage ligation with 35mm atrial clip. Patient transferred to the CVICU postoperatively, and [employer] service consulted for additional management/recommendations.
Chronic conditions SYSTEMS LEAD: History of CVA/TIA, hypertension, DM type II complicated by peripheral neuropathy, morbid obesity, history of DIDI (not using CPAP)
Impression:
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
#Acute thrombocytopenia due to above
#Transaminitis (mild)
#Acute anemia (present on admission) with vaginal bleeding in the setting of Eliquis use and uterine fibroid
#DM type II (uncontrolled: HbA1c 11.2 on 01/13/2025) c/b hyperglycemia
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
#Hypertension
#Hyperlipidemia
#Morbid obesity
#DIDI intolerant to CPAP
Plan:
Patient successfully extubated on 01/29 without incident, and is currently saturating 96% on room air and breathing comfortably
Maintain SpO2 >90-94%, using supplemental O2 if needed
prn nebulized bronchodilators - not currently bronchospastic
Encourage incentive spirometer q1hr while awake
Pulmonary artery catheter parameters will be followed
Pressors/antihypertensive/inotropes/diuretics will be provided as needed
Maintain MAP>65
Replete electrolytes with K>4, Mg>2
Trend LFTs
Continue with antibiotics as per ID, currently on daptomycin + ceftriaxone
Trend CPK while on daptomycin
Follow-up pathology as well as tissue cultures from the OR
Blood cultures collected from last hospitalization here at on 01/13/2025 as well as prior hospitalization at [facility] have been negative
Monitor chest tube output (mediastinal chest tubes x 2; right pleural chest tube removed)
Monitor hemoglobin
Monitor platelet count and coags
Transfuse blood products as needed to maintain Hb>7g/dL, plt>50k (given post-operative status)
Defer management of patient's uterine fibroids to gynecology
CT surgery managing chest tubes
Pain control
Monitor blood sugar to maintain euglycemia with goal BG 110-140; HbA1c: 11.2 on 01/13/2025
Insulin drip will be weaned off later today - -> once insulin gtt off then rec'd to use ISS to keep BG at goal as above
Aspiration precautions
DVT prophylaxis
Early nutrition
Early mobilization
[employer] service will continue to follow along while patient remains in the CVICU. Once insulin drip is turned off and she is transferred to CVICU�telemetry status then we will sign off at that time.
Critical care statement: A total of 41 minutes of critical care time was provided for this patient today. This includes management of ventilator, spontaneous breathing trial, arterial blood gases, pressors, of unstable vital signs, evaluation of the
patient at bedside, reviewing the patient's pertinent medical records including radiographs, microbiology, laboratory evaluations, and discussion with primary team and critical care nursing.
Subjective Dataa
Subjective Data
Date of Service:
Date of Service: January 31, 2025
Chief Complaint: [employer] Follow Up
Subjective:
Patient seen and evaluated this morning. Resting comfortably in bed in no acute distress. Mediastinal chest tubes x [address] On room air breathing comfortably, saturating 96%. Heart rate 92 and BP 108/74.
Review of Systems
General: Other (Negative unless mentioned above)
Objective Data
Data Reviewed
Vital Signs / I&O / Oxygen:
Vital Signs
Temp Pulse Resp BP Pulse Ox
100.1 F 94 16 104/59 94
01/31/25 08:00 01/31/25 08:00 01/31/25 08:00 01/31/25 08:00 01/31/25 08:00
Intake and Output
01/30/25 01/31/25 02/01/25
06:59 06:59 06:59
Intake Total 1085.5 / 1130.5 349.7 / 361.7
Output Total 1205 / 1245 1300 / 1300
Balance -119.5 / -114.5 -950.3 / -938.3
SaO2 [CPAP] 98
SaO2 [SIMV] 100
SaO2 94
Nasal Cannula flow liters per 2
minute
Physical Exam
General: Respiratory Distress (negative) and Comfortable
HEENT: Normocephalic, Anicteric and Other (R-IJ cordis in place)
Cardiovascular: S1-S2 and Peripheral Edema (Trace lower extremity edema bilaterally)
Respiratory: Wheeze (negative), Crackles (negative), Rhonchi (negative), Non-Labored Respirations, Stridor (negative) and Chest Tube (Mediastinal chest tubes x 2)
GI: Soft, Distended (Abdominal obesity), Non Tender and Normal Bowel Sounds
Neurology: Tremors (negative) and Other (Sleepy but easily arousable to voice)
Skin: Warm, Dry, Cyanosis (negative) and Jaundice (negative)
Labs/Micro/Reports
Lab Data
01/31/25 02:08
01/31/25 02:08
Microbiology
01/29/25 12:24 Chest - Unspecified Tissue Culture - Preliminary
No Growth After 18-24 Hours
01/29/25 12:24 Chest - Unspecified Gram Stain - Preliminary
--- NOTE | 2025-01-31 08:30 | PTCARENOTE ---
Assumed care of patient at 0700. Pt is awake, alert, and oriented. Pt ST with HR 100. BP 104/59 MAP 73. Epicardial V wire insulated. Pulse oximetry 97% on 2L nasal cannula. Mediastinal chest tubes x2 in place to -20 suction, no sign of air leak or
crepitus. Pt tolerating PO diet, no complaints of nausea. Pt voiding in bathroom. Midsternal incision approximated with surgical adhesive. Right IJ cordis in place and left upper extremity PICC in place. Remains on insulin gtt per glycemic protocol.
Pt currently OOB in chair with call arias within reach.
[2025-01-31 08:51] LABS: Glucose - Point of Care 91 mg/dl (70-99)
[2025-01-31] MEDS: COREG 12.5 MG PO ×2 (09:11→20:08)
[2025-01-31] MEDS: LIDOCAINE 4% PATCH 1 PATCH TOPICAL (09:13)
[2025-01-31] MEDS: STERILE WATER FOR INJECTION 20 ML IV ×2 (09:13→21:54)
[2025-01-31] MEDS: ROCEPHIN 2000 MG IV ×2 (09:13→21:53)
[2025-01-31] MEDS: BACTROBAN 2% OINTMENT 1 APPLIC NASAL ×2 (09:13→20:09)
[2025-01-31] MEDS: NOVOLOG FLEXPEN 4 UNITS SC ×2 (09:14→16:21)
[2025-01-31] MEDS: LOW STRENGTH ASPIRIN 81 MG PO (09:15)
[2025-01-31] MEDS: PACERONE 200 MG PO ×3 (09:16→20:08)
[2025-01-31] MEDS: PROTONIX 40 MG PO (09:16)
[2025-01-31] MEDS: FEOSOL 325 MG PO ×3 (09:16→20:08)
[2025-01-31] MEDS: VITAMIN C 500 MG PO (09:16)
[2025-01-31] MEDS: VISBIOME 1 CAP PO (09:16)
[2025-01-31] MEDS: FLEXERIL 5 MG PO (09:16)
[2025-01-31] MEDS: ROXICODONE 5 MG PO ×3 (09:16→20:39)
[2025-01-31] MEDS: SENOKOT 8.6 MG PO ×2 (09:16→20:08)
[2025-01-31] MEDS: MAGNESIUM OXIDE 400 MG PO ×2 (09:17→20:09)
[2025-01-31] MEDS: FLUSH (NSS) 1 FLUSH IV ×2 (09:18→11:10)
--- NOTE | 2025-01-31 10:40 | W.PN.CD ---
Addendum entered and electronically signed by Román Mcelroy MD 01/31/25 14:38:
I reviewed and agree with the note by SAADIA and it accurately reflects our care.
I saw and evaluated the patient, and I provided the substantive portion of the medical decision making. My assessment and plan is below:
49 yo female with PMH T2DM, DIDI, HTN, obesity, CVA's, and mitral valve mass. Transferred from [facility] with recurrent neurologic insults likely related to mitral valve lesion, now s/p debridement and MV repair. She is feeling better and pain
is improving.
Physical exam: RRR, no murmurs, no lower extremity edema, clear lungs, chest tube in place
Routine postoperative care per CT surgery. Continue ASA and beta-manohar. Cultures from the OR are no growth to date. Continue empiric antibiotics.
Trend hemoglobin.
Original Note:
Today's Communication / Plan
-
-encourage IS, as well as ambulation as able
-continue close post-op monitoring and care per CTS
Impression / Plan
-
Impression/Plan: 49 yo female with PMH T2DM, DIDI, HTN, obesity, CVA's, and mitral valve mass. Transferred from [facility] with recurrent neurologic insults likely related to mitral valve lesion. Now s/p surgery as below.
#Mitral valve mass
-S/p standard sternotomy/Mitral annular debridement of MAC/Repair of posterior annulus with pericardial pledget/Left atrial appendage ligation with 35mm AtriClip, by Drs. Vizcarra and Rajeev, 01/29/25.
-Continue IV antibiotics per ID, pending pathology results.
-IS/ambulation as able
-tele stable in SR, VSS off drips
-CT remains in place
-on ASA and BB- continue
#CVA/TIA
-recurrent, likely embolic.
-Embolic source is likely the mass on mitral valve, identified on LAURA in prior admission.
-Apixaban has been held to avoid hemorrhagic transformation and in anticipation of surgery as above
# bleeding
-Acute on chronic.
- bleeding has subsided.
-Pelvis US shows myxomatous uterus.
#Acute anemia
-stabilized. Patient has required PRBCs this admission.
-Hgb currently 9.2, baseline appears to be 12.
-Attributed to her uterine bleeding in setting of apixaban use.
#HTN
-stable, monitor post-op
#HLD
-continue statin
#DM
-diabetic STICKER ON on the case
Subjective/Interval History:
OOB to chair. Does report some general soreness.
DATA:
Cardiac Catheterization, 01/15/2025:
CONCLUSIONS
1. Right dominant circulation with an upward angulated left main coronary artery requiring an AL 2 diagnostic catheter with coronary wire assistance for cannulation and no coronary artery disease.
2. Systemic hypertension, permissive in the setting of CVA.
LAURA, 01/15/2025:
SUMMARY
1. Normal biventricular size and systolic function. Left ventricular ejection fraction visually estimated 60-65%.
2. Trileaflet aortic valve that opens normally without significant aortic regurgitation. Lambl's excrescence noted on aortic side of RCC.
3. Thickened mitral valve leaflets without prolapse. Sessile 0.88 cm echodensity at the junction of the base of P1/ P2 on the atrial side. Trivial mitral regurgitation.
4. Trace tricuspid insufficiency. Estimated pulmonary artery systolic pressure 18 mmHg assuming a right atrial pressure of 5 mmHg.
5. Intact interatrial septum without shunt by color-flow Doppler and negative agitated saline, bubble study.
6. No pericardial effusion.
7. Recommend Reviewed with primary cardiology service.
Pelvis US, 01/27/2025:
IMPRESSION:
Myomatous uterus. One appears submucosal.
MVr, 01/29/2025:
Procedure(s) Performed:
1. Standard sternotomy and aortic and bicaval cannulation
2. Mitral annular debridement of MAC
3. Repair of posterior annulus with pericardial pledget
4. Left atrial appendage ligation with 35mm AtriClip
5. Temporary ventricular wire placement
Physical Exam
Vital Signs/Labs
Vital Signs
Temp Pulse Resp BP Pulse Ox
100.1 F 94 16 120/72 94
01/31/25 08:00 01/31/25 10:31 01/31/25 08:00 01/31/25 10:31 01/31/25 08:00
01/30/25 01/31/25 02/01/25
06:59 06:59 06:59
Actual Weight 98.5 kg 98.7 kg
01/31/25 02:08
01/31/25 02:08
PT 15.9 Sec (11.4-14.6) H 01/29/25 14:23
INR 1.24 01/29/25 14:23
APTT 31.1 Sec (23.4-35.0) 01/29/25 14:23
Magnesium 2.3 mg/dl (1.6-2.3) 01/31/25 02:08
Physical Exam
Constitutional: No acute distress
EENT: Anicteric
Cardiovascular: Rhythm & rate is regular
Respiratory: Respiratory effort normal and Lungs clear to auscul.
Neuro/Psych: Alert and Oriented
Other: Skin (mid-sternal incision well-approximated, no redness, drainage, or swelling)
Data Reviewed
-
Date of Service: January 31, 2025
EKG: Other (SR)
Labs: Labs Reviewed by me
[2025-01-31 11:13] LABS: Glucose - Point of Care 186 mg/dl (70-99)
--- NOTE | 2025-01-31 11:14 | W.PN.ID1 ---
Date of Service
Date of Service: January 31, 2025
Today's Communication
awaiting pathology
Assessment / Plan
# Recurrent embolic CVA
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
# 01/29 S/P Standard sternotomy/Mitral annular debridement of MAC/Repair of posterior annulus with pericardial pledget/Left atrial appendage ligation
# allergy to penicillin/amoxicillin, ciprofloxacin, Vancomycin
- Prior blood cx's neg. Coxiella serology, Bartonella serology, and serum Tropheryma whipplei PCR negative
- s/p mitral valve debridement, called and spoke with the lab 01/30, there was insufficient sample for pathology, I have requested that they cancel the AFB culture and send that portion of the sample for pathology instead
- Continue ceftriaxone 2g IV q12.
- continue Daptomycin 700mg IV q24.
CK wnl
Hold statin while on daptomycin.
- has PICC line
- pending pathology, may stop antibiotics if findings are not consistent with endocarditis
Chief Complaint
-: Other (possible culture negative endocarditis)
Subjective / Review of Systems
afebrile
bp stable
tolerating current therapies
pathology pending
no new complaints
Vital Signs / Physical Exam
Vital Signs
Vital Signs
Temp Pulse Resp BP Pulse Ox
100.1 F 97 16 119/61 94
01/31/25 08:00 01/31/25 11:00 01/31/25 08:00 01/31/25 11:01/31/25 08:00
Physical Exam
Constitutional: No Acute Distress
Cardiovascular: Regular Rate and S1/S2; Negative Murmur or Rub
Pulmonary: Clear and Symmetric; Negative Wheezes or Rales
Gastrointestinal: Soft, Non Tender, Non Distended and Normal Bowel Sounds
Skin: Warm and Dry; Negative Rash or Jaundice
Lines: PICC (no erythema, warmth or tenderness)
Objective Data
Lab Data
Lab Results
01/31/25 02:08
01/31/25 02:08
PT 15.9 Sec (11.4-14.6) H 01/29/25 14:23
INR 1.24 01/29/25 14:23
APTT 31.1 Sec (23.4-35.0) 01/29/25 14:23
Estimated Creat Clear 102 ml/min 01/31/25 02:08
Total Bilirubin 0.2 mg/dl (0.2-1.3) 01/28/25 03:47
AST 64 U/L (14-36) H 01/28/25 03:47
ALT 112 U/L (0-35) H 01/28/25 03:47
Alkaline Phosphatase 163 U/L (38-126) H 01/28/25 03:47
Most recent labs reviewed.
Micro Results:
01/29/25 12:24 Tissue Culture - Preliminary
Chest - Unspecified No Growth After 18-24 Hours
Gram Stain - Preliminary
01/26/25 19:52 C. difficile GDH Antigen & Toxins - Final
Feces/Stool Negative for toxigenic C.difficile
01/24/25 21:34 MRSA Screen - Final
Nose No Methicillin Resistant Staphylococcus aureus isolated.
--- NOTE | 2025-01-31 12:30 | PTCARENOTE ---
Assisted back to bed. Epicardial V wire pulled by CT MARYLOU, Nati. Monitored BP and chest tube output x1hr. Pt remains SR with HR 91. BP 109/67 MAP 82. Pulse oximetry 100% on 2L nasal cannula.
[2025-01-31 13:12] LABS: Glucose - Point of Care 128 mg/dl (70-99)
[2025-01-31] MEDS: NSS 500 IV (13:15)
[2025-01-31] MEDS: FERRLECIT 110 MG IV (13:16)
[2025-01-31] MEDS: LASIX 40 MG IV (13:16)
--- NOTE | 2025-01-31 15:06 | CM ---
Reviewed chart. Met with Mrs. Almaraz to review discharge plans. She states she was very tired today. Will await physical therapy and occupational therapy evaluation to see iif she will have any skilled care needs Also waiting ID recommendations
regarding IV ABX's. Medical work-up in progress The discharge plan is return home with family and [facility] Services verses some level of inpatient rehab. when medically stable.
[2025-01-31 15:12] LABS: Glucose - Point of Care 81 mg/dl (70-99)
[2025-01-31 16:21] LABS: Glucose - Point of Care 95 mg/dl (70-99)
--- NOTE | 2025-01-31 16:30 | PTCARENOTE ---
Mediastinal chest tubes x2 d/c'd per order. Pt ambulated with cardiac rehab, tolerated well. Now OOB in chair.
[2025-01-31] MEDS: NOVOLOG FLEXPEN SC (18:12)
[2025-01-31] MEDS: CUBICIN 14 MG IV (18:12)
[2025-01-31 18:21] LABS: Glucose - Point of Care 128 mg/dl (70-99)
--- NOTE | 2025-01-31 20:00 | PTCARENOTE ---
assumed care of patient @ 1900. recieved pt laying in bed
Neuro - Aox3. VITA GAFFNEY. Slight R arm weakness residual from previous strokes. NIH 0
CV- SR on tele. BP stable. good pulses, +1 edema
Lungs- clear, diminished on room air satting mid 90s.
GI- no n/v. hypoactive BS.
- voiding concentrated eagle urine in hat.
Skin- MSI CDI SURAJ.
Lines- R IJ cordis, PIV both patent.
Drips- insulin per protocol
Plan to give Lantus tonight at 2200 and turn drip off at midnight. pt resting with call arias within reach .
[2025-01-31 20:03] LABS: Glucose - Point of Care 138 mg/dl (70-99)
[2025-01-31] MEDS: REMOVE LIDOCAINE PATCH 1 PATCH REMOVE (20:09)
[2025-01-31] MEDS: REFRESH EYE DROPS (PF) 1 DROPS OPHTH (21:05)
[2025-01-31] MEDS: LANTUS 0.22 UNITS SC (22:08)
[2025-01-31 22:11] LABS: Glucose - Point of Care 110 mg/dl (70-99)
[2025-01-31] MEDS: FLUSH (NSS) IV ×2 (23:42)
[2025-02-01] VITALS (10 sets, daily range): BP systolic 106–127; BP diastolic 54–75; PULSE 89–90; O2SAT 85–91; BMI 41.5
--- NOTE | 2025-02-01 | PTCARENOTE ---
insulin turned off. pt resting comfortably, no change in assessment .
[2025-02-01] MEDS: ROXICODONE 5 MG PO ×4 (03:05→20:11)
[2025-02-01] MEDS: DILAUDID 0.25 MG IV (03:36)
[2025-02-01 03:39] LABS: Hematocrit 27.9 % (37.0-47.0); Hemoglobin 8.7 g/dL (12.0-16.0); Mean Corp Hgb Conc. 31.2 g/dL (33.0-37.0); Mean Corpuscular Volume 95.9 fL (81.0-99.0); Platelet Count 177 10^3/uL (130-400); Red Cell Dist. Width 17.6 % (11.5-14.5)
[2025-02-01 03:59] LABS: Blood Urea Nitrogen 25 mg/dl (7-17); Calcium 8.8 mg/dl (8.4-10.2); Carbon Dioxide 27 mmol/L (22-30); Chloride 108 mmol/L (98-107); Estimated Creatinine Clearance 90 ml/min; Glucose 89 mg/dl (70-99); Magnesium 2.4 mg/dl (1.6-2.3); Potassium 4.2 mmol/L (3.5-5.1); Sodium 139 mmol/L (135-145); eGFR > 60.00
--- NOTE | 2025-02-01 04:00 | PTCARENOTE ---
labs drawn and sent, pain meds given see mar, no change in assessment call arias within reach .
--- NOTE | 2025-02-01 06:59 | PTCARENOTE ---
picc malpositioned on xray, VAT team notified, will be by to resposition
[2025-02-01 07:18] LABS: Glucose - Point of Care 155 mg/dl (70-99)
--- NOTE | 2025-02-01 07:42 | W.PN.CT ---
Today's Communication / Plan
-
-pod #3
-no issues overnight. Hemodynamically and neurologically intact
-on Ceftriaxone and Daptomycin pending pathology per ID
-Cont. current meds (ASA, Coreg 12.5bid, Amiodarone)
-Scopolamine patch for nausea
-pw and CTs dcd 01/31
-will ask IV team to evaluate picc position
-Encourage use of IS
-Wean off of O2
-OOB into chair/Ambulate
-appreciate everyone's input
-Home in 1-2 days
Assessment / Plan
-
Assessment:
-S/P Standard sternotomy/Mitral annular debridement of MAC/Repair of posterior annulus with pericardial pledget/Left atrial appendage ligation with 35mm AtriClip, by Dr. Vizcarra/Rajeev, 01/29/25, pod#2
-Mitral valve annular mass
-CVA/TIA, multiple with resolving right side weakness
-Diarrhea likely related to antibiotics
-Menorrhagia with acute blood loss anemia requiring transfusion preop S/P pelvics u/s yielding uterine fibroids
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
-Hypertension
-Hyperlipidemia
-DIDI (intolerant of CPAP)
-Class 3 obesity (BMI 40)
-Tooth pain S/p panelipse x 2 negative
-Preop vaginal yeast infection requiring Fluconazole and Miconazole)
-External hemorrhoids
-S/p
-S/p D&C
-S/P bunionectomy
-Acute preop and postop blood loss/Anemia (transfused 2u PRBCs prior and 2u PRBCs post surgery)
-Acute postop atelectasis
-Acute postop hypovolemia with subsequent hypervolemia
Discussed patient care with: Nursing and Care Team
Subjective
-
Date of Service: February 01, 2025
Objective Data
-
Lab Results
02/01/25 03:12
02/01/25 03:12
PT 15.9 Sec (11.4-14.6) H 01/29/25 14:23
INR 1.24 01/29/25 14:23
APTT 31.1 Sec (23.4-35.0) 01/29/25 14:23
Vital Signs
Vital Signs
Temp Pulse Resp BP Pulse Ox
98.2 F 101 21 118/74 95
02/01/25 04:00 02/01/25 07:00 02/01/25 06:30 02/01/25 03:28 02/01/25 04:00
CT Intake/Output/Weight
01/31/25 02/01/25 02/01/25
18:59 06:59 18:59
Intake Total 145.6 / 155.6 10 / 155.6
Output Total 765 / 1215 450 / 1215
Balance -619.4 / -1059.4 -440 / -1059.4
SaO2: 95
Physical Exam
-
General: Awake and AOx3
Cardiovascular: Regular rate & rhythm, No Murmurs and No Rub
Respiratory: Decreased Breath Sounds
Sternum: Stable
Incision: Clean, Dry and Intact
Extremities: Other (trace edema b/l)
Abdomen: soft, nontender, nondistended, + bowel sounds
Data Reviewed
-
Lab Results: Results Reviewed
Medications: Active Meds Reviewed
Chest X-Ray: Report Reviewed and Image Reviewed
ECG: Report Reviewed and Image Reviewed
[2025-02-01] MEDS: SENOKOT 8.6 MG PO ×2 (07:44→20:11)
[2025-02-01] MEDS: PROTONIX 40 MG PO (07:44)
[2025-02-01] MEDS: COREG 12.5 MG PO ×2 (07:44→20:11)
[2025-02-01] MEDS: LOW STRENGTH ASPIRIN 81 MG PO (07:44)
[2025-02-01] MEDS: FLEXERIL 5 MG PO (07:45)
[2025-02-01] MEDS: TYLENOL 975 MG PO ×3 (07:45→21:48)
[2025-02-01] MEDS: LIDOCAINE 4% PATCH 1 PATCH TOPICAL (07:45)
[2025-02-01] MEDS: MAGNESIUM OXIDE 400 MG PO (07:45)
[2025-02-01] MEDS: VISBIOME 1 CAP PO (07:45)
[2025-02-01] MEDS: PACERONE 200 MG PO ×3 (07:45→21:48)
[2025-02-01] MEDS: FEOSOL 325 MG PO ×3 (07:45→21:48)
[2025-02-01] MEDS: VITAMIN C 500 MG PO (07:45)
[2025-02-01] MEDS: BACTROBAN 2% OINTMENT 1 APPLIC NASAL ×2 (07:46→20:12)
[2025-02-01] MEDS: NOVOLOG FLEXPEN 17 UNITS SC ×3 (07:47→17:18)
[2025-02-01] MEDS: NOVOLOG FLEXPEN-MODERATE RESISTANCE 1 UNITS SC (07:47)
--- NOTE | 2025-02-01 07:56 | W.PN.CD ---
Today's Communication / Plan
-
OOB ambulate as able
Impression / Plan
-
Impression/Plan: 49 yo female with PMH T2DM, DIDI, HTN, obesity, CVA's, and mitral valve mass. Transferred from [facility] with recurrent neurologic insults likely related to mitral valve lesion. Now s/p surgery as below.
#Mitral valve mass
-S/p standard sternotomy/Mitral annular debridement of MAC/Repair of posterior annulus with pericardial pledget/Left atrial appendage ligation with 35mm AtriClip, by Drs. Vizcarra and Rajeev, 01/29/25.
-Continue IV antibiotics per ID, pending pathology results.
-IS/ambulation as able
-tele stable in SR, VSS off drips
-CT remains in place
-on ASA and BB- continue
#CVA/TIA
-recurrent, likely embolic.
-Embolic source is likely the mass on mitral valve, identified on LAURA in prior admission.
-Apixaban has been held to avoid hemorrhagic transformation and in anticipation of surgery as above
# bleeding
-Acute on chronic.
- bleeding has subsided.
-Pelvis US shows myxomatous uterus.
#Acute anemia
-stabilized. Patient has required PRBCs this admission.
-Hgb currently 9.2, baseline appears to be 12.
-Attributed to her uterine bleeding in setting of apixaban use.
#HTN
-stable, monitor post-op
#HLD
-continue statin
#DM
-diabetic HOME HEALTH OCCUPATIONAL THERAPIST on the case
Subjective/Interval History:
walking around; has some R arm weakness
DATA:
Cardiac Catheterization, 01/15/2025:
CONCLUSIONS
1. Right dominant circulation with an upward angulated left main coronary artery requiring an AL 2 diagnostic catheter with coronary wire assistance for cannulation and no coronary artery disease.
2. Systemic hypertension, permissive in the setting of CVA.
LAURA, 01/15/2025:
SUMMARY
1. Normal biventricular size and systolic function. Left ventricular ejection fraction visually estimated 60-65%.
2. Trileaflet aortic valve that opens normally without significant aortic regurgitation. Lambl's excrescence noted on aortic side of RCC.
3. Thickened mitral valve leaflets without prolapse. Sessile 0.88 cm echodensity at the junction of the base of P1/ P2 on the atrial side. Trivial mitral regurgitation.
4. Trace tricuspid insufficiency. Estimated pulmonary artery systolic pressure 18 mmHg assuming a right atrial pressure of 5 mmHg.
5. Intact interatrial septum without shunt by color-flow Doppler and negative agitated saline, bubble study.
6. No pericardial effusion.
7. Recommend Reviewed with primary cardiology service.
Pelvis US, 01/27/2025:
IMPRESSION:
Myomatous uterus. One appears submucosal.
MVr, 01/29/2025:
Procedure(s) Performed:
1. Standard sternotomy and aortic and bicaval cannulation
2. Mitral annular debridement of MAC
3. Repair of posterior annulus with pericardial pledget
4. Left atrial appendage ligation with 35mm AtriClip
5. Temporary ventricular wire placement
Physical Exam
Vital Signs/Labs
Vital Signs
Temp Pulse Resp BP Pulse Ox
98.2 F 101 21 118/74 95
02/01/25 04:00 02/01/25 07:00 02/01/25 06:30 02/01/25 03:28 02/01/25 07:46
01/31/25 02/01/25 02/02/25
06:59 06:59 06:59
Actual Weight 217 lb 9.54 oz 219 lb 5.759 oz
02/01/25 03:12
02/01/25 03:12
PT 15.9 Sec (11.4-14.6) H 01/29/25 14:23
INR 1.24 01/29/25 14:23
APTT 31.1 Sec (23.4-35.0) 01/29/25 14:23
Magnesium 2.4 mg/dl (1.6-2.3) H 02/01/25 03:12
Physical Exam
Constitutional: No acute distress and Comfortable
EENT: Anicteric
Cardiovascular: Rhythm & rate is regular
Respiratory: Lungs clear to auscul. and Other (poor inspiratory effort )
GI: Soft
Neuro/Psych: AO x 3
Data Reviewed
-
Date of Service: February 01, 2025
Medical Decision Making: Reviewed Test Results
EKG: Tracing Personally Visualized and interpreted (sr)
Echo: Report Reviewed by me
Labs: Labs Reviewed by me
--- NOTE | 2025-02-01 08:22 | PN.DE.MGMTRT ---
Insulin Management
- -
02/01/25: Diabetes Management Follow up
49 yo female readmitted for for CT surgery 01/29. Pt is well know to diabetes team from her recent admission here where she was treated for Possible mitral valve endocarditis and discharged to [place] [facility]. PMH: Uncontrolled hypertension, DIDI,
uncontrolled T2DM, Diabetic Neuropathy, Obesity.
On 01/10/2025 pt presented to [facility] ED with right sided weakness, and subsequent imaging (CT and MRI) demonstrated multiple infarcts in bilateral hemispheres. 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 She
was transferred to [facility] and started on broad-spectrum abx for potential vegetation. CV surgery was delayed up to 6 weeks for recovery from weakness and endocarditis. She was discharged to [place] [facility]hab on 01/18/2025 with PICC line to continue linezolid
and ceftriaxone.
Pt states she has struggled with diabetes since 2006, began using insulin during a in 2010.
Routinely sees charissa Chi PA-C at [facility]. Recent A1C 11.2%, Cr 0.6, eGFR >60
While in rehab pt experienced dysarthria and fluctuating R sided weakness and then sent to [facility]. Brain MRI there was c/f infarcts in L occipital and R posterior parietal lobes. she was transferred to [facility] on 01/24/2025 for surgical
treatment of mitral valve mass.
02/01 POD 3 s/p resection of MV mass with MV Repair/Replacement and DUSTIN clip. She is awake alert and oriented out of bed in chair.
Glucose stable and in range. Transitioned from Critical Care glycemic protocol last evening after 22 units lantus administered Will resume AC novolog 17 units with moderate corrective insulin this AM.
Discussed with Nurse.
Will follow.
Diabetes History
- -
Type of Diabetes: 2 requiring insulin
Pre-Admission Diabetes Regimen
02/01/25
03:12
Creatinine 0.8
Insulin Pump Settings
IP Diabetes Regimen
01/31/25 01/31/25 01/31/25
08:48 11:10 13:11
Glucose
POC Glucose 91 186 H 128 H
01/31/25 01/31/25 01/31/25
15:08 16:18 18:14
Glucose
POC Glucose 81 95 128 H
01/31/25 01/31/25 02/01/25
20:02 22:07 03:12
Glucose 89
POC Glucose 138 H 110 H
02/01/25
07:15
Glucose
POC Glucose 155 H
Meal type: Breakfast
Amount consumed: 95%
Patient Education
[2025-02-01] MEDS: LASIX 40 MG IV (08:42)
--- NOTE | 2025-02-01 08:45 | PTCARENOTE ---
Assumed care of patient at 0700. Pt is awake, alert, and oriented. Pt with complaints of pain, PRN pain medications administered per order. Pt remains SR with HR 97. BP 116/64 MAP 81. Pulse oximetry 92% on room air. Pt continues to utilize incentive
spirometer, continued use encouraged. Pt tolerating PO diet, however has overall poor appetite. Pt voiding in bathroom without issue. Midsternal incision approximated with surgical adhesive. Surgical bra in place. Right IJ cordis in place. LUE PICC
in place, however needs to be repositioned based on morning x-ray.
--- NOTE | 2025-02-01 09:21 | CON.MD ---
Consultation - Medical
-
Chief Complaint: Mitral valve mass resection via sternotomy
History of Present Illness: 49-year-old left-handed female with PMH (as below) presented to [facility] on 01/24/2025 from [facility] for mitral valve mass surgery.
On 01/10/2025 she had a headache and right-sided weakness and found to have acute multiple infarcts in the left cerebellar, occipital, and parietal regions. 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
vegetation. She was started on vancomycin and ceftriaxone with negative blood cultures from [facility]. 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 Empirically treated with plan of a 6-week course of linezolid and ceftriaxone. Started
on Eliquis 01/17. Went to [facility] Where she had worsening aphasia and fluctuating right sided weakness. She was sent back to [facility]. Brain MRI was concerning for infarcts in the left occipital and R posterior parietal lobes. She is
transferred back to on 01/24/25 for surgical tx of her mitral valve mass. She had some vaginal bleeding since being started on Eliquis. Seen by gynecology with plan for outpatient follow-up with benign recent endometrial sampling.
Pelvic/transvaginal ultrasound was performed on 01/27/2025 showing a myomatous uterus with 1 appearing submucosal. Given concern for recurrent embolic CVA from the mitral valve lesion, patient underwent 01/29/25 mitral annular debridement as well as
repair of posterior annulus of the MAC with pericardial pledget, and left atrial appendage ligation with 35mm atrial clip. She was extubated on 01/29/2025. Intraoperative cultures were no growth to date, pathology pending.
Overall she is feeling better. No new concerns. Her right side has been doing better since her stroke. Has some minor chest pain. States no bowel movement since surgery. Is passing urine fine.
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
Procedure History: , D&C after miscarriage, right bunionectomy, Uterine polyp removal
Family History: father with CVA at 39 and at age 58
Social History:
Functional Level Premorbidly: Independent with all activities
Functional Level Currently:�� Supervision toileting, min assist lower extremity self-care, mod assist bed mobility, min assist transfers, min assist ambulating 70 feet x 1
Tobacco: Denies
Alcohol: Denies
Drug use: Denies
Lives with: and 14-year-old daughter
24-hour assistance available: Yes
Number of floors: 2
# steps to enter: 5
# steps to second floor: full flight
Potential First floor set up: no
Driving: Yes
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
Allergies:
Allergy/AdvReac Type Severity Reaction Status Date / Time
codeine Allergy Unknown Rash Verified 01/12/25 23:56
latex Allergy Unknown Unknown Verified 01/12/25 23:58
amoxicillin Allergy Rash Verified 01/12/25 23:58
ciprofloxacin (From Cipro) Allergy Rash Verified 01/13/25 00:34
gabapentin Allergy Itching Verified 01/12/25 23:58
Penicillins Allergy Rash Verified 01/12/25 23:58
Review of Systems:
Constitutional: (x) abNormal _ fatigue
Eye: (x) Normal _
Ear/Nose/Throat: (x) Normal _
Respiratory: (x) Normal _
Cardiovascular: (x) Normal _
Gastrointestinal: (x) abNormal _constipated
Genitourinary: (x) abNormal _has stress urinary incontinence and wears pads at home. Does not have full emptying of bladder. This has not really changed since the stroke.
Musculoskeletal: (x) abNormal _has some arthritis in the hips and knees at times.
Integumentary: (x) abNormal _sternal incision with precautions
Neurologic: (x) abNormal _right-sided weakness with difficulty controlling movement. Denies any numbness or tingling.
Psychiatric: (x) Normal _
Endocrine: (x) abNormal _history of diabetes with neuropathy.
Hematologic/Lymphatic: (x) Normal _
Allergic/Immunologic: (x) Normal _
Medications:
Active Current Visit Medication List
Category Date Time Status
0.9% Sodium Chloride 500 ml [Nss] 500 ml Med 01/29/25 13:07 Active
IV CORDIS
Acetaminophen [Tylenol] Med 01/29/25 13:07 Active
650 mg PO Q4HPRN PRN
Acetaminophen [Tylenol] Med 01/29/25 22:00 Active
975 mg PO TID@0600,1400,2200
Amiodarone [Pacerone] Med 01/29/25 16:00 Active
200 mg PO TID
Artificial Tears (Pf) [Refresh Eye Drops (Pf)] Med 01/31/25 20:55 Active
1 drops OPHTH QIDPRN PRN
Ascorbic Acid [Vitamin C] Med 01/30/25 08:00 Active
500 mg PO DAILY
Aspirin Chewable [Low Strength Aspirin] Med 01/30/25 08:00 Active
81 mg PO DAILY
Bisacodyl [Dulcolax] Med 01/29/25 13:07 Active
10 mg RECTAL DAILYPRN PRN
Carvedilol [Coreg] Med 01/31/25 08:00 Active
12.5 mg PO BID
CefTRIAXone [Rocephin] Med 01/24/25 22:00 Active
2,000 mg IV Q12H
Cyclobenzaprine HCl [Flexeril] Med 01/29/25 13:07 Active
5 mg PO Q8HPRN PRN
DAPTOmycin [Cubicin] 700 mg Med 01/27/25 17:00 Active
Syringe [Syringe-Pump] 0 ml
IV Q24H
Dextrose 50%-Water [Dextrose 50% Syringe] Med 01/29/25 13:07 Active
12.5 grams IV [id number] PRN
Ferric Gluconate [Ferrlecit] 125 mg Med 01/30/25 14:00 Active
0.9% Sodium Chloride 100 ml [Nss] 100 ml
IV DAILY@1400
Ferrous Sulfate [Feosol] Med 01/24/25 22:00 Active
325 mg PO TID
Flush (0.9% Sodium Chloride) [Flush (Nss)] Med 01/24/25 22:00 Active
See Dose Instructions IV PER PROTOCOL
Flush (0.9% Sodium Chloride) [Flush (Nss)] Med 01/29/25 21:55 Active
See Dose Instructions IV QID@0955,1005,2155,2205
HYDROmorphone [Dilaudid] Med 01/29/25 13:07 Active
0.25 mg IV Q3HPRN PRN
HYDROmorphone [Dilaudid] Med 01/29/25 13:07 Active
0.5 mg IV Q3HPRN PRN
Insulin Aspart Corrective Mod [Novolog Flexpen-Moderate Med 02/01/25 07:30 Active
Resistance]
See Protocol SC AC
Insulin Aspart Pen [Novolog Flexpen] Med 02/01/25 07:30 Active
17 units SC AC
Insulin Glargine Lantus [Lantus] 22 units Med 01/31/25 22:00 Active
Subcutaneous Insulin Syringe [Syringe-Insulin] 0 unit
SC HS
Lactobac/Bifidobac [Visbiome] Med 01/26/25 11:45 Active
1 cap PO DAILY
Lidocaine [Lidocaine 4% Patch] Med 01/30/25 08:00 Active
1 patch TOPICAL DAILY
Loperamide [Imodium] Med 01/28/25 03:11 Active
2 mg PO Q4HPRN PRN
Magnesium Hydroxide [Milk of Magnesia] Med 01/29/25 13:07 Active
30 ml PO BIDPRN PRN
Magnesium Oxide Med 01/30/25 08:00 Active
400 mg PO BID
Metoclopramide [Reglan] Med 01/30/25 08:01 Active
10 mg IV Q6HPRN PRN
Mupirocin [Bactroban 2% Ointment] Med 01/29/25 20:00 Active
See Dose Instructions NASAL Q12
Ondansetron Injectable [Zofran] Med 01/29/25 13:07 Active
4 mg IV Q8HPRN PRN
Oxycodone [Roxicodone] Med 01/29/25 13:07 Active
2.5 mg PO Q4HPRN PRN
Oxycodone [Roxicodone] Med 01/29/25 13:07 Active
5 mg PO Q4HPRN PRN
Pantoprazole [Protonix] Med 01/30/25 08:00 Active
40 mg PO DAILY
Phenyleph/Pramoxin/Glycr/W.pet [Preparation H Max Med 01/28/25 22:50 Active
Strength Pain Relief Cream]
See Dose Instructions RECTAL Q6HPRN PRN
Remove Patch [Remove Lidocaine Patch] Med 01/30/25 20:00 Active
1 patch REMOVE DAILY@1999
Scopolamine [Transderm-Scop] Med 01/30/25 20:00 Active
1 patch TRANSDERM Q72H
Sennosides [Senokot] Med 01/29/25 20:00 Active
8.6 mg PO Q12
Simethicone [Mylicon] Med 01/31/25 01:07 Active
80 mg PO QIDPRN PRN
Sterile Water [Sterile Water For Injection] Med 01/24/25 22:00 Active
20 ml IV Q12H
Vitals:
Temp Pulse Resp BP Pulse Ox
98.8 F 97 18 116/64 92
02/01/25 08:00 02/01/25 08:00 02/01/25 08:00 02/01/25 07:17 02/01/25 08:00
Height 5 ft 1 in
Actual Weight 99.5 kg
Body Mass Index (BMI) 41.5
Physical Exam:
General Appearance/Observation: Well-developed, well-nourished female in no apparent distress.
Pain/Comfort Assessment: Denies
Mood/Affect: Appropriate
Integumentary/Operative Site: sternal incision healing well. Drain sites covered.
Eyes: Conjunctiva/Lids: normal ��� Pupils: pupils equal round and reactive to light and Accommodation
Ears/Nose/Throat: oral mucosa moist,� throat clear.������������ Lips/Teeth/Gums: normal
Cardiovascular: Heart: regular, no murmur
Pulses: dorsalis pedis 1+ bilaterally
Respiratory: Respiratory Effort/Chest Expansion: normal ������ Auscultation: Clear to auscultation bilaterally
Gastrointestinal: abdomen not tender, no distension, normal abdominal bowel sounds
Genitourinary: No Murphy
Rectal Exam: Deferred
Extremities: Edema: Mild bilateral LE Cyanosis: None Trophic changes: None
Neurology Exam:
Orientation: Alert, Oriented to self, Time, Place
Memory: Intact
Repetition: Intact
Comprehension: Intact
Two step command: Intact
Naming: Intact
Cranial Nerves:
�� CNII: Pupillary light reflex: Intact��� Visual Field: Intact
�� CN III, IV, : Extraocular muscles: Intact
�� CN V: Facial Sensation at Forehead: Intact, Maxilla: Intact, Mandible: Intact
�� CN VII: Facial movement: Symmetric
�� CN VIII: Hearing: Normal
�� CN IX/X: Speech & swallow: Normal, Position of Uvula: Midline
�� CN XI: Shoulder shrug: Symmetric
�� CN XII: Tongue protrusion: Midline
Sensory:
�� Light touch: Intact in bilateral upper and lower extremities, no extinction to double simultaneous stimulation
Reflexes:
�� Biceps: 0 bilaterally
�� Brachioradialis: 0 bilaterally
�� Triceps: 0 bilaterally
�� Patellar: 0 bilaterally
�� Achilles: 0 bilaterally
�� Babinski: Down going bilaterally
�� Clonus: None
�� Maryann: Negative bilaterally
Cerebellar: Dysmetria/Ataxia: None
Musculoskeletal:Motor: (Manual muscle scale 0-5)
Muscle SA EF WE EE FF FA HF KE DF EHL PF
Right� NT >3 4 >3 4 3+ 4 4 4 4
Lefft NT >3 5 5 5 4 5 5 5 5
Tone: Normal in all extremities
Range of Motion: Passively within normal limits in all extremities
Lab Results
Laboratory Data
02/01/25 03:12
02/01/25 03:12
PT 15.9 Sec (11.4-14.6) H 01/29/25 14:23
INR 1.24 01/29/25 14:23
APTT 31.1 Sec (23.4-35.0) 01/29/25 14:23
Total Bilirubin 0.2 mg/dl (0.2-1.3) 01/28/25 03:47
Direct Bilirubin 0.0 mg/dl (0.0-0.4) 01/25/25 03:03
AST 64 U/L (14-36) H 01/28/25 03:47
ALT 112 U/L (0-35) H 01/28/25 03:47
Alkaline Phosphatase 163 U/L (38-126) H 01/28/25 03:47
Total Protein 5.8 g/dl (6.3-8.2) L 01/28/25 03:47
Albumin 3.0 g/dl (3.5-5.0) L 01/28/25 03:47
Diagnostic Results: as per HPI
Assessment
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
weakness on 01/10/2025 acute multiple infarcts in the left cerebellar, occipital, and parietal regions likely from mitral valve mass with concern for vegetation on empiric 6-week course of linezolid and ceftriaxone for suspected mitral valve
endocarditis, vaginal bleeding with pelvic/transvaginal ultrasound noting myomatous uterus s/p 01/29/2025 mitral valve debridement and repair with left atrial appendage ligation resulting in ADL and ambulatory dysfunction.
Plan
PM&R PT/OT to increase independence with ADLs, improve balance, coordination, endurance, strength, mobility, community reintegration, decreased burden of care on others and family education.
Mitral valve debridement and repair with left atrial appendage ligation 01/29/2025: Sternal precautions per primary team. Monitor incision. Pain control.
- Follow-up pathology
Mitral valve vegetation concern: Empiric 6-week course of antibiotics currently on daptomycin and ceftriaxone, could stop earlier depending on cultures. ID managing.
CVA: Secondary prophylaxis with aspirin, Eliquis held with uterine bleeding, and antibiotic coverage for possible vegetation etiology. Statin, and blood pressure control (SBP less than 180 and diastolic less than 100 to participate with therapy for
ischemic stroke). Continue to monitor neurologic status.
Right nondominant hemiparesis: High risk for falls and sliding out of chair/bed. Safety reinforced.
- Avoid using affected arm to help lift or pull patient as this will cause trauma to the shoulder.
HTN: Holding prior medications (chlorthalidone 25 mg daily, losartan 100 mg daily, metoprolol XL 100 mg daily, spironolactone 50 mg daily). Monitor closely, check orthostatics
DM II with neuropathy: Accu-Cheks, insulin sliding scale, metformin 1000 mg twice daily, aspart 17 units with meals and glargine 20 units at night.
DIDI: Intolerant of CPAP
Normocytic anemia: Likely multifactorial.� On iron. Continue to monitor.
FEN: Cholesterol lowering
Psych: Monitor mood, medications as needed.
Skin: monitor for pressure sores/rashes/lesions.
Pain: acetaminophen or oxycodone as needed.
Bowel: Has had some bowel incontinence since stroke. Consider Colace and Senna, PRN bisacodyl. Monitor
Bladder: Has stress incontinence at baseline. Time void, PVRs, PRN straight cath.
GI Prophylaxis: Pantoprazole
DVT Prophylaxis: Mechanical, consider chemoprophylaxis when able.
Pulmonary: Incentive spirometry
Class III obesity: At baseline, current BMI 41.4. Continue to herb counselor patient about diet adjustments to control obesity. Body habitus and increased force to move body and extremities causes further difficulty with functional tasks.
Safety: Continue to reinforce assistance with all transfers.
Code Status:� Full code
Dispo (date/plan/equipment needs): Home with family care.
Discharge Destination: Acute inpatient rehabilitation if she can get home antibiotics. Spoke with liaison and inquiring with case management.
Functional and Medical Goals: Modified Independent with ADL�s, ambulation, transfers
A total of 60 minutes were spent with the patient preparing for the evaluation, obtaining history, performing examination and evaluation, counseling, data review, case management, care coordination, circuit recorder, and EMR documentation.
Thank you for allowing me to care for your patient. Please contact me with any questions or concerns.
Consultation
-
Date/Time Consultation Requested: 02/01/25
Date/Time Consultation Performed: 02/01/25
Requesting Provider: Dr. Mariana Boo
Performing Provider: Dr. Des Tang
Reason for Consultation: Rehabilitation placement.
--- NOTE | 2025-02-01 09:56 | VATNOTE ---
Called to assess a malpostioned picc. Retracted 1 cm and power flushed the picc and redressed as per policy. Awaiting for xray tip placement.
--- NOTE | 2025-02-01 10:03 | W.PN.ID1 ---
Date of Service
Date of Service: February 01, 2025
Today's Communication
awaiting pathology
Assessment / Plan
# Recurrent embolic CVA
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
# 11/ S/P Standard sternotomy/Mitral annular debridement of MAC/Repair of posterior annulus with pericardial pledget/Left atrial appendage ligation
# allergy to penicillin/amoxicillin, ciprofloxacin, Vancomycin
- tissue culture finalized negative today,
- Continue ceftriaxone 2g IV q12.
- continue Daptomycin 700mg IV q24.
- recheck CK wednesday
- Hold statin while on daptomycin.
- has PICC line - for repositioning today
- pending pathology, may stop antibiotics if findings are not consistent with endocarditis
Chief Complaint
-: Other (possible culture negative endocarditis)
Subjective / Review of Systems
afebrile
bp stable
tolerating current therapies
for PICC line repositioning
Vital Signs / Physical Exam
Vital Signs
Vital Signs
Temp Pulse Resp BP Pulse Ox
98.8 F 97 18 116/64 92
02/01/25 08:00 02/01/25 08:00 02/01/25 08:00 02/01/25 07:17 02/01/25 08:00
Physical Exam
Constitutional: No Acute Distress
Cardiovascular: Regular Rate and S1/S2; Negative Murmur or Rub
Pulmonary: Clear and Symmetric; Negative Wheezes or Rales
Gastrointestinal: Soft, Non Tender, Non Distended and Normal Bowel Sounds
Skin: Warm and Dry; Negative Rash or Jaundice
Lines: PICC (no tenderness)
Objective Data
Lab Data
Lab Results
02/01/25 03:12
02/01/25 03:12
PT 15.9 Sec (11.4-14.6) H 01/29/25 14:23
INR 1.24 01/29/25 14:23
APTT 31.1 Sec (23.4-35.0) 01/29/25 14:23
Estimated Creat Clear 90 ml/min 02/01/25 03:12
Total Bilirubin 0.2 mg/dl (0.2-1.3) 01/28/25 03:47
AST 64 U/L (14-36) H 01/28/25 03:47
ALT 112 U/L (0-35) H 01/28/25 03:47
Alkaline Phosphatase 163 U/L (38-126) H 01/28/25 03:47
Most recent labs reviewed.
Micro Results:
01/29/25 12:24 Tissue Culture - Final
Chest - Unspecified No Growth After 72 Hours
Gram Stain - Final
01/26/25 19:52 C. difficile GDH Antigen & Toxins - Final
Feces/Stool Negative for toxigenic C.difficile
01/24/25 21:34 MRSA Screen - Final
Nose No Methicillin Resistant Staphylococcus aureus isolated.
--- NOTE | 2025-02-01 11:15 | PTCARENOTE ---
PICC repositioned by VAT team, repeat x-ray completed. Pt ambulated with PT/OT, tolerated well. Pt remains SR with HR 90. BP 127/54 MAP 74. Pulse oximetry 92% on room air.
[2025-02-01] MEDS: ROCEPHIN 2000 MG IV ×2 (11:41→21:51)
[2025-02-01] MEDS: FLUSH (NSS) 1 FLUSH IV ×2 (11:42)
[2025-02-01] MEDS: STERILE WATER FOR INJECTION 20 ML IV ×2 (11:42→21:51)
[2025-02-01] MEDS: NSS IV (11:42)
--- NOTE | 2025-02-01 12:40 | CM ---
Addendum entered by Olivia Coffey 02/01/25 12:44:
[facility] to make the referral. Sent referral.
Original Note:
Reviewed chart. Met with Mrs. Almaraz to review discharge plans. She states she is feeling okay just tired. We reviewed medical team recommendations of acute rehab. She states she is not sure if she wants to go back to acute rehab. She was
agreeable to having the referral sent if she decides to go to inpatient rehab. We also reviewed [facility] if she selects to go home. Prior to admission she was at [facility]. at [place] was transferred to [facility] then here. Prior to
admission she resides with her spouse and fourteen year old daughter in a two story home with steps to enter. She has a full flight of step to get to bedroom/full bathroom. She does not have a bathroom on the first floor. S Prior to admission she
was independent with ambulation and adls. She does not have any DME. She has a prescription plan. Will need to see her current functional level to see if she will have any skilled care needs. Medical work-up in progress. The discharge plan is to
return home with her spouse and daughter with [facility] versus some level of inpatient rehab. when medically stable.
[2025-02-01 12:45] LABS: Glucose - Point of Care 141 mg/dl (70-99)
[2025-02-01] MEDS: NOVOLOG FLEXPEN-MODERATE RESISTANCE SC ×2 (12:45→17:23)
[2025-02-01] MEDS: FERRLECIT 110 MG IV (14:13)
[2025-02-01] MEDS: CUBICIN 14 MG IV (17:17)
[2025-02-01 17:24] LABS: Glucose - Point of Care 116 mg/dl (70-99)
--- NOTE | 2025-02-01 17:29 | PTCARENOTE ---
Pt ambulated in hallway with RN assistance, tolerated well. Pt assisted back to bed to rest. While sleeping pulse oximetry 88% on room air. Placed on 2L nasal cannula, pulse oximetry 97%. Pt remains SR with HR 81. BP 115/69 MAP 80.
[2025-02-01] MEDS: MAGNESIUM OXIDE PO (19:58)
--- NOTE | 2025-02-01 20:00 | PTCARENOTE ---
Assumed care of patient at 1900. AOx3, c/o pain. SR on CM, rates 90's, BPs stable, pulses palpable, no edema noted. On RA satting 93+% placed on 2L HS, lungs dim at the bases, intermittent audible wheeze alleviated by breathing treatments. Abdomen
SNT, obese, tolerating PO. Voiding without difficulty into the toilet. [employer] with a surgical bra, CT site dressing CDI. RIJ Cordis, LUE PICC/LUE restriction. Pt updated on POC, in agreement, assessment of needs ongoing.
[2025-02-01] MEDS: REMOVE LIDOCAINE PATCH 1 PATCH REMOVE (20:12)
[2025-02-01] MEDS: FLUSH (NSS) IV ×2 (21:48→22:05)
[2025-02-01 21:53] LABS: Glucose - Point of Care 152 mg/dl (70-99)
[2025-02-01] MEDS: LANTUS 0.22 UNITS SC (21:56)
[2025-02-01] MEDS: VENTOLIN NEBULES 1.25 MG INH (22:34)
[2025-02-01] MEDS: REFRESH EYE DROPS (PF) 1 DROPS OPHTH (23:09)
[2025-02-02] VITALS (10 sets, daily range): BP systolic 98–132; BP diastolic 60–84; PULSE 88; O2SAT 97; BMI 41.8
--- NOTE | 2025-02-02 00:15 | PTCARENOTE ---
No acute changes in assessment, patient sleeping between care, oxycodone for pain, assessment of needs ongoing.
--- NOTE | 2025-02-02 01:22 | W.PN.CT ---
Today's Communication / Plan
-
-pod #4
-no significant issues overnight. Had Albuterol neb last night for mild expiratory wheezing
-wt is up 7 lbs on 02/01- got 40 iv Lasix. UO 350/875 in 12/24 hrs. Continue Lasix
-Echo 02/02
-tissue culture finalized negative 02/01
-on Ceftriaxone 2g IV q12 and Daptomycin 700mg IV q24 per ID (has allergy to penicillin/amoxicillin, ciprofloxacin, Vancomycin)
-picc line repositioned 02/01 - now midline
-holding statin while on Daptomycin.
-per ID: pending pathology, may stop antibiotics if findings are not consistent with endocarditis
-await Physiatry eval for possible Daniel d/c
Assessment / Plan
-
Assessment:
-S/P Standard sternotomy/Mitral annular debridement of MAC/Repair of posterior annulus with pericardial pledget/Left atrial appendage ligation with 35mm AtriClip, by Dr. Vizcarra/Rajeev, 01/29/25, pod#4
-Mitral valve annular mass
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
-Diarrhea likely related to antibiotics
-Menorrhagia with acute blood loss anemia requiring transfusion preop S/P pelvics u/s yielding uterine fibroids
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
-Hypertension
-Hyperlipidemia
-DIDI (intolerant of CPAP)
-Class 3 obesity (BMI 40)
-Tooth pain S/p panelipse x 2 negative
-Preop vaginal yeast infection requiring Fluconazole and Miconazole)
-External hemorrhoids
-S/p
-S/p D&C
-S/P bunionectomy
-Acute preop and postop blood loss/Anemia (transfused 2u PRBCs prior and 2u PRBCs post surgery)
-Acute postop atelectasis
-Acute postop hypovolemia with subsequent hypervolemia
Discussed patient care with: Nursing and Care Team
Subjective
-
Date of Service: February 02, 2025
Objective Data
-
PT 15.9 Sec (11.4-14.6) H 01/29/25 14:23
INR 1.24 01/29/25 14:23
APTT 31.1 Sec (23.4-35.0) 01/29/25 14:23
Vital Signs
Vital Signs
Temp Pulse Resp BP Pulse Ox
98.3 F 81 16 109/60 98
02/02/25 00:00 02/02/25 00:00 02/02/25 00:00 02/02/25 00:00 02/01/25 22:36
CT Intake/Output/Weight
02/01/25 02/01/25 02/02/25
06:59 18:59 06:59
Intake Total 10 / 155.6 130 / 330 200 / 330
Output Total 450 / 1215 525 / 875 350 / 875
Balance -440 / -1059.4 -395 / -545 -150 / -545
SaO2: 98
Physical Exam
-
General: Awake and AOx3
Cardiovascular: Regular rate & rhythm, No Murmurs and No Rub
Respiratory: Wheeze (with expiration b/l) and Decreased Breath Sounds
Sternum: Stable
Incision: Clean, Dry and Intact
Extremities: Other (trace edema b/l)
Abdomen: soft, nontender, nondistended
Data Reviewed
-
Lab Results: Results Reviewed
Medications: Active Meds Reviewed
Chest X-Ray: Report Reviewed and Image Reviewed
ECG: Report Reviewed and Image Reviewed
--- NOTE | 2025-02-02 04:00 | PTCARENOTE ---
Breathing treatment via RT for audible inspiratory wheeze. CVPA made aware. otherwise no changes. Sleep been care.
[2025-02-02] MEDS: VENTOLIN NEBULES 1.25 MG INH (04:14)
[2025-02-02 05:01] LABS: Hematocrit 26.7 % (37.0-47.0); Hemoglobin 8.2 g/dL (12.0-16.0); Mean Corp Hgb Conc. 30.7 g/dL (33.0-37.0); Mean Corpuscular Volume 95.7 fL (81.0-99.0); Platelet Count 178 10^3/uL (130-400); Red Cell Dist. Width 17.4 % (11.5-14.5)
[2025-02-02 05:25] LABS: Blood Urea Nitrogen 20 mg/dl (7-17); Calcium 8.5 mg/dl (8.4-10.2); Carbon Dioxide 30 mmol/L (22-30); Chloride 105 mmol/L (98-107); Estimated Creatinine Clearance 120 ml/min; Glucose 85 mg/dl (70-99); Magnesium 2.2 mg/dl (1.6-2.3); Potassium 3.7 mmol/L (3.5-5.1); Sodium 138 mmol/L (135-145); eGFR > 60.00
[2025-02-02] MEDS: TYLENOL 975 MG PO ×2 (06:07→12:52)
[2025-02-02] MEDS: REFRESH EYE DROPS (PF) 1 DROPS OPHTH (06:29)
[2025-02-02] MEDS: ROXICODONE 5 MG PO ×3 (06:29→22:33)
--- NOTE | 2025-02-02 07:38 | W.PN.CD ---
Today's Communication / Plan
-
OOB and ambulate
Impression / Plan
-
Impression/Plan: 49 yo female with PMH T2DM, DIDI, HTN, obesity, CVA's, and mitral valve mass. Transferred from [facility] with recurrent neurologic insults likely related to mitral valve lesion. Now s/p surgery as below.
#Mitral valve mass
-S/p standard sternotomy/Mitral annular debridement of MAC/Repair of posterior annulus with pericardial pledget/Left atrial appendage ligation with 35mm AtriClip, by Drs. Vizcarra and Rajeev, 01/29/25.
-Continue IV antibiotics per ID, path no growht
-IS/ambulation as able
-tele stable in SR, VSS off drips
-CT remains in place
-on ASA and BB- continue
#CVA/TIA
-recurrent, likely embolic.
-Embolic source is likely the mass on mitral valve, identified on LAURA in prior admission.
-Apixaban has been held to avoid hemorrhagic transformation and in anticipation of surgery as above
# bleeding
-Acute on chronic.
- bleeding has subsided.
-Pelvis US shows myxomatous uterus.
#Acute anemia
-stabilized. Patient has required PRBCs this admission.
-Hgb currently 9.2, baseline appears to be 12.
-Attributed to her uterine bleeding in setting of apixaban use.
#HTN
-stable, monitor post-op
#HLD
-continue statin
#DM
-diabetic PUBLICIST on the case
Subjective/Interval History:
feeling better each day
DATA:
Cardiac Catheterization, 01/15/2025:
CONCLUSIONS
1. Right dominant circulation with an upward angulated left main coronary artery requiring an AL 2 diagnostic catheter with coronary wire assistance for cannulation and no coronary artery disease.
2. Systemic hypertension, permissive in the setting of CVA.
LAURA, 01/15/2025:
SUMMARY
1. Normal biventricular size and systolic function. Left ventricular ejection fraction visually estimated 60-65%.
2. Trileaflet aortic valve that opens normally without significant aortic regurgitation. Lambl's excrescence noted on aortic side of RCC.
3. Thickened mitral valve leaflets without prolapse. Sessile 0.88 cm echodensity at the junction of the base of P1/ P2 on the atrial side. Trivial mitral regurgitation.
4. Trace tricuspid insufficiency. Estimated pulmonary artery systolic pressure 18 mmHg assuming a right atrial pressure of 5 mmHg.
5. Intact interatrial septum without shunt by color-flow Doppler and negative agitated saline, bubble study.
6. No pericardial effusion.
7. Recommend Reviewed with primary cardiology service.
Pelvis US, 01/27/2025:
IMPRESSION:
Myomatous uterus. One appears submucosal.
MVr, 01/29/2025:
Procedure(s) Performed:
1. Standard sternotomy and aortic and bicaval cannulation
2. Mitral annular debridement of MAC
3. Repair of posterior annulus with pericardial pledget
4. Left atrial appendage ligation with 35mm AtriClip
5. Temporary ventricular wire placement
Physical Exam
Vital Signs/Labs
Vital Signs
Temp Pulse Resp BP Pulse Ox
98.7 F 84 16 104/80 99
02/02/25 04:00 02/02/25 05:00 02/02/25 04:18 02/02/25 04:02 02/02/25 04:18
02/01/25 02/02/25 02/03/25
06:59 06:59 06:59
Actual Weight 219 lb 5.759 oz
02/02/25 04:22
02/02/25 04:22
PT 15.9 Sec (11.4-14.6) H 01/29/25 14:23
INR 1.24 01/29/25 14:23
APTT 31.1 Sec (23.4-35.0) 01/29/25 14:23
Magnesium 2.2 mg/dl (1.6-2.3) 02/02/25 04:22
Physical Exam
Constitutional: No acute distress and Comfortable
EENT: Anicteric
Cardiovascular: Rhythm & rate is regular
Respiratory: Respiratory effort normal and Lungs clear to auscul.
GI: Soft
Neuro/Psych: AO x 3
Data Reviewed
-
Date of Service: February 02, 2025
Medical Decision Making: Reviewed Test Results
EKG: Tracing Personally Visualized and interpreted (sr)
Labs: Labs Reviewed by me
[2025-02-02] MEDS: NOVOLOG FLEXPEN 17 UNITS SC ×3 (08:03→17:38)
[2025-02-02 08:04] LABS: Glucose - Point of Care 137 mg/dl (70-99)
[2025-02-02] MEDS: NOVOLOG FLEXPEN-MODERATE RESISTANCE SC ×2 (08:04→17:38)
[2025-02-02] MEDS: BACTROBAN 2% OINTMENT 1 APPLIC NASAL (08:05)
[2025-02-02] MEDS: KCL 40 MEQ PO ×2 (08:25→22:04)
[2025-02-02] MEDS: LASIX 40 MG IV ×2 (08:25→16:54)
[2025-02-02] MEDS: PROTONIX 40 MG PO (08:26)
[2025-02-02] MEDS: LOW STRENGTH ASPIRIN 81 MG PO (08:26)
[2025-02-02] MEDS: VITAMIN C 500 MG PO (08:26)
[2025-02-02] MEDS: SENOKOT 8.6 MG PO ×2 (08:27→19:34)
[2025-02-02] MEDS: MAGNESIUM OXIDE 400 MG PO ×2 (08:27→19:34)
[2025-02-02] MEDS: FEOSOL 325 MG PO ×3 (08:27→22:05)
[2025-02-02] MEDS: PACERONE 200 MG PO ×3 (08:27→22:04)
[2025-02-02] MEDS: LIDOCAINE 4% PATCH TOPICAL (08:28)
[2025-02-02] MEDS: COREG 12.5 MG PO ×2 (08:29→19:35)
[2025-02-02] MEDS: VISBIOME 1 CAP PO (08:29)
--- NOTE | 2025-02-02 08:30 | PN.DE.MGMTRT ---
Insulin Management
- -
02/02/25: Diabetes Management Follow up
49 yo female readmitted for for CT surgery 01/29. 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 PMH: Uncontrolled hypertension, DIDI,
uncontrolled T2DM, Diabetic Neuropathy, Obesity.
On 01/10/2025 pt presented to [facility] ED with right sided weakness, and subsequent imaging (CT and MRI) demonstrated multiple infarcts in bilateral hemispheres. 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 She
was transferred to [facility] and started on broad-spectrum abx for potential vegetation. CV surgery was delayed up to 6 weeks for recovery from weakness and endocarditis. She was discharged to [facility] on 01/18/2025 with PICC line to continue linezolid
and ceftriaxone.
Pt states she has struggled with diabetes since 2006, began using insulin during a in 2010.
Routinely sees charissa Chi PA-C at [facility]. Recent A1C 11.2%, Cr 0.6, eGFR >60
While in rehab pt experienced dysarthria and fluctuating R sided weakness and then sent to [facility]. Brain MRI there was c/f infarcts in L occipital and R posterior parietal lobes. she was transferred to [facility] on 01/24/2025 for surgical
treatment of mitral valve mass.
Patient awake, alert and oriented out of bed ambulating in room with , offers no complaints, able to discuss diabetes care plan.
POD #4 s/p resection of MV mass with MV Repair/Replacement and DUSTIN clip.
Transitioned from Critical Care glycemic protocol to SQ insulin on 01/31. Glucose stable and in range 116 to 155
Will make no changes to current regimen: Lantus 22 units @ HS and AC NovoLog 17 units and moderate corrective insulin with meals.
Discussed with Nurse. Will cont to follow.
Diabetes History
- -
Type of Diabetes: 2 requiring insulin
Pre-Admission Diabetes Regimen
02/02/25
04:22
Creatinine 0.6
Insulin Pump Settings
IP Diabetes Regimen
02/01/25 02/01/25 02/01/25
12:44 17:22 21:52
Glucose
POC Glucose 141 H 116 H 152 H
02/02/25 02/02/25
04:22 08:02
Glucose 85
POC Glucose 137 H
Patient Education
--- NOTE | 2025-02-02 08:40 | PTCARENOTE ---
NSR HR 80s. 95% RA. lungs dimiished but clear. IS 750. Cordis d/c'd as ordered. 1Lnc. 95%. LESLY removed from leg. surgival sites CDI. CTx3 to -20 wall suction. insulin per glycemic protocol. will continue to monitorl
[2025-02-02] MEDS: FLUSH (NSS) 1 FLUSH IV ×5 (12:09→22:07)
[2025-02-02 12:24] LABS: Glucose - Point of Care 151 mg/dl (70-99)
[2025-02-02] MEDS: STERILE WATER FOR INJECTION 20 ML IV ×2 (12:24→17:09)
[2025-02-02] MEDS: NOVOLOG FLEXPEN-MODERATE RESISTANCE 1 UNITS SC (12:26)
[2025-02-02] MEDS: ROCEPHIN 2000 MG IV ×2 (12:26→17:09)
[2025-02-02] MEDS: NSS IV (12:28)
--- NOTE | 2025-02-02 14:01 | CM ---
Addendum entered by Olivia Coffey 02/02/25 16:37:
Met with Bisi to update her on tentative discharge Wednesday with [facility] if medically stable.
Addendum entered by Olivia Coffey 02/02/25 15:42:
Received telephone call from [facility] who states they can start care on Wednesday02/04/25. She will need to have her a.m. dose of Rocephin and her dose of Daptomycin prior to her discharge on Wednesday. [facility] will be out on
Wednesday p,m, to do the teaching and the next dose of Rocephin. They would like her home IV ABX schedule to be 6:00 a.m and 6:00 p.m. [facility],([facility]) will be out early next week to do the physical and occupational therapy. Medical work-up in
progress. The discharge plan is to return home with spouse [facility] and [facility] when medically stable.
Original Note:
Reviewed chart. Met with Mrs. Almaraz to review discharge plans. Also reviewed with physical therapy and medical team. Mrs Almaraz did well in therapy and maybe able to go home home with IV Home infusion and [facility] Services. Telephone call to [facility] to make the referral to Home IV ABX and regular VNA. Sent referral [facility] and sent the referral to [facility] intake. awaiting decision if they can accept her case. Mrs. Almaraz states she is feeling better and would like to
explore the possibility of going home with home care and Home Infusion. Prior to admission she resides with her spouse and fourteen year old daughter in a two story home with steps to enter. She has a full flight of step to get to bedroom/full
bathroom. She does not have a bathroom on the first floor. S Prior to admission she was independent with ambulation and adls. She does not have any DME. She has a prescription plan. Will need to see her current functional level to see if she will
have any skilled care needs. Medical work-up in progress. The discharge plan is to return home with her spouse and daughter with [facility] for RN. P.T. O.T. and home infusion when medically stable.
--- NOTE | 2025-02-02 15:39 | W.PN.ID1 ---
Date of Service
Date of Service: February 02, 2025
Today's Communication
awaiting pathology
Assessment / Plan
# Recurrent embolic CVA
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
# 11/ S/P Standard sternotomy/Mitral annular debridement of MAC/Repair of posterior annulus with pericardial pledget/Left atrial appendage ligation
# allergy to penicillin/amoxicillin, ciprofloxacin, Vancomycin
- tissue culture finalized negative today,
- Continue ceftriaxone 2g IV q12.
- continue Daptomycin 700mg IV q24.
- recheck CK wednesday if in house; otherwise weekly cbc, cmp, CK while on IV antibiotics
- Hold statin while on daptomycin.
- has PICC line
- pending pathology, may stop antibiotics if findings are not consistent with endocarditis
- if patient discharges before final pathology results are back, then would continue antibiotics until those results are finalized, script provided to therapeutic case manager today
Chief Complaint
-: Other (possible culture negative endocarditis)
Subjective / Review of Systems
afebrile
bp stable
complains only of feeling cold
spoke with pathology, results are not expected today
Vital Signs / Physical Exam
Vital Signs
Vital Signs
Temp Pulse Resp BP Pulse Ox
97.8 F 89 18 104/84 95
02/02/25 12:37 02/02/25 12:37 02/02/25 12:37 02/02/25 11:28 02/02/25 13:40
Physical Exam
Constitutional: No Acute Distress
Cardiovascular: Regular Rate and S1/S2; Negative Murmur or Rub
Pulmonary: Clear and Symmetric; Negative Wheezes or Rales
Gastrointestinal: Soft, Non Tender, Non Distended and Normal Bowel Sounds
Skin: Warm and Dry; Negative Rash or Jaundice
Lines: PICC
Objective Data
Lab Data
Lab Results
02/02/25 04:22
02/02/25 04:22
PT 15.9 Sec (11.4-14.6) H 01/29/25 14:23
INR 1.24 01/29/25 14:23
APTT 31.1 Sec (23.4-35.0) 01/29/25 14:23
Estimated Creat Clear 120 ml/min 02/02/25 04:22
Total Bilirubin 0.2 mg/dl (0.2-1.3) 01/28/25 03:47
AST 64 U/L (14-36) H 01/28/25 03:47
ALT 112 U/L (0-35) H 01/28/25 03:47
Alkaline Phosphatase 163 U/L (38-126) H 01/28/25 03:47
Most recent labs reviewed.
Micro Results:
01/29/25 12:24 Tissue Culture - Final
Chest - Unspecified No Growth After 72 Hours
Gram Stain - Final
01/26/25 19:52 C. difficile GDH Antigen & Toxins - Final
Feces/Stool Negative for toxigenic C.difficile
01/24/25 21:34 MRSA Screen - Final
Nose No Methicillin Resistant Staphylococcus aureus isolated.
[2025-02-02 16:52] LABS: Glucose - Point of Care 137 mg/dl (70-99)
[2025-02-02] MEDS: CUBICIN 14 MG IV (17:00)
[2025-02-02] MEDS: TRANSDERM-SCOP 1 PATCH TRANSDERM (19:37)
[2025-02-02] MEDS: REMOVE LIDOCAINE PATCH 1 PATCH REMOVE (19:37)
[2025-02-02] MEDS: FLEXERIL 5 MG PO (19:42)
[2025-02-02] MEDS: TYLENOL 650 MG PO (19:42)
--- NOTE | 2025-02-02 20:00 | PTCARENOTE ---
assumed care of patient at 1900. Patient alert andorient , OOB to shannan, in Normal sinus rythym on monito Oulses palpitabole, Chroninc back pain ptincions are clen jackson and inysvy
[2025-02-02] MEDS: FLUSH (NSS) 10 FLUSH IV (22:00)
[2025-02-02] MEDS: LANTUS 0.22 UNITS SC (22:03)
[2025-02-02 22:04] LABS: Glucose - Point of Care 156 mg/dl (70-99)
[2025-02-03] VITALS (16 sets, daily range): BP systolic 103–154; BP diastolic 70–102; PULSE 85; O2SAT 97; BMI 41.4
[2025-02-03] MEDS: TYLENOL PO (01:41)
[2025-02-03 05:24] LABS: Hematocrit 27.1 % (37.0-47.0); Hemoglobin 8.8 g/dL (12.0-16.0); Mean Corp Hgb Conc. 32.5 g/dL (33.0-37.0); Mean Corpuscular Volume 91.2 fL (81.0-99.0); Platelet Count 206 10^3/uL (130-400); Red Cell Dist. Width 18.3 % (11.5-14.5)
--- NOTE | 2025-02-03 05:27 | PTCARENOTE ---
patient up out bed, ambulatining in room with stand by assistance. weight obtained,
[2025-02-03 05:43] LABS: Blood Urea Nitrogen 15 mg/dl (7-17); Calcium 8.5 mg/dl (8.4-10.2); Carbon Dioxide 28 mmol/L (22-30); Chloride 105 mmol/L (98-107); Estimated Creatinine Clearance 120 ml/min; Glucose 118 mg/dl (70-99); Magnesium 2.0 mg/dl (1.6-2.3); Potassium 4.2 mmol/L (3.5-5.1); Sodium 136 mmol/L (135-145); eGFR > 60.00
[2025-02-03] MEDS: TYLENOL 975 MG PO ×3 (05:58→21:30)
[2025-02-03] MEDS: FLUSH (NSS) 1 FLUSH IV (05:58)
[2025-02-03] MEDS: ROCEPHIN 2000 MG IV ×2 (05:58→17:14)
[2025-02-03] MEDS: FLUSH (NSS) 10 FLUSH IV (06:31)
[2025-02-03] MEDS: MAGNESIUM OXIDE 400 MG PO ×2 (08:00→19:46)
[2025-02-03] MEDS: ROXICODONE 5 MG PO ×3 (08:00→22:53)
[2025-02-03] MEDS: VISBIOME 1 CAP PO (08:01)
[2025-02-03] MEDS: PACERONE 200 MG PO ×3 (08:01→21:34)
[2025-02-03] MEDS: LASIX 40 MG IV (08:08)
[2025-02-03 08:09] LABS: Glucose - Point of Care 150 mg/dl (70-99)
[2025-02-03] MEDS: SENOKOT 8.6 MG PO ×2 (08:09→19:45)
[2025-02-03] MEDS: COREG 12.5 MG PO ×2 (08:09→19:46)
[2025-02-03] MEDS: VITAMIN C 500 MG PO (08:09)
[2025-02-03] MEDS: LOW STRENGTH ASPIRIN 81 MG PO (08:10)
[2025-02-03] MEDS: FEOSOL 325 MG PO ×3 (08:10→21:30)
[2025-02-03] MEDS: PROTONIX 40 MG PO (08:10)
[2025-02-03] MEDS: NOVOLOG FLEXPEN 17 UNITS SC ×3 (08:11→17:01)
[2025-02-03] MEDS: NOVOLOG FLEXPEN-MODERATE RESISTANCE 1 UNITS SC ×2 (08:12→12:45)
[2025-02-03] MEDS: STERILE WATER FOR INJECTION IV (08:12)
[2025-02-03] MEDS: LIDOCAINE 4% PATCH 1 PATCH TOPICAL (08:14)
--- NOTE | 2025-02-03 08:37 | W.PN.CT ---
Today's Communication / Plan
-
-pod #5
-no significant issues overnight. Improving
-diuresed with bid Lasix 02/02
-plans for d/c on Wednesday with [facility]
-
Assessment / Plan
-
Assessment:
-S/P Standard sternotomy/Mitral annular debridement of MAC/Repair of posterior annulus with pericardial pledget/Left atrial appendage ligation with 35mm AtriClip, by Dr. Vizcarra/Rajeev, 01/29/25, pod#5
-Mitral valve annular mass
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
-Diarrhea likely related to antibiotics
-Menorrhagia with acute blood loss anemia requiring transfusion preop S/P pelvics u/s yielding uterine fibroids
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
-Hypertension
-Hyperlipidemia
-DIDI (intolerant of CPAP)
-Class 3 obesity (BMI 40)
-Tooth pain S/p panelipse x 2 negative
-Preop vaginal yeast infection requiring Fluconazole and Miconazole)
-External hemorrhoids
-S/p
-S/p D&C
-S/P bunionectomy
-Acute preop and postop blood loss/Anemia (transfused 2u PRBCs prior and 2u PRBCs post surgery)
-Acute postop atelectasis
-Acute postop hypovolemia with subsequent hypervolemia
Discussed patient care with: Nursing and Care Team
Subjective
-
Date of Service: February 03, 2025
Objective Data
-
Lab Results
02/03/25 05:07
02/03/25 05:07
PT 15.9 Sec (11.4-14.6) H 01/29/25 14:23
INR 1.24 01/29/25 14:23
APTT 31.1 Sec (23.4-35.0) 01/29/25 14:23
Vital Signs
Vital Signs
Temp Pulse Resp BP Pulse Ox
98.7 F 82 18 132/72 95
02/02/25 20:00 02/02/25 22:04 02/02/25 12:37 02/02/25 22:04 02/02/25 20:00
CT Intake/Output/Weight
02/02/25 02/03/25 02/03/25
18:59 06:59 18:59
Intake Total 250 / 400 150 / 400
Output Total 1575 / 2525 950 / 2525 100 / 100
Balance -1325 / -2125 -800 / -2125 -100 / -100
SaO2: 95
Physical Exam
-
General: Awake and AOx3
Cardiovascular: Regular rate & rhythm, No Murmurs and No Rub
Respiratory: Decreased Breath Sounds (no wheeze)
Sternum: Stable
Incision: Clean, Dry and Intact
Extremities: No Edema
Data Reviewed
-
Lab Results: Results Reviewed
Medications: Active Meds Reviewed
Chest X-Ray: Report Reviewed and Image Reviewed
ECG: Report Reviewed and Image Reviewed
[2025-02-03] MEDS: FLUSH (NSS) IV ×4 (10:14→23:19)
[2025-02-03] MEDS: KCL 20 MEQ PO (10:19)
[2025-02-03 12:08] LABS: Glucose - Point of Care 185 mg/dl (70-99)
[2025-02-03] MEDS: NSS IV (12:45)
--- NOTE | 2025-02-03 15:28 | PTCARENOTE ---
Pt received OOB in chair @ 0700. AAOx3. PRN Roxicodone 5mg PO administered x1 for chest soreness. Otherwise pain effectively managed by scheduled Tylenol. NIHSS 0. Sinus rhythm on court recording monitor. Trace anasarca. Surgical sites C/D/I. Pt (+) bowel
movement. Left PICC in place.
[2025-02-03] MEDS: LASIX 40 MG PO (16:21)
[2025-02-03 16:58] LABS: Glucose - Point of Care 124 mg/dl (70-99)
[2025-02-03] MEDS: NOVOLOG FLEXPEN-MODERATE RESISTANCE SC (17:02)
[2025-02-03] MEDS: CUBICIN 14 MG IV (17:10)
[2025-02-03] MEDS: STERILE WATER FOR INJECTION 20 ML IV (17:14)
[2025-02-03] MEDS: REMOVE LIDOCAINE PATCH 1 PATCH REMOVE (19:47)
--- NOTE | 2025-02-03 20:00 | PTCARENOTE ---
resumed care of pt sitting up in chair AAOx3. NIH assessed 0 at this time. HR in the 90's in NSR on the monitor. POX 95% on RA. Lungs dec @ bases. + bowel, round obese abd. Pt ambulatory to bathroom with assistance to ensure Sternal prec maintained.
Pt assisted to bed and positioned per comfort. Sternal incision with surg glue open to air. Chest tube sites with dressing intact. Palpable peripheral pulses present. Left Picc in place. No issues to report at this time. at bedside. Will
continue to monitor.
[2025-02-03 21:22] LABS: Glucose - Point of Care 71 mg/dl (70-99)
[2025-02-03] MEDS: LANTUS 0.22 UNITS SC (21:33)
--- NOTE | 2025-02-03 23:26 | PTCARENOTE ---
Pt unable to sleep in bed. Pt moaning and uncomfortable. Pt OOB to chair. Pt refuses legs to be elevated while sitting in chair. PRN Pain medication administered as ordered. remains at bedside. Call arias in reach. Will continue to monitor.
[2025-02-04 00:56] LABS: Glucose - Point of Care 74 mg/dl (70-99)
--- NOTE | 2025-02-04 04:14 | W.PN.CT ---
Today's Communication / Plan
-
-pod #6
-no significant issues overnight. Improving
-diuresing with bid Lasix
-plans for d/c today after getting her antibiotics, then [facility] will follow
Assessment / Plan
-
Assessment:
-S/P Standard sternotomy/Mitral annular debridement of MAC/Repair of posterior annulus with pericardial pledget/Left atrial appendage ligation with 35mm AtriClip, by Dr. Vizcarra/Rajeev, 01/29/25, pod#6
-Mitral valve annular mass
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
-Diarrhea likely related to antibiotics
-Menorrhagia with acute blood loss anemia requiring transfusion preop S/P pelvics u/s yielding uterine fibroids
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
-Hypertension
-Hyperlipidemia
-DIDI (intolerant of CPAP)
-Class 3 obesity (BMI 40)
-Tooth pain S/p panelipse x 2 negative
-Preop vaginal yeast infection requiring Fluconazole and Miconazole)
-External hemorrhoids
-S/p
-S/p D&C
-S/P bunionectomy
-Acute preop and postop blood loss/Anemia (transfused 2u PRBCs prior and 2u PRBCs post surgery)
-Acute postop atelectasis
-Acute postop hypovolemia with subsequent hypervolemia
Discussed patient care with: Nursing and Care Team
Subjective
-
Date of Service: February 04, 2025
Objective Data
-
Lab Results
02/03/25 05:07
02/03/25 05:07
PT 15.9 Sec (11.4-14.6) H 01/29/25 14:23
INR 1.24 01/29/25 14:23
APTT 31.1 Sec (23.4-35.0) 01/29/25 14:23
Vital Signs
Vital Signs
Temp Pulse Resp BP Pulse Ox
99.9 F 89 20 126/70 95
02/03/25 19:42 02/03/25 23:00 02/03/25 19:42 02/03/25 22:00 02/03/25 20:48
CT Intake/Output/Weight
02/03/25 02/03/25 02/04/25
06:59 18:59 06:59
Intake Total 150 / 400 960 / 960
Output Total 950 / 2525 100 / 100
Balance -800 / -2125 860 / 860
SaO2: 95
Physical Exam
-
General: Awake and AOx3
Cardiovascular: Regular rate & rhythm, No Murmurs and No Rub
Respiratory: Decreased Breath Sounds (no wheeze)
Sternum: Stable
Incision: Clean, Dry and Intact
Extremities: No Edema
Data Reviewed
-
Lab Results: Results Reviewed
Medications: Active Meds Reviewed
Chest X-Ray: Report Reviewed and Image Reviewed
ECG: Report Reviewed and Image Reviewed
[2025-02-04 04:50] VITALS: BP 157/89
[2025-02-04] MEDS: ROXICODONE 5 MG PO ×2 (04:58→09:07)
[2025-02-04] MEDS: ROCEPHIN 2000 MG IV (05:01)
[2025-02-04] MEDS: TYLENOL 975 MG PO ×2 (05:01→14:30)
[2025-02-04] MEDS: STERILE WATER FOR INJECTION 20 ML IV (05:01)
[2025-02-04 05:06] VITALS: BMI 41.0
--- NOTE | 2025-02-04 05:19 | PTCARENOTE ---
Pt sleeping well in chair. PRN pain medication administered as ordered. Vital signs stable. No issues to report overnight. No changes in assessment noted at this time. WIll continue to monitor.
[2025-02-04 05:45] LABS: Hematocrit 29.9 % (37.0-47.0); Hemoglobin 9.1 g/dL (12.0-16.0); Mean Corp Hgb Conc. 30.4 g/dL (33.0-37.0); Mean Corpuscular Volume 95.8 fL (81.0-99.0); Platelet Count 218 10^3/uL (130-400); Red Cell Dist. Width 19.0 % (11.5-14.5)
[2025-02-04 05:51] LABS: Blood Urea Nitrogen 12 mg/dl (7-17); Calcium 8.8 mg/dl (8.4-10.2); Carbon Dioxide 30 mmol/L (22-30); Chloride 103 mmol/L (98-107); Estimated Creatinine Clearance 119 ml/min; Glucose 114 mg/dl (70-99); Magnesium 2.0 mg/dl (1.6-2.3); Potassium 4.0 mmol/L (3.5-5.1); Sodium 138 mmol/L (135-145); eGFR > 60.00
[2025-02-04 07:42] VITALS: BP 138/104
[2025-02-04 08:20] LABS: Glucose - Point of Care 145 mg/dl (70-99)
[2025-02-04 09:02] VITALS: BP 143/79
[2025-02-04] MEDS: SENOKOT PO (09:04)
[2025-02-04] MEDS: NOVOLOG FLEXPEN-MODERATE RESISTANCE SC (09:05)
[2025-02-04] MEDS: KCL 20 MEQ PO (09:07)
[2025-02-04] MEDS: VITAMIN C 500 MG PO (09:07)
[2025-02-04] MEDS: FEOSOL 325 MG PO (09:07)
[2025-02-04] MEDS: VISBIOME 1 CAP PO (09:07)
[2025-02-04] MEDS: MAGNESIUM OXIDE 400 MG PO (09:08)
[2025-02-04] MEDS: LASIX 40 MG PO (09:08)
[2025-02-04] MEDS: LOW STRENGTH ASPIRIN 81 MG PO (09:08)
[2025-02-04] MEDS: PACERONE 200 MG PO (09:08)
[2025-02-04] MEDS: COREG 12.5 MG PO (09:08)
[2025-02-04] MEDS: PROTONIX 40 MG PO (09:09)
[2025-02-04] MEDS: NOVOLOG FLEXPEN 17 UNITS SC ×2 (09:09→12:36)
--- NOTE | 2025-02-04 09:49 | PTCARENOTE ---
Received patient for 7a-7p shift. Patient AAOx3, without complaints. NSR on diagnostic cardiac sonographer. Patient showered, all dressings removed. Medications administered as ordered. Patient medicated for pain. Ambulatory in room without issues. Patient
instructed to call for assistance prior to ambulation. Patient verbalized understanding.
[2025-02-04] MEDS: LIDOCAINE 4% PATCH TOPICAL (10:18)
--- NOTE | 2025-02-04 11:27 | W.[place]-PDMP ---
[place]-PDMP
-
Checked the [place]- Prescription Drug Monitoring Program website, no red flags identified; safe to proceed with prescription.
--- NOTE | 2025-02-04 11:27 | W.DCSUMMARY ---
Discharge Summary
Discharge Data
Date of Admission: 01/24/25
Date of Discharge: 02/04/25
-
Pending Results: No
Hospital Course
Primary care physician:
Dacia Baum
Outpatient package center supervisor:
Des Goyal
Inpatient consultants:
CBC
Procedures:
1. with pericardial pledget/Left atrial appendage ligation with 35mm AtriClip, by Dr. Vizcarra/Rajeev, 01/29/25
Admission Diagnosis:
-Mitral valve annular mass
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
-Diarrhea likely related to antibiotics
-Menorrhagia with acute blood loss anemia requiring transfusion preop S/P pelvics u/s yielding uterine fibroids
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
-Hypertension
-Hyperlipidemia
-DIDI (intolerant of CPAP)
-Class 3 obesity (BMI 40)
-Tooth pain S/p panelipse x 2 negative
-Preop vaginal yeast infection requiring Fluconazole and Miconazole)
-External hemorrhoids
-S/p
-S/p D&C
-S/P bunionectomy
Discharge Diagnoses:
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
-Acute preop and postop blood loss/Anemia (transfused 2u PRBCs prior and 2u PRBCs post surgery)
-Acute postop atelectasis
-Acute postop hypovolemia with subsequent hypervolemia
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
-Diarrhea likely related to antibiotics
-Menorrhagia with acute blood loss anemia requiring transfusion preop S/P pelvics u/s yielding uterine fibroids
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
-Hypertension
-Hyperlipidemia
-DIDI (intolerant of CPAP)
-Class 3 obesity (BMI 40)
-Tooth pain S/p panelipse x 2 negative
-Preop vaginal yeast infection requiring Fluconazole and Miconazole)
-External hemorrhoids
-S/p
-S/p D&C
-S/P bunionectomy
HPI: Ms Almaraz is a very pleasant female with hx of DM II with neuropathy, DIDI, HTN, class 3 obesity. Initially, she presented to [facility] ED on 01/10/25 with right-sided weakness. CT of the head demonstrated multiple acute infarcts in the
left cerebellar, occipital, parietal lobes. MRI of the head on 01/16/25 revealed b/l hemispheric infarcts. 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 Pt was started on broad-spectrum antibiotics
presumably for potential valvular vegetation. She was discharged from to [facility] on 01/18/25 with L picc line to continue 6-week course of Linezolid and Ceftriaxone. She was also started on Eliquis for secondary stroke prevention.
While at [facility], she developed sudden issues with speech, having difficulty to get all of the words out. Her R sided weakness has been fluctuating. She was sent to [facility] for evaluation. Brain MRI was concerning for infarcts in the left
occipital and R posterior parietal lobes. She is transferred back to on 01/24/25 for surgical tx of her mitral valve mass. Her speech is fluent, appropriate. She is comfortable, in no distress. She reports having uterine bleeding for the past week.
Hospital course: She was admitted on 01/24 and underwent workup for vaginal bleeding by Gynecology (pelvic US revealed a myomatous uterus, recent negative endometrial biopsy) felt might be due to initiation of Eliquis. CT scans of head and chest
were negative for bleeds. ID consulted for antibiotic management (?endocarditis given embolic events and LA mass). Dental consult for tooth pain (recommended outpatient f/u). She received 2U RBC's preop for anemia. She was taken to the OR on 01/29
and underwent the above noted surgery. She tolerated the procedure well and was transferred to the ICU in stable condition. She was extubated later that day and her vasoactive drips were weaned and discontinued by POD#1. She required diuresis for
fluid overload that responded to Lasix bid. Her lines and drains were removed in the routine/timely fashion. CXR remained stable following chest tube removal. She remained in sinus rhythm postop. ID placed antibiotic recommendations (Rocephin and
Daptomycin) and home nursing arranged for home IV's. It was felt that she could safely be discharged to home. She was given explicit instructions on diet, wound care, and physical activity. She will follow up with CT surgery and Cardiology as
scheduled, PCP as needed.
Discharge Plan
-
Patient Disposition: Home (Routine Discharge)
Discharge Diagnosis/Procedures: left atrial mass s/p resection and mitral valve repair
Condition: Good
Diet: Diabetic, Carb Controlled
Activity: Other activity
Additional Activity: see instructions below
Driving Restrictions: Not until seen by your Dr
Blood Work: weekly cbc, cmp, CK while on IV antibiotics
Other Services: VN
Specialty Instructions: Weigh Daily- Call MD for wt gain/loss 3 lbs overnight/5 lbs in 1 week
Activity Restrictions/Additional Instructions:
Call to schedule you Outpatient Cardiac Rehab appointments at [facility] ([phone]) or [facility] ([phone]).
ACTIVITY:
-No strenuous activity: no heavy lifting, pushing, pulling anything over 15 pounds for one month
-continue to use stairs as tolerated
DRIVING RESTRICTIONS:
-No driving for one month or until approved by your surgeon
WOUND CARE:
-Shower daily. Use soap & water.
-No lotions, creams or powders on incision area.
DIET:
-continue a low fat/low cholesterol diet.
-IF you are diabetic, continue carb controlled diet.
CARDIAC REHAB:
-Please make appointment to start in 5-6 weeks with your local hospital program. (See Cardiac Rehabilitation Discharge Booklet).
SPECIALTY INSTRUCTIONS:
-Weigh yourself daily. Call your physician for any weight gain/loss of 3 lbs overnight or 5 lbs in one week.
-REPORT any clicking noise or uneven appearance of your sternum to your surgeon immediately.
-If you smoke, you are instructed to quit. The [facility] smoking hotline phone number is [phone]
ID recomendations:
- Continue ceftriaxone 2g IV q12.
- continue Daptomycin 700mg IV q24.
- weekly cbc, cmp, CK while on IV antibiotics
- Hold statin while on daptomycin
Referrals:
Saulo Montgomery MD [Other] - 03/12/25 1:20 pm
[facility] [Other]
Referral Note: Fax Number is .
[facility] [Outside]
Referral Note: [phone]-Fax
UNKNOWN - PT DOES,NOT KNOW [Family Provider]
Italia Hawthorne CRNP [Specified Professional Personl, Cardiac Surgery] - 03/01/25 1:30 pm
Prescriptions:
New
potassium chloride [Klor-Con M20] 20 mEq Tablet,Er Particles/Crystals
20 meq PO DAILY 7 Days Qty: 7 0RF
furosemide 40 mg Tablet
40 mg PO BID AT 0800,1600 7 Days Qty: 14 0RF
carvedilol 12.5 mg Tablet
12.5 mg PO BID Qty: 60 2RF
DAPTOmycin [Cubicin] 700 MG
Syringe [Syringe-Pump] 0 ML
As Directed mls/hr IV Q24H
Ordered By: Des Cook PA-C
Last Taken: 02/03/25 17:10 14 mls
aspirin 81 mg Tablet,Chewable
81 mg PO DAILY Qty: 0 0RF
acetaminophen 325 mg Tablet
650 mg PO Q4HPRN PRN (Reason: mild pain,headache,temp >101F ) Qty: 0 0RF
ceftriaxone 2 gram Recon Soln
2,000 mg IV Q12H Qty: 0 0RF
Lactobac/Bifidobac [Visbiome]
1 cap PO DAILY 30 Days 0RF
oxycodone 5 mg Tablet
5 mg PO Q4HPRN PRN (Reason: moderate pain) Qty: 20 0RF
Continued
lidocaine 5 % Adhesive Patch,Medicated
1 patch TOPICAL DAILY
ergocalciferol (vitamin D2) [Vitamin D2] 1,250 mcg (50,000 unit) Capsule
1,250 mcg PO QWEEK
Rx Instructions:
Take x4 doses (dispensed 01/16/25)
ferrous sulfate
300 mg PO TID
Rx Instructions:
300 mg (5 ml syrup) orally TID
insulin lispro
2 - 10 units TIDWMEAL
Rx Instructions:
2-10 units 3 times a day before meal
aspirin 81 mg tablet,delayed release (DR/EC)
81 mg PO DAILY
insulin aspart U-100 100 unit/mL (3 mL) insulin pen
1 sliding scale dose SC AC
albuterol sulfate 90 mcg/actuation HFA aerosol inhaler
1 inh INHALATION Q6HPRN PRN (Reason: wheezing/SOB)
insulin aspart U-100 100 unit/mL (3 mL) insulin pen
17 unit SC AC Qty: 0 0RF
Changed
insulin glargine [Lantus Solostar U-100 Insulin] 100 unit/mL (3 mL) insulin pen
22 unit SC HS Qty: 0 0RF
losartan 100 mg Tablet
50 mg PO DAILY Qty: 0 0RF
Held
lovastatin 20 mg Tablet
20 mg PO QPM
Hold Instructions: Resume on 02/18/25.
spironolactone 50 mg Tablet
50 mg PO DAILY
Hold Instructions: Resume on 02/12/25.
Discontinued
chlorthalidone 25 mg Tablet
25 mg PO DAILY
linezolid 600 mg Tablet
600 mg PO BID Qty: 0 0RF
Rx Instructions:
every 12 hr for 10 days
Eliquis 5 mg Tablet
5 mg PO BID Qty: 60 1RF
Ceftriaxone
2 g IV Q12H
ceftriaxone 2 gram recon soln
2,000 mg IV Q12H
Discharge Orders:
Discharge Patient (As Directed); Ordered 02/04/25
Ordered By: Des Cook
Care Plan Goals
Care Plan Goals:
Problem: Readiness for enhanced knowledge related to diagnosis and treatment plan
Goal: Understand your diagnosis and treatment plan needs, including medications if applicable.
Instructions: Know your diagnosis, underlying causes and treatment plan options, including medications if applicable. Consult with your health care team to learn about your diagnosis and treatment plan, including medications if applicable.
Discharge Date and Time
Discharge Date/Time: 02/04/25 15:05
Print Language: AMHARIC
--- NOTE | 2025-02-04 12:00 | PTCARENOTE ---
Patient reassessed, assessment unchanged from previous. VSS, NSR on groundwater monitoring technician. Medications administered as ordered. Patient tolerating po intake, voiding without issues. Patient for discharge today.
--- NOTE | 2025-02-04 12:34 | CM ---
Received telephone call from [facility] mayonnaise mixer who states the IV Nurse will be there today around 5:00 p.m. Faxed the discharge istructions to [facility]. Mrs. Almaraz and staff know she needs to be home 5:00 p.m. Medical work-up
in progress. The discharge plan is to reutrn home with her spouse and daughter with [facility] and [facility] when medically stable.
[2025-02-04 12:35] LABS: Glucose - Point of Care 251 mg/dl (70-99)
[2025-02-04] MEDS: NOVOLOG FLEXPEN-MODERATE RESISTANCE 5 UNITS SC (12:35)
[2025-02-04 12:40] VITALS: BP 110/56
[2025-02-04] MEDS: CUBICIN 14 MG IV (13:26)
[2025-02-04] MEDS: FLUSH (NSS) IV ×2 (14:01)
[2025-02-04] MEDS: NSS IV (14:01)
--- NOTE | 2025-02-04 15:00 | PTCARENOTE ---
Patient discharged. VSS, NSR on drafter (cad) electrical. L upper arm PICC line in place, patient discharged with PICC line for home IV antibiotics. Visiting nurses to come to patient's house at 5pm today. Patient discussed with Lenora from care management,
information forwarded to [employer] per Lenora. Daptomycin administered prior to discharge. Patient verbalized understanding of discharge instructions, medications reviewed. All incision dressings removed, patient showered this am. Patient's spouse
at bedside. Transported to car by RN via wheelchair, transferred safely into car.
--- NOTE | 2025-02-04 15:04 | PTCARENOTE ---
Patient refused flu vaccine on discharge, states 'I want to get better before I take the flu shot.' Documented as such.
== END 2025-02-04 15:05 | disposition home health service (06) | DRG 219 ==
LOC: CVICU 19:22
PROVIDERS: Clinical Nurse Specialist Acute Care; Nurse Practitioner; Physician Assistant Medical; ADMITTING PHYSICIAN Thoracic Surgery (Cardiothoracic Vascular Surgery); ATTENDING PHYSICIAN Student in an Organized Health Care Education/Training Program; CONSULT PHYSICIAN Internal Medicine Critical Care Medicine; CONSULT PHYSICIAN Internal Medicine Infectious Disease; CONSULT PHYSICIAN Obstetrics & Gynecology; CONSULT PHYSICIAN Physical Medicine & Rehabilitation; OTHER PHYSICIAN Internal Medicine
PROC: 30233N1 Transfusion of Nonautologous Red Blood Cells into Peripheral Vein, Percutaneous Approach (ICD-10-PCS; 2025-01-28)
PROC: 02QG0ZZ Repair Mitral Valve, Open Approach (ICD-10-PCS; 2025-01-29)
PROC: B24BZZ4 Ultrasonography of Heart with Aorta, Transesophageal (ICD-10-PCS; 2025-01-29)
PROC: 02L70CK Occlusion of Left Atrial Appendage with Extraluminal Device, Open Approach (ICD-10-PCS; 2025-01-29)
PROC: 5A1221Z Performance of Cardiac Output, Continuous (ICD-10-PCS; 2025-01-29)
PROC: 02C Heart and Great Vessels, Extirpation (ICD-10-PCS; 2025-01-29)
DX: I34.81 Nonrheumatic mitral (valve) annulus calcification (principal); I63.49 Cerebral infarction due to embolism of other cerebral artery; D62 Acute posthemorrhagic anemia; D68.32 Hemorrhagic disorder due to extrinsic circulating anticoagulants; K52.1 Toxic gastroenteritis and colitis; J98.11 Atelectasis; Z68.41 Body mass index [BMI] 40.0-44.9, adult; I97.51 Accidental puncture and laceration of a circulatory system organ or structure during a circulatory system procedure; G81.93 Hemiplegia, unspecified affecting right nondominant side; R47.01 Aphasia; I34.89 Other nonrheumatic mitral valve disorders; I34.0 Nonrheumatic mitral (valve) insufficiency; E11.42 Type 2 diabetes mellitus with diabetic polyneuropathy; I10 Essential (primary) hypertension; G47.33 Obstructive sleep apnea (adult) (pediatric); N92.0 Excessive and frequent menstruation with regular cycle; D25.0 Submucous leiomyoma of uterus; E86.1 Hypovolemia; E87.70 Fluid overload, unspecified; E66.813 Obesity, class 3; E78.00 Pure hypercholesterolemia, unspecified; T45.515A Adverse effect of anticoagulants, initial encounter; K08.89 Other specified disorders of teeth and supporting structures; E11.65 Type 2 diabetes mellitus with hyperglycemia; B37.31 Acute candidiasis of vulva and vagina; Y83.8 Other surgical procedures as the cause of abnormal reaction of the patient, or of later complication, without mention of misadventure at the time of the procedure; T36.8X5A Adverse effect of other systemic antibiotics, initial encounter; R74.01 Elevation of levels of liver transaminase levels; K64.4 Residual hemorrhoidal skin tags; Z79.4 Long term (current) use of insulin; Z79.01 Long term (current) use of anticoagulants; Z82.3 Family history of stroke; Z88.0 Allergy status to penicillin
CPT/HCPCS: 70355; 70450; 71045; 71046; 71250; 76830; 76856; 80048; 80053; 81003; 81015; 82248; 82330; 82550; 82565; 82607; 82728; 82746; 82805; 82810; 82947; 82962; 83540; 83735; 84132; 84302; 84520; 85014; 85018; 85025; 85027; 85045; 85049; 85610; 85730; 86850; 86900; 86901; 86920; 87070; 87176; 87205; 87324; 87449; 88305; 93005; 93308; 93321; 93325; 94002; 94640; 97116; 97163; 97167; 97530; 97535; J0878; J2916; P9016